=== PATIENT | female | born 1930 ===

== ENCOUNTER 2016-11-21 10:23 | Inpatient (IN) | payer MEDICAID, MEDICARE ==
[2016-11-21 10:24] VITALS: BMI 29.2
[2016-11-21 11:20] LABS: BASO % 0.9 % (0.0-2.0); HEMATOCRIT 36.6 % (34.0-47.0); LYMPH # 1.5 K/uL (1.0-4.3); LYMPH % 40.7 % (20.0-40.0); MEAN PLATELET VOLUME 9.7 fL (7.2-11.7); MONO # 0.4 K/uL (0.0-0.8); MONO % 10.8 % (0.0-10.0); NRBC % 0.2 % (0.0-2.0); RED CELL DISTRIBUTION WIDTH 16.1 % (11.5-14.5); WHITE BLOOD COUNT 3.6 K/uL (4.8-10.8)
[2016-11-21 11:23] LABS: MEAN CELL VOLUME 90.5 fL (81.0-99.0)
--- NOTE | 2016-11-21 11:23 | RAD ---
HISTORY: SOB COMPARISON: None available. TECHNIQUE: Chest, one view. FINDINGS: Examination limited by habitus. External wires and leads obscure evaluation of the underlying parenchyma. LUNGS: Mild central vascular and pulmonary venous congestion. Please note that chest x-ray has limited sensitivity for the detection of pulmonary masses. PLEURA: No significant pleural effusion identified. No definite pneumothorax . CARDIOVASCULAR: Cardiomegaly. Left-sided AICD. OSSEOUS STRUCTURES: Osseous demineralization. Degenerative. VISUALIZED UPPER ABDOMEN: Unremarkable. OTHER FINDINGS: None. IMPRESSION: Overall CHF type pattern. Cardiomegaly. Mild central vascular and pulmonary venous congestion. Correlate clinically.
[2016-11-21 11:40] LABS: ALB/GLOB RATIO 1.1 (1.0-2.1); TOTAL PROTEIN 6.8 g/dL (6.3-8.3)
[2016-11-21 11:41] LABS: CALCIUM 8.7 mg/dl (8.6-10.4)
[2016-11-21 11:48] LABS: RBC URINE 13 /hpf (0-3); URINE BILIRUBIN NEGATIVE (NEGATIVE); URINE BLOOD 2+ (NEGATIVE); URINE COLOR Straw (YELLOW); URINE GLUCOSE (UA) NORMAL (Normal); URINE KETONE NEGATIVE (NEGATIVE); URINE LEUKOCYTE ESTERASE TRACE Leu/uL (Negative); URINE PROTEIN NEGATIVE (NEGATIVE); URINE UROBILINOGEN NORMAL mg/dL (0.2-1.0); WBC URINE 1 /hpf (0-5)
[2016-11-21 11:51] LABS: TROPONIN I 0.016 ng/mL (0.00-0.120)
--- NOTE | 2016-11-21 12:20 | C.PDOC ---
History Of Present Illness A 86 year old female presents to the emergency room with complaints of increasing shortness of breath and an occasional productive cough for the last few days. Patient reports development of chest pressure this morning. Patient denies any nausea, vomiting, fever, headaches, dizziness, or any other complaints. Time Seen by Provider: 11/21/16 10:59 Chief Complaint (Nursing): Shortness Of Breath History Per: Patient History/Exam Limitations: no limitations Onset/Duration Of Symptoms: Days (Few days) Current Symptoms Are (Timing): Still Present Quality: Pressure Associated Symptoms: denies: Fever, Chills, Dizziness Recent travel outside of the [place]: No Past Medical History Reviewed: Historical Data, Nursing Documentation, Vital Signs Vital Signs: Last Vital Signs Temp 98.0 F 11/23/16 08:00 Pulse 72 11/23/16 08:00 Resp 20 11/23/16 08:00 BP 123/73 11/23/16 08:00 Pulse Ox 98 11/23/16 08:00 - Medical History PMH: HTN, Hypercholesterolemia, Pneumonia Surgical History: Cholecystectomy, Pacemaker - [facility] Procedures ESOPHAGOGASTRODUODENOSCOPY [EGD] W/CLOSED BIOPSY (12/20/12) Family History: States: No Known Family Hx - Social History Hx Alcohol Use: No Hx Substance Use: No Review Of Systems Constitutional: Negative for: Fever, Chills Cardiovascular: Positive for: Chest Pain (Chest pressure) Respiratory: Positive for: Cough (Productive cough), Shortness of Breath Gastrointestinal: Negative for: Nausea, Vomiting, Diarrhea Neurological: Negative for: Headache, Dizziness Physical Exam - Physical Exam Appears: Non-toxic, In Acute Distress (Mild respiratory distress) Skin: Warm, Dry, No Rash Head: Atraumatic, Normacephalic Eye(s): bilateral: Normal Inspection Nose: Normal, No Discharge Oral Mucosa: Moist Neck: Normal ROM, Supple Cardiovascular: Rhythm Regular, No Murmur Respiratory: Decreased Breath Sounds, No Rales, No Rhonchi, No Wheezing Gastrointestinal/Abdominal: Soft, No Tenderness, No Guarding, No Rebound Extremity: Normal ROM, No Tenderness, Pedal Edema (trace) Neurological/Psych: Oriented x3, Normal Speech ED Course And Treatment - Laboratory Results Result Diagrams: 11/23/16 08:12 11/23/16 08:12 ECG Rhythm: Sinus Rhythm, L BBB Rate From EC O2 Sat by Pulse Oximetry: 94 Pulse Ox Interpretation: Normal - Radiology CXR: Interpreted by Me, Viewed By Me CXR Interpretation: Yes: Cardiomegaly, Other (Mild vascular congestion) Medical Decision Making Medical Decision Making: Plan: -- EKG -- CXR -- Labs -- Lasix IV Pt feeling less SLOB, Pt with cp ans elevated Pbnp plan observation Discussed with dr Butterfield, and Agudelo agree with plan Disposition - Disposition Disposition: HOSPITALIZED Disposition Time: 13:05 Condition: FAIR - Clinical Impression Clinical Impression: Congestive heart failure, Chest pain - Scribe Statement The provider has reviewed the documentation as recorded by the Scribe Derek Miranda All medical record entries made by the Scribe were at my direction and personally dictated by me. I have reviewed the chart and agree that the record accurately reflects my personal performance of the history, physical exam, medical decision making, and the department course for this patient. I have also personally directed, reviewed, and agree with the discharge instructions and disposition.
--- NOTE | 2016-11-21 16:12 | CP.PCM.CON ---
<Celeste Marroquin - Last Filed: 11/21/16 17:16> History of Present Illness - History of Present Illness History of Present Illness: PGY-[address] 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 At baseline, pt sleeps sitting up straight and use O2 only when needed. Last night, she was dyspneic despite nebulizer treatment and O2. She has increase generalized weakness, cannot finish a full sentence, decided to come to the hospital. She experienced dyspnec chest pain on b/l ribs, no radiation, improved after neb treatment. Denies sudden weight gain, swelling abdomin/legs. She arranges and took all her meds. Eat healthy, no recent can food/high salt food. On ED admission: T 97.6, HR 70, 124/76, RR 20, 94% RA WBC 3.6 BUN 31/Cre 1.1 BNP 9940 Trop 0.016 EKG - NSR 72, LA enlarged, LBBB. QTc 494 CXR - cardiomegaly, vascular congestion ROS - denies F/C, COLLADO, dizziness, N/V/D/C, dysuria PMH Why pacemaker HTN HLD PNA PSH Cholecystecomy FH None SH Live with 2 sisters, ambulate without using any assistive device Home cooking Denies ever smoke/drink/drug All CODEINE Med Amlodipine 5 daily Losartan 100 PO daily Laxis 40 daily, Klor-Con 10 meq daily Lipitor 10 Fluticasone PMD ? Outpt Neurosurgical Nurse Past Patient History - Infectious Disease Hx of Infectious Diseases: None - Past Medical History & Family History Past Medical History?: Yes - Past Social History Smoking Status: Unknown If Ever Smoked - CARDIAC Hx Hypercholesterolemia: Yes Hx Hypertension: Yes Hx Pacemaker: Yes - PULMONARY Hx Pneumonia: Yes - NEUROLOGICAL Hx Neurological Disorder: No - HEENT Hx HEENT Problems: Yes Other/Comment: uses corrective eyeglasses - RENAL Hx Chronic Kidney Disease: No - ENDOCRINE/METABOLIC Hx Endocrine Disorders: Yes Hx Diabetes Mellitus Type 2: Yes - HEMATOLOGICAL/ONCOLOGICAL Hx Blood Disorders: No - INTEGUMENTARY Hx Dermatological Problems: No - MUSCULOSKELETAL/RHEUMATOLOGICAL Hx Musculoskeletal Disorders: No Hx Falls: No - GASTROINTESTINAL Hx Gastrointestinal Disorders: No - GENITOURINARY/GYNECOLOGICAL Hx Genitourinary Disorders: No - PSYCHIATRIC Hx Substance Use: No - SURGICAL HISTORY Hx Cholecystectomy: Yes - ANESTHESIA Hx Anesthesia: Yes Hx Anesthesia Reactions: No Hx Malignant Hyperthermia: No Meds Allergies/Adverse Reactions: Allergies Allergy/AdvReac Type Severity Reaction Status Date / Time codeine Allergy RASH Verified 11/21/16 10:32 - Medications Medications: Current Medications Carvedilol (Coreg) 3.125 mg PO BID [facility] Furosemide (Lasix) 40 mg IVP BID [facility] Heparin Sodium (Porcine) (Heparin) 5,000 units SC Q8 [facility] Losartan Potassium (Cozaar) 100 mg PO DAILY [facility] Pantoprazole Sodium (Protonix Ec Tab) 40 mg PO DAILY [facility] Potassium Chloride (Klor-Con 10) 10 meq PO DAILY [facility] Rosuvastatin Calcium (Crestor) 5 mg PO HS [facility] Physical Exam - Constitutional Appears: No Acute Distress - Head Exam Head Exam: ATRAUMATIC, NORMOCEPHALIC - Eye Exam Eye Exam: EOMI, Normal appearance, PERRL. absent: Scleral icterus Pupil Exam: NORMAL ACCOMODATION - ENT Exam ENT Exam: Mucous Membranes Moist - Neck Exam Additional comments: pounding JVD - Respiratory Exam Respiratory Exam: Rales. absent: Accessory Muscle Use, Rhonchi, Wheezes - Cardiovascular Exam Cardiovascular Exam: REGULAR RHYTHM, +S1, +S2. absent: Systolic Murmur - GI/Abdominal Exam GI & Abdominal Exam: Normal Bowel Sounds, Soft. absent: Distended, Guarding, Rigid, Tenderness - Extremities Exam Extremities exam: Positive for: normal capillary refill, pedal pulses present. Negative for: calf tenderness, pedal edema - Back Exam Back exam: absent: CVA tenderness (L), CVA tenderness (R) - Neurological Exam Neurological exam: Alert, Normal Gait, Oriented x3 - Psychiatric Exam Psychiatric exam: Normal Affect, Normal Mood - Skin Skin Exam: Dry, Warm Results - Vital Signs Recent Vital Signs: Last Vital Signs Temp 97.6 F 11/21/16 10:28 Pulse 72 11/21/16 14:27 Resp 24 11/21/16 14:27 BP 145/83 11/21/16 14:27 Pulse Ox 98 11/21/16 14:27 - Labs Result Diagrams: 11/21/16 11:16 11/21/16 11:16 Assessment & Plan - Assessment and Plan (Free Text) Plan: 86 F with PMHx of CHF on home O2, Cardiomyopathy s/p Pacemaker, admitted for SOB and CHF exacerbation Dypsnea, cardiogenic vs Pulm CHF exacerbation, left-sided, acute on chronic - echocardiogram pending - Lasix 40 IV BID - watch K - daily wt - i/o - O2 as needed - consider ABG Cardiomyopathy s/p Pacemaker - interrogate Thursday Prophylaxis - heparin SC S/R/D/w Dr. Butterfield - Date & Time Date: 11/21/16 Time: 17:13 <Trenton Butterfield - Last Filed: 11/21/16 21:34> Meds - Medications Medications: Current Medications Aspirin (Ecotrin) 81 mg PO DAILY [facility] [place] Last Admin: 11/21/16 19:36 Dose: Not Given Carvedilol (Coreg) 3.125 mg PO BID [facility] Last Admin: 11/21/16 18:18 Dose: 3.125 mg Furosemide (Lasix) 40 mg IVP BID [facility] [place] Last Admin: 11/21/16 18:18 Dose: 40 mg Heparin Sodium (Porcine) (Heparin) 5,000 units SC Q8 [facility] Last Admin: 11/21/16 15:00 Dose: Not Given Insulin Human Regular (Novolin R) 0 unit SC ACHS [facility] PRN Reason: Protocol Losartan Potassium (Cozaar) 100 mg PO DAILY [facility] Pantoprazole Sodium (Protonix Ec Tab) 40 mg PO DAILY [facility] Potassium Chloride (Klor-Con 10) 10 meq PO DAILY [facility] Rosuvastatin Calcium (Crestor) 5 mg PO HS [facility] Results - Vital Signs Recent Vital Signs: Last Vital Signs Temp 97.6 F 11/21/16 16:56 Pulse 70 11/21/16 16:56 Resp 20 11/21/16 16:56 BP 132/80 11/21/16 18:18 Pulse Ox 94 L 11/21/16 17:41 - Labs Result Diagrams: 11/21/16 11:16 11/21/16 11:16 Labs: Laboratory Results - last 24 hr 11/21/16 11/21/16 11/21/16 18:19 18:19 18:53 APTT 26 D-Dimer, Quantitative 665 H Total Creatine Kinase 66 CK-MB (Mass) 0.42 Troponin I, Quant 0.0160 Hepatitis A IgM Ab Negative Hep Bs Antigen Negative Hep B Core IgM Ab Negative Hepatitis C Antibody Negative Assessment & Plan - Assessment and Plan (Free Text) Plan: Patient examined and evaluated with the manager medical writing. Agree with the management plan
--- NOTE | 2016-11-21 17:01 | CP.PCM.HP ---
<Natan Serra - Last Filed: 11/21/16 18:18> History of Present Illness - History of Present Illness History of Present Illness: CC: "Shortness of breath, pain around stomach and back" HPI: Pt is an 86 year old female with a PMHx of HTN, prediabetes, CHF s/p pacemaker placement, and hypercholesterolemia who presents to the ED with complaints of shortness of breath for a duration of 2 days. Pt is accompanied by her 2 sisters at bedside. According to her sesites, the pt has not had much of an appeteite for the past 2 days as well, noting that she onily eats a little bit of soup. Pt also reports that she has midepigastric pain that is circumferential and wraps around to her back. Pt reports that her licensed audiologist is Dr. Butterfield. Pt denies any fever, chills, chest pain, shortness of breath, cough , nasuea, vomiting, diarrhea, constipation, dizziness. PMHx: HTN, prediabetes, CHF s/p pacemaker placement, and hypercholesterolemia Home medications: cozaar, lipitor, lasix, potassium Allergies: Codeine (vomiting) Past Surgical Hx: cholecystectomy, hysterectomy Social Hx: denies hx of tobacco, alcohol, drug use Family Hx: no significant family hx reported Present on Admission - Present on Admission Any Indicators Present on Admission: No Review of Systems - Constitutional Constitutional: absent: Chills, Fever - EENT Eyes: absent: Blurred Vision, Change in Vision Ears: absent: Disequilibrium Nose/Mouth/Throat: absent: Nasal Congestion - Cardiovascular Cardiovascular: Dyspnea. absent: Chest Pain, Leg Edema, Palpitations - Respiratory Respiratory: absent: Cough - Gastrointestinal Gastrointestinal: Abdominal Pain. absent: Constipation, Diarrhea, Nausea, Vomiting - Genitourinary Genitourinary: absent: Dysuria - Musculoskeletal Musculoskeletal: Back Pain. absent: Joint Swelling - Integumentary Integumentary: absent: Bleeding Lesions - Neurological Neurological: absent: Abnormal Hearing, Confusion, Dizziness - Psychiatric Psychiatric: absent: Anxiety - Hematologic/Lymphatic Hematologic: absent: Easy Bleeding, Easy Bruising Past Patient History - Infectious Disease Hx of Infectious Diseases: None - Past Medical History & Family History Past Medical History?: Yes - Past Social History Smoking Status: Unknown If Ever Smoked - CARDIAC Hx Hypercholesterolemia: Yes Hx Hypertension: Yes Hx Pacemaker: Yes - PULMONARY Hx Pneumonia: Yes - NEUROLOGICAL Hx Neurological Disorder: No - HEENT Hx HEENT Problems: Yes Other/Comment: uses corrective eyeglasses - RENAL Hx Chronic Kidney Disease: No - ENDOCRINE/METABOLIC Hx Endocrine Disorders: Yes Hx Diabetes Mellitus Type 2: Yes - HEMATOLOGICAL/ONCOLOGICAL Hx Blood Disorders: No - INTEGUMENTARY Hx Dermatological Problems: No - MUSCULOSKELETAL/RHEUMATOLOGICAL Hx Musculoskeletal Disorders: No Hx Falls: No - GASTROINTESTINAL Hx Gastrointestinal Disorders: No - GENITOURINARY/GYNECOLOGICAL Hx Genitourinary Disorders: No - PSYCHIATRIC Hx Substance Use: No - SURGICAL HISTORY Hx Cholecystectomy: Yes - ANESTHESIA Hx Anesthesia: Yes Hx Anesthesia Reactions: No Hx Malignant Hyperthermia: No Meds Allergies/Adverse Reactions: Allergies Allergy/AdvReac Type Severity Reaction Status Date / Time codeine Allergy RASH Verified 11/21/16 10:32 Physical Exam - Constitutional Appears: No Acute Distress - Head Exam Head Exam: ATRAUMATIC, NORMOCEPHALIC - Eye Exam Eye Exam: EOMI, PERRL - ENT Exam ENT Exam: Mucous Membranes Moist. absent: Mucous Membranes Dry - Respiratory Exam Respiratory Exam: Clear to Auscultation Bilateral. absent: Rales, Rhonchi, Wheezes - Cardiovascular Exam Cardiovascular Exam: +S1, +S2. absent: Gallop, Rubs - GI/Abdominal Exam GI & Abdominal Exam: Normal Bowel Sounds, Soft. absent: Distended, Guarding, Rigid, Tenderness - Extremities Exam Extremities exam: Positive for: full ROM. Negative for: pedal edema - Neurological Exam Neurological exam: Alert, Oriented x3 - Psychiatric Exam Psychiatric exam: Normal Affect, Normal Mood - Skin Skin Exam: Normal Color, Warm Results - Vital Signs Recent Vital Signs: Last Vital Signs Temp 97.6 F 11/21/16 16:56 Pulse 70 11/21/16 16:56 Resp 20 11/21/16 16:56 BP 120/70 11/21/16 16:56 Pulse Ox 100 11/21/16 16:56 - Labs Result Diagrams: 11/21/16 11:16 11/21/16 11:16 Assessment & Plan - Assessment and Plan (Free Text) Assessment: CHF Exacerbation: EKG - Left bundle branch block, old (please see full report) Troponins x 1 - 0.0160 Serial cardiac enzymes pending CXR - cardiomegaly, pulmonary venous congestion (please see full report) Pro-BNP - 9940 Cardiology, Dr Butterfield, consulted. Help appreciated. Coreg 3.125 mg po bid Lasix 40 mg IV bid Cozaar 100 mg po qd Crestor 5 mg po hs Echocardiogram pending D-dimer pending HTN: Coreg 3.125 mg po bid Lasix 40 mg IV bid Cozaar 100 mg po qd Diabetes Mellitus: Accuchecks achs HgbA1c pending Regular insulin sliding scale Hypercholesterolemia: Crestor 5 mg po hs Prophylactic Measures: DVT: Heparin 5000 units sc q8h, SCDs GI: Protonix 40 mg po qd Potassium chloride 10 meq po qd <Agudelo,Peter H - Last Filed: 11/22/16 08:23> Results - Vital Signs Recent Vital Signs: Last Vital Signs Temp 98.1 F 11/22/16 08:04 Pulse 70 11/22/16 08:04 Resp 18 11/22/16 08:04 BP 133/85 11/22/16 08:04 Pulse Ox 99 11/22/16 08:04 - Labs Result Diagrams: 11/22/16 07:10 11/22/16 07:10 Labs: Laboratory Results - last 24 hr 11/21/16 11/21/16 11/21/16 18:19 18:19 18:53 WBC RBC Hgb Hct MCV MCH MCHC RDW Plt Count MPV Neut % (Auto) Lymph % (Auto) [place] % (Auto) Eos % (Auto) Baso % (Auto) Neut # Lymph # [place] # Eos # Baso # APTT 26 D-Dimer, Quantitative 665 H Sodium Potassium Chloride Carbon Dioxide Anion Gap BUN Creatinine Est GFR ( Amer) Est GFR (Non-Af Amer) Random Glucose Calcium Total Creatine Kinase 66 CK-MB (Mass) 0.42 Troponin I, Quant 0.0160 Triglycerides Cholesterol HDL Cholesterol Hepatitis A IgM Ab Negative Hep Bs Antigen Negative Hep B Core IgM Ab Negative Hepatitis C Antibody Negative 11/22/16 11/22/16 11/22/16 01:03 07:10 07:10 WBC 4.2 L RBC 4.15 Hgb 12.3 Hct 37.0 MCV 89.3 MCH 29.6 MCHC 33.2 RDW 16.9 H Plt Count 143 MPV 9.6 Neut % (Auto) 49.6 L Lymph % (Auto) 39.0 [place] % (Auto) 9.4 Eos % (Auto) 1.4 Baso % (Auto) 0.6 Neut # 2.1 Lymph # 1.7 [place] # 0.4 Eos # 0.1 Baso # 0.0 APTT D-Dimer, Quantitative Sodium 140 Potassium 3.3 L Chloride 101 Carbon Dioxide 28 Anion Gap 14 BUN 35 H Creatinine 1.3 H Est GFR ( Amer) 47 Est GFR (Non-Af Amer) 39 Random Glucose 105 Calcium 8.4 L Total Creatine Kinase 66 CK-MB (Mass) 0.45 Troponin I, Quant 0.0230 Triglycerides 74 Cholesterol 124 HDL Cholesterol 45 Hepatitis A IgM Ab Hep Bs Antigen Hep B Core IgM Ab Hepatitis C Antibody Attending/Attestation - Attestation I have personally seen and examined this patient.: Yes I have fully participated in the care of the patient.: Yes I have reviewed all pertinent clinical information: Yes Notes (Text): 11/22/16 08:19 Medical attending: Patient was seen and examined by me, agree with the above note by medical office receptionist. The patient was seen in the emergency room with the medical office receptionist. We reviewed the chest x-ray she has very remarkable cardiomegaly. Also there appears to be at least moderate bilateral congestion in the lung jiang as well. Were to give her some IV Lasix to see how she responds to this. Also I do not see a previous echo done the last time she was formally admitted appears to be in 2014. So at this time an echo is pending We need to follow I's and O's, daily weights. We are continuing most medications An EKG was done in the ER suggested that the patient has a left bundle branch block we were able to pull up old EKG and it showed that she's had this left bundle branch block for several years. She also does have what appears to be ? Either and AICD or pacemaker. The patient's licensed audiologist is aware that she's here and will also be following the case as well Thank you very much, Bo Agudelo
[2016-11-21 18:52] LABS: PARTIAL THROMBOPLASTIN TIME 26 SECONDS (21-34)
[2016-11-21] MEDS: (Novolin R) Insulin Human Regular 100 units/ml vial SC SCH (22:00)
[2016-11-22 07:35] LABS: BASO % 0.6 % (0.0-2.0); EOS # 0.1 K/uL (0.0-0.7); EOS % 1.4 % (0.0-4.0); LYMPH # 1.7 K/uL (1.0-4.3); MEAN CELL VOLUME 89.3 fL (81.0-99.0); MEAN CORPUSCULAR HEMOGLOBIN 29.6 pg (27.0-31.0); MEAN CORPUSCULAR HGB CONC 33.2 g/dL (33.0-37.0); MEAN PLATELET VOLUME 9.6 fL (7.2-11.7); MONO # 0.4 K/uL (0.0-0.8); MONO % 9.4 % (0.0-10.0); NRBC % 0.2 % (0.0-2.0); RED CELL DISTRIBUTION WIDTH 16.9 % (11.5-14.5); WHITE BLOOD COUNT 4.2 K/uL (4.8-10.8)
[2016-11-22 07:46] LABS: POTASSIUM 3.3 mmol/L (3.6-5.2)
[2016-11-22 07:49] LABS: CALCIUM 8.4 mg/dl (8.6-10.4)
[2016-11-22] MEDS: (Novolin R) Insulin Human Regular 100 units/ml vial SC SCH ×3 (07:54→22:00)
[2016-11-22 08:39] LABS: THYROID STIMULATING HORMONE 0.6 mIU/L (0.46-4.68)
[2016-11-22] MEDS ORDERED: FLUTICASONE FUROATE 200 MCG IH SCH (10:00)
[2016-11-22] MEDS: Pantoprazole 40 mg EC Tab PO SCH (10:28)
[2016-11-22] MEDS: Potassium Chloride 10 mEq ER Tab PO SCH (10:28)
--- NOTE | 2016-11-22 10:48 | NM ---
EXAM: NM Lung Perfusion and Ventilation Scan CLINICAL HISTORY: 86 years old, female; Screening exam; Other screening; Additional info: Shortness of breath, R/O pe TECHNIQUE: Nuclear Medicine ventilation and perfusion images of the lungs were obtained in multiple projections following inhalation of 6.8 mCi Xenon-133 gas and injection of 4 mCi Tc99m MAA. EXAM DATE/TIME: 11/22/2016 8:58 AM COMPARISON: CR - CHEST TWO VIEWS (PA/LAT) 05/08/2015 1:54:21 AM FINDINGS: Ventilation: Mild symmetrical delayed washout in both lungs. No ventilation defect. Perfusion: Perfusion defects in apical posterior segment left upper lobe, lingula segments, anterior basal segment right lower lobe. Other findings: Chest x-ray from previous day shows cardiomegaly and pulmonary venous congestion. No consolidation. IMPRESSION: High probability for pulmonary embolism.
[2016-11-22] MEDS ORDERED: Heparin25000 units/250ml 1/2NS 25,000 UNITS/250 ML BAG IV PRN (10:59)
--- NOTE | 2016-11-22 11:48 | CP.PCM.PN ---
Subjective - Date & Time of Evaluation Date of Evaluation: 11/22/16 Time of Evaluation: 11:30 - Subjective Subjective: This morning I was notified that patient V/Q was very concerning for 2 areas that are high probability of PE. Patient was started on heparin bolus 5,000 U and then heparin ggt at 10 units to follow protocol to keep the PTT in the 70s to 90s. Family present and we all discussed. Cardiology notified and pulmonology notified. Plan is to get the renal function better and get a CTA. Holding the Cozzaar and holding the lasix at this time. She was NOT having chest pain and NOT tachycardic on personnel monitor. Patient reported she still felt short of breath. She does report some epigastric pain. The patient is able to ambulate in the room on her own from bed to bathroom without assistance. The BP 130 systolic and HR has been in the 70s. Will need repeat EKGs, (previous ones were LBBB which she has had for sometime) cardiac enzymes ok. Objective - Vital Signs/Intake and Output Vital Signs (last 24 hours): Temp Pulse Resp BP Pulse Ox 98.1 F 70 18 131/82 99 11/22/16 08:04 11/22/16 08:04 11/22/16 08:04 11/22/16 10:29 11/22/16 08:04 Intake and Output: 11/22/16 11/22/16 06:59 18:59 Intake Total 110 Balance 110 - Medications Medications: Current Medications Aspirin (Ecotrin) 81 mg PO DAILY [facility] Last Admin: 11/22/16 10:29 Dose: 81 mg Carvedilol (Coreg) 3.125 mg PO BID [facility] Last Admin: 11/22/16 10:29 Dose: 3.125 mg Furosemide (Lasix) 40 mg IVP BID [facility] Last Admin: 11/22/16 10:29 Dose: 40 mg Heparin Sodium/Sodium Chloride (Heparin 15994 Units/250ml 1/2 Normal Saline) 25 ,000 units in 250 mls @ 6.486 mls/hr IV .Q24H PRN; Protocol; 10 UNITS/KG/HR PRN Reason: PROTOCOL Insulin Human Regular (Novolin R) 0 unit SC ACHS [facility] PRN Reason: Protocol Last Admin: 11/22/16 07:54 Dose: Not Given Losartan Potassium (Cozaar) 100 mg PO DAILY [facility] Last Admin: 11/22/16 10:28 Dose: 100 mg Pantoprazole Sodium (Protonix Ec Tab) 40 mg PO DAILY [facility] Last Admin: 11/22/16 10:28 Dose: 40 mg Potassium Chloride (Klor-Con 10) 10 meq PO DAILY [facility] Last Admin: 11/22/16 10:28 Dose: 10 meq Rosuvastatin Calcium (Crestor) 5 mg PO HS [facility] Last Admin: 11/21/16 22:04 Dose: 5 mg - Labs Labs: 11/22/16 07:10 11/22/16 07:10 APTT 26 SECONDS (21-34) 11/21/16 18:19 - Constitutional Appears: Well, Non-toxic, No Acute Distress - Head Exam Head Exam: NORMAL INSPECTION, NORMOCEPHALIC - Eye Exam Eye Exam: EOMI, Normal appearance - Respiratory Exam Respiratory Exam: Decreased Breath Sounds, Rhonchi - Cardiovascular Exam Cardiovascular Exam: REGULAR RHYTHM - GI/Abdominal Exam GI & Abdominal Exam: Soft, Normal Bowel Sounds - Neurological Exam Neurological Exam: Alert, Awake, Oriented x3 Neuro motor strength exam: Left Upper Extremity: 5, Right Upper Extremity: 5, Left Lower Extremity: 5, Right Lower Extremity: 5 - Psychiatric Exam Psychiatric exam: Normal Affect, Normal Mood - Skin Skin Exam: Normal Color, Warm Assessment and Plan - Assessment and Plan (Free Text) Assessment: Shortness of breath - High probability of PE 11/22: V/Q scan returned suggesting high probability of PE. She does not have C/ P but does report shortness of breath and also epigatric area pain. She is able to walk in her room without assistance on her own. And HR and BP is stable. Pending echo, I started heparin bolus 5,000 x 1 and then heparin ggt. Our goal is a PTT in the 70s to 90s. Her cardiac ezymes are negative. I discussed with her risk and insurance consultant and will get pulmonology evaluation. Her creatine is high so will stop lasix and also stop cozaar, if better tommorow I explained to family will get CTA. Ordered a lower extremity doppler to assess for DVT CHF Exacerbation: 11/22: Patient has a history of AICD/Pacer, pending interrogation of device Cardiac enzymes have been negative. Echo was done, pending read. A BNP is high however this maybe from a PE as mentoned abouve Holding the Lasix and Cozzar at this time EKG - Left bundle branch block, old (please see full report) Coreg 3.125 mg po bid Crestor 5 mg po hs Echocardiogram pending HTN: 11/22 Stable, Systolic in the 130s Coreg 3.125 mg po bid Lasix 40 mg IV bid Cozaar 100 mg po qd Diabetes Mellitus: Accuchecks achs HgbA1c pending Regular insulin sliding scale Hypercholesterolemia: Crestor 5 mg po hs Prophylactic Measures: DVT: Heparin 5000 units sc q8h, SCDs GI: Protonix 40 mg po qd Potassium chloride 10 meq po qd
--- NOTE | 2016-11-22 12:50 | CP.PCM.CON ---
History of Present Illness - History of Present Illness History of Present Illness: Reason for consultation: High probability VQ scan 86 year old female with a PMHx of HTN, CHF s/p pacemaker placement, and hypercholesterolemia who presented to the ED with complaints of shortness of breath for a duration of 2 days. VQ scan done showed high probability for pulmonary embolism. Pt also reports that she has midepigastric pain that is circumferential and wraps around to her back. Pt denies any fever, chills, chest pain, shortness of breath, cough, nasuea, vomiting, diarrhea, constipation , dizziness. PMHx: HTN, prediabetes, CHF s/p pacemaker placement, and hypercholesterolemia Home medications: cozaar, lipitor, lasix, potassium Allergies: Codeine (vomiting) Past Surgical Hx: cholecystectomy, hysterectomy Social Hx: denies hx of tobacco, alcohol, drug use Family Hx: no significant family hx reported Review of Systems - Review of Systems All systems: reviewed and no additional remarkable complaints except (Shortness of breath and abdominal pain) Past Patient History - Infectious Disease Hx of Infectious Diseases: None - Past Medical History & Family History Past Medical History?: Yes - Past Social History Smoking Status: Unknown If Ever Smoked - CARDIAC Hx Hypercholesterolemia: Yes Hx Hypertension: Yes - PULMONARY Hx Pneumonia: Yes - NEUROLOGICAL Hx Neurological Disorder: No - HEENT Hx HEENT Problems: Yes Other/Comment: uses corrective eyeglasses - RENAL Hx Chronic Kidney Disease: No - ENDOCRINE/METABOLIC Hx Diabetes Mellitus Type 2: Yes - HEMATOLOGICAL/ONCOLOGICAL Hx Blood Disorders: No - INTEGUMENTARY Hx Dermatological Problems: No - MUSCULOSKELETAL/RHEUMATOLOGICAL Hx Musculoskeletal Disorders: No Hx Falls: No - GASTROINTESTINAL Hx Gastrointestinal Disorders: No - GENITOURINARY/GYNECOLOGICAL Hx Genitourinary Disorders: No - PSYCHIATRIC Hx Substance Use: No - SURGICAL HISTORY Hx Cholecystectomy: Yes - ANESTHESIA Hx Anesthesia: Yes Hx Anesthesia Reactions: No Hx Malignant Hyperthermia: No Meds Allergies/Adverse Reactions: Allergies Allergy/AdvReac Type Severity Reaction Status Date / Time codeine Allergy RASH Verified 11/21/16 10:32 - Medications Medications: Current Medications Aspirin (Ecotrin) 81 mg PO DAILY [facility] Last Admin: 11/22/16 10:29 Dose: 81 mg Carvedilol (Coreg) 3.125 mg PO BID [facility] Last Admin: 11/22/16 10:29 Dose: 3.125 mg Furosemide (Lasix) 40 mg IVP BID [facility] Last Admin: 11/22/16 10:29 Dose: 40 mg Heparin Sodium/Sodium Chloride (Heparin 53888 Units/250ml 1/2 Normal Saline) 25 ,000 units in 250 mls @ 6.486 mls/hr IV .Q24H PRN; Protocol; 10 UNITS/KG/HR PRN Reason: PROTOCOL Last Admin: 11/22/16 12:13 Dose: 10 units/kg/hr, 6.486 mls/hr Insulin Human Regular (Novolin R) 0 unit SC ACHS [facility] PRN Reason: Protocol Last Admin: 11/22/16 07:54 Dose: Not Given Losartan Potassium (Cozaar) 100 mg PO DAILY [facility] Last Admin: 11/22/16 10:28 Dose: 100 mg Pantoprazole Sodium (Protonix Ec Tab) 40 mg PO DAILY [facility] Last Admin: 11/22/16 10:28 Dose: 40 mg Potassium Chloride (Klor-Con 10) 10 meq PO DAILY [facility] Last Admin: 11/22/16 10:28 Dose: 10 meq Rosuvastatin Calcium (Crestor) 5 mg PO HS [facility] Last Admin: 11/21/16 22:04 Dose: 5 mg Physical Exam - Head Exam Head Exam: ATRAUMATIC, NORMOCEPHALIC - Eye Exam Eye Exam: Normal appearance - ENT Exam ENT Exam: Mucous Membranes Moist - Neck Exam Neck exam: Positive for: Normal Inspection - Respiratory Exam Respiratory Exam: Clear to Auscultation Bilateral - Cardiovascular Exam Cardiovascular Exam: Irregular Rhythm - GI/Abdominal Exam GI & Abdominal Exam: Normal Bowel Sounds, Soft - Extremities Exam Extremities exam: Positive for: normal inspection - Neurological Exam Neurological exam: Alert, Oriented x3 Results - Vital Signs Recent Vital Signs: Last Vital Signs Temp 98.1 F 11/22/16 08:04 Pulse 70 11/22/16 08:04 Resp 18 11/22/16 08:04 BP 131/82 11/22/16 10:29 Pulse Ox 99 11/22/16 08:04 - Labs Result Diagrams: 11/22/16 07:10 11/22/16 07:10 Labs: Laboratory Results - last 24 hr 11/21/16 11/21/16 11/21/16 18:19 18:19 18:53 WBC RBC Hgb Hct MCV MCH MCHC RDW Plt Count MPV Neut % (Auto) Lymph % (Auto) [place] % (Auto) Eos % (Auto) Baso % (Auto) Neut # Lymph # [place] # Eos # Baso # APTT 26 D-Dimer, Quantitative 665 H Sodium Potassium Chloride Carbon Dioxide Anion Gap BUN Creatinine Est GFR ( Amer) Est GFR (Non-Af Amer) Random Glucose Calcium Total Creatine Kinase 66 CK-MB (Mass) 0.42 Troponin I, Quant 0.0160 Triglycerides Cholesterol LDL Cholesterol Direct HDL Cholesterol TSH 3rd Generation Hepatitis A IgM Ab Negative Hep Bs Antigen Negative Hep B Core IgM Ab Negative Hepatitis C Antibody Negative 11/22/16 11/22/16 11/22/16 01:03 07:10 07:10 WBC 4.2 L RBC 4.15 Hgb 12.3 Hct 37.0 MCV 89.3 MCH 29.6 MCHC 33.2 RDW 16.9 H Plt Count 143 MPV 9.6 Neut % (Auto) 49.6 L Lymph % (Auto) 39.0 [place]ois % (Auto) 9.4 Eos % (Auto) 1.4 Baso % (Auto) 0.6 Neut # 2.1 Lymph # 1.7 [place]ois # 0.4 Eos # 0.1 Baso # 0.0 APTT D-Dimer, Quantitative Sodium 140 Potassium 3.3 L Chloride 101 Carbon Dioxide 28 Anion Gap 14 BUN 35 H Creatinine 1.3 H Est GFR ( Amer) 47 Est GFR (Non-Af Amer) 39 Random Glucose 105 Calcium 8.4 L Total Creatine Kinase 66 CK-MB (Mass) 0.45 Troponin I, Quant 0.0230 Triglycerides 74 Cholesterol 124 LDL Cholesterol Direct 56 HDL Cholesterol 45 TSH 3rd Generation 0.60 Hepatitis A IgM Ab Hep Bs Antigen Hep B Core IgM Ab Hepatitis C Antibody Assessment & Plan (1) Congestive heart failure Status: Acute Comment: VQ scan high probability for pulmonary embolism. Unable to do a CT angiogram because of her elevated creatinine level. Started on IV heparin. hold Lasix and Cozaar. Venous Doppler negative for DVT. Echocardiogram noted (2) Pneumonia Status: Acute
[2016-11-22] MEDS: Heparin25000 units/250ml 1/2NS 25,000 UNITS/250 ML BAG IV PRN (22:04)
--- NOTE | 2016-11-22 22:48 | CP.PCM.PN ---
Subjective - Date & Time of Evaluation Date of Evaluation: 11/22/16 Time of Evaluation: 14:30 - Subjective Subjective: Patient seen and evaluated Events noted Physical Exam - Constitutional Appears: No Acute Distress - Head Exam Head Exam: ATRAUMATIC, NORMOCEPHALIC - Eye Exam Eye Exam: EOMI, Normal appearance, PERRL. absent: Scleral icterus Pupil Exam: NORMAL ACCOMODATION - ENT Exam ENT Exam: Mucous Membranes Moist - Neck Exam Additional comments: pounding JVD - Respiratory Exam Respiratory Exam: Rales. absent: Accessory Muscle Use, Rhonchi, Wheezes - Cardiovascular Exam Cardiovascular Exam: REGULAR RHYTHM, +S1, +S2. absent: Systolic Murmur - GI/Abdominal Exam GI & Abdominal Exam: Normal Bowel Sounds, Soft. absent: Distended, Guarding, Rigid, Tenderness - Extremities Exam Extremities exam: Positive for: normal capillary refill, pedal pulses present. Negative for: calf tenderness, pedal edema - Back Exam Back exam: absent: CVA tenderness (L), CVA tenderness (R) - Neurological Exam Neurological exam: Alert, Normal Gait, Oriented x3 - Psychiatric Exam Psychiatric exam: Normal Affect, Normal Mood - Skin Skin Exam: Dry, Warm Objective - Vital Signs/Intake and Output Vital Signs (last 24 hours): Temp Pulse Resp BP Pulse Ox 98.4 F 70 20 109/69 100 11/22/16 15:26 11/22/16 15:26 11/22/16 15:26 11/22/16 15:26 11/22/16 15:26 - Medications Medications: Current Medications Aspirin (Ecotrin) [address] [facility] Last Admin: 11/22/16 10:29 Dose: 81 mg Carvedilol (Coreg) 3.[address] [facility] Last Admin: 11/22/16 21:37 Dose: 3.125 mg Furosemide (Lasix) [address] [facility] Last Admin: 11/22/16 10:29 Dose: 40 mg Heparin Sodium/Sodium Chloride (Heparin 85708 Units/250ml 1/2 Normal Saline) 25 ,000 units in 250 mls @ 4.54 mls/hr IV .Q24H PRN; Protocol; 7 UNITS/KG/HR PRN Reason: PROTOCOL Last Admin: 11/22/16 22:04 Dose: 7 units/kg/hr, 4.54 mls/hr Insulin Human Regular (Novolin R) [address] [facility] PRN Reason: Protocol Last Admin: 11/22/16 17:00 Dose: Not Given Losartan Potassium (Cozaar) [address] [facility] Last Admin: 11/22/16 10:28 Dose: 100 mg Pantoprazole Sodium (Protonix Ec Tab) [address] [facility] Last Admin: 11/22/16 10:28 Dose: 40 mg Potassium Chloride (Klor-Con 10) [address] [facility] Last Admin: 11/22/16 10:28 Dose: 10 meq Rosuvastatin Calcium (Crestor) [address] [facility] Last Admin: 11/22/16 21:36 Dose: 5 mg - Labs Labs: APTT 146 SECONDS (21-34) H* D 11/22/16 20:00 Assessment and Plan - Assessment and Plan (Free Text) Assessment: 86 F with PMHx of CHF on home O2, Cardiomyopathy s/p Pacemaker, admitted for SOB and CHF exacerbation Dypsnea, CHF exacerbation, left-sided, acute on chronic - echocardiogram: Normal EF, Pulmonary HTN - Lasix 40 IV BID on hold - watch K - daily wt - i/o - O2 as needed - consider ABG Cardiomyopathy s/p Pacemaker - interrogate Thursday Pulmonary Embolism - heparin IV
[2016-11-23] MEDS: (Novolin R) Insulin Human Regular 100 units/ml vial SC SCH ×3 (08:16→22:00)
[2016-11-23 08:28] LABS: BASO % 0.5 % (0.0-2.0); EOS # 0.1 K/uL (0.0-0.7); EOS % 1.7 % (0.0-4.0); HEMATOCRIT 40.1 % (34.0-47.0); MEAN CELL VOLUME 89.4 fL (81.0-99.0); MEAN CORPUSCULAR HEMOGLOBIN 28.9 pg (27.0-31.0); MEAN CORPUSCULAR HGB CONC 32.3 g/dL (33.0-37.0); MEAN PLATELET VOLUME 9.8 fL (7.2-11.7); MONO # 0.4 K/uL (0.0-0.8); MONO % 10.6 % (0.0-10.0); NRBC % 0.1 % (0.0-2.0); RED CELL DISTRIBUTION WIDTH 16.4 % (11.5-14.5); WHITE BLOOD COUNT 4.1 K/uL (4.8-10.8)
[2016-11-23 08:49] LABS: POTASSIUM 3.3 mmol/L (3.6-5.2)
[2016-11-23 08:51] LABS: BILIRUBIN,TOTAL 2.5 mg/dL (0.2-1.3); TOTAL PROTEIN 6.9 g/dL (6.3-8.3)
[2016-11-23 08:52] LABS: CALCIUM 8.3 mg/dl (8.6-10.4); PHOSPHOROUS 3.7 mg/dL (2.5-4.5)
--- NOTE | 2016-11-23 09:19 | CP.PCM.PN ---
Subjective - Date & Time of Evaluation Date of Evaluation: 11/23/16 Time of Evaluation: 09:00 - Subjective Subjective: Renal function looks better, will order CTA of chest with PE protocol. I saw her this morning, she looks fine. In my basic [place]ic she was able to explain that she did NOT have chest pain, did NOT have shortness of breath, and did NOT have the epigastric pain like she did yesterday. Also she denied palpitations as well. Telemetry her HR was in 70 range. Currently on IV heparin ggt. As mentioned before she came with CHF and then had a V/Q scan that was positive. We are trying to get a CTA. The lower extremity dopplers were negative. Objective - Vital Signs/Intake and Output Vital Signs (last 24 hours): Temp Pulse Resp BP Pulse Ox 98.1 F 70 20 124/79 100 11/22/16 23:05 11/22/16 23:05 11/22/16 23:05 11/22/16 23:05 11/22/16 23:05 Intake and Output: 11/23/16 11/23/16 06:59 18:59 Intake Total 136 Output Total 400 Balance -264 - Medications Medications: Current Medications Aspirin (Ecotrin) 81 mg PO DAILY [facility] Last Admin: 11/22/16 10:29 Dose: 81 mg Carvedilol (Coreg) 3.125 mg PO BID [facility] Last Admin: 11/22/16 21:37 Dose: 3.125 mg Furosemide (Lasix) 40 mg IVP BID [facility] Last Admin: 11/22/16 10:29 Dose: 40 mg Heparin Sodium/Sodium Chloride (Heparin 26971 Units/250ml 1/2 Normal Saline) 25 ,000 units in 250 mls @ 4.54 mls/hr IV .Q24H PRN; Protocol; 7 UNITS/KG/HR PRN Reason: PROTOCOL Last Admin: 11/22/16 22:04 Dose: 7 units/kg/hr, 4.54 mls/hr Insulin Human Regular (Novolin R) 0 unit SC ACHS [facility] PRN Reason: Protocol Last Admin: 11/23/16 08:16 Dose: Not Given Losartan Potassium (Cozaar) 100 mg PO DAILY [facility] Last Admin: 11/22/16 10:28 Dose: 100 mg Pantoprazole Sodium (Protonix Ec Tab) 40 mg PO DAILY [facility] Last Admin: 11/22/16 10:28 Dose: 40 mg Potassium Chloride (Klor-Con 10) 10 meq PO DAILY [facility] Last Admin: 11/22/16 10:28 Dose: 10 meq Rosuvastatin Calcium (Crestor) 5 mg PO HS [facility] Last Admin: 11/22/16 21:36 Dose: 5 mg - Labs Labs: 11/23/16 08:12 11/23/16 08:12 APTT 61 SECONDS (21-34) H D 11/23/16 04:00 Assessment and Plan - Assessment and Plan (Free Text) Assessment: Shortness of breath - High probability of PE 11/23: Today renal function is better, so will check CTA. She is continue on heparin ggt at this time. She appears to be stable HR and blood pressure. I had a very long extended discussion with family yesterday at bedside. 11/22: V/Q scan returned suggesting high probability of PE. She does not have C/ P but does report shortness of breath and also epigatric area pain. She is able to walk in her room without assistance on her own. And HR and BP is stable. Pending echo, I started heparin bolus 5,000 x 1 and then heparin ggt. Our goal is a PTT in the 70s to 90s. Her cardiac ezymes are negative. 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 Her creatine is high so will stop lasix and also stop cozaar, if better tommorow I explained to family will get CTA. Ordered a lower extremity doppler to assess for DVT CHF Exacerbation: 11/23: Today she was not short of breath. 11/22: Patient has a history of AICD/Pacer, pending interrogation of device Cardiac enzymes have been negative. Echo was done, pending read. A BNP is high however this maybe from a PE as mentoned abouve Holding the Lasix and Cozzar at this time EKG - Left bundle branch block, old (please see full report) Coreg 3.125 mg po bid Crestor 5 mg po hs Echocardiogram pending HTN: 11/23: Continue to monitor 11/22 Stable, Systolic in the 130s Coreg 3.125 mg po bid Lasix 40 mg IV bid Cozaar 100 mg po qd Diabetes Mellitus: Accuchecks achs HgbA1c pending Regular insulin sliding scale Hypercholesterolemia: Crestor 5 mg po hs Prophylactic Measures: DVT: Heparin 5000 units sc q8h, SCDs GI: Protonix 40 mg po qd Potassium chloride 10 meq po qd
[2016-11-23] MEDS: Pantoprazole 40 mg EC Tab PO SCH (09:54)
[2016-11-23] MEDS: Potassium Chloride 10 mEq ER Tab PO SCH (09:54)
[2016-11-23] MEDS ORDERED: Iodixanol 320 MG/ML 100 ML BOTTLE IV ONE (10:21)
--- NOTE | 2016-11-23 13:24 | CT ---
CT chest pulmonary angiogram History: Positive V/Q scan. Shortness of breath. Evaluate for pulmonary embolism. Comparison: V/Q scan dated 11/22/2016 Technique: Multiple contiguous axial images were performed through the chest with the use of intravenous contrast according to a CT chest pulmonary angiogram protocol. Subsequently, sagittal and coronal reformatted images were obtained. This CT exam was performed using one or more of the following dose reduction techniques: Automated exposure control, adjustment of the mA and/or kV according to patient size, and/or use of iterative reconstruction technique. Findings: Right lung: Few scattered ground-glass opacities throughout the right lung which may represent underlying acute infectious or inflammatory changes. Posttreatment followup would be helpful to exclude underlying nodules and or lesions. For example at the right lung apex a 6 millimeter ground-glass opacity on series 4, image 19 is noted. Additional 4 millimeter density is noted within the right middle lobe anteriorly at its superior aspect. Small right pleural effusion. Adjacent right basilar atelectasis. Left lung: Multiple focal nodular areas of ground-glass opacification throughout the left lung some of which have a more consolidative nodular appearance. This may be the sequela of acute infectious and or inflammatory changes however underlying pulmonary nodules and or lesions can't be excluded. Clinical correlation. For example at the left lung apex on series 4, image 16 an 8 millimeter nodular density is noted. Multiple innumerable similar lesions are noted throughout the lung. For example on series 4, image 24 within the left upper lobe anteriorly additional 7 millimeter nodular density is noted. More consolidative opacification measuring up to a centimeters noted within the lingula. Trace left pleural effusion. Prominent focal consolidative changes noted within the posterior aspect of the left lower lobe near the fissure. Additional 2.3 centimeter focal area consolidative changes noted within the posterior superior segment of the left lower lobe. Trachea thru central airways are patent. Moderate pericardial effusion. No significant axillary adenopathy. Heterogeneity of the thyroid. Mild prominence of the visualized aorta with calcification. Few shotty pre-vascular lymph nodes measuring up to 1.3 centimeters. Nodularity of the adrenal glands. Small hiatal hernia. Degenerative changes in the spine. Evaluation for pulmonary embolus is limited given prominent patient motion artifact. No evidence central pulmonary embolism. Question filling defect in a subsegmental branch of the right lower lobe pulmonary artery on series 2, image 112 which may represent a small pulmonary embolism versus artifact. Additional small questionable filling defect seen within a subsegmental branch of the left lower lobe pulmonary artery on series 2, image 11 may also represent small embolism versus artifact. Clinical correlation. Impression: 1. Evaluation for pulmonary embolus is limited given prominent patient motion artifact. No evidence central pulmonary embolism. Question filling defect in a subsegmental branch of the right lower lobe pulmonary artery on series 2, image 112 which may represent a small pulmonary embolism versus artifact. Additional small questionable filling defect seen within a subsegmental branch of the left lower lobe pulmonary artery on series 2, image 11 may also represent small embolism versus artifact. Clinical correlation. Repeat study may be helpful if clinically indicated given prominent patient motion artifact. 2. Right lung: Few scattered ground-glass opacities throughout the right lung which may represent underlying acute infectious or inflammatory changes. Posttreatment followup would be helpful to exclude underlying nodules and or lesions. For example at the right lung apex a 6 millimeter ground-glass opacity on series 4, image 19 is noted. Additional 4 millimeter density is noted within the right middle lobe anteriorly at its superior aspect. Small right pleural effusion. Adjacent right basilar atelectasis. 3. Left lung: Multiple focal nodular areas of ground-glass opacification throughout the left lung some of which have a more consolidative nodular appearance. This may be the sequela of acute infectious and or inflammatory changes however underlying pulmonary nodules and or lesions can't be excluded. Clinical correlation. For example at the left lung apex on series 4, image 16 an 8 millimeter nodular density is noted. Multiple innumerable similar lesions are noted throughout the lung. For example on series 4, image 24 within the left upper lobe anteriorly additional 7 millimeter nodular density is noted. More consolidative opacification measuring up to a centimeters noted within the lingula. Trace left pleural effusion. Prominent focal consolidative changes noted within the posterior aspect of the left lower lobe near the fissure. Additional 2.3 centimeter focal area consolidative changes noted within the posterior superior segment of the left lower lobe. 4. Moderate pericardial effusion. 5. Few shotty pre-vascular lymph nodes measuring up to 1.3 centimeters.
[2016-11-23] MEDS: Heparin25000 units/250ml 1/2NS 25,000 UNITS/250 ML BAG IV PRN (17:01)
--- NOTE | 2016-11-23 17:58 | CARD ---
APPROVED REPORT EXAM: Two-dimensional and M-mode echocardiogram with Doppler and color Doppler. Other Information Quality : GoodRhythm : NSR INDICATION Dyspnea Congestive Heart Failure COPD M-Mode DIMENSIONS RVDd1.64 (2.1-3.2cm)Left Atrium (MM)4.84 (2.5-4.0cm) IVSd0.86 (0.7-1.1cm)Aortic Root2.46 (2.2-3.7cm) LVDd5.58 (4.0-5.6cm)Aortic Cusp Exc.1.60 (1.5-2.0cm) PWd2.07 (0.7-1.1cm)FS (%) 16 % LVDs4.69 (2.0-3.8cm)LVEF (%)33 (>50%) Aortic Valve AoV Peak Uqtaqoqc096.9cm/Leny Peak GR.5mmHgAI P 1/2 [id number] Mitral Valve MV E Rwtwigms457.6cm/sMV A Tvasjoph25.3cm/sE/A ratio2.0 TDI E/Lateral E'0.0E/Medial E'0.0 Tricuspid Valve TR Peak [id number]/sTR Peak Gr.[id number] LEFT VENTRICLE The left ventricle is normal size. There is moderate asymmetric left ventricular hypertrophy. Left ventricle systolic function is severely impaired. The Ejection Fraction is 25-30%. No regional wall motion abnormalities noted. Tissue Doppler imaging reveals abnormal left ventricular diastolic dysfunction. No left ventricle thrombus noted on this study. There is no ventricular septal defect visualized. There is no left ventricular aneurysm. There is no mass noted in the left ventricle. RIGHT VENTRICLE The right ventricle is normal size. There is normal right ventricular wall thickness. The right ventricular systolic function is normal. There is a pacemaker lead in the right ventricle. ATRIA The left atrium is moderately dilated. The right atrium size is normal. The interatrial septum is intact with no evidence for an atrial septal defect. AORTIC VALVE The aortic valve is normal in structure and function. There is moderate aortic regurgitation. There is no aortic valvular stenosis. There is no aortic valvular vegetation. MITRAL VALVE The mitral valve is normal in structure and function. There is no evidence of mitral valve prolapse. There is no mitral valve stenosis. Mitral regurgitation is severe. TRICUSPID VALVE The tricuspid valve is normal in structure and function. There is severe tricuspid regurgitation. Right ventricular systolic pressure is estimated at greater than 60 mmHg. There is severe pulmonary hypertension. There is no tricuspid valve prolapse or vegetation. There is no tricuspid valve stenosis. PULMONIC VALVE The pulmonary valve is normal in structure and function. There is no pulmonic valvular regurgitation. There is no pulmonic valvular stenosis. GREAT VESSELS The aortic root is normal in size. The ascending aorta is normal in size. The pulmonary artery is normal. The IVC is normal in size and collapses >50% with inspiration. PERICARDIAL EFFUSION There is a trace loculated posterior pericardial effusion. There is no pleural effusion. <Conclusion> There is moderate asymmetric left ventricular hypertrophy. Left ventricle systolic function is severely impaired. The Ejection Fraction is 25-30%. Tissue Doppler imaging reveals abnormal left ventricular diastolic dysfunction. There is a pacemaker lead in the right ventricle. The left atrium is moderately dilated. There is moderate aortic regurgitation. Mitral regurgitation is severe. Right ventricular systolic pressure is estimated at greater than 60 mmHg. There is severe pulmonary hypertension. There is a trace loculated posterior pericardial effusion.
--- NOTE | 2016-11-23 23:57 | CP.PCM.PN ---
Subjective - Date & Time of Evaluation Date of Evaluation: 11/23/16 Time of Evaluation: 13:05 - Subjective Subjective: Patient seen and evaluated Feeling better Objective - Vital Signs/Intake and Output Vital Signs (last 24 hours): Temp Pulse Resp BP Pulse Ox 97.9 F 69 20 114/71 98 11/23/16 16:56 11/23/16 16:56 11/23/16 16:56 11/23/16 16:56 11/23/16 16:56 Intake and Output: 11/23/16 11/24/16 18:59 06:59 Intake Total 250 Balance 250 - Medications Medications: Current Medications Aspirin (Ecotrin) 81 mg PO DAILY [facility] Last Admin: 11/23/16 09:53 Dose: 81 mg Carvedilol (Coreg) 3.125 mg PO BID [facility] Last Admin: 11/23/16 22:40 Dose: 3.125 mg Furosemide (Lasix) 40 mg IVP BID [facility] Last Admin: 11/22/16 10:29 Dose: 40 mg Heparin Sodium/Sodium Chloride (Heparin 87415 Units/250ml 1/2 Normal Saline) 25 ,000 units in 250 mls @ 4.54 mls/hr IV .Q24H PRN; Protocol; 7 UNITS/KG/HR PRN Reason: PROTOCOL Last Admin: 11/23/16 17:01 Dose: 7 units/kg/hr, 4.54 mls/hr Insulin Human Regular (Novolin R) 0 unit SC ACHS [facility] PRN Reason: Protocol Last Admin: 11/23/16 17:41 Dose: Not Given Losartan Potassium (Cozaar) 100 mg PO DAILY [facility] Last Admin: 11/22/16 10:28 Dose: 100 mg Pantoprazole Sodium (Protonix Ec Tab) 40 mg PO DAILY [facility] Last Admin: 11/23/16 09:54 Dose: 40 mg Potassium Chloride (Klor-Con 10) 10 meq PO DAILY [facility] Last Admin: 11/23/16 09:54 Dose: 10 meq Rosuvastatin Calcium (Crestor) 5 mg PO HS [facility] Last Admin: 11/23/16 22:42 Dose: 5 mg - Labs Labs: 11/23/16 08:12 11/23/16 08:12 APTT 59 SECONDS (21-34) H 11/23/16 11:23
[2016-11-24] MEDS: (Novolin R) Insulin Human Regular 100 units/ml vial SC SCH ×4 (07:30→22:00)
[2016-11-24 07:36] LABS: BASO % 0.8 % (0.0-2.0); EOS # 0.1 K/uL (0.0-0.7); EOS % 2.7 % (0.0-4.0); HEMATOCRIT 37.4 % (34.0-47.0); LYMPH # 1.8 K/uL (1.0-4.3); LYMPH % 58.2 % (20.0-40.0); MEAN CELL VOLUME 89.3 fL (81.0-99.0); MEAN CORPUSCULAR HEMOGLOBIN 29.5 pg (27.0-31.0); MEAN PLATELET VOLUME 9.2 fL (7.2-11.7); MONO # 0.3 K/uL (0.0-0.8); MONO % 10.6 % (0.0-10.0); NRBC % 0.2 % (0.0-2.0); RED CELL DISTRIBUTION WIDTH 16.3 % (11.5-14.5); WHITE BLOOD COUNT 3.1 K/uL (4.8-10.8)
[2016-11-24 07:38] LABS: CHLORIDE 102 mmol/L (98-107); POTASSIUM 3.4 mmol/L (3.6-5.2); SODIUM 139 mmol/L (132-148)
[2016-11-24 07:40] LABS: AST/SGOT 27 U/L (14-36); BILIRUBIN,TOTAL 1.4 mg/dL (0.2-1.3); CARBON DIOXIDE 29 mmol/L (22-30); GFR AFRICAN-AMERICAN > 60; TOTAL PROTEIN 6.4 g/dL (6.3-8.3)
[2016-11-24 07:41] LABS: ALKALINE PHOSPHATASE 75 U/L (38-126); ALT/SGPT 27 U/L (9-52); BLOOD UREA NITROGEN 28 mg/dL (7-17); CALCIUM 8.3 mg/dl (8.6-10.4); GLUCOSE,RANDOM 108 mg/dL (65-105); MAGNESIUM 2.1 mg/dL (1.6-2.3); PHOSPHOROUS 3.5 mg/dL (2.5-4.5)
[2016-11-24] MEDS ORDERED: Potassium Chloride 20 mEq ER Tab PO ONE ×2 (09:06→10:30)
[2016-11-24] MEDS: Pantoprazole 40 mg EC Tab PO SCH (10:09)
[2016-11-24] MEDS: Potassium Chloride 10 mEq ER Tab PO SCH (10:09)
--- NOTE | 2016-11-24 10:58 | VASCLAB ---
PROCEDURE: Lower Extremity Venous Duplex Exam. HISTORY: +VQ PRIORS: None. TECHNIQUE: Bilateral common femoral, femoral, popliteal and posterior tibial, peroneal and great saphenous veins were evaluated. Flow was assessed with color Doppler, compressibility, assessment of phasic flow and augmentation response. Report prepared by Rocco Meza, JEAN CLAUDE, RVT FINDINGS: RIGHT: 1. Common Femoral Vein: 1.1. Compressibility - Fully compressible: Thrombus - None : Flow - Phasic: Augmentation -Normal: Reflux - None. 2. Femoral Vein: 2.1. Compressibility - Fully compressible: Thrombus - None : Flow - Phasic: Augmentation -Normal: Reflux - None. 3. Popliteal Vein: 3.1. Compressibility - Fully compressible: Thrombus - None : Flow - Phasic: Augmentation -Normal: Reflux - None. 4. Posterior Tibial Vein: 4.1. Compressibility - Fully compressible: Thrombus - None: Flow - Phasic: Augmentation -Normal: Reflux - None. 5. Peroneal Vein: 5.1. Compressibility - Fully compressible: Thrombus - None: Flow - Phasic: Augmentation -Normal: Reflux - None. 6. Great Saphenous Vein: 6.1. Compressibility - Fully compressible: Thrombus - None: Flow - Phasic: Augmentation - Normal: Reflux - None. LEFT: 1. Common Femoral Vein: 1.1. Compressibility - Fully compressible: Thrombus - None: Flow - Phasic: Augmentation -Normal: Reflux - None. 2. Femoral Vein: 2.1. Compressibility - Fully compressible: Thrombus - None: Flow - Phasic: Augmentation -Normal: Reflux - None. 3. Popliteal Vein: 3.1. Compressibility - Fully compressible: Thrombus - None : Flow - Phasic: Augmentation -Normal: Reflux - None. 4. Posterior Tibial Vein: 4.1. Compressibility - Fully compressible: Thrombus - None: Flow - Phasic: Augmentation -Normal: Reflux - None. 5. Peroneal Vein: 5.1. Compressibility - Fully compressible: Thrombus - None: Flow - Phasic: Augmentation -Normal: Reflux - None. 6. Great Saphenous Vein: 6.1. Compressibility - Fully compressible: Thrombus - None: Flow - Phasic: Augmentation - Normal: Reflux - None. OTHER FINDINGS: Right: None significant. Left: None significant. IMPRESSION: Right: No evidence of deep or superficial vein thrombosis of the right lower extremity. Normal valve function noted of the right side. Left: No evidence of deep or superficial vein thrombosis of the left lower extremity. Normal valve function noted of the left side.
--- NOTE | 2016-11-24 11:07 | CARD ---
APPROVED REPORT EKG Measurement Heart [id number] [id number] <Conclusion> Normal sinus rhythm Possible Left atrial enlargement Left axis deviation Left bundle branch block Abnormal ECG
--- NOTE | 2016-11-24 11:10 | CP.PCM.PN ---
<Tremaine Bonilla - Last Filed: 11/24/16 11:10> Subjective - Date & Time of Evaluation Date of Evaluation: 11/24/16 Time of Evaluation: 11:10 - Subjective Subjective: Medicine progress note. Attending: Dr. Agudelo Pt seen and examined at bedside. No acute distress. No events overnight. Plan to start xarelto today. Dr. Butterfield spoke to patient and wants her to follow up after DC to get mitral clip at [facility]. No complaints. Objective - Vital Signs/Intake and Output Vital Signs (last 24 hours): Temp Pulse Resp BP Pulse Ox 98.1 F 83 18 124/73 95 11/24/16 07:20 11/24/16 07:30 11/24/16 07:20 11/24/16 07:20 11/24/16 07:20 Intake and Output: 11/24/16 11/24/16 06:59 18:59 Intake Total 36 Balance 36 - Medications Medications: Current Medications Aspirin (Ecotrin) 81 mg PO DAILY [facility] Last Admin: 11/24/16 10:09 Dose: 81 mg Carvedilol (Coreg) 3.125 mg PO BID [facility] Last Admin: 11/24/16 10:09 Dose: 3.125 mg Furosemide (Lasix) 40 mg IVP BID [facility] Last Admin: 11/22/16 10:29 Dose: 40 mg Heparin Sodium/Sodium Chloride (Heparin 21992 Units/250ml 1/2 Normal Saline) 25 ,000 units in 250 mls @ 4.54 mls/hr IV .Q24H PRN; Protocol; 7 UNITS/KG/HR PRN Reason: PROTOCOL Last Admin: 11/23/16 17:01 Dose: 7 units/kg/hr, 4.54 mls/hr Ceftriaxone Sodium 1 gm/ (Sodium Chloride) 100 mls @ 100 mls/hr IVPB DAILY [facility] Insulin Human Regular (Novolin R) 0 unit SC ACHS [facility] PRN Reason: Protocol Last Admin: 11/24/16 07:30 Dose: Not Given Losartan Potassium (Cozaar) 100 mg PO DAILY [facility] Last Admin: 11/22/16 10:28 Dose: 100 mg Pantoprazole Sodium (Protonix Ec Tab) 40 mg PO DAILY [facility] Last Admin: 11/24/16 10:09 Dose: 40 mg Potassium Chloride (Klor-Con 10) 10 meq PO DAILY [facility] Last Admin: 11/24/16 10:09 Dose: 10 meq Rivaroxaban (Xarelto) 10 mg PO BID [facility] Rosuvastatin Calcium (Crestor) 5 mg PO HS [facility] Last Admin: 11/23/16 22:42 Dose: 5 mg - Labs Labs: 11/24/16 07:22 11/24/16 07:22 APTT 73 SECONDS (21-34) H D 11/24/16 07:22 - Constitutional Appears: Non-toxic, No Acute Distress - Head Exam Head Exam: ATRAUMATIC, NORMAL INSPECTION, NORMOCEPHALIC - Eye Exam Eye Exam: EOMI - ENT Exam ENT Exam: Mucous Membranes Moist - Neck Exam Neck Exam: Full ROM, Normal Inspection - Respiratory Exam Respiratory Exam: NORMAL BREATHING PATTERN. absent: Respiratory Distress - Cardiovascular Exam Cardiovascular Exam: +S1, +S2 - GI/Abdominal Exam GI & Abdominal Exam: Soft, Normal Bowel Sounds. absent: Tenderness - Extremities Exam Extremities Exam: Full ROM, Normal Inspection - Neurological Exam Neurological Exam: Alert, Awake, Oriented x3 - Psychiatric Exam Psychiatric exam: Normal Affect, Normal Mood - Skin Skin Exam: Dry, Intact, Normal Color, Warm Assessment and Plan - Assessment and Plan (Free Text) Assessment: 1. Shortness of breath -echo shows ef of 25-30 percent, diastolic dx, severe MR and severe pulm HTN -continue pt on heparin drip until 4 pm -starting low dose xarelto today -will have to follow up with Dr. Butterfield for mitral clip -V/Q scan high prob PE -CTA suggests infection -IV azithromycin daily, day 1 -IV rocephin daily, day 1 -lower ext dopplers negative 2. CHF -continue asa 81 daily -continue coreg 3.125 bid 3. Hx of HTN -continue losartan 100 daily 4. Hx of DM -continue accuchecks/ISS 5. Hx of HLD -continue crestor 5 HS 6. GI/DVT ppx -continue protonix 40 daily -Klor con [address] Agudelo <Bo Agudelo - Last Filed: 11/24/16 17:09> Objective - Vital Signs/Intake and Output Vital Signs (last 24 hours): Temp Pulse Resp BP Pulse Ox 98.7 F 62 18 121/77 98 11/24/16 15:21 11/24/16 15:30 11/24/16 15:21 11/24/16 15:21 11/24/16 15:21 Intake and Output: 11/24/16 11/24/16 06:59 18:59 Intake Total 36 Balance 36 - Medications Medications: Current Medications Aspirin (Ecotrin) 81 mg PO DAILY [facility] Last Admin: 11/24/16 10:09 Dose: 81 mg Carvedilol (Coreg) 3.125 mg PO BID [facility] Last Admin: 11/24/16 10:09 Dose: 3.125 mg Furosemide (Lasix) 40 mg IVP BID [facility] Last Admin: 11/22/16 10:29 Dose: 40 mg Ceftriaxone Sodium 1 gm/ (Sodium Chloride) 100 mls @ 200 mls/hr IVPB Q24H [facility] Last Admin: 11/24/16 13:18 Dose: 200 mls/hr Azithromycin 500 mg/ Sodium (Chloride) 250 mls @ 166.667 mls/hr IVPB Q24H [facility] Last Admin: 11/24/16 13:14 Dose: 166.667 mls/hr Insulin Human Regular (Novolin R) 0 unit SC ACHS [facility] PRN Reason: Protocol Last Admin: 11/24/16 07:30 Dose: Not Given Losartan Potassium (Cozaar) 100 mg PO DAILY [facility] Last Admin: 11/22/16 10:28 Dose: 100 mg Pantoprazole Sodium (Protonix Ec Tab) 40 mg PO DAILY [facility] Last Admin: 11/24/16 10:09 Dose: 40 mg Potassium Chloride (Klor-Con 10) 10 meq PO DAILY [facility] Last Admin: 11/24/16 10:09 Dose: 10 meq Rivaroxaban (Xarelto) 10 mg PO BID [facility] Rosuvastatin Calcium (Crestor) 5 mg PO HS [facility] Last Admin: 11/23/16 22:42 Dose: 5 mg - Labs Labs: 11/24/16 07:22 11/24/16 07:22 APTT 73 SECONDS (21-34) H D 11/24/16 07:22 Attending/Attestation - Attestation I have personally seen and examined this patient.: Yes I have fully participated in the care of the patient.: Yes I have reviewed all pertinent clinical information, including history, physical exam and plan: Yes Notes (Text): Medical Attending: Patient was seen and examined by me. Agree with the above note by the resident. The CT scan and the echo returned. The CT suggest that besides the potential of peripheral PE that there are also areas of infiltrates. She does not have fever or coughing or a WBC however will still start IV abx for the time being. She is currently on heparin ggt and so will supervisor records change to Xarelto BID. With reguards to the echo, it shows severe pulmonary HTN, an elevated right heart pressure, and also severemitral regurgitation. We mich out a picture to help the patient and family understand what was happening. I explained to the patient's family members at bedside - the son and daughter - that the patient looks very well considering all the findings we have found thus far. The patient is able to ambulate on her own without assistance. She looks stable and I explained this is not usual considering the findings. Later in the day I was informed that the patient was seen by cardiology and it was suggested she be moved to larger hospital - however the family and patient did not want to. thank you Bo Agudelo
--- NOTE | 2016-11-24 11:53 | CP.PCM.PN ---
Subjective - Date & Time of Evaluation Date of Evaluation: 11/24/16 Time of Evaluation: 09:00 - Subjective Subjective: Patient seen and examined. lying comfortably in no acute distress. Denies shortness of breath, denies fever chills, denies chest pain Objective - Vital Signs/Intake and Output Vital Signs (last 24 hours): Temp Pulse Resp BP Pulse Ox 98.1 F 83 18 124/73 95 11/24/16 07:20 11/24/16 07:30 11/24/16 07:20 11/24/16 07:20 11/24/16 07:20 Intake and Output: 11/24/16 11/24/16 06:59 18:59 Intake Total 36 Balance 36 - Medications Medications: Current Medications Aspirin (Ecotrin) 81 mg PO DAILY [facility] Last Admin: 11/24/16 10:09 Dose: 81 mg Carvedilol (Coreg) 3.125 mg PO BID [facility] Last Admin: 11/24/16 10:09 Dose: 3.125 mg Furosemide (Lasix) 40 mg IVP BID [facility] Last Admin: 11/22/16 10:29 Dose: 40 mg Heparin Sodium/Sodium Chloride (Heparin 20820 Units/250ml 1/2 Normal Saline) 25 ,000 units in 250 mls @ 4.54 mls/hr IV .Q24H PRN; Protocol; 7 UNITS/KG/HR PRN Reason: PROTOCOL Last Admin: 11/23/16 17:01 Dose: 7 units/kg/hr, 4.54 mls/hr Ceftriaxone Sodium 1 gm/ (Sodium Chloride) 100 mls @ 200 mls/hr IVPB Q24H [facility] Azithromycin 500 mg/ Sodium (Chloride) 250 mls @ 166.667 mls/hr IVPB Q24H [facility] Insulin Human Regular (Novolin R) 0 unit SC ACHS [facility] PRN Reason: Protocol Last Admin: 11/24/16 07:30 Dose: Not Given Losartan Potassium (Cozaar) 100 mg PO DAILY [facility] Last Admin: 11/22/16 10:28 Dose: 100 mg Pantoprazole Sodium (Protonix Ec Tab) 40 mg PO DAILY [facility] Last Admin: 11/24/16 10:09 Dose: 40 mg Potassium Chloride (Klor-Con 10) 10 meq PO DAILY [facility] Last Admin: 11/24/16 10:09 Dose: 10 meq Rivaroxaban (Xarelto) 10 mg PO BID [facility] Rosuvastatin Calcium (Crestor) 5 mg PO HS [facility] Last Admin: 11/23/16 22:42 Dose: 5 mg - Labs Labs: 11/24/16 07:22 11/24/16 07:22 APTT 73 SECONDS (21-34) H D 11/24/16 07:22 - Head Exam Head Exam: ATRAUMATIC, NORMOCEPHALIC - Eye Exam Eye Exam: Normal appearance - Respiratory Exam Respiratory Exam: Clear to Ausculation Bilateral - Cardiovascular Exam Cardiovascular Exam: REGULAR RHYTHM - Extremities Exam Extremities Exam: Normal Inspection Assessment and Plan (1) Pulmonary embolism Assessment & Plan: patient started on xarelto Continue treatment for congestive heart failure as per cooper apprentice Status: Acute (2) Congestive heart failure Status: Acute (3) Pneumonia Status: Acute
--- NOTE | 2016-11-24 12:39 | CP.PCM.PN ---
<LopezCeleste - Last Filed: 11/24/16 12:37> Subjective - Date & Time of Evaluation Date of Evaluation: 11/24/16 Time of Evaluation: 12:37 - Subjective Subjective: PGY-[address] Butterfield Pt seen and examined. Med student Fernando translated. No acute complained per 10 point review Objective - Vital Signs/Intake and Output Vital Signs (last 24 hours): Temp Pulse Resp BP Pulse Ox 98.1 F 83 18 124/73 95 11/24/16 07:20 11/24/16 07:30 11/24/16 07:20 11/24/16 07:20 11/24/16 07:20 Intake and Output: 11/24/16 11/24/16 06:59 18:59 Intake Total 36 Balance 36 - Medications Medications: Current Medications Aspirin (Ecotrin) 81 mg PO DAILY [facility] Last Admin: 11/24/16 10:09 Dose: 81 mg Carvedilol (Coreg) 3.125 mg PO BID [facility] Last Admin: 11/24/16 10:09 Dose: 3.125 mg Furosemide (Lasix) 40 mg IVP BID [facility] Last Admin: 11/22/16 10:29 Dose: 40 mg Heparin Sodium/Sodium Chloride (Heparin 23205 Units/250ml 1/2 Normal Saline) 25 ,000 units in 250 mls @ 4.54 mls/hr IV .Q24H PRN; Protocol; 7 UNITS/KG/HR PRN Reason: PROTOCOL Last Admin: 11/23/16 17:01 Dose: 7 units/kg/hr, 4.54 mls/hr Ceftriaxone Sodium 1 gm/ (Sodium Chloride) 100 mls @ 200 mls/hr IVPB Q24H [facility] Azithromycin 500 mg/ Sodium (Chloride) 250 mls @ 166.667 mls/hr IVPB Q24H [facility] Insulin Human Regular (Novolin R) 0 unit SC ACHS [facility] PRN Reason: Protocol Last Admin: 11/24/16 07:30 Dose: Not Given Losartan Potassium (Cozaar) 100 mg PO DAILY [facility] Last Admin: 11/22/16 10:28 Dose: 100 mg Pantoprazole Sodium (Protonix Ec Tab) 40 mg PO DAILY [facility] Last Admin: 11/24/16 10:09 Dose: 40 mg Potassium Chloride (Klor-Con 10) 10 meq PO DAILY [facility] Last Admin: 11/24/16 10:09 Dose: 10 meq Rivaroxaban (Xarelto) 10 mg PO BID [facility] Rosuvastatin Calcium (Crestor) 5 mg PO HS [facility] Last Admin: 11/23/16 22:42 Dose: 5 mg - Labs Labs: 11/24/16 07:22 11/24/16 07:22 APTT 73 SECONDS (21-34) H D 11/24/16 07:22 - Constitutional Appears: No Acute Distress - Head Exam Head Exam: ATRAUMATIC, NORMOCEPHALIC - Eye Exam Eye Exam: EOMI, Normal appearance, PERRL Pupil Exam: NORMAL ACCOMODATION - ENT Exam ENT Exam: Mucous Membranes Moist - Neck Exam Additional comments: No JVD - Respiratory Exam Respiratory Exam: Decreased Breath Sounds, Clear to Ausculation Bilateral, NORMAL BREATHING PATTERN. absent: Rales, Rhonchi, Wheezes - Cardiovascular Exam Cardiovascular Exam: REGULAR RHYTHM, +S1, +S2, Murmur (systolic) - GI/Abdominal Exam GI & Abdominal Exam: Soft, Normal Bowel Sounds. absent: Tenderness - Extremities Exam Extremities Exam: Normal Capillary Refill. absent: Calf Tenderness, Pedal Edema - Back Exam Back Exam: absent: CVA tenderness (L), CVA tenderness (R) - Neurological Exam Neurological Exam: Alert, Awake - Psychiatric Exam Psychiatric exam: Normal Affect, Normal Mood - Skin Skin Exam: Dry, Warm Assessment and Plan - Assessment and Plan (Free Text) Plan: 86 F with PMHx of CHF on home O2, Cardiomyopathy s/p Pacemaker, admitted for SOB and CHF exacerbation Pulmonary Embolism - On Xarelto, heparin bridge - Preload: Hold Lasix & Cozaar - On Coreg 3.125 PO BID - LE doppler negative Dypsnea, Severe mitral regurgitation CHF exacerbation, left-sided, acute on chronic - echocardiogram: 20-30 EF, diastolic disfunction. severe MR, severe pulm HTN - Monitor electrolytes - daily wt - i/o - O2 as needed - Follow up outpatient with Dr. Butterfield for mitral clip at [facility] Cardiomyopathy s/p Pacemaker - Interrogation per Dr. Pederson team CV risk reduction - ASA, Crestor 5 CAP - on Azithromycin and ceftriazone - manage per primary team S/R/D/w Dr. Butterfield <Trenton Butterfield - Last Filed: 11/24/16 21:04> Objective - Vital Signs/Intake and Output Vital Signs (last 24 hours): Temp Pulse Resp BP Pulse Ox 98.7 F 62 18 121/77 98 11/24/16 15:21 11/24/16 15:30 11/24/16 15:21 11/24/16 15:21 11/24/16 15:21 - Medications Medications: Current Medications Aspirin (Ecotrin) 81 mg PO DAILY [facility] Last Admin: 11/24/16 10:09 Dose: 81 mg Carvedilol (Coreg) 3.125 mg PO BID [facility] Last Admin: 11/24/16 17:57 Dose: 3.125 mg Furosemide (Lasix) 40 mg IVP BID [facility] Last Admin: 11/22/16 10:29 Dose: 40 mg Ceftriaxone Sodium 1 gm/ (Sodium Chloride) 100 mls @ 200 mls/hr IVPB Q24H [facility] Last Admin: 11/24/16 13:18 Dose: 200 mls/hr Azithromycin 500 mg/ Sodium (Chloride) 250 mls @ 166.667 mls/hr IVPB Q24H [facility] Last Admin: 11/24/16 13:14 Dose: 166.667 mls/hr Insulin Human Regular (Novolin R) 0 unit SC ACHS [facility] PRN Reason: Protocol Last Admin: 11/24/16 07:30 Dose: Not Given Losartan Potassium (Cozaar) 100 mg PO DAILY [facility] Last Admin: 11/22/16 10:28 Dose: 100 mg Pantoprazole Sodium (Protonix Ec Tab) 40 mg PO DAILY [facility] Last Admin: 11/24/16 10:09 Dose: 40 mg Potassium Chloride (Klor-Con 10) 10 meq PO DAILY [facility] Last Admin: 11/24/16 10:09 Dose: 10 meq Rivaroxaban (Xarelto) 10 mg PO BID [facility] Last Admin: 11/24/16 17:57 Dose: 10 mg Rosuvastatin Calcium (Crestor) 5 mg PO HS [facility] Last Admin: 11/23/16 22:42 Dose: 5 mg - Labs Labs: 11/24/16 07:22 11/24/16 07:22 APTT 73 SECONDS (21-34) H D 11/24/16 07:22 Assessment and Plan - Assessment and Plan (Free Text) Assessment: Patient seen and evaluated with the adjunct faculty for medical terminology Agree with the plan of care
[2016-11-24] MEDS: Azithromycin 500 MG in Sodium Chloride 0.9% 250 ML IVPB SCH (13:14)
--- NOTE | 2016-11-24 19:18 | CP.PCM.CON ---
<Cyril Granados - Last Filed: 11/24/16 19:13> History of Present Illness - History of Present Illness History of Present Illness: EP-Cardio Progress Note for Dr. Dacia Granados PGY-1, Internal Medicine Consulted for: ICD interrogation HPI: This is an 86 yo female with PMH of cadiomyopathy, CHF with EF 30 % s/p ICD and on home O2 therapy, HTN, and hyperlipidemia who presented to the hospital with acute shortness of breath and productive cough concerning for acute CHF exacerbation. We were consulted for ICD interrogation. Pt reported to admitting team worsening SOB and productive cough for a few days with orthopnea, requiring several pillows. Pt was treated medically with IV Lasix 40mg with improvement in symptoms. Currently, the patient states she feels fine and denies any complaints or pain. Denies CP, SOB, leg swelling, problem sleeping, palpitations, fever, chills, nausea or vomiting. At baseline, the patient easily becomes dyspnic with exertion to varying degrees, depending on the day and type of activity. Of note, the patient had the ICD placed six years ago for cardiomyopathy with an EF of 30%. Pt's primary channel cementer insole machine is Dr. Butterfield, who has been following the patient regularly. PMD: Dr. Adams PMH: as above PSH: Cholecystectomy, Hysterectomy Allergies: Codeine (emesis) FHx: none Social: Denies tobacco, alcohol, drugs; lives with two sisters; ambulates w/o difficulty Home meds: Amlodipine 5mg daily; Losartan 100 PO daily; Lasix 40 daily; Klor- con 10meq daily; Fluticasone; Lipitor 10mg daily Imaging: CXR - mild central vascular and pulmonary venous congestion; + cardiomegaly, + Left AICD V/Q scan: high probability of PE CTA - PE vs artifact; possible inflammation vs infection (ground class opacities ); nodule Review of Systems - Constitutional Constitutional: absent: Chills, Fever - EENT Eyes: absent: Blurred Vision, Change in Vision, Loss of Vision Ears: absent: Dizziness Nose/Mouth/Throat: absent: Sore Throat, Neck Pain - Cardiovascular Cardiovascular: Dyspnea on Exertion (degree of dyspnea corresponds to degree of exertion). absent: Chest Pain, Dyspnea, Lightheadedness, Palpitations, Syncope - Respiratory Respiratory: Dyspnea on Exertion (degree of dyspnea corresponds to degree of exertion). absent: Dyspnea, Hemoptysis, Pain on Inspiration Additional comments: Orthopnea when laying flat, uses several pillows - Gastrointestinal Gastrointestinal: absent: Abdominal Pain, Constipation, Diarrhea, Nausea, Vomiting - Genitourinary Genitourinary: absent: Difficulty Urinating, Dysuria, Flank Pain, Hematuria - Musculoskeletal Musculoskeletal: absent: Back Pain, Muscle Weakness, Numbness, Radiating Pain into Limb - Integumentary Integumentary: absent: Pruritus, Rash - Neurological Neurological: absent: Focal Weakness, Loss of Vision, Syncope, Vertigo, Weakness - Psychiatric Psychiatric: absent: Anxiety - Endocrine Endocrine: absent: Fatigue, Palpitations Past Patient History - Infectious Disease Hx of Infectious Diseases: None - Past Medical History & Family History Past Medical History?: Yes - Past Social History Smoking Status: Unknown If Ever Smoked - CARDIAC Hx Hypercholesterolemia: Yes Hx Hypertension: Yes Hx Pacemaker: Yes - PULMONARY Hx Pneumonia: Yes - NEUROLOGICAL Hx Neurological Disorder: No - HEENT Hx HEENT Problems: Yes Other/Comment: uses corrective eyeglasses - RENAL Hx Chronic Kidney Disease: No - ENDOCRINE/METABOLIC Hx Diabetes Mellitus Type 2: Yes - HEMATOLOGICAL/ONCOLOGICAL Hx Blood Disorders: No - INTEGUMENTARY Hx Dermatological Problems: No - MUSCULOSKELETAL/RHEUMATOLOGICAL Hx Musculoskeletal Disorders: No Hx Falls: No - GASTROINTESTINAL Hx Gastrointestinal Disorders: No - GENITOURINARY/GYNECOLOGICAL Hx Genitourinary Disorders: No - PSYCHIATRIC Hx Substance Use: No - SURGICAL HISTORY Hx Cholecystectomy: Yes - ANESTHESIA Hx Anesthesia: Yes Hx Anesthesia Reactions: No Hx Malignant Hyperthermia: No Meds Allergies/Adverse Reactions: Allergies Allergy/AdvReac Type Severity Reaction Status Date / Time codeine Allergy RASH Verified 11/21/16 10:32 - Medications Medications: Current Medications Aspirin (Ecotrin) 81 mg PO DAILY [facility] Last Admin: 11/24/16 10:09 Dose: 81 mg Carvedilol (Coreg) 3.125 mg PO BID [facility] Last Admin: 11/24/16 17:57 Dose: 3.125 mg Furosemide (Lasix) 40 mg IVP BID [facility] Last Admin: 11/22/16 10:29 Dose: 40 mg Ceftriaxone Sodium 1 gm/ (Sodium Chloride) 100 mls @ 200 mls/hr IVPB Q24H [facility] Last Admin: 11/24/16 13:18 Dose: 200 mls/hr Azithromycin 500 mg/ Sodium (Chloride) 250 mls @ 166.667 mls/hr IVPB Q24H [facility] Last Admin: 11/24/16 13:14 Dose: 166.667 mls/hr Insulin Human Regular (Novolin R) 0 unit SC ACHS [facility] PRN Reason: Protocol Last Admin: 11/24/16 07:30 Dose: Not Given Losartan Potassium (Cozaar) 100 mg PO DAILY [facility] Last Admin: 11/22/16 10:28 Dose: 100 mg Pantoprazole Sodium (Protonix Ec Tab) 40 mg PO DAILY [facility] Last Admin: 11/24/16 10:09 Dose: 40 mg Potassium Chloride (Klor-Con 10) 10 meq PO DAILY [facility] Last Admin: 11/24/16 10:09 Dose: 10 meq Rivaroxaban (Xarelto) 10 mg PO BID [facility] Last Admin: 11/24/16 17:57 Dose: 10 mg Rosuvastatin Calcium (Crestor) 5 mg PO HS [facility] Last Admin: 11/23/16 22:42 Dose: 5 mg Physical Exam - Additional Findings Additional findings: - Constitutional Appears: No Acute Distress, Non-toxic, Resting comfortably in bed - Head Exam Head Exam: ATRAUMATIC, NORMOCEPHALIC - Eye Exam Eye Exam: EOMI, Normal appearance. Absent: Scleral icterus, conjunctival injection Pupil Exam: Absent: Irregular, Unequal - ENT Exam ENT Exam: Mucous Membranes Moist - Neck Exam Neck Exam: Full ROM. Absent: Tenderness, JVD - Respiratory Exam Respiratory Exam: Decreased Breath Sounds (mildly decreased in all jiang) otherwise Clear to Ausculation Bilaterally, NORMAL BREATHING PATTERN. absent: Rales, Rhonchi, Wheezes, Respiratory distress - Cardiovascular Exam Cardiovascular Exam: REGULAR RHYTHM, +S1, +S2, Faint systolic Murmur. Absent - GI/Abdominal Exam GI & Abdominal Exam: Soft, Normal Bowel Sounds. absent: Tenderness, Rigid, Firm - Extremities Exam Extremities Exam: Normal Exam. absent: Calf Tenderness, Tenderness, Pedal Edema - Neurological Exam Neurological Exam: Alert, Awake, Moving extremities spontaneously - Psychiatric Exam Psychiatric exam: Normal Affect, Normal Mood - Skin Skin Exam: Dry, Warm, Normal Color, Intact Results - Vital Signs Recent Vital Signs: Last Vital Signs Temp 98.7 F 11/24/16 15:21 Pulse 62 11/24/16 15:30 Resp 18 11/24/16 15:21 BP 121/77 11/24/16 15:21 Pulse Ox 98 11/24/16 15:21 - Labs Result Diagrams: 11/24/16 07:22 11/24/16 07:22 Labs: Laboratory Results - last 24 hr 11/22/16 11/22/16 11/23/16 16:53 21:55 06:55 WBC RBC Hgb Hct MCV MCH MCHC RDW Plt Count MPV Neut % (Auto) Lymph % (Auto) Hart % (Auto) Eos % (Auto) Baso % (Auto) Neut # Lymph # Hart # Eos # Baso # APTT Sodium Potassium Chloride Carbon Dioxide Anion Gap BUN Creatinine Est GFR ( Amer) Est GFR (Non-Af Amer) POC Glucose (mg/dL) 93 136 H 101 Random Glucose Calcium Phosphorus Magnesium Total Bilirubin AST ALT Alkaline Phosphatase Total Protein Albumin Globulin Albumin/Globulin Ratio 11/23/16 11/23/16 11/23/16 11:17 17:35 21:20 WBC RBC Hgb Hct MCV MCH MCHC RDW Plt Count MPV Neut % (Auto) Lymph % (Auto) Hart % (Auto) Eos % (Auto) Baso % (Auto) Neut # Lymph # Hart # Eos # Baso # APTT Sodium Potassium Chloride Carbon Dioxide Anion Gap BUN Creatinine Est GFR ( Amer) Est GFR (Non-Af Amer) POC Glucose (mg/dL) 124 H 141 H 142 H Random Glucose Calcium Phosphorus Magnesium Total Bilirubin AST ALT Alkaline Phosphatase Total Protein Albumin Globulin Albumin/Globulin Ratio 11/24/16 11/24/16 11/24/16 06:24 07:22 07:22 WBC 3.1 L RBC 4.18 Hgb 12.3 Hct 37.4 MCV 89.3 MCH 29.5 MCHC 33.0 RDW 16.3 H Plt Count 147 MPV 9.2 Neut % (Auto) 27.7 L Lymph % (Auto) 58.2 H Hart % (Auto) 10.6 H Eos % (Auto) 2.7 Baso % (Auto) 0.8 Neut # 0.9 L Lymph # 1.8 Hart # 0.3 Eos # 0.1 Baso # 0.0 APTT Sodium 139 Potassium 3.4 L Chloride 102 Carbon Dioxide 29 Anion Gap 11 BUN 28 H Creatinine 1.0 Est GFR ( Amer) > 60 Est GFR (Non-Af Amer) 53 POC Glucose (mg/dL) 111 H Random Glucose 108 H Calcium 8.3 L Phosphorus 3.5 Magnesium 2.1 Total Bilirubin 1.4 H AST 27 ALT 27 Alkaline Phosphatase 75 Total Protein 6.4 Albumin 3.2 L Globulin 3.2 Albumin/Globulin Ratio 1.0 11/24/16 11/24/16 11/24/16 07:22 11:33 17:32 WBC RBC Hgb Hct MCV MCH MCHC RDW Plt Count MPV Neut % (Auto) Lymph % (Auto) Hart % (Auto) Eos % (Auto) Baso % (Auto) Neut # Lymph # Hart # Eos # Baso # APTT 73 H D Sodium Potassium Chloride Carbon Dioxide Anion Gap BUN Creatinine Est GFR ( Amer) Est GFR (Non-Af Amer) POC Glucose (mg/dL) 122 H 149 H Random Glucose Calcium Phosphorus Magnesium Total Bilirubin AST ALT Alkaline Phosphatase Total Protein Albumin Globulin Albumin/Globulin Ratio Assessment & Plan (1) Cardiomyopathy Assessment and Plan: Echo 11/21/16: Moderate asymmetric LVH, LV systolic fxn severely impaired with EF 33%, LV diastolic dysfxn, Pacer lead in RV, LA mod dilated, Severe MR, Mod AR , RV systolic pressure > 60mmHg, Severe Pulm HTN, trace loculated posterior pericardial effusion EKG 11/21/16: Normal sinus rhythm at 72, Possible Left atrial enlargement, Left axis deviation, Left bundle branch block, Abnormal ECG -S/p ICD placement -EF 33% on Echo on 11/21/16 -Hemodynamically stable -Pacer to be interrogated -Continue medical management as per Primary Corporate Tax Preparer (Dr. Butterfield) Status: Acute - Assessment and Plan (Free Text) Assessment: Discussed with Dr. Pederson. - Date & Time Date: 11/24/16 Time: 16:40 <Vasile Pederson - Last Filed: 11/27/16 09:12> Results - Vital Signs Recent Vital Signs: Last Vital Signs Temp 98.2 F 11/26/16 16:00 Pulse 72 11/26/16 16:00 Resp 20 11/26/16 16:00 BP 126/77 11/26/16 16:00 Pulse Ox 99 11/26/16 16:00 - Labs Result Diagrams: 11/26/16 07:00 11/26/16 07:00 Labs: Laboratory Results - last 24 hr 11/26/16 11/26/16 11:36 16:36 POC Glucose (mg/dL) 138 H 132 H Attending/Attestation - Attestation I have personally seen and examined this patient.: Yes I have fully participated in the care of the patient.: Yes I have reviewed all pertinent clinical information: Yes Notes (Text): 11/27/16 09:12 ICD will interrogate follow up lab tests
[2016-11-25 02:25] VITALS: RESP 20
[2016-11-25] MEDS: (Novolin R) Insulin Human Regular 100 units/ml vial SC SCH ×6 (07:28→21:56)
[2016-11-25 07:34] LABS: CHLORIDE 104 mmol/L (98-107)
[2016-11-25 07:35] LABS: POTASSIUM 4.1 mmol/L (3.6-5.2); SODIUM 139 mmol/L (132-148)
[2016-11-25 07:37] LABS: BASO % 0.8 % (0.0-2.0); BILIRUBIN,TOTAL 1.2 mg/dL (0.2-1.3); CARBON DIOXIDE 27 mmol/L (22-30); EOS # 0.1 K/uL (0.0-0.7); EOS % 2.4 % (0.0-4.0); GFR AFRICAN-AMERICAN > 60; HEMATOCRIT 37.4 % (34.0-47.0); LYMPH # 2.2 K/uL (1.0-4.3); LYMPH % 59.2 % (20.0-40.0); MEAN CELL VOLUME 89.3 fL (81.0-99.0); MEAN CORPUSCULAR HEMOGLOBIN 29.3 pg (27.0-31.0); MEAN CORPUSCULAR HGB CONC 32.8 g/dL (33.0-37.0); MEAN PLATELET VOLUME 9.4 fL (7.2-11.7); MONO # 0.3 K/uL (0.0-0.8); MONO % 9.5 % (0.0-10.0); NRBC % 0.1 % (0.0-2.0); RED CELL DISTRIBUTION WIDTH 16.3 % (11.5-14.5); WHITE BLOOD COUNT 3.7 K/uL (4.8-10.8)
[2016-11-25 07:38] LABS: ALKALINE PHOSPHATASE 70 U/L (38-126); ALT/SGPT 23 U/L (9-52); AST/SGOT 26 U/L (14-36); BLOOD UREA NITROGEN 29 mg/dL (7-17); CALCIUM 8.4 mg/dl (8.6-10.4); GLUCOSE,RANDOM 106 mg/dL (65-105); MAGNESIUM 2.1 mg/dL (1.6-2.3); PHOSPHOROUS 3.3 mg/dL (2.5-4.5); TOTAL PROTEIN 6.6 g/dL (6.3-8.3)
[2016-11-25] MEDS: Pantoprazole 40 mg EC Tab PO SCH (09:31)
[2016-11-25] MEDS: Potassium Chloride 10 mEq ER Tab PO SCH (09:32)
[2016-11-25] MEDS ORDERED: Potassium Chloride 20 mEq ER Tab PO ONE (10:30)
--- NOTE | 2016-11-25 10:50 | CP.PCM.PN ---
<Pratima Felix - Last Filed: 11/25/16 16:51> Subjective - Date & Time of Evaluation Date of Evaluation: 11/25/16 Time of Evaluation: 09:15 - Subjective Subjective: EP Cardiology Progress Note- Dr. Pederson Patient seen and examined at bedside this AM. She is complaining of some SOB at rest and states she feels "okay." She denies chest pain, palpitations, changes in vision or headaches. She has been ambulating to and from the bathroom and denies dyspnea on ambulation. She reports feeling very tired. All other 12 point ROS negative for acute complaints. Objective - Vital Signs/Intake and Output Vital Signs (last 24 hours): Temp Pulse Resp BP Pulse Ox 97.3 F L 70 20 130/81 97 11/25/16 08:09 11/25/16 08:09 11/25/16 08:09 11/25/16 08:09 11/25/16 08:09 - Medications Medications: Current Medications Aspirin (Ecotrin) 81 mg PO DAILY [facility] Last Admin: 11/25/16 09:32 Dose: 81 mg Carvedilol (Coreg) 3.125 mg PO BID [facility] Last Admin: 11/25/16 09:32 Dose: 3.125 mg Furosemide (Lasix) 40 mg IVP BID [facility] Last Admin: 11/22/16 10:29 Dose: 40 mg Ceftriaxone Sodium 1 gm/ (Sodium Chloride) 100 mls @ 200 mls/hr IVPB Q24H [facility] Last Admin: 11/24/16 13:18 Dose: 200 mls/hr Azithromycin 500 mg/ Sodium (Chloride) 250 mls @ 166.667 mls/hr IVPB Q24H [facility] Last Admin: 11/24/16 13:14 Dose: 166.667 mls/hr Insulin Human Regular (Novolin R) 0 unit SC ACHS [facility] PRN Reason: Protocol Last Admin: 11/25/16 07:28 Dose: Not Given Losartan Potassium (Cozaar) 100 mg PO DAILY [facility] Last Admin: 11/22/16 10:28 Dose: 100 mg Pantoprazole Sodium (Protonix Ec Tab) 40 mg PO DAILY [facility] Last Admin: 11/25/16 09:31 Dose: 40 mg Potassium Chloride (Klor-Con 10) 10 meq PO DAILY [facility] Last Admin: 11/25/16 09:32 Dose: 10 meq Rivaroxaban (Xarelto) 10 mg PO BID [facility] Last Admin: 11/25/16 09:31 Dose: 10 mg Rosuvastatin Calcium (Crestor) 5 mg PO HS [facility] Last Admin: 11/24/16 21:47 Dose: 5 mg - Labs Labs: 11/25/16 07:09 11/25/16 07:09 APTT 73 SECONDS (21-34) H D 11/24/16 07:22 - Constitutional Appears: No Acute Distress - Head Exam Head Exam: NORMAL INSPECTION, NORMOCEPHALIC - Eye Exam Eye Exam: EOMI, Normal appearance - ENT Exam ENT Exam: Mucous Membranes Moist - Neck Exam Neck Exam: Full ROM, Normal Inspection - Respiratory Exam Respiratory Exam: Clear to Ausculation Bilateral, NORMAL BREATHING PATTERN - Cardiovascular Exam Cardiovascular Exam: REGULAR RHYTHM, +S1, +S2 - GI/Abdominal Exam GI & Abdominal Exam: Soft. absent: Distended, Tenderness - Extremities Exam Extremities Exam: Full ROM, Normal Inspection. absent: Pedal Edema, Tenderness - Neurological Exam Neurological Exam: Alert, Awake, Oriented x3 - Psychiatric Exam Psychiatric exam: Normal Affect, Normal Mood - Skin Skin Exam: Dry, Normal Color, Warm Assessment and Plan - Assessment and Plan (Free Text) Assessment: (1) CHF Assessment and Plan: -Patient with cardiomyopathy. S/P ICD placement. -EF 33% on Echo on 11/21/16 -Hemodynamically stable -ICD to be interrogated and found to be functioning well. No arrhythmias: P wave 2.5 R wave 12 A imp 400 Rv imp 400 HVli 42 A threshold 0.75 at 0.5 Rv threshold 0.75 at 0.5 Battery 3.5-4.1 years. -Continue medical management as per Primary Diesel Locomotive Firer (Dr. Butterfield) Echo 11/21/16: Moderate asymmetric LVH, LV systolic function severely impaired with EF 33%, LV diastolic dysfxn, Pacer lead in RV, LA mod dilated, Severe MR, Mod AR, RV systolic pressure > 60mmHg, Severe Pulm HTN, trace loculated posterior pericardial effusion EKG 11/21/16: Normal sinus rhythm at 72, Possible Left atrial enlargement, Left axis deviation, Left bundle branch block, Abnormal ECG Status: Acute Seen and discussed with Dr. Pederson. <Vasile Pederson - Last Filed: 11/27/16 09:42> Objective - Vital Signs/Intake and Output Vital Signs (last 24 hours): Temp Pulse Resp BP Pulse Ox 98.2 F 72 20 126/77 99 11/26/16 16:00 11/26/16 16:00 11/26/16 16:00 11/26/16 16:00 11/26/16 16:00 - Labs Labs: 11/26/16 07:00 11/26/16 07:00 APTT 73 SECONDS (21-34) H D 11/24/16 07:22 Attending/Attestation - Attestation I have personally seen and examined this patient.: Yes I have fully participated in the care of the patient.: Yes I have reviewed all pertinent clinical information, including history, physical exam and plan: Yes Notes (Text): 11/27/16 09:42 Pt feeling better tolerating po ICD interrogated no issues
[2016-11-25] MEDS: Azithromycin 500 MG in Sodium Chloride 0.9% 250 ML IVPB SCH (12:41)
--- NOTE | 2016-11-25 15:57 | CP.PCM.PN ---
<Tremaine Bonilla - Last Filed: 11/25/16 15:58> Subjective - Date & Time of Evaluation Date of Evaluation: 11/25/16 Time of Evaluation: 15:55 - Subjective Subjective: Medicine progress note. Attending: Dr. Dumont. Pt seen and examined at bedside. No acute distress. No events overnight. Pt is constipated. Will give miralax and restart lasix, lisinopril. Objective - Vital Signs/Intake and Output Vital Signs (last 24 hours): Temp Pulse Resp BP Pulse Ox 97.3 F L 70 20 130/81 97 11/25/16 08:09 11/25/16 08:09 11/25/16 08:09 11/25/16 08:09 11/25/16 08:09 - Medications Medications: Current Medications Aspirin (Ecotrin) 81 mg PO DAILY [facility] Last Admin: 11/25/16 09:32 Dose: 81 mg Carvedilol (Coreg) 3.125 mg PO BID [facility] Last Admin: 11/25/16 09:32 Dose: 3.125 mg Furosemide (Lasix) 20 mg PO DAILY [facility] Ceftriaxone Sodium 1 gm/ (Sodium Chloride) 100 mls @ 200 mls/hr IVPB Q24H [facility] Last Admin: 11/25/16 12:41 Dose: 200 mls/hr Azithromycin 500 mg/ Sodium (Chloride) 250 mls @ 166.667 mls/hr IVPB Q24H [facility] Last Admin: 11/25/16 12:41 Dose: 166.667 mls/hr Insulin Human Regular (Novolin R) 0 unit SC ACHS [facility] PRN Reason: Protocol Last Admin: 11/25/16 12:17 Dose: 1 unit Lisinopril (Zestril) 5 mg PO DAILY [facility] Pantoprazole Sodium (Protonix Ec Tab) 40 mg PO DAILY [facility] Last Admin: 11/25/16 09:31 Dose: 40 mg Potassium Chloride (Klor-Con 10) 10 meq PO DAILY [facility] Last Admin: 11/25/16 09:32 Dose: 10 meq Rivaroxaban (Xarelto) 10 mg PO BID [facility] Last Admin: 11/25/16 09:31 Dose: 10 mg Rosuvastatin Calcium (Crestor) 5 mg PO HS [facility] Last Admin: 11/24/16 21:47 Dose: 5 mg - Labs Labs: 11/25/16 07:09 11/25/16 07:09 APTT 73 SECONDS (21-34) H D 11/24/16 07:22 - Constitutional Appears: Non-toxic, No Acute Distress - Head Exam Head Exam: ATRAUMATIC, NORMAL INSPECTION, NORMOCEPHALIC - ENT Exam ENT Exam: Mucous Membranes Moist - Neck Exam Neck Exam: Full ROM, Normal Inspection - Respiratory Exam Respiratory Exam: NORMAL BREATHING PATTERN. absent: Respiratory Distress - Cardiovascular Exam Cardiovascular Exam: +S1, +S2 - GI/Abdominal Exam GI & Abdominal Exam: Soft, Normal Bowel Sounds. absent: Tenderness - Extremities Exam Extremities Exam: Full ROM, Normal Inspection - Neurological Exam Neurological Exam: Alert, Awake, Oriented x3 - Psychiatric Exam Psychiatric exam: Normal Affect, Normal Mood - Skin Skin Exam: Dry, Intact, Normal Color, Warm Assessment and Plan - Assessment and Plan (Free Text) Assessment: 1. Shortness of breath secondary to PE vs. CAP -echo shows ef of 25-30 percent, diastolic dx, severe MR and severe pulm HTN -hep drip discontinued -starting low dose xarelto 10 bid -will have to follow up with Dr. Butterfield for mitral clip -V/Q scan high prob PE -CTA suggests infection -IV azithromycin 500 mg daily, day 2 -IV rocephin 1 g daily, day 2 -lower ext dopplers negative 2. CHF -continue asa 81 daily -continue coreg 3.125 bid -will give lasix 20 po daily 3. Hx of HTN -will start low dose lisinopril 5 daily 4. Hx of DM -continue accuchecks/ISS 5. Hx of HLD -continue crestor 5 HS 6. GI/DVT ppx -continue protonix 40 daily -Klor con 10 daily -miralax [address] Fierro <Eric Fierro - Last Filed: 01/02/17 17:12> Objective - Vital Signs/Intake and Output Vital Signs (last 24 hours): Temp Pulse Resp BP Pulse Ox 98.2 F 72 20 126/77 99 11/26/16 16:00 11/26/16 16:00 11/26/16 16:00 11/26/16 16:00 11/26/16 16:00 - Labs Labs: 11/26/16 07:00 11/26/16 07:00 APTT 73 SECONDS (21-34) H D 11/24/16 07:22 Attending/Attestation - Attestation I have personally seen and examined this patient.: Yes I have fully participated in the care of the patient.: Yes I have reviewed all pertinent clinical information, including history, physical exam and plan: Yes Notes (Text): 1. Shortness of breath secondary to PE vs. CAP -echo shows ef of 25-30 percent, diastolic dx, severe MR and severe pulm HTN -hep drip discontinued -starting low dose xarelto 10 bid -will have to follow up with Dr. Butterfield for mitral clip -V/Q scan high prob PE -CTA suggests infection -IV azithromycin 500 mg daily, day 2 -IV rocephin 1 g daily, day 2 -lower ext dopplers negative 2. CHF acute on chronic systolic -continue asa 81 daily -continue coreg 3.125 bid -will give lasix 20 po daily 3. Hx of HTN -will start low dose lisinopril 5 daily 4. Hx of DM -continue accuchecks/ISS
[2016-11-25] MEDS: POLYETHYLENE GLYCOL 3350 17 GM/Dose PACKET PO SCH (16:43)
--- NOTE | 2016-11-26 01:43 | CP.PCM.PN ---
Subjective - Date & Time of Evaluation Date of Evaluation: 11/25/16 Time of Evaluation: 13:50 - Subjective Subjective: Patient seen and evaluated For Ashley clip as out patient for MR Pete current meds Objective - Vital Signs/Intake and Output Vital Signs (last 24 hours): Temp Pulse Resp BP Pulse Ox 97.8 F 71 20 121/77 96 11/25/16 23:45 11/25/16 23:45 11/25/16 23:45 11/25/16 23:45 11/25/16 23:45 - Medications Medications: Current Medications Aspirin (Ecotrin) 81 mg PO DAILY [facility] Last Admin: 11/25/16 09:32 Dose: 81 mg Carvedilol (Coreg) 3.125 mg PO BID [facility] Last Admin: 11/25/16 17:34 Dose: 3.125 mg Furosemide (Lasix) 20 mg PO DAILY [facility] Last Admin: 11/25/16 16:43 Dose: 20 mg Ceftriaxone Sodium 1 gm/ (Sodium Chloride) 100 mls @ 200 mls/hr IVPB Q24H [facility] Last Admin: 11/25/16 12:41 Dose: 200 mls/hr Azithromycin 500 mg/ Sodium (Chloride) 250 mls @ 166.667 mls/hr IVPB Q24H [facility] Last Admin: 11/25/16 12:41 Dose: 166.667 mls/hr Insulin Human Regular (Novolin R) 0 unit SC ACHS [facility] PRN Reason: Protocol Last Admin: 11/25/16 21:56 Dose: Not Given Lisinopril (Zestril) 5 mg PO DAILY [facility] Last Admin: 11/25/16 16:44 Dose: 5 mg Pantoprazole Sodium (Protonix Ec Tab) 40 mg PO DAILY [facility] Last Admin: 11/25/16 09:31 Dose: 40 mg Polyethylene Glycol (Miralax) 17 gm PO DAILY [facility] Last Admin: 11/25/16 16:43 Dose: 17 gm Potassium Chloride (Klor-Con 10) 10 meq PO DAILY [facility] Last Admin: 11/25/16 09:32 Dose: 10 meq Rivaroxaban (Xarelto) 10 mg PO BID [facility] Last Admin: 11/25/16 17:34 Dose: 10 mg Rosuvastatin Calcium (Crestor) 5 mg PO HS [facility] Last Admin: 11/25/16 21:25 Dose: 5 mg - Labs Labs: 11/25/16 07:09 11/25/16 07:09 APTT 73 SECONDS (21-34) H D 11/24/16 07:22
[2016-11-26] MEDS: (Novolin R) Insulin Human Regular 100 units/ml vial SC SCH ×2 (07:35→12:09)
[2016-11-26 07:38] LABS: BASO % 0.7 % (0.0-2.0); EOS # 0.1 K/uL (0.0-0.7); EOS % 1.6 % (0.0-4.0); HEMATOCRIT 37.4 % (34.0-47.0); LYMPH # 1.7 K/uL (1.0-4.3); LYMPH % 45.9 % (20.0-40.0); MEAN CELL VOLUME 89.3 fL (81.0-99.0); MEAN CORPUSCULAR HEMOGLOBIN 29.2 pg (27.0-31.0); MEAN CORPUSCULAR HGB CONC 32.6 g/dL (33.0-37.0); MEAN PLATELET VOLUME 9.8 fL (7.2-11.7); MONO # 0.3 K/uL (0.0-0.8); MONO % 8.7 % (0.0-10.0); NRBC % 0.1 % (0.0-2.0); RED CELL DISTRIBUTION WIDTH 16.5 % (11.5-14.5); WHITE BLOOD COUNT 3.8 K/uL (4.8-10.8)
[2016-11-26 07:55] LABS: CHLORIDE 103 mmol/L (98-107); POTASSIUM 4.2 mmol/L (3.6-5.2); SODIUM 138 mmol/L (132-148)
[2016-11-26 07:57] LABS: ALB/GLOB RATIO 1.1 (1.0-2.1); AST/SGOT 38 U/L (14-36); BILIRUBIN,TOTAL 1.2 mg/dL (0.2-1.3); CARBON DIOXIDE 23 mmol/L (22-30); GFR AFRICAN-AMERICAN > 60; TOTAL PROTEIN 6.7 g/dL (6.3-8.3)
[2016-11-26 07:58] LABS: ALKALINE PHOSPHATASE 75 U/L (38-126); ALT/SGPT 28 U/L (9-52); BLOOD UREA NITROGEN 30 mg/dL (7-17); CALCIUM 8.5 mg/dl (8.6-10.4); GLUCOSE,RANDOM 125 mg/dL (65-105); PHOSPHOROUS 3.5 mg/dL (2.5-4.5)
[2016-11-26 08:23] VITALS: O2SAT 99
[2016-11-26] MEDS: Pantoprazole 40 mg EC Tab PO SCH (10:09)
[2016-11-26] MEDS: POLYETHYLENE GLYCOL 3350 17 GM/Dose PACKET PO SCH (10:11)
[2016-11-26] MEDS: Potassium Chloride 10 mEq ER Tab PO SCH (10:11)
--- NOTE | 2016-11-26 11:06 | CP.PCM.PN ---
<Tremaine Bonilla - Last Filed: 11/26/16 11:06> Subjective - Date & Time of Evaluation Date of Evaluation: 11/26/16 Time of Evaluation: 11:00 - Subjective Subjective: Medicine progress note. Attending: Dr. Nolan Pt seen and examined at bedside. No acute distress. Complains of right side pain. Pending placement for subacute rehab. No fevers, chills, vomiting, diarrhea. Objective - Vital Signs/Intake and Output Vital Signs (last 24 hours): Temp Pulse Resp BP Pulse Ox 98.1 F 77 20 129/82 99 11/26/16 08:21 11/26/16 08:21 11/26/16 08:21 11/26/16 10:10 11/26/16 08:21 Intake and Output: 11/26/16 11/26/16 06:59 18:59 Intake Total 120 Balance 120 - Medications Medications: Current Medications Aspirin (Ecotrin) 81 mg PO DAILY [facility] Last Admin: 11/26/16 10:11 Dose: 81 mg Carvedilol (Coreg) 3.125 mg PO BID [facility] Last Admin: 11/26/16 10:11 Dose: 3.125 mg Furosemide (Lasix) 20 mg PO DAILY [facility] Last Admin: 11/26/16 10:10 Dose: 20 mg Ceftriaxone Sodium 1 gm/ (Sodium Chloride) 100 mls @ 200 mls/hr IVPB Q24H [facility] Last Admin: 11/25/16 12:41 Dose: 200 mls/hr Azithromycin 500 mg/ Sodium (Chloride) 250 mls @ 166.667 mls/hr IVPB Q24H [facility] Last Admin: 11/25/16 12:41 Dose: 166.667 mls/hr Insulin Human Regular (Novolin R) 0 unit SC ACHS [facility] PRN Reason: Protocol Last Admin: 11/26/16 07:35 Dose: Not Given Lisinopril (Zestril) 5 mg PO DAILY [facility] Last Admin: 11/26/16 10:10 Dose: 5 mg Pantoprazole Sodium (Protonix Ec Tab) 40 mg PO DAILY [facility] Last Admin: 11/26/16 10:09 Dose: 40 mg Polyethylene Glycol (Miralax) 17 gm PO DAILY [facility] Last Admin: 11/26/16 10:11 Dose: 17 gm Potassium Chloride (Klor-Con 10) 10 meq PO DAILY [facility] Last Admin: 11/26/16 10:11 Dose: 10 meq Rivaroxaban (Xarelto) 15 mg PO BID [facility] Rosuvastatin Calcium (Crestor) 5 mg PO HS [facility] Last Admin: 11/25/16 21:25 Dose: 5 mg Saccharomyces Boulardii (Florastor) 250 mg PO BID [facility] - Labs Labs: 11/26/16 07:00 11/26/16 07:00 APTT 73 SECONDS (21-34) H D 11/24/16 07:22 - Constitutional Appears: Non-toxic, No Acute Distress - Head Exam Head Exam: ATRAUMATIC, NORMAL INSPECTION, NORMOCEPHALIC - Eye Exam Eye Exam: EOMI - ENT Exam ENT Exam: Mucous Membranes Moist - Neck Exam Neck Exam: Full ROM, Normal Inspection - Respiratory Exam Respiratory Exam: NORMAL BREATHING PATTERN. absent: Respiratory Distress - Cardiovascular Exam Cardiovascular Exam: +S1, +S2 - GI/Abdominal Exam GI & Abdominal Exam: Soft, Normal Bowel Sounds. absent: Tenderness - Extremities Exam Extremities Exam: Full ROM, Normal Inspection - Neurological Exam Neurological Exam: Alert, Awake, Oriented x3 - Psychiatric Exam Psychiatric exam: Normal Affect, Normal Mood - Skin Skin Exam: Dry, Intact, Normal Color, Warm Assessment and Plan - Assessment and Plan (Free Text) Assessment: 1. PE -echo shows ef of 25-30 percent, diastolic dx, severe MR and severe pulm HTN -hep drip discontinued -starting low dose xarelto 15 bid -will have to follow up with Dr. Butterfield for mitral clip -V/Q scan high prob PE -CTA suggests infection, consolidation -lower ext dopplers negative 2. CAP -IV azithromycin 500 mg daily, day 3 -IV rocephin 1 g daily, day 3 -will add florastor 3. Severe MR -Dr. Butterfield consulted. recs appreciated. -Pt will see Dr. Butterfield outpatient to schedule mitral clip procedure to be done at [facility] 4. CHF -continue asa 81 daily -continue coreg 3.125 bid -will give lasix 20 po daily -continue crestor 5 -pt has combo of systolic and diastolic HF 5. Hx of HTN -will start low dose lisinopril 5 daily 6. Hx of DM -continue accuchecks/ISS 7. Hx of HLD -continue crestor 5 HS 8. GI/DVT ppx -continue protonix 40 daily -Klor con 10 daily -miralax [address] Nolan <OvidioValeria V - Last Filed: 11/27/16 22:44> Objective - Vital Signs/Intake and Output Vital Signs (last 24 hours): Temp Pulse Resp BP Pulse Ox 98.2 F 72 20 126/77 99 11/26/16 16:00 11/26/16 16:00 11/26/16 16:00 11/26/16 16:00 11/26/16 16:00 - Labs Labs: 11/26/16 07:00 11/26/16 07:00 APTT 73 SECONDS (21-34) H D 11/24/16 07:22 Attending/Attestation - Attestation I have personally seen and examined this patient.: Yes I have fully participated in the care of the patient.: Yes I have reviewed all pertinent clinical information, including history, physical exam and plan: Yes Notes (Text): This is late computer entry for 11/26/16. Patient seen, examined and case discussed with day-time resident. Patient seen at bedside in the morning with sister present. Patient reports she is feeling better. Patient has multiple contributing conditions contributing to shortness of breathe complaint including pulmonary embolus, pneumonia, acute on chronic congestive heart failure (mixed diastolic and systolic), and severe mitral regurgitation. Discussed with cardiology, patient is stable for discharge. Patient will follow- up at [facility] regarding mitral clip for severe mitral regurgitation, setup by cardiology. Discussed with pulmonary, patient is stable for discharge. Will need anticoagulation for first time PE and complete 5 day course of antibiotic for pneumonia. Patient is medically stable for discharge. Patient to follow-up with pulmonary, cardiology and primary care doctor. New Prescriptions 1) Xarelto 15mg PO bid to complete 21 day initial dosing for PE 2) Avelox 400mg PO daily for 2 more days to complete 5 day course Patient to resume other home medications upon discharge. Note: patient and patient's sister does not want [facility]. She wants to go home. Assessment/Plan 1. Pulmonary embolus * Pulmonary (Dr Robin) on board help appreciated * Patient is on Xarelto. * Patient to be discharged on Xarelto 15mg PO bid to complete 21 day course and will need to be monitored to switch to Xarelto 20mg PO once day to treatment for pulmonary embolus-->Patient advised to follow-up with pulmonary or with PMD * Patient had elevated d-dimer, V/Q supported high probability for PE, and CT scan noted for ground glass and consolidative changes but no central PE noted. 2. Pneumonia * Patient treated for community acquired pneumonia. * Patient's CT Chest noted for consolidative changes. * Patient discharged on Avelox 400mg PO daily for two more days to complete 5 day course. 3. Severe Mitral Regurgitation * Cardiology (Dr. Butterfield) on board-->help appreciated * Pt will see Dr. Butterfield outpatient to schedule mitral clip procedure to be done at [facility]; setup to [facility] for arrangement * Echocardiogram noted severe mitral regurgitation, moderate asymmetic left ventricular hypertrophy, systolic function is severely impaired. EF: 25-50%, abnormal left ventricular diastolic dysfunction, pacemaker, left atrium is moderate dilated. moderate aortic regurgitation, mitral regurgitation is severe , elevated pulmonary hypertension, trace loculated posterior percardial effusion 4. Acute on Chronic Congestive Heart Failure * Mixed: systolic and diastolic * Echocardiogram noted * Aspirin 81mg PO daily * Coreg 3.125mg PO bid * Lasix 20mg PO daily * Klor con 10mg daily * Crestor 5mg PO qHS * Lisinopril 5mg PO daily * Echocardiogram noted severe mitral regurgitation, moderate asymmetic left ventricular hypertrophy, systolic function is severely impaired. EF: 25-50%, abnormal left ventricular diastolic dysfunction, pacemaker, left atrium is moderate dilated. moderate aortic regurgitation, mitral regurgitation is severe , elevated pulmonary hypertension, trace loculated posterior percardial effusion 5. Hypertension * Lisinopril 5mg PO daily * Coreg 3.125mg PO bid 6. Diabetes type 2 * continue accuchecks/ISS * hgba1c: 6.8 (controlled given age is above 80) 7. Hyperlipidemia * continue crestor 5mg PO qHS-->resume Lipitor upon discharge 8. GI/DVT ppx * continue protonix 40mg daily
[2016-11-26] MEDS: Azithromycin 500 MG in Sodium Chloride 0.9% 250 ML IVPB SCH (11:37)
[2016-11-26] MEDS: Saccharomyces Boulardi 250 mg Cap PO SCH ×2 (11:39→17:34)
--- NOTE | 2016-11-26 11:57 | CP.PCM.PN ---
<Cyril Granados - Last Filed: 11/26/16 11:53> Subjective - Date & Time of Evaluation Date of Evaluation: 11/26/16 Time of Evaluation: 07:20 - Subjective Subjective: EP Cardiology Progress Note Dr. Pederson Patient seen and examined at bedside this AM. No acute events overnight per nursing. Patient reports shortness of breath, but denies chest pain or pain with respiration. Objective - Vital Signs/Intake and Output Vital Signs (last 24 hours): Temp Pulse Resp BP Pulse Ox 98.1 F 77 20 129/82 99 11/26/16 08:21 11/26/16 08:21 11/26/16 08:21 11/26/16 10:10 11/26/16 08:21 Intake and Output: 11/26/16 11/26/16 06:59 18:59 Intake Total 120 Balance 120 - Medications Medications: Current Medications Aspirin (Ecotrin) 81 mg PO DAILY [facility] Last Admin: 11/26/16 10:11 Dose: 81 mg Carvedilol (Coreg) 3.125 mg PO BID [facility] Last Admin: 11/26/16 10:11 Dose: 3.125 mg Furosemide (Lasix) 20 mg PO DAILY [facility] Last Admin: 11/26/16 10:10 Dose: 20 mg Ceftriaxone Sodium 1 gm/ (Sodium Chloride) 100 mls @ 200 mls/hr IVPB Q24H [facility] Last Admin: 11/25/16 12:41 Dose: 200 mls/hr Azithromycin 500 mg/ Sodium (Chloride) 250 mls @ 166.667 mls/hr IVPB Q24H [facility] Last Admin: 11/26/16 11:37 Dose: 166.667 mls/hr Insulin Human Regular (Novolin R) 0 unit SC ACHS [facility] PRN Reason: Protocol Last Admin: 11/26/16 07:35 Dose: Not Given Lisinopril (Zestril) 5 mg PO DAILY [facility] Last Admin: 11/26/16 10:10 Dose: 5 mg Pantoprazole Sodium (Protonix Ec Tab) 40 mg PO DAILY [facility] Last Admin: 11/26/16 10:09 Dose: 40 mg Polyethylene Glycol (Miralax) 17 gm PO DAILY [facility] Last Admin: 11/26/16 10:11 Dose: 17 gm Potassium Chloride (Klor-Con 10) 10 meq PO DAILY [facility] Last Admin: 11/26/16 10:11 Dose: 10 meq Rivaroxaban (Xarelto) 15 mg PO BID [facility] Rosuvastatin Calcium (Crestor) 5 mg PO HS [facility] Last Admin: 11/25/16 21:25 Dose: 5 mg Saccharomyces Boulardii (Florastor) 250 mg PO BID [facility] Last Admin: 11/26/16 11:39 Dose: 250 mg - Labs Labs: 11/26/16 07:00 11/26/16 07:00 APTT 73 SECONDS (21-34) H D 11/24/16 07:22 - Constitutional Appears: Well, Non-toxic, No Acute Distress - Head Exam Head Exam: ATRAUMATIC, NORMAL INSPECTION, NORMOCEPHALIC - Eye Exam Eye Exam: EOMI, Normal appearance. absent: Conjunctival injection, Scleral icterus Pupil Exam: absent: Irregular, Unequal - ENT Exam ENT Exam: Mucous Membranes Moist - Neck Exam Neck Exam: Full ROM - Respiratory Exam Respiratory Exam: Clear to Ausculation Bilateral, NORMAL BREATHING PATTERN. absent: Accessory Muscle Use, Decreased Breath Sounds, Rales, Rhonchi, Wheezes - Cardiovascular Exam Cardiovascular Exam: REGULAR RHYTHM, RRR, +S1, +S2. absent: Bradycardia, Tachycardia, Irregular Rhythm, +S4 - GI/Abdominal Exam GI & Abdominal Exam: Soft. absent: Distended, Tenderness - Extremities Exam Extremities Exam: Normal Inspection. absent: Calf Tenderness, Pedal Edema, Tenderness - Neurological Exam Neurological Exam: Alert, Awake - Psychiatric Exam Psychiatric exam: Normal Affect, Normal Mood - Skin Skin Exam: Dry, Intact, Normal Color, Warm Assessment and Plan (1) Cardiomyopathy Assessment & Plan: Echo 11/21/16: Moderate asymmetric LVH, LV systolic function severely impaired with EF 33%, LV diastolic dysfxn, Pacer lead in RV, LA mod dilated, Severe MR, Mod AR, RV systolic pressure > 60mmHg, Severe Pulm HTN, trace loculated posterior pericardial effusion EKG 11/21/16: Normal sinus rhythm at 72, Possible Left atrial enlargement, Left axis deviation, Left bundle branch block, Abnormal ECG -Patient with cardiomyopathy. S/P ICD placement. -EF 33% on Echo on 11/21/16 -Hemodynamically stable -ICD to be interrogated and found to be functioning well. No arrhythmias. P wave 2.5, R wave 12, A imp 400, Rv imp 400, HVli 42, A threshold 0.75 at 0.5, Rv threshold 0.75 at 0.5, Battery 3.5-4.1 years. -Continue medical management as per Primary Global Engineering Manager (Dr. Butterfield) Status: Acute - Assessment and Plan (Free Text) Assessment: Case discussed with Dr. Pederson. <Vasile Pederson - Last Filed: 11/27/16 09:43> Objective - Vital Signs/Intake and Output Vital Signs (last 24 hours): Temp Pulse Resp BP Pulse Ox 98.2 F 72 20 126/77 99 11/26/16 16:00 11/26/16 16:00 11/26/16 16:00 11/26/16 16:00 11/26/16 16:00 - Labs Labs: 11/26/16 07:00 11/26/16 07:00 APTT 73 SECONDS (21-34) H D 11/24/16 07:22 Attending/Attestation - Attestation I have personally seen and examined this patient.: Yes I have fully participated in the care of the patient.: Yes I have reviewed all pertinent clinical information, including history, physical exam and plan: Yes Notes (Text): 11/27/16 09:43 Pt feeling better follow up ICD check outpt 3 months
--- NOTE | 2016-11-26 12:54 | CP.PCM.PN ---
Subjective - Date & Time of Evaluation Date of Evaluation: 11/26/16 Time of Evaluation: 10:35 - Subjective Subjective: Patient seen and examined. Complaining of shortness of breath Denies chest pain, denies fever or chills Echocardiogram showed ejection fraction of 33% Objective - Vital Signs/Intake and Output Vital Signs (last 24 hours): Temp Pulse Resp BP Pulse Ox 98.1 F 77 20 129/82 99 11/26/16 08:21 11/26/16 08:21 11/26/16 08:21 11/26/16 10:10 11/26/16 08:21 Intake and Output: 11/26/16 11/26/16 06:59 18:59 Intake Total 120 Balance 120 - Medications Medications: Current Medications Aspirin (Ecotrin) 81 mg PO DAILY [facility] Last Admin: 11/26/16 10:11 Dose: 81 mg Carvedilol (Coreg) 3.125 mg PO BID [facility] Last Admin: 11/26/16 10:11 Dose: 3.125 mg Furosemide (Lasix) 20 mg PO DAILY [facility] Last Admin: 11/26/16 10:10 Dose: 20 mg Ceftriaxone Sodium 1 gm/ (Sodium Chloride) 100 mls @ 200 mls/hr IVPB Q24H [facility] Last Admin: 11/25/16 12:41 Dose: 200 mls/hr Azithromycin 500 mg/ Sodium (Chloride) 250 mls @ 166.667 mls/hr IVPB Q24H [facility] Last Admin: 11/26/16 11:37 Dose: 166.667 mls/hr Insulin Human Regular (Novolin R) 0 unit SC ACHS [facility] PRN Reason: Protocol Last Admin: 11/26/16 12:09 Dose: Not Given Lisinopril (Zestril) 5 mg PO DAILY [facility] Last Admin: 11/26/16 10:10 Dose: 5 mg Pantoprazole Sodium (Protonix Ec Tab) 40 mg PO DAILY [facility] Last Admin: 11/26/16 10:09 Dose: 40 mg Polyethylene Glycol (Miralax) 17 gm PO DAILY [facility] Last Admin: 11/26/16 10:11 Dose: 17 gm Potassium Chloride (Klor-Con 10) 10 meq PO DAILY [facility] Last Admin: 11/26/16 10:11 Dose: 10 meq Rivaroxaban (Xarelto) 15 mg PO BID [facility] Rosuvastatin Calcium (Crestor) 5 mg PO [facility] Last Admin: 11/25/16 21:25 Dose: 5 mg Saccharomyces Nui (Florastor) 250 mg PO BID [facility] Last Admin: 11/26/16 11:39 Dose: 250 mg - Labs Labs: 11/26/16 07:00 11/26/16 07:00 APTT 73 SECONDS (21-34) H D 11/24/16 07:22 - Head Exam Head Exam: ATRAUMATIC, NORMOCEPHALIC - Eye Exam Eye Exam: Normal appearance - ENT Exam ENT Exam: Mucous Membranes Moist - Neck Exam Neck Exam: Normal Inspection - Respiratory Exam Respiratory Exam: Clear to Ausculation Bilateral - Cardiovascular Exam Cardiovascular Exam: REGULAR RHYTHM - GI/Abdominal Exam GI & Abdominal Exam: Soft, Normal Bowel Sounds - Extremities Exam Extremities Exam: Normal Inspection - Neurological Exam Neurological Exam: Alert Assessment and Plan (1) Pulmonary embolism Assessment & Plan: CAT scan of the chest consistent with subsegmental small pulmonary embolism on Xarelto Continue diuretics Status: Acute (2) Congestive heart failure Status: Acute (3) Pneumonia Status: Acute
--- NOTE | 2016-11-26 15:58 | CP.PCM.DIS ---
<Tremaine Bonilla - Last Filed: 11/26/16 16:28> Provider - Provider Date of Admission: 11/22/16 15:43 Attending physician: Bo Agudelo DO Consults: Consults. 1. Dr. Robin- pulm 2. Dr. Pederson- EP 3. Dr. Butterfield- cardiology/interventional cardiology Time Spent in preparation of Discharge (in minutes): 45 Hospital Course - Lab Results Lab Results: Most Recent Lab Values WBC 3.8 K/uL (4.8-10.8) L 11/26/16 07:00 RBC 4.19 Mil/uL (3.80-5.20) 11/26/16 07:00 Hgb 12.2 g/dL (11.0-16.0) 11/26/16 07:00 Hct 37.4 % (34.0-47.0) 11/26/16 07:00 MCV 89.3 fL (81.0-99.0) 11/26/16 07:00 MCH 29.2 pg (27.0-31.0) 11/26/16 07:00 MCHC 32.6 g/dL (33.0-37.0) L 11/26/16 07:00 RDW 16.5 % (11.5-14.5) H 11/26/16 07:00 Plt Count 146 K/uL (130-400) 11/26/16 07:00 MPV 9.8 fL (7.2-11.7) 11/26/16 07:00 Neut % (Auto) 43.1 % (50.0-75.0) L 11/26/16 07:00 Lymph % (Auto) 45.9 % (20.0-40.0) H 11/26/16 07:00 [place] % (Auto) 8.7 % (0.0-10.0) 11/26/16 07:00 Eos % (Auto) 1.6 % (0.0-4.0) 11/26/16 07:00 Baso % (Auto) 0.7 % (0.0-2.0) 11/26/16 07:00 Neut # 1.6 K/uL (1.8-7.0) L 11/26/16 07:00 Lymph # 1.7 K/uL (1.0-4.3) 11/26/16 07:00 [place] # 0.3 K/uL (0.0-0.8) 11/26/16 07:00 Eos # 0.1 K/uL (0.0-0.7) 11/26/16 07:00 Baso # 0.0 K/uL (0.0-0.2) 11/26/16 07:00 APTT 73 SECONDS (21-34) H D 11/24/16 07:22 D-Dimer, Quantitative 665 ng/mlDDU (0-243) H 11/21/16 18:19 Sodium 138 mmol/L (132-148) 11/26/16 07:00 Potassium 4.2 mmol/L (3.6-5.2) 11/26/16 07:00 Chloride 103 mmol/L (98-107) 11/26/16 07:00 Carbon Dioxide 23 mmol/L (22-30) 11/26/16 07:00 Anion Gap 16 (10-20) 11/26/16 07:00 BUN 30 mg/dL (7-17) H 11/26/16 07:00 Creatinine 1.0 MG/DL (0.7-1.2) 11/26/16 07:00 Est GFR ( Amer) > 60 11/26/16 07:00 Est GFR (Non-Af Amer) 53 11/26/16 07:00 POC Glucose (mg/dL) 138 mg/dL (65-110) H 11/26/16 11:36 Random Glucose 125 mg/dL (65-105) H 11/26/16 07:00 Hemoglobin A1c 6.8 % (4.2-6.5) H 11/22/16 07:10 Calcium 8.5 mg/dl (8.6-10.4) L 11/26/16 07:00 Phosphorus 3.5 mg/dL (2.5-4.5) 11/26/16 07:00 Magnesium 2.0 mg/dL (1.6-2.3) 11/26/16 07:00 Total Bilirubin 1.2 mg/dL (0.2-1.3) 11/26/16 07:00 AST 38 U/L (14-36) H D 11/26/16 07:00 ALT 28 U/L (9-52) 11/26/16 07:00 Alkaline Phosphatase 75 U/L (38-126) 11/26/16 07:00 Total Creatine Kinase 66 U/L (30-135) 11/22/16 01:03 CK-MB (Mass) 0.45 ng/mL (0.0-3.38) 11/22/16 01:03 Troponin I 0.0160 ng/mL (0.00-0.120) 11/21/16 11:16 Troponin I, Quant 0.0230 ng/mL (0.00-0.120) 11/22/16 01:03 NT-Pro-B Natriuret Pep 9940 pg/mL (0-900) H 11/21/16 11:16 Total Protein 6.7 g/dL (6.3-8.3) 11/26/16 07:00 Albumin 3.4 g/dL (3.5-5.0) L 11/26/16 07:00 Globulin 3.2 gm/dL (2.2-3.9) 11/26/16 07:00 Albumin/Globulin Ratio 1.1 (1.0-2.1) 11/26/16 07:00 Triglycerides 74 mg/dL (0-149) 11/22/16 07:10 Cholesterol 124 mg/dL (0-199) 11/22/16 07:10 LDL Cholesterol Direct 56 mg/dL (0-129) 11/22/16 07:10 HDL Cholesterol 45 mg/dL (30-70) 11/22/16 07:10 TSH 3rd Generation 0.60 mIU/L (0.46-4.68) 11/22/16 07:10 Urine Color Straw (YELLOW) 11/21/16 11:33 Urine Clarity Clear (Clear) 11/21/16 11:33 Urine pH 7.0 (5.0-8.0) 11/21/16 11:33 Ur Specific [place] 1.006 (1.003-1.030) 11/21/16 11:33 Urine Protein Negative mg/dL (NEGATIVE) 11/21/16 11:33 Urine Glucose (UA) Normal mg/dL (Normal) 11/21/16 11:33 Urine Ketones Negative mg/dL (NEGATIVE) 11/21/16 11:33 Urine Blood 2+ (NEGATIVE) H 11/21/16 11:33 Urine Nitrate Negative (NEGATIVE) 11/21/16 11:33 Urine Bilirubin Negative (NEGATIVE) 11/21/16 11:33 Urine Urobilinogen Normal mg/dL (0.2-1.0) 11/21/16 11:33 Ur Leukocyte Esterase Trace Debby/uL (Negative) 11/21/16 11:33 Urine WBC (Auto) 1 /hpf (0-5) 11/21/16 11:33 Urine RBC (Auto) 13 /hpf (0-3) H 11/21/16 11:33 Ur Squamous Epith Cells < 1 /hpf (0-5) 11/21/16 11:33 Hepatitis A IgM Ab Negative (NEGATIVE) 11/21/16 18:19 Hep Bs Antigen Negative (NEGATIVE) 11/21/16 18:19 Hep B Core IgM Ab Negative (NEGATIVE) 11/21/16 18:19 Hepatitis C Antibody Negative (NEGATIVE) 11/21/16 18:19 - Hospital Course Hospital Course: Admit date- 11/21 DC date- 11/26/16 Attending: Dr. Fierro/ Dr. Nolan. Consults. 1. Dr. Robin- pulm 2. Dr. Pederson- cardio EP 3. Dr. Butterfield- cardiology/interventional Stable upon discharge>> discharge to home HPI: see H/P Labs: see lab data Hospital course 1. PE -echo shows ef of 25-30 percent, diastolic dx, severe MR and severe pulm HTN -hep drip initially started>>> discontinued -started low dose xarelto 15 mg PO bid -will have to follow up with Dr. Butterfield for mitral clip -V/Q scan high prob PE -CTA suggests infection, consolidation, ground glass -lower ext dopplers negative 2. CAP -IV azithromycin 500 mg daily, day 3 >>> will dc on PO -IV rocephin 1 g daily, day 3>>> will DC on PO -will add florastor>>> pt should take abx with yogurt upon dc 3. Severe MR -Dr. Butterfield consulted. recs appreciated. -Pt will see Dr. Butterfield outpatient to schedule mitral clip procedure to be done at [place] 4. CHF -continue asa 81 daily -continue coreg 3.125 bid -will give lasix 20 po mg daily -continue crestor 5 mg PO HS -pt has combo of systolic and diastolic HF -Dr. Pederson was consulted for interrogation of pacer and it was functioning properly 5. Hx of HTN -started low dose lisinopril 5 daily -pt initially came in on losartan 100 and was held due to high dose 6. Hx of DM -accuchecks/ISS 7. Hx of HLD -crestor 5 HS 8. GI/DVT ppx -protonix 40 daily -Klor con 10 daily -miralax 17 daily -xarelto BID, first 10 mg PO>> changed on 11/26 to 15 mg PO BID Discharge meds 1. asa 81 mg po daily 2. lipitor 10 mg po hs 3. coreg 3.125 mg po bid 4. lasix 20 mg po daily 5. lisinopril 5 mg po daily 6. avelox 400 mg po daily for 2 addn days 7. klorcon 10 mg po daily 8. xarelto 15 mg po daily DC instructions Pt is medically stable for dc. Please return if condition worsens. Pt to f/u with Dr. Butterfield. Pt to follow up with primary doc. Pt needs to f/u with primary doctor Dr. Allyssa Evans in [place]. Pt will ultimately need mitral clip procedure for severe MR. - Date & Time of H&P Date of H&P: 11/21/16 Time of H&P: 17:01 Discharge Exam - Head Exam Head Exam: ATRAUMATIC, NORMOCEPHALIC - Eye Exam Eye Exam: EOMI - ENT Exam ENT Exam: Mucous Membranes Moist - Neck Exam Neck exam: Full Rom, Normal Inspection - Respiratory Exam Respiratory Exam: Decreased Breath Sounds, UNREMARKABLE - Cardiovascular Exam Cardiovascular Exam: +S1, +S2 - GI/Abdominal Exam GI & Abdominal Exam: Normal Bowel Sounds - Extremities Exam Extremities exam: full ROM, normal inspection - Back Exam Back exam: NORMAL INSPECTION - Neurological Exam Neurological exam: Alert, Oriented x3 - Psychiatric Exam Psychiatric exam: Normal Affect, Normal Mood - Skin Skin Exam: Dry, Intact, Normal Color, Warm Discharge Plan - Discharge Medications Prescriptions: Aspirin [Ecotrin] 81 mg PO DAILY #30 Carvedilol [Coreg] 3.125 mg PO BID #60 tab Furosemide [Lasix] 20 mg PO DAILY #30 tab Lisinopril [Zestril] 5 mg PO DAILY #30 tab Moxifloxacin [Avelox] 400 mg PO DAILY #2 tab Potassium Chloride [Klor-Con 10] 10 meq PO DAILY #30 ter Rivaroxaban [Xarelto] 15 mg PO BID #42 tab - Follow Up Plan Condition: STABLE Disposition: HOME/ ROUTINE Instructions: Lisinopril (By mouth), Furosemide (By mouth), Potassium Chloride (By mouth), Aspirin (By mouth), Carvedilol (By mouth), Moxifloxacin (By mouth), Rivaroxaban (By mouth), Heart Failure (DC), Heart Healthy Diet (DC) Additional Instructions: discharge. Pt was cleared by Dr. Pederson (EP), Dr. Butterfield (Interventional Cardiology), and Dr. Robin (Pulm). Pt will need follow up with her primary care doc Dr. Allyssa Evans in [place], [place]. Please return if condition worsens. Take avelox with yogurt for 2 addn days. 1. ASA 81 mg po daily 2. coreg 3.125 mg po bid 3. lasix 20 mg po daily 4. lisinopril 5 mg po daily 5. klor con 10 meq daily 6. xarelto 15 mg po bid for 21 days>> will then need to transition to xarelto 20 mg po 1x daily 7. avelox 400 mg po daily for 2 addn days Referrals: Allyssa Evans MD [Non-Staff] - <Valeria Nolan V - Last Filed: 11/27/16 22:46> Provider - Provider Date of Admission: 11/22/16 15:43 Attending physician: Bo Agudelo DO Hospital Course - Lab Results Lab Results: Most Recent Lab Values WBC 3.8 K/uL (4.8-10.8) L 11/26/16 07:00 RBC 4.19 Mil/uL (3.80-5.20) 11/26/16 07:00 Hgb 12.2 g/dL (11.0-16.0) 11/26/16 07:00 Hct 37.4 % (34.0-47.0) 11/26/16 07:00 MCV 89.3 fL (81.0-99.0) 11/26/16 07:00 MCH 29.2 pg (27.0-31.0) 11/26/16 07:00 MCHC 32.6 g/dL (33.0-37.0) L 11/26/16 07:00 RDW 16.5 % (11.5-14.5) H 11/26/16 07:00 Plt Count 146 K/uL (130-400) 11/26/16 07:00 MPV 9.8 fL (7.2-11.7) 11/26/16 07:00 Neut % (Auto) 43.1 % (50.0-75.0) L 11/26/16 07:00 Lymph % (Auto) 45.9 % (20.0-40.0) H 11/26/16 07:00 [place] % (Auto) 8.7 % (0.0-10.0) 11/26/16 07:00 Eos % (Auto) 1.6 % (0.0-4.0) 11/26/16 07:00 Baso % (Auto) 0.7 % (0.0-2.0) 11/26/16 07:00 Neut # 1.6 K/uL (1.8-7.0) L 11/26/16 07:00 Lymph # 1.7 K/uL (1.0-4.3) 11/26/16 07:00 [place] # 0.3 K/uL (0.0-0.8) 11/26/16 07:00 Eos # 0.1 K/uL (0.0-0.7) 11/26/16 07:00 Baso # 0.0 K/uL (0.0-0.2) 11/26/16 07:00 APTT 73 SECONDS (21-34) H D 11/24/16 07:22 D-Dimer, Quantitative 665 ng/mlDDU (0-243) H 11/21/16 18:19 Sodium 138 mmol/L (132-148) 11/26/16 07:00 Potassium 4.2 mmol/L (3.6-5.2) 11/26/16 07:00 Chloride 103 mmol/L (98-107) 11/26/16 07:00 Carbon Dioxide 23 mmol/L (22-30) 11/26/16 07:00 Anion Gap 16 (10-20) 11/26/16 07:00 BUN 30 mg/dL (7-17) H 11/26/16 07:00 Creatinine 1.0 MG/DL (0.7-1.2) 11/26/16 07:00 Est GFR ( Amer) > 60 11/26/16 07:00 Est GFR (Non-Af Amer) 53 11/26/16 07:00 POC Glucose (mg/dL) 132 mg/dL (65-110) H 11/26/16 16:36 Random Glucose 125 mg/dL (65-105) H 11/26/16 07:00 Hemoglobin A1c 6.8 % (4.2-6.5) H 11/22/16 07:10 Calcium 8.5 mg/dl (8.6-10.4) L 11/26/16 07:00 Phosphorus 3.5 mg/dL (2.5-4.5) 11/26/16 07:00 Magnesium 2.0 mg/dL (1.6-2.3) 11/26/16 07:00 Total Bilirubin 1.2 mg/dL (0.2-1.3) 11/26/16 07:00 AST 38 U/L (14-36) H D 11/26/16 07:00 ALT 28 U/L (9-52) 11/26/16 07:00 Alkaline Phosphatase 75 U/L (38-126) 11/26/16 07:00 Total Creatine Kinase 66 U/L (30-135) 11/22/16 01:03 CK-MB (Mass) 0.45 ng/mL (0.0-3.38) 11/22/16 01:03 Troponin I 0.0160 ng/mL (0.00-0.120) 11/21/16 11:16 Troponin I, Quant 0.0230 ng/mL (0.00-0.120) 11/22/16 01:03 NT-Pro-B Natriuret Pep 9940 pg/mL (0-900) H 11/21/16 11:16 Total Protein 6.7 g/dL (6.3-8.3) 11/26/16 07:00 Albumin 3.4 g/dL (3.5-5.0) L 11/26/16 07:00 Globulin 3.2 gm/dL (2.2-3.9) 11/26/16 07:00 Albumin/Globulin Ratio 1.1 (1.0-2.1) 11/26/16 07:00 Triglycerides 74 mg/dL (0-149) 11/22/16 07:10 Cholesterol 124 mg/dL (0-199) 11/22/16 07:10 LDL Cholesterol Direct 56 mg/dL (0-129) 11/22/16 07:10 HDL Cholesterol 45 mg/dL (30-70) 11/22/16 07:10 TSH 3rd Generation 0.60 mIU/L (0.46-4.68) 11/22/16 07:10 Urine Color Straw (YELLOW) 11/21/16 11:33 Urine Clarity Clear (Clear) 11/21/16 11:33 Urine pH 7.0 (5.0-8.0) 11/21/16 11:33 Ur Specific [place] 1.006 (1.003-1.030) 11/21/16 11:33 Urine Protein Negative mg/dL (NEGATIVE) 11/21/16 11:33 Urine Glucose (UA) Normal mg/dL (Normal) 11/21/16 11:33 Urine Ketones Negative mg/dL (NEGATIVE) 11/21/16 11:33 Urine Blood 2+ (NEGATIVE) H 11/21/16 11:33 Urine Nitrate Negative (NEGATIVE) 11/21/16 11:33 Urine Bilirubin Negative (NEGATIVE) 11/21/16 11:33 Urine Urobilinogen Normal mg/dL (0.2-1.0) 11/21/16 11:33 Ur Leukocyte Esterase Trace [place]/uL (Negative) 11/21/16 11:33 Urine WBC (Auto) 1 /hpf (0-5) 11/21/16 11:33 Urine RBC (Auto) 13 /hpf (0-3) H 11/21/16 11:33 Ur Squamous Epith Cells < 1 /hpf (0-5) 11/21/16 11:33 Hepatitis A IgM Ab Negative (NEGATIVE) 11/21/16 18:19 Hep Bs Antigen Negative (NEGATIVE) 11/21/16 18:19 Hep B Core IgM Ab Negative (NEGATIVE) 11/21/16 18:19 Hepatitis C Antibody Negative (NEGATIVE) 11/21/16 18:19 Attending/Attestation - Attestation I have personally seen and examined this patient.: Yes I have fully participated in the care of the patient.: Yes I have reviewed all pertinent clinical information, including history, physical exam and plan: Yes Notes (Text): This is late computer entry for 11/26/16. Patient seen, examined and case discussed with day-time resident. Patient seen at bedside in the morning with sister present. Patient reports she is feeling better. Patient has multiple contributing conditions contributing to shortness of breathe complaint including pulmonary embolus, pneumonia, acute on chronic congestive heart failure (mixed diastolic and systolic), and severe mitral regurgitation. Discussed with cardiology, patient is stable for discharge. Patient will follow- up at [facility] regarding mitral clip for severe mitral regurgitation, setup by cardiology. Discussed with pulmonary, patient is stable for discharge. Will need anticoagulation for first time PE and complete 5 day course of antibiotic for pneumonia. Patient is medically stable for discharge. Patient to follow-up with pulmonary, cardiology and primary care doctor. New Prescriptions 1) Xarelto 15mg PO bid to complete 21 day initial dosing for PE 2) Avelox 400mg PO daily for 2 more days to complete 5 day course Patient to resume other home medications upon discharge. Note: patient and patient's sister does not want [facility]. She wants to go home. Assessment/Plan 1. Pulmonary embolus * Pulmonary (Dr Robin) on board help appreciated * Patient is on Xarelto. * Patient to be discharged on Xarelto 15mg PO bid to complete 21 day course and will need to be monitored to switch to Xarelto 20mg PO once day to treatment for pulmonary embolus-->Patient advised to follow-up with pulmonary or with PMD * Patient had elevated d-dimer, V/Q supported high probability for PE, and CT scan noted for ground glass and consolidative changes but no central PE noted. 2. Pneumonia * Patient treated for community acquired pneumonia. * Patient's CT Chest noted for consolidative changes. * Patient discharged on Avelox 400mg PO daily for two more days to complete 5 day course. 3. Severe Mitral Regurgitation * Cardiology (Dr. Butterfield) on board-->help appreciated * Pt will see Dr. Butterfield outpatient to schedule mitral clip procedure to be done at [place]; setup to [facility] for arrangement * Echocardiogram noted severe mitral regurgitation, moderate asymmetic left ventricular hypertrophy, systolic function is severely impaired. EF: 25-50%, abnormal left ventricular diastolic dysfunction, pacemaker, left atrium is moderate dilated. moderate aortic regurgitation, mitral regurgitation is severe , elevated pulmonary hypertension, trace loculated posterior percardial effusion 4. Acute on Chronic Congestive Heart Failure * Mixed: systolic and diastolic * Echocardiogram noted * Aspirin 81mg PO daily * Coreg 3.125mg PO bid * Lasix 20mg PO daily * Klor con 10mg daily * Crestor 5mg PO qHS * Lisinopril 5mg PO daily * Echocardiogram noted severe mitral regurgitation, moderate asymmetic left ventricular hypertrophy, systolic function is severely impaired. EF: 25-50%, abnormal left ventricular diastolic dysfunction, pacemaker, left atrium is moderate dilated. moderate aortic regurgitation, mitral regurgitation is severe , elevated pulmonary hypertension, trace loculated posterior percardial effusion * Patient's pacemaker functioning. 5. Hypertension * Lisinopril 5mg PO daily * Coreg 3.125mg PO bid 6. Diabetes type 2 * continue accuchecks/ISS * hgba1c: 6.8 (controlled given age is above 80) 7. Hyperlipidemia * continue crestor 5mg PO qHS-->resume Lipitor upon discharge 8. GI/DVT ppx * continue protonix 40mg daily
[2016-11-26 16:08] VITALS: BP 126/77; PULSE 72; TEMP 98.2
--- NOTE | 2016-11-28 22:57 | PCM.HF ---
Heart Failure Core Measure - Heart Failure Ejection Fraction: Less Than 40 % JACQUES Inhibitor Prescribed: Yes Beta-Yvette Prescribed: Carvedilol Angiotensin II Receptor Yvette Prescribed: No Contraindication/Reason for not providing: Pt given jacques AnticoagulationTherapy for Atrial Fibrillation/Atrialflutter: No Contraindication/Reason for not providing: Pt was not in afib/a flutter Aldosterone Antagonist Prescribed: No Contraindication/Reason for not providing: pt given jacques Hydralazine Nitrate Prescribed: No Contraindication/Reason for not providing: not indicated Implantable Cardioverter Defibrillator Therapy: Yes Cardiac Resynchronization Therapy Prescribed: No Contraindication/Reason for not providing: deferred to cardiology - Follow up Will be discharged to: Home Follow Up Date (must be within 7 days from discharge): 12/02/16 Follow Up Time: 09:00
== END 2016-11-26 19:00 | disposition home or self-care (01) | DRG 544 ==
LOC: C.ER 10:23 → C.9E 13:13 → C.6T 14:14 → OBSVTOIN 11-22 15:43
PROVIDERS: ADMIT Hospitalist; ATTEND Hospitalist
PROC: 4B02XTZ Measurement of Cardiac Defibrillator, External Approach (ICD-10-PCS; principal; 2016-11-25)
DX: I11.0 Hypertensive heart disease with heart failure (principal); I26.99 Other pulmonary embolism without acute cor pulmonale; J18.9 Pneumonia, unspecified organism; I42.9 Cardiomyopathy, unspecified; I50.43 Acute on chronic combined systolic (congestive) and diastolic (congestive) heart failure; I08.0 Rheumatic disorders of both mitral and aortic valves; I27.2 Other secondary pulmonary hypertension; Z99.81 Dependence on supplemental oxygen; I44.7 Left bundle-branch block, unspecified; E11.9 Type 2 diabetes mellitus without complications; E78.5 Hyperlipidemia, unspecified; R06.02 Shortness of breath; Z90.710 Acquired absence of both cervix and uterus; Z90.49 Acquired absence of other specified parts of digestive tract; Z95.810 Presence of automatic (implantable) cardiac defibrillator

== ENCOUNTER 2016-12-16 20:02 | Inpatient (IN) | payer MEDICARE, MEDICAID ==
[2016-12-16 20:02] VITALS: BMI 29.2
[2016-12-16 21:31] LABS: EOS % 0.9 % (0.0-4.0); HEMATOCRIT 30.1 % (34.0-47.0); LYMPH # 1.2 K/uL (1.0-4.3); MEAN CORPUSCULAR HEMOGLOBIN 28.7 pg (27.0-31.0); MEAN CORPUSCULAR HGB CONC 32.6 g/dL (33.0-37.0); MEAN PLATELET VOLUME 9.5 fL (7.2-11.7); MONO # 0.4 K/uL (0.0-0.8); MONO % 8.3 % (0.0-10.0); RED CELL DISTRIBUTION WIDTH 15.9 % (11.5-14.5); WHITE BLOOD COUNT 4.5 K/uL (4.8-10.8)
[2016-12-16 21:46] LABS: INR 2.9
[2016-12-16 22:05] LABS: CHLORIDE 102 mmol/L (98-107)
[2016-12-16 22:06] LABS: POTASSIUM 4.1 mmol/L (3.6-5.2); SODIUM 135 mmol/L (132-148)
[2016-12-16 22:08] LABS: ALB/GLOB RATIO 0.9 (1.0-2.1); ALKALINE PHOSPHATASE 68 U/L (38-126); AST/SGOT 34 U/L (14-36); BILIRUBIN,TOTAL 1.9 mg/dL (0.2-1.3); BLOOD UREA NITROGEN 25 mg/dL (7-17); CARBON DIOXIDE 21 mmol/L (22-30); GFR AFRICAN-AMERICAN > 60; GLUCOSE,RANDOM 126 mg/dL (65-105)
[2016-12-16 22:09] LABS: ALT/SGPT 24 U/L (9-52); CALCIUM 8.2 mg/dl (8.6-10.4)
--- NOTE | 2016-12-16 22:52 | C.PDOC ---
History Of Present Illness pt presents with productive cough worsening over the last week, Speaking in 3-4 word sentences. No f/c. Yellow, greening sputum. No cp or palpitations Time Seen by Provider: 12/16/16 22:51 Chief Complaint (Nursing): Shortness Of Breath History Per: Patient History/Exam Limitations: no limitations Onset/Duration Of Symptoms: Days (8) Current Symptoms Are (Timing): Still Present Initiating Event: Upper Respiratory Illness Quality: Dull Exacerbating Factor(s): Exertion, Coughing Current Respiratory Medications: See Home Med List Severity: Moderate Pain Scale Rating Of: 4 Associated Symptoms: Productive Cough. denies: Fever, Chest Pain Reports Recently: Treated By A Physician Recent travel outside of the [place]: No Additional History Per: Family Past Medical History Reviewed: Historical Data, Nursing Documentation, Vital Signs Vital Signs: Last Vital Signs Temp 99.8 F H 12/16/16 20:11 Pulse 84 12/16/16 20:11 Resp 32 H 12/16/16 21:34 BP 136/76 12/16/16 20:11 Pulse Ox 93 L 12/16/16 23:58 - Medical History PMH: HTN, Hypercholesterolemia, Pneumonia Denies: Chronic Kidney Disease Surgical History: Cholecystectomy, Pacemaker - [facility] Procedures ESOPHAGOGASTRODUODENOSCOPY [EGD] W/CLOSED BIOPSY (12/20/12) MEASUREMENT OF CARDIAC DEFIBRILLATOR, EXTERNAL APPROACH (11/22/16) Family History: States: No Known Family Hx - Social History Hx Alcohol Use: No Hx Substance Use: No - Immunization History Hx Tetanus Toxoid Vaccination: No Hx Influenza Vaccination: No Hx Pneumococcal Vaccination: No Review Of Systems Constitutional: Negative for: Fever, Chills Eyes: Negative for: Vision Change ENT: Negative for: Throat Pain Cardiovascular: Negative for: Chest Pain, Palpitations Respiratory: Positive for: Cough, Shortness of Breath, Wheezing Gastrointestinal: Negative for: Nausea, Vomiting, Abdominal Pain Genitourinary: Negative for: Dysuria Musculoskeletal: Negative for: Back Pain Skin: Negative for: Rash, Lesions, Jaundice Neurological: Negative for: Weakness Psych: Negative for: Anxiety Physical Exam - Physical Exam Appears: Non-toxic Skin: Warm, Dry Head: Normacephalic Oral Mucosa: Moist Throat: No Erythema Neck: Trachea Midline, Supple Chest: Symmetrical, Other (pacer on left) Cardiovascular: Rhythm Regular Respiratory: Decreased Breath Sounds, Rales (bases), Rhonchi (right>left), Wheezing (few) Gastrointestinal/Abdominal: Soft, No Tenderness, No Distention Back: No CVA Tenderness Extremity: No Tenderness Extremity: Bilateral: Atraumatic, Normal Color And Temperature Neurological/Psych: Oriented x3, Normal Speech, Normal Cognition Gait: Steady ED Course And Treatment - Laboratory Results Result Diagrams: 12/16/16 21:27 12/16/16 21:27 ECG: Interpreted By Me, Viewed By Me ECG Rhythm: Sinus Rhythm (70), 1st Degree HB, L BBB O2 Sat by Pulse Oximetry: 93 Pulse Ox Interpretation: Abnormal (placed on 2l nc) - Radiology CXR: Interpreted by Me, Viewed By Me CXR Interpretation: Yes: Cardiomegaly, Other (pacer on left, chf, poss lll infiltrate). No: COPD Disposition Discussed With Dr.: Dalton Diaz Comment: accepted the pt on his service and took over the care at 12AM Doctor Will See Patient In The: Hospital Counseled Patient/Family Regarding: Studies Performed, Diagnosis - Disposition Disposition: HOSPITALIZED Disposition Time: 22:51 Condition: FAIR - POA Present On Arrival: Poor Glycemic Control - Clinical Impression Clinical Impression: Dyspnea, Respiratory distress, Pacemaker, CHF (congestive heart failure) Decision To Admit - Pt Status Changed To: Hospital Disposition Of: Inpatient - Admit Certification Admit to Inpatient:: After my assessment, the patient will require hospitalization for at least two midnights. This is because of the severity of symptoms shown, intensity of services needed, and/or the medical risk in this patient being treated as an outpatient. - InPatient: Physician Admission Certification: I certify that this patient requires 2 or more midnights of care for the following reason:: After my assessment, the patient will require hospitalization for at least two midnights. This is because of the severity of symptoms shown, intensity of services needed, and/or the medical risk in this patient being treated as an outpatient. - . Bed Request Type: Telemetry Admitting Physician: Dalton Diaz Patient Diagnosis: Dyspnea, Respiratory distress, Pacemaker, CHF (congestive heart failure)
[2016-12-16] MEDS ORDERED: Albuterol-Ipratrop 3 mg / 0.5 (3 ml) UD IH SCH (23:00)
[2016-12-16 23:31] LABS: ABG ALLEN TEST POS; DRAW SITE RR
[2016-12-16 23:50] LABS: TROPONIN I 0.013 ng/mL (0.00-0.120)
[2016-12-17] MEDS ORDERED: Albuterol-Ipratrop 3 mg / 0.5 (3 ml) UD INH PRN (01:41)
--- NOTE | 2016-12-17 09:23 | RAD ---
PROCEDURE: CHEST RADIOGRAPH, 1 VIEW HISTORY: Shortness of breath COMPARISON: 11/21/2016 FINDINGS: LUNGS: There is worsening pulmonary venous congestion and interval development of ill-defined airspace disease in the right upper lobe. PLEURA: No pneumothorax or pleural fluid seen. CARDIOVASCULAR: There is persistent mild cardiomegaly. There is stable position of left-sided dual lead transvenous permanent pacing device. OSSEOUS STRUCTURES: No significant abnormalities. VISUALIZED UPPER ABDOMEN: Normal. OTHER FINDINGS: None. IMPRESSION: 1. Worsening pulmonary venous congestion. 2. New airspace disease in the right upper lobe could represent superimposed pneumonia or alveolar edema. Follow-up is advised.
[2016-12-17] MEDS ORDERED: Potassium Chloride 10 mEq ER Tab PO SCH (10:00)
[2016-12-17] MEDS: Pantoprazole 40 mg EC Tab PO SCH (10:42)
--- NOTE | 2016-12-17 11:47 | CP.PCM.HP ---
Past Patient History - Infectious Disease Hx of Infectious Diseases: None - Past Medical History & Family History Past Medical History?: Yes - Past Social History Smoking Status: Never Smoked - CARDIAC Hx Cardiac Disorders: Yes Hx Hypercholesterolemia: Yes Hx Hypertension: Yes Hx Pacemaker: Yes - PULMONARY Hx Respiratory Disorders: Yes Hx Pneumonia: Yes - NEUROLOGICAL Hx Neurological Disorder: No - HEENT Hx HEENT Problems: Yes Other/Comment: uses corrective eyeglasses - RENAL Hx Chronic Kidney Disease: No - ENDOCRINE/METABOLIC Hx Endocrine Disorders: Yes Hx Diabetes Mellitus Type 2: Yes - HEMATOLOGICAL/ONCOLOGICAL Hx Blood Disorders: No - INTEGUMENTARY Hx Dermatological Problems: No - MUSCULOSKELETAL/RHEUMATOLOGICAL Hx Musculoskeletal Disorders: No Hx Falls: No - GASTROINTESTINAL Hx Gastrointestinal Disorders: No - GENITOURINARY/GYNECOLOGICAL Hx Genitourinary Disorders: No - PSYCHIATRIC Hx Psychophysiologic Disorder: No Hx Substance Use: No - SURGICAL HISTORY Hx Surgeries: Yes Hx Cholecystectomy: Yes - ANESTHESIA Hx Anesthesia: Yes Hx Anesthesia Reactions: No Hx Malignant Hyperthermia: No Meds Allergies/Adverse Reactions: Allergies Allergy/AdvReac Type Severity Reaction Status Date / Time codeine Allergy RASH Verified 11/21/16 10:32 Physical Exam - Constitutional Appears: Well - Head Exam Head Exam: ATRAUMATIC, NORMAL INSPECTION, NORMOCEPHALIC - Eye Exam Eye Exam: EOMI, Normal appearance, PERRL Pupil Exam: NORMAL ACCOMODATION, PERRL - ENT Exam ENT Exam: Mucous Membranes Moist, Normal Exam - Neck Exam Neck exam: Positive for: Normal Inspection - Respiratory Exam Respiratory Exam: Decreased Breath Sounds - Cardiovascular Exam Cardiovascular Exam: REGULAR RHYTHM, +S1, +S2 - GI/Abdominal Exam GI & Abdominal Exam: Diminished Bowel Sounds, Soft - Rectal Exam Rectal Exam: Deferred Results - Vital Signs Recent Vital Signs: Last Vital Signs Temp 97.3 F L 12/17/16 07:30 Pulse 66 12/17/16 07:30 Resp 18 12/17/16 07:30 BP 115/62 12/17/16 07:30 Pulse Ox 95 12/17/16 07:30 - Labs Result Diagrams: 12/16/16 21:27 12/16/16 21:27 Labs: Laboratory Results - last 24 hr 12/17/16 07:06 Total Creatine Kinase 53 CK-MB (Mass) 0.28 Troponin I, Quant 0.0210
--- NOTE | 2016-12-17 12:45 | CP.PCM.CON ---
History of Present Illness - History of Present Illness History of Present Illness: Cardiology consult for Dr. Pederson. Reason for consult: CHF 86 y/o female with PMH of cardiomyopathy, CHF with EF 33% s/p ICD on home O2 therapy, HTN, hypercholesterolemia presents c/o SOB for one day and productive cough of white sputum for 3 days. We were consulted for suspected exacerbation of pt's CHF. Pt tried albuterol at home with no relief. Currently, pt feels improved with less SOB but still on O2 nasal canula. Pt Pt denies chest pain, palpitations, pleurisy, fever, chills, [place], dizziness, leg pain, leg swelling, nausea, and vomiting. Pt had an ICD placed six years ago for cardiomyopathy for low EF. ICD was interogated during last admission in November 2016. Pt's primary lens polisher is Dr. Butterfield who has been following the patient regularly. PMD: Dr. Adams PMH: as above PSH: cholecystectomy, hysterectomy Allergies: codieine (emesis, tremor) FH: none Social: denies tobacco, alcohol, drugs; lives with two sisters, ambulates w/o difficulty but limited by dyspanea Home meds: Lisinopril 5mg PO dialy; Lasix 40 daily; Klor-con 10meq daily; Fluticasone; Lipitor 10mg daily; ASA 81mg daily; Carvedilol 3.125 mg PO BID; Rivaroxaban 15mg PO daily Review of Systems - EENT Eyes: absent: Blurred Vision, Change in Vision - Cardiovascular Cardiovascular: absent: Chest Pain, Irregular Heart Rhythm - Respiratory Respiratory: Cough, Dyspnea - Gastrointestinal Gastrointestinal: absent: Abdominal Pain, Vomiting - Genitourinary Genitourinary: absent: Dysuria, Hematuria - Musculoskeletal Musculoskeletal: Arthralgias. absent: Back Pain - Neurological Neurological: absent: Numbness, Syncope, Tingling Past Patient History - Infectious Disease Hx of Infectious Diseases: None - Past Medical History & Family History Past Medical History?: Yes - Past Social History Smoking Status: Never Smoked - CARDIAC Hx Cardiac Disorders: Yes Hx Hypercholesterolemia: Yes Hx Hypertension: Yes Hx Pacemaker: Yes - PULMONARY Hx Respiratory Disorders: Yes Hx Pneumonia: Yes - NEUROLOGICAL Hx Neurological Disorder: No - HEENT Hx HEENT Problems: Yes Other/Comment: uses corrective eyeglasses - RENAL Hx Chronic Kidney Disease: No - ENDOCRINE/METABOLIC Hx Endocrine Disorders: Yes Hx Diabetes Mellitus Type 2: Yes - HEMATOLOGICAL/ONCOLOGICAL Hx Blood Disorders: No - INTEGUMENTARY Hx Dermatological Problems: No - MUSCULOSKELETAL/RHEUMATOLOGICAL Hx Musculoskeletal Disorders: No Hx Falls: No - GASTROINTESTINAL Hx Gastrointestinal Disorders: No - GENITOURINARY/GYNECOLOGICAL Hx Genitourinary Disorders: No - PSYCHIATRIC Hx Psychophysiologic Disorder: No Hx Substance Use: No - SURGICAL HISTORY Hx Surgeries: Yes Hx Cholecystectomy: Yes - ANESTHESIA Hx Anesthesia: Yes Hx Anesthesia Reactions: No Hx Malignant Hyperthermia: No Meds Allergies/Adverse Reactions: Allergies Allergy/AdvReac Type Severity Reaction Status Date / Time codeine Allergy RASH Verified 11/21/16 10:32 - Medications Medications: Current Medications Albuterol/Ipratropium (Duoneb 3 Mg/0.5 Mg (3 Ml) Ud) 3 ml INH RQ6 PRN PRN Reason: Shortness of Breath Aspirin (Ecotrin) 81 mg PO DAILY [facility] Last Admin: 12/17/16 10:42 Dose: 81 mg Carvedilol (Coreg) 3.125 mg PO BID [facility] Last Admin: 12/17/16 10:42 Dose: 3.125 mg Furosemide (Lasix) 40 mg PO BID [facility] Lisinopril (Zestril) 5 mg PO DAILY [facility] Last Admin: 12/17/16 10:42 Dose: 5 mg Pantoprazole Sodium (Protonix Ec Tab) 40 mg PO DAILY [facility] Last Admin: 12/17/16 10:42 Dose: 40 mg Potassium Chloride (Klor-Con 10) 10 meq PO DAILY [facility] Last Admin: 12/17/16 10:41 Dose: 10 meq Rivaroxaban (Xarelto) 15 mg PO BID [facility] Last Admin: 12/17/16 10:42 Dose: 15 mg Rosuvastatin Calcium (Crestor) 5 mg PO [facility] Physical Exam - Constitutional Appears: Well, No Acute Distress - Head Exam Head Exam: ATRAUMATIC, NORMAL INSPECTION, NORMOCEPHALIC - ENT Exam ENT Exam: Mucous Membranes Moist - Respiratory Exam Respiratory Exam: Clear to Auscultation Bilateral, NORMAL BREATHING PATTERN. absent: Rales - Cardiovascular Exam Cardiovascular Exam: RRR, +S1, +S2 - GI/Abdominal Exam GI & Abdominal Exam: Normal Bowel Sounds, Soft. absent: Tenderness - Extremities Exam Extremities exam: Positive for: pedal edema. Negative for: calf tenderness - Neurological Exam Neurological exam: Alert, Oriented x3 - Skin Skin Exam: Intact, Normal Color, Warm Results - Vital Signs Recent Vital Signs: Last Vital Signs Temp 97.3 F L 12/17/16 07:30 Pulse 66 12/17/16 07:30 Resp 18 12/17/16 07:30 BP 115/62 12/17/16 07:30 Pulse Ox 95 12/17/16 07:30 - Labs Result Diagrams: 12/16/16 21:27 12/16/16 21:27 Labs: Laboratory Results - last 24 hr 12/17/16 07:06 Total Creatine Kinase 53 CK-MB (Mass) 0.28 Troponin I, Quant 0.0210 Assessment & Plan (1) CHF (congestive heart failure) Assessment and Plan: Lasix changed to 40 BID PO Continue current medical regiment Will monitor for worsening of cardiac function Status: Acute
[2016-12-18 07:48] LABS: BASO % 0.7 % (0.0-2.0); EOS # 0.1 K/uL (0.0-0.7); EOS % 1.9 % (0.0-4.0); HEMATOCRIT 32.4 % (34.0-47.0); LYMPH # 1.6 K/uL (1.0-4.3); LYMPH % 37.4 % (20.0-40.0); MEAN CELL VOLUME 87.5 fL (81.0-99.0); MEAN CORPUSCULAR HGB CONC 33.1 g/dL (33.0-37.0); MEAN PLATELET VOLUME 9.5 fL (7.2-11.7); MONO # 0.4 K/uL (0.0-0.8); MONO % 9.3 % (0.0-10.0); RED CELL DISTRIBUTION WIDTH 16.2 % (11.5-14.5); WHITE BLOOD COUNT 4.3 K/uL (4.8-10.8)
[2016-12-18 08:19] LABS: CHLORIDE 93 mmol/L (98-107); SODIUM 137 mmol/L (132-148)
[2016-12-18 08:21] LABS: ALB/GLOB RATIO 0.8 (1.0-2.1); ALKALINE PHOSPHATASE 77 U/L (38-126); AST/SGOT 23 U/L (14-36); BILIRUBIN,TOTAL 2.2 mg/dL (0.2-1.3); CARBON DIOXIDE 32 mmol/L (22-30); GFR AFRICAN-AMERICAN > 60; TOTAL PROTEIN 6.9 g/dL (6.3-8.3)
[2016-12-18 08:22] LABS: ALT/SGPT 22 U/L (9-52); BLOOD UREA NITROGEN 21 mg/dL (7-17); CALCIUM 8.1 mg/dl (8.6-10.4); GLUCOSE,RANDOM 103 mg/dL (65-105)
[2016-12-18 08:23] LABS: POTASSIUM 2.8 mmol/L (3.6-5.2)
[2016-12-18] MEDS ORDERED: Potassium Chloride 20 mEq ER Tab PO STA (09:08)
[2016-12-18] MEDS: Pantoprazole 40 mg EC Tab PO SCH (09:13)
--- NOTE | 2016-12-18 09:16 | CP.PCM.PN ---
Subjective - Date & Time of Evaluation Date of Evaluation: 12/18/16 Time of Evaluation: 09:13 - Subjective Subjective: Cardiology Progress Note for Dr. Pederson Pt seen and examined at bedside this morning. Pt doing well overnight, although this morning she states she doesn't feel too well. She believes it may be due to the fact that she just woke up. No specific complaints at this time. Denies CP, SOB, N/V/D. Objective - Vital Signs/Intake and Output Vital Signs (last 24 hours): Temp Pulse Resp BP Pulse Ox 98.1 F 70 20 115/71 96 12/18/16 09:00 12/18/16 09:00 12/18/16 09:00 12/18/16 09:00 12/18/16 09:00 - Medications Medications: Current Medications Albuterol/Ipratropium (Duoneb 3 Mg/0.5 Mg (3 Ml) Ud) 3 ml INH RQ6 PRN PRN Reason: Shortness of Breath Aspirin (Ecotrin) 81 mg PO DAILY [facility] Last Admin: 12/17/16 10:42 Dose: 81 mg Carvedilol (Coreg) 3.125 mg PO BID [facility] Last Admin: 12/17/16 17:53 Dose: 3.125 mg Furosemide (Lasix) 40 mg PO BID [facility] Last Admin: 12/17/16 17:52 Dose: 40 mg Potassium Chloride (Potassium Chloride 10 Meq/100 Ml) 10 meq in 100 mls @ 100 mls/hr IVPB Q1H FILIPE Stop: 12/18/16 10:59 Potassium Chloride (Potassium Chloride 10 Meq/100 Ml) 10 meq in 100 mls @ 100 mls/hr IVPB ONCE ONE Stop: 12/18/16 09:59 Lisinopril (Zestril) 5 mg PO DAILY [facility] Last Admin: 12/17/16 10:42 Dose: 5 mg Pantoprazole Sodium (Protonix Ec Tab) 40 mg PO DAILY [facility] Last Admin: 12/17/16 10:42 Dose: 40 mg Potassium Chloride (K-Dur 20 Meq Er Tab) 20 meq PO DAILY [facility] Rivaroxaban (Xarelto) 15 mg PO BID [facility] Last Admin: 12/17/16 17:52 Dose: 15 mg Rosuvastatin Calcium (Crestor) 5 mg PO HS [facility] Last Admin: 12/17/16 22:04 Dose: 5 mg - Labs Labs: 12/18/16 07:37 12/18/16 07:37 PT 33.3 SECONDS (9.7-12.2) H* 12/16/16 21:27 INR 2.9 12/16/16 21:27 APTT 36 SECONDS (21-34) H 12/16/16 21:27 - Constitutional Appears: Well, No Acute Distress - Head Exam Head Exam: ATRAUMATIC, NORMAL INSPECTION, NORMOCEPHALIC - ENT Exam ENT Exam: Mucous Membranes Moist - Respiratory Exam Respiratory Exam: Clear to Ausculation Bilateral, NORMAL BREATHING PATTERN - Cardiovascular Exam Cardiovascular Exam: RRR, +S1, +S2 - GI/Abdominal Exam GI & Abdominal Exam: Soft, Normal Bowel Sounds. absent: Tenderness - Extremities Exam Extremities Exam: Pedal Edema (Trace b/l) - Neurological Exam Neurological Exam: Alert, Awake - Skin Skin Exam: Intact, Normal Color, Warm Assessment and Plan (1) CHF (congestive heart failure) Assessment & Plan: Continue current medical management CHF exacerbation resolving Status: Acute
[2016-12-18] MEDS ORDERED: Potassium Chloride 20 mEq ER Tab PO SCH (10:00)
[2016-12-18 14:11] LABS: CHLORIDE 98 mmol/L (98-107); SODIUM 137 mmol/L (132-148)
[2016-12-18 14:12] LABS: POTASSIUM 3.6 mmol/L (3.6-5.2)
[2016-12-18 14:14] LABS: ALB/GLOB RATIO 0.9 (1.0-2.1); ALKALINE PHOSPHATASE 78 U/L (38-126); AST/SGOT 21 U/L (14-36); BILIRUBIN,TOTAL 2.4 mg/dL (0.2-1.3); BLOOD UREA NITROGEN 23 mg/dL (7-17); CALCIUM 8.5 mg/dl (8.6-10.4); CARBON DIOXIDE 30 mmol/L (22-30); GFR AFRICAN-AMERICAN > 60; GLUCOSE,RANDOM 167 mg/dL (65-105); TOTAL PROTEIN 6.9 g/dL (6.3-8.3)
[2016-12-18 14:15] LABS: ALT/SGPT 16 U/L (9-52)
--- NOTE | 2016-12-18 17:18 | CP.PCM.PN ---
Subjective - Date & Time of Evaluation Date of Evaluation: 12/18/16 Time of Evaluation: 11:20 - Subjective Subjective: clinically same Objective - Vital Signs/Intake and Output Vital Signs (last 24 hours): Temp Pulse Resp BP Pulse Ox 97.5 F L 70 20 115/72 100 12/18/16 15:25 12/18/16 16:00 12/18/16 15:25 12/18/16 15:25 12/18/16 15:25 - Medications Medications: Current Medications Albuterol/Ipratropium (Duoneb 3 Mg/0.5 Mg (3 Ml) Ud) 3 ml INH RQ6 PRN PRN Reason: Shortness of Breath Aspirin (Ecotrin) 81 mg PO DAILY [facility] Last Admin: 12/18/16 09:13 Dose: 81 mg Carvedilol (Coreg) 3.125 mg PO BID [facility] Last Admin: 12/18/16 09:13 Dose: 3.125 mg Furosemide (Lasix) 40 mg PO BID [facility] Last Admin: 12/18/16 09:15 Dose: 40 mg Lisinopril (Zestril) 5 mg PO DAILY [facility] Last Admin: 12/18/16 09:13 Dose: 5 mg Pantoprazole Sodium (Protonix Ec Tab) 40 mg PO DAILY [facility] Last Admin: 12/18/16 09:13 Dose: 40 mg Potassium Chloride (K-Dur 20 Meq Er Tab) 20 meq PO DAILY [facility] Rivaroxaban (Xarelto) 15 mg PO BID [facility] Last Admin: 12/18/16 09:13 Dose: 15 mg Rosuvastatin Calcium (Crestor) 5 mg PO HS [facility] Last Admin: 12/17/16 22:04 Dose: 5 mg - Labs Labs: 12/18/16 07:37 12/18/16 13:52 PT 33.3 SECONDS (9.7-12.2) H* 12/16/16 21:27 INR 2.9 12/16/16 21:27 APTT 36 SECONDS (21-34) H 12/16/16 21:27 - Constitutional Appears: Well - Head Exam Head Exam: ATRAUMATIC, NORMAL INSPECTION, NORMOCEPHALIC - Eye Exam Eye Exam: EOMI, Normal appearance, PERRL Pupil Exam: NORMAL ACCOMODATION, PERRL - ENT Exam ENT Exam: Mucous Membranes Moist, Normal Exam - Neck Exam Neck Exam: Full ROM, Normal Inspection. absent: Lymphadenopathy - Respiratory Exam Respiratory Exam: Decreased Breath Sounds - Cardiovascular Exam Cardiovascular Exam: REGULAR RHYTHM, +S1, +S2 - GI/Abdominal Exam GI & Abdominal Exam: Soft, Diminished Bowel Sounds - Rectal Exam Rectal Exam: Deferred
[2016-12-19 03:39] VITALS: PULSE 70
[2016-12-19 08:14] LABS: BASO % 0.5 % (0.0-2.0); EOS # 0.1 K/uL (0.0-0.7); EOS % 2.9 % (0.0-4.0); HEMATOCRIT 36.2 % (34.0-47.0); LYMPH # 1.8 K/uL (1.0-4.3); MEAN CELL VOLUME 87.5 fL (81.0-99.0); MEAN CORPUSCULAR HEMOGLOBIN 28.8 pg (27.0-31.0); MEAN CORPUSCULAR HGB CONC 32.9 g/dL (33.0-37.0); MEAN PLATELET VOLUME 9.4 fL (7.2-11.7); MONO # 0.4 K/uL (0.0-0.8); MONO % 9.2 % (0.0-10.0); NRBC % 0.1 % (0.0-2.0); RED CELL DISTRIBUTION WIDTH 15.7 % (11.5-14.5); WHITE BLOOD COUNT 4.3 K/uL (4.8-10.8)
[2016-12-19 08:33] VITALS: RESP 18; TEMP 97.5; O2SAT 99
[2016-12-19 09:58] LABS: CHLORIDE 98 mmol/L (98-107); POTASSIUM 3.5 mmol/L (3.6-5.2); SODIUM 142 mmol/L (132-148)
[2016-12-19 10:00] LABS: AST/SGOT 27 U/L (14-36); BILIRUBIN,TOTAL 2.1 mg/dL (0.2-1.3); CARBON DIOXIDE 31 mmol/L (22-30); GFR AFRICAN-AMERICAN > 60
[2016-12-19] MEDS ORDERED: Potassium Chloride 20 mEq ER Tab PO SCH (10:00)
[2016-12-19 10:01] LABS: ALB/GLOB RATIO 0.9 (1.0-2.1); ALKALINE PHOSPHATASE 80 U/L (38-126); ALT/SGPT 14 U/L (9-52); BLOOD UREA NITROGEN 25 mg/dL (7-17); CALCIUM 8.9 mg/dl (8.6-10.4); GLUCOSE,RANDOM 121 mg/dL (65-105); TOTAL PROTEIN 7.4 g/dL (6.3-8.3)
[2016-12-19] MEDS: Pantoprazole 40 mg EC Tab PO SCH (10:34)
[2016-12-19 10:38] VITALS: BP 118/70
--- NOTE | 2016-12-19 12:30 | CP.PCM.PN ---
Subjective - Date & Time of Evaluation Date of Evaluation: 12/19/16 Time of Evaluation: 10:40 - Subjective Subjective: clinically same Objective - Vital Signs/Intake and Output Vital Signs (last 24 hours): Temp Pulse Resp BP Pulse Ox 97.5 F L 70 18 118/70 99 12/19/16 07:25 12/19/16 07:25 12/19/16 07:25 12/19/16 10:36 12/19/16 07:25 - Medications Medications: Current Medications Albuterol/Ipratropium (Duoneb 3 Mg/0.5 Mg (3 Ml) Ud) 3 ml INH RQ6 PRN PRN Reason: Shortness of Breath Aspirin (Ecotrin) 81 mg PO DAILY [facility] Last Admin: 12/19/16 10:34 Dose: 81 mg Carvedilol (Coreg) 3.125 mg PO BID [facility] Last Admin: 12/19/16 10:34 Dose: 3.125 mg Furosemide (Lasix) 40 mg PO BID [facility] Last Admin: 12/19/16 10:36 Dose: 40 mg Lisinopril (Zestril) 5 mg PO DAILY [facility] Last Admin: 12/19/16 10:34 Dose: 5 mg Pantoprazole Sodium (Protonix Ec Tab) 40 mg PO DAILY [facility] Last Admin: 12/19/16 10:34 Dose: 40 mg Potassium Chloride (K-Dur 20 Meq Er Tab) 20 meq PO DAILY [facility] Last Admin: 12/19/16 10:34 Dose: 20 meq Rivaroxaban (Xarelto) 15 mg PO BID [facility] Last Admin: 12/19/16 10:35 Dose: 15 mg Rosuvastatin Calcium (Crestor) 5 mg PO HS [facility] Last Admin: 12/18/16 22:14 Dose: 5 mg - Labs Labs: 12/19/16 07:56 12/19/16 07:56 PT 33.3 SECONDS (9.7-12.2) H* 12/16/16 21:27 INR 2.9 12/16/16 21:27 APTT 36 SECONDS (21-34) H 12/16/16 21:27 - Constitutional Appears: Well - Head Exam Head Exam: ATRAUMATIC, NORMAL INSPECTION, NORMOCEPHALIC - Eye Exam Eye Exam: EOMI, Normal appearance, PERRL Pupil Exam: NORMAL ACCOMODATION, PERRL - ENT Exam ENT Exam: Mucous Membranes Moist, Normal Exam - Neck Exam Neck Exam: Full ROM, Normal Inspection. absent: Lymphadenopathy - Respiratory Exam Respiratory Exam: Decreased Breath Sounds - Cardiovascular Exam Cardiovascular Exam: REGULAR RHYTHM, +S1, +S2 - GI/Abdominal Exam GI & Abdominal Exam: Soft, Diminished Bowel Sounds - Rectal Exam Rectal Exam: Deferred
--- NOTE | 2016-12-19 14:18 | PCM.HF ---
Heart Failure Core Measure - Heart Failure Ejection Fraction: Less Than 40 % JACQUES Inhibitor Prescribed: Yes Beta-Yvette Prescribed: Carvedilol Angiotensin II Receptor Yvette Prescribed: No Contraindication/Reason for not providing: on jacques AnticoagulationTherapy for Atrial Fibrillation/Atrialflutter: Yes Aldosterone Antagonist Prescribed: No Contraindication/Reason for not providing: on lasix / bp running low Hydralazine Nitrate Prescribed: No Contraindication/Reason for not providing: bp running low Implantable Cardioverter Defibrillator Therapy: Yes Cardiac Resynchronization Therapy Prescribed: No Contraindication/Reason for not providing: pt has ICD - Follow up Will be discharged to: Home Follow Up Date (must be within 7 days from discharge): 12/23/16 Follow Up Time: 09:00
--- NOTE | 2016-12-19 14:18 | CP.PCM.PN ---
Subjective - Date & Time of Evaluation Date of Evaluation: 12/19/16 Time of Evaluation: 10:00 - Subjective Subjective: Pt seen today, denies any chest pain, sob, dizziness, palpitations, N/V/D no overnight events recorded on monitor Objective - Vital Signs/Intake and Output Vital Signs (last 24 hours): Temp Pulse Resp BP Pulse Ox 97.5 F L 70 18 118/70 99 12/19/16 07:25 12/19/16 07:25 12/19/16 07:25 12/19/16 10:36 12/19/16 07:25 - Medications Medications: Current Medications Albuterol/Ipratropium (Duoneb 3 Mg/0.5 Mg (3 Ml) Ud) 3 ml INH RQ6 PRN PRN Reason: Shortness of Breath Aspirin (Ecotrin) 81 mg PO DAILY [facility] Last Admin: 12/19/16 10:34 Dose: 81 mg Carvedilol (Coreg) 3.125 mg PO BID [facility] Last Admin: 12/19/16 10:34 Dose: 3.125 mg Furosemide (Lasix) 40 mg PO BID [facility] Last Admin: 12/19/16 10:36 Dose: 40 mg Lisinopril (Zestril) 5 mg PO DAILY [facility] Last Admin: 12/19/16 10:34 Dose: 5 mg Pantoprazole Sodium (Protonix Ec Tab) 40 mg PO DAILY [facility] Last Admin: 12/19/16 10:34 Dose: 40 mg Potassium Chloride (K-Dur 20 Meq Er Tab) 20 meq PO DAILY [facility] Last Admin: 12/19/16 10:34 Dose: 20 meq Rivaroxaban (Xarelto) 15 mg PO BID [facility] Last Admin: 12/19/16 10:35 Dose: 15 mg Rosuvastatin Calcium (Crestor) 5 mg PO HS [facility] Last Admin: 12/18/16 22:14 Dose: 5 mg - Labs Labs: 12/19/16 07:56 12/19/16 07:56 PT 33.3 SECONDS (9.7-12.2) H* 12/16/16 21:27 INR 2.9 12/16/16 21:27 APTT 36 SECONDS (21-34) H 12/16/16 21:27 Assessment and Plan - Assessment and Plan (Free Text) Assessment: A/P 86 YR old female admitted for exc. CHF / sob vss- stable seen by Cardiology today , D/W Dr. Pederson cleared for discharge home today and f/u with PMD and Dr. Butterfield in 1 week discharge plan discussed with patient , via dye mixer who understands and agrees with plan all RX given to the patient
--- NOTE | 2016-12-19 17:55 | CP.PCM.PN ---
Subjective - Date & Time of Evaluation Date of Evaluation: 12/19/16 Time of Evaluation: 08:10 Objective - Vital Signs/Intake and Output Vital Signs (last 24 hours): Temp Pulse Resp BP Pulse Ox 97.5 F L 70 18 118/70 99 12/19/16 07:25 12/19/16 07:25 12/19/16 07:25 12/19/16 10:36 12/19/16 07:25 - Labs Labs: 12/19/16 07:56 12/19/16 07:56 PT 33.3 SECONDS (9.7-12.2) H* 12/16/16 21:27 INR 2.9 12/16/16 21:27 APTT 36 SECONDS (21-34) H 12/16/16 21:27
== END 2016-12-19 16:30 | disposition home or self-care (01) | DRG 293 ==
LOC: C.ER 20:02 → C.9E 12-17 → C.6T 12-17 00:47
PROVIDERS: ADMIT Internal Medicine Nephrology; ATTEND Internal Medicine Nephrology
DX: I11.0 Hypertensive heart disease with heart failure (principal); I42.9 Cardiomyopathy, unspecified; E11.9 Type 2 diabetes mellitus without complications; I50.9 Heart failure, unspecified; E78.00 Pure hypercholesterolemia, unspecified; Z90.49 Acquired absence of other specified parts of digestive tract; Z95.0 Presence of cardiac pacemaker

== ENCOUNTER 2017-12-01 20:44 | Inpatient (IN) | payer MEDICARE, MEDICAID ==
[2017-12-01 20:44] VITALS: BMI 29.2
--- NOTE | 2017-12-01 21:23 | C.PDOC ---
History Of Present Illness pt presents over the lst few months , especially over the last 2-3 days. with worsening sob, No cp or palpitation. speaking in complete sentences. Pt is on home oxygen Time Seen by Provider: 12/01/17 21:23 Chief Complaint (Nursing): Shortness Of Breath History Per: Patient History/Exam Limitations: no limitations Onset/Duration Of Symptoms: Days Current Symptoms Are (Timing): Still Present Initiating Event: Upper Respiratory Illness Quality: Dull Exacerbating Factor(s): Exertion, Laying Flat, Coughing Current Respiratory Medications: See Home Med List Severity: Severe Pain Scale Rating Of: 6 Associated Symptoms: Productive Cough. denies: Fever, Chills, Chest Pain Reports Recently: Seen In ED, Treated By A Physician, Hospitalized Recent travel outside of the [place]: No Additional History Per: Family Past Medical History Reviewed: Historical Data, Nursing Documentation, Vital Signs Vital Signs: Last Vital Signs Temp 99.3 F 12/01/17 20:49 Pulse 82 12/01/17 22:33 Resp 18 12/01/17 22:33 BP 120/73 12/01/17 20:49 Pulse Ox 100 12/01/17 22:33 - Medical History PMH: HTN, Hypercholesterolemia, Pneumonia Denies: Chronic Kidney Disease Surgical History: Cholecystectomy, Pacemaker - [facility] Procedures ESOPHAGOGASTRODUODENOSCOPY [EGD] W/CLOSED BIOPSY (12/20/12) MEASUREMENT OF CARDIAC DEFIBRILLATOR, EXTERNAL APPROACH (11/22/16) Family History: States: No Known Family Hx - Social History Hx Alcohol Use: No Hx Substance Use: No - Immunization History Hx Tetanus Toxoid Vaccination: No Hx Influenza Vaccination: Yes Hx Pneumococcal Vaccination: No Review Of Systems Constitutional: Negative for: Fever, Chills Eyes: Negative for: Redness ENT: Negative for: Nose Discharge Cardiovascular: Negative for: Chest Pain Respiratory: Positive for: Cough, Shortness of Breath, SOB with Excertion Gastrointestinal: Negative for: Nausea, Vomiting, Abdominal Pain Genitourinary: Negative for: Dysuria Musculoskeletal: Negative for: Back Pain Skin: Negative for: Rash Neurological: Negative for: Weakness Psych: Negative for: Anxiety Physical Exam - Physical Exam Skin: Warm, Dry Head: Normacephalic Oral Mucosa: Moist Neck: Supple Chest: Symmetrical Cardiovascular: Rhythm Regular Respiratory: Decreased Breath Sounds, Rales, Rhonchi, Wheezing (few) Gastrointestinal/Abdominal: Soft, No Tenderness, No Distention Back: No CVA Tenderness Extremity: Normal ROM, Pedal Edema (trace) Extremity: Bilateral: Atraumatic Pulses: Left Dorsalis Pedis: Normal, Right Dorsalis Pedis: Normal Neurological/Psych: Oriented x3 Gait: Steady ED Course And Treatment - Laboratory Results Result Diagrams: 12/01/17 21:30 12/01/17 21:30 ECG: Interpreted By Me, Viewed By Me ECG Rhythm: Sinus Rhythm (77), Nonspecific Changes O2 Sat by Pulse Oximetry: 99 Pulse Ox Interpretation: Normal - Radiology CXR: Interpreted by Me, Viewed By Me CXR Interpretation: Yes: Cardiomegaly, Other (pacer on left). No: Infiltrates, Fracture Disposition Discussed With Dr.: Dalton Diaz Comment: accepted the pt on his service and took over the care at 10:53 PM Doctor Will See Patient In The: Hospital Counseled Patient/Family Regarding: Studies Performed, Diagnosis - Disposition Disposition: HOSPITALIZED Disposition Time: 21:23 Condition: FAIR Forms: [employer] (Vietnamese) - POA Present On Arrival: Poor Glycemic Control - Clinical Impression Clinical Impression: Dyspnea, CHF (congestive heart failure), Renal insufficiency Decision To Admit - Pt Status Changed To: Hospital Disposition Of: Inpatient - Admit Certification Admit to Inpatient:: After my assessment, the patient will require hospitalization for at least two midnights. This is because of the severity of symptoms shown, intensity of services needed, and/or the medical risk in this patient being treated as an outpatient. - InPatient: Physician Admission Certification: I certify that this patient requires 2 or more midnights of care for the following reason:: After my assessment, the patient will require hospitalization for at least two midnights. This is because of the severity of symptoms shown, intensity of services needed, and/or the medical risk in this patient being treated as an outpatient. - . Bed Request Type: Telemetry Admitting Physician: Dalton Diaz Patient Diagnosis: Dyspnea, CHF (congestive heart failure), Renal insufficiency
[2017-12-01 21:36] LABS: ABG ALLEN TEST POS; ARTERIAL BLOOD GAS HCO3 25.7 mmol/L (21-28); ARTERIAL BLOOD GAS O2 SAT 99.5 % (95-98); ARTERIAL BLOOD GAS PCO2 33 mm/Hg (35-45); ARTERIAL BLOOD GAS PH 7.47 (7.35-7.45); ARTERIAL BLOOD GAS PO2 155 mm/Hg (80-100)
[2017-12-01 21:38] LABS: BASO % 0.7 % (0.0-2.0); EOS % 1.1 % (0.0-4.0); LYMPH # 1.1 K/uL (1.0-4.3); MEAN CELL VOLUME 84.2 fL (81.0-99.0); MEAN CORPUSCULAR HEMOGLOBIN 27.3 pg (27.0-31.0); MEAN CORPUSCULAR HGB CONC 32.4 g/dL (33.0-37.0); MEAN PLATELET VOLUME 10.4 fL (7.2-11.7); MONO # 0.4 K/uL (0.0-0.8); MONO % 11.6 % (0.0-10.0); NEUT # 1.9 K/uL (1.8-7.0); NEUT % 54.6 % (50.0-75.0); NRBC % 0.4 % (0.0-2.0); RBC 3.67 Mil/uL (3.80-5.20); RED CELL DISTRIBUTION WIDTH 20.1 % (11.5-14.5); WHITE BLOOD COUNT 3.4 K/uL (4.8-10.8)
[2017-12-01 21:46] LABS: INR 3.4
[2017-12-01 21:54] LABS: PROTHROMBIN TIME 37.5 SECONDS (9.7-12.2)
[2017-12-01] MEDS ORDERED: Albuterol-Ipratrop 3 mg / 0.5 (3 ml) UD ONE ×3 (21:54→22:19)
[2017-12-01 21:56] LABS: ALB/GLOB RATIO 0.9 (1.0-2.1); ALBUMIN 3.6 g/dL (3.5-5.0); CALCIUM 8.9 mg/dl (8.6-10.4)
[2017-12-01] MEDS: Albuterol-Ipratrop 3 mg / 0.5 (3 ml) UD IH SCH ×3 (21:56→22:19)
[2017-12-01 22:08] LABS: TROPONIN I 0.019 ng/mL (0.00-0.120)
[2017-12-01] MEDS ORDERED: Iodixanol 320 mg/ml 150 ml Bottle IV ONE (23:18)
[2017-12-01 23:40] LABS: SQUAMOUS EPITHIAL 1 /hpf (0-5); URINE BILIRUBIN NEGATIVE (NEGATIVE); URINE BLOOD 2+ (NEGATIVE); URINE CALCIUM OXALATE CRYSTALS OCC /hpf (<OCC); URINE CLARITY Clear (Clear); URINE COLOR Yellow (YELLOW); URINE GLUCOSE (UA) NORMAL (Normal); URINE LEUKOCYTE ESTERASE NEG Leu/uL (Negative); URINE PROTEIN NEGATIVE (NEGATIVE); URINE UROBILINOGEN NORMAL mg/dL (0.2-1.0)
--- NOTE | 2017-12-02 00:42 | CT ---
EXAM: CT Angiography Chest With Intravenous Contrast EXAM DATE/TIME: 12/01/2017 10:58 PM CLINICAL HISTORY: 87 years old, female; Signs and symptoms; Dyspnea and shortness of breath; Additional info: SOB TECHNIQUE: Axial computed tomographic angiography images of the chest with intravenous contrast using pulmonary embolism protocol. All CT scans at this facility use one or more dose reduction techniques, viz.: automated exposure control; ma/kV adjustment per patient size (including targeted exams where dose is matched to indication; i.e. head); or iterative reconstruction technique. MIP reconstructed images were created and reviewed. Coronal and sagittal reformatted images were created and reviewed. CONTRAST: 100 mL of visipaque 320 administered intravenously. COMPARISON: Prior CT chest of 2016-11-23 FINDINGS: PULMONARY ARTERIES: Contrast opacification of the pulmonary arteries is adequate, and there are no filling defects seen to suggest pulmonary embolism. AORTA: Exam is nondiagnostic for the detection of aortic dissection because of suboptimal enhancement of the aorta. LUNGS: Findings suspicious for pulmonary vascular congestion. There are multifocal areas of groundglass consolidation in the lungs diffusely, involving all 5 lobes, and there is bilateral smooth peripheral interlobular septal thickening thickening. Multiple, bilateral small, ill-defined nodular densities are also seen in the lungs diffusely, most likely representing multinodular type airspace disease. PLEURAL SPACE: Small bilateral pleural effusions, larger on the right. No pneumothorax is seen. HEART: Heart again appears markedly enlarged. Stable appearance of a very small pericardial effusion. BONES/JOINTS: No acute bony abnormality identified. SOFT TISSUES: No acute abnormality of the visualized soft tissues seen. LYMPH NODES: Stable appearance of multiple small mediastinal lymph nodes. No evidence of diffuse pathologic lymphadenopathy. TUBES, LINES AND DEVICES: Cardiac pacing device is in place. IMPRESSION: - Findings suspicious for pulmonary vascular congestion. There are also multiple ill-defined nodular densities in the lungs bilaterally, which could be due to alveolar pulmonary edema versus a superimposed nodular type pneumonia. - Small bilateral pleural effusions. - Otherwise, no evidence of significant acute process. No evidence of pulmonary embolism. - Marked cardiomegaly, also seen on a prior exam. - See above for remaining findings.
[2017-12-02] MEDS ORDERED: Albuterol-Ipratrop 3 mg / 0.5 (3 ml) UD ONE (03:07)
[2017-12-02] MEDS: Albuterol-Ipratrop 3 mg / 0.5 (3 ml) UD INH SCH ×3 (07:30→20:01)
--- NOTE | 2017-12-02 09:54 | RAD ---
PROCEDURE: CHEST RADIOGRAPH, 1 VIEW HISTORY: Shortness of breath COMPARISON: 12/16/2016. FINDINGS: LUNGS: The lungs are well inflated. There is mild pulmonary venous congestion. PLEURA: No pneumothorax or pleural fluid seen. CARDIOVASCULAR: There is persistent moderate cardiomegaly. There is stable position of left-sided pacemaker OSSEOUS STRUCTURES: Within normal limits for the patient's age. VISUALIZED UPPER ABDOMEN: Normal. OTHER FINDINGS: None. IMPRESSION: Persistent moderate cardiomegaly. Mild pulmonary venous congestion. No active pulmonary disease.
[2017-12-02] MEDS: Azithromycin 500 MG in Sodium Chloride 0.9% 250 ML IVPB SCH (10:38)
[2017-12-02] MEDS: Pantoprazole 40 mg EC Tab PO SCH (10:39)
[2017-12-02] MEDS: Potassium Chloride 10 mEq ER Tab PO SCH (10:39)
[2017-12-02] MEDS: (Novolin R) Insulin Human Regular 100 units/ml vial SC SCH ×2 (12:12→17:20)
--- NOTE | 2017-12-02 19:16 | CP.PCM.HP ---
Past Patient History - Infectious Disease Hx of Infectious Diseases: None - Past Medical History & Family History Past Medical History?: Yes - Past Social History Smoking Status: Never Smoked - CARDIAC Hx Cardiac Disorders: Yes Hx Hypercholesterolemia: Yes Hx Hypertension: Yes - PULMONARY Hx Respiratory Disorders: Yes Hx Pneumonia: Yes - NEUROLOGICAL Hx Neurological Disorder: No - HEENT Hx HEENT Problems: Yes Other/Comment: uses corrective eyeglasses - RENAL Hx Chronic Kidney Disease: No - ENDOCRINE/METABOLIC Hx Diabetes Mellitus Type 2: Yes - HEMATOLOGICAL/ONCOLOGICAL Hx Blood Disorders: No - INTEGUMENTARY Hx Dermatological Problems: No - MUSCULOSKELETAL/RHEUMATOLOGICAL Hx Falls: No - GASTROINTESTINAL Hx Gastrointestinal Disorders: No - GENITOURINARY/GYNECOLOGICAL Hx Genitourinary Disorders: No - PSYCHIATRIC Hx Substance Use: No - SURGICAL HISTORY Hx Surgeries: Yes Hx Cholecystectomy: Yes Other/Comment: permanent pacemaker implant - ANESTHESIA Hx Anesthesia: Yes Hx Anesthesia Reactions: No Hx Malignant Hyperthermia: No Meds Allergies/Adverse Reactions: Allergies Allergy/AdvReac Type Severity Reaction Status Date / Time codeine Allergy RASH Verified 12/01/17 20:53 Physical Exam - Constitutional Appears: Well - Head Exam Head Exam: ATRAUMATIC, NORMAL INSPECTION, NORMOCEPHALIC - Eye Exam Eye Exam: EOMI, Normal appearance, PERRL Pupil Exam: NORMAL ACCOMODATION, PERRL - ENT Exam ENT Exam: Mucous Membranes Moist, Normal Exam - Neck Exam Neck exam: Positive for: Normal Inspection - Respiratory Exam Respiratory Exam: Decreased Breath Sounds - Cardiovascular Exam Cardiovascular Exam: REGULAR RHYTHM, +S1, +S2 - GI/Abdominal Exam GI & Abdominal Exam: Diminished Bowel Sounds, Soft - Rectal Exam Rectal Exam: Deferred Results - Vital Signs Recent Vital Signs: Last Vital Signs Temp 97.5 F L 12/02/17 16:00 Pulse 72 12/02/17 18:00 Resp 18 12/02/17 16:00 BP 100/51 L 12/02/17 16:00 Pulse Ox 100 12/02/17 16:00 - Labs Result Diagrams: 12/01/17 21:30 12/01/17 21:30 Labs: Laboratory Results - last 24 hr 12/01/17 12/01/17 12/01/17 21:30 21:30 21:30 WBC 3.4 L RBC 3.67 L Hgb 10.0 L Hct 30.9 L MCV 84.2 MCH 27.3 MCHC 32.4 L RDW 20.1 H Plt Count 152 MPV 10.4 Neut % (Auto) 54.6 Lymph % (Auto) 32.0 Woodruff % (Auto) 11.6 H Eos % (Auto) 1.1 Baso % (Auto) 0.7 Neut # (Auto) 1.9 Lymph # (Auto) 1.1 Woodruff # (Auto) 0.4 Eos # (Auto) 0.0 Baso # (Auto) 0.0 PT 37.5 H* INR 3.4 APTT 38 H Puncture Site pCO2 pO2 HCO3 ABG pH ABG Total CO2 ABG O2 Saturation ABG Base Excess Hector Test ABG Potassium A-a O2 Difference Respiratory Index Sodium 138 Chloride 103 Glucose Lactate Liter Flow FiO2 Potassium 4.4 Carbon Dioxide 24 Anion Gap 16 BUN 41 H Creatinine 1.3 H Est GFR ( Amer) 47 Est GFR (Non-Af Amer) 39 POC Glucose (mg/dL) Random Glucose 164 H Calcium 8.9 Magnesium 2.0 Total Bilirubin 2.1 H AST 35 ALT 35 Alkaline Phosphatase 104 Troponin I 0.0190 NT-Pro-B Natriuret Pep 51318 H Total Protein 7.4 Albumin 3.6 Globulin 3.9 Albumin/Globulin Ratio 0.9 L Arterial Blood Potassium Urine Color Urine Clarity Urine pH Ur Specific Vina Urine Protein Urine Glucose (UA) Urine Ketones Urine Blood Urine Nitrate Urine Bilirubin Urine Urobilinogen Ur Leukocyte Esterase Urine WBC (Auto) Urine RBC (Auto) Ur Squamous Epith Cells Calcium Oxalate Crystal Hyaline Casts 12/01/17 12/01/17 12/02/17 21:30 23:30 11:35 WBC RBC Hgb Hct MCV MCH MCHC RDW Plt Count MPV Neut % (Auto) Lymph % (Auto) Woodruff % (Auto) Eos % (Auto) Baso % (Auto) Neut # (Auto) Lymph # (Auto) Woodruff # (Auto) Eos # (Auto) Baso # (Auto) PT INR APTT Puncture Site Rradial pCO2 33 L pO2 155 H HCO3 25.7 ABG pH 7.47 H ABG Total CO2 25.0 ABG O2 Saturation 99.5 H ABG Base Excess 0.9 Hector Test Pos ABG Potassium 3.8 A-a O2 Difference 32.0 Respiratory Index 0.2 Sodium 139.0 Chloride 109.0 H Glucose 144 H Lactate 1.0 Liter Flow 3.0 FiO2 32.0 Potassium Carbon Dioxide Anion Gap BUN Creatinine Est GFR ( Amer) Est GFR (Non-Af Amer) POC Glucose (mg/dL) 161 H Random Glucose Calcium Magnesium Total Bilirubin AST ALT Alkaline Phosphatase Troponin I NT-Pro-B Natriuret Pep Total Protein Albumin Globulin Albumin/Globulin Ratio Arterial Blood Potassium 3.8 Urine Color Yellow Urine Clarity Clear Urine pH 6.0 Ur Specific Vina 1.010 Urine Protein Negative Urine Glucose (UA) Normal Urine Ketones Negative Urine Blood 2+ H Urine Nitrate Negative Urine Bilirubin Negative Urine Urobilinogen Normal Ur Leukocyte Esterase Neg Urine WBC (Auto) 1 Urine RBC (Auto) 20 H Ur Squamous Epith Cells 1 Calcium Oxalate Crystal Occ H Hyaline Casts 3-5 H 12/02/17 16:17 WBC RBC Hgb Hct MCV MCH MCHC RDW Plt Count MPV Neut % (Auto) Lymph % (Auto) Woodruff % (Auto) Eos % (Auto) Baso % (Auto) Neut # (Auto) Lymph # (Auto) Woodruff # (Auto) Eos # (Auto) Baso # (Auto) PT INR APTT Puncture Site pCO2 pO2 HCO3 ABG pH ABG Total CO2 ABG O2 Saturation ABG Base Excess Hector Test ABG Potassium A-a O2 Difference Respiratory Index Sodium Chloride Glucose Lactate Liter Flow FiO2 Potassium Carbon Dioxide Anion Gap BUN Creatinine Est GFR ( Amer) Est GFR (Non-Af Amer) POC Glucose (mg/dL) 122 H Random Glucose Calcium Magnesium Total Bilirubin AST ALT Alkaline Phosphatase Troponin I NT-Pro-B Natriuret Pep Total Protein Albumin Globulin Albumin/Globulin Ratio Arterial Blood Potassium Urine Color Urine Clarity Urine pH Ur Specific Vina Urine Protein Urine Glucose (UA) Urine Ketones Urine Blood Urine Nitrate Urine Bilirubin Urine Urobilinogen Ur Leukocyte Esterase Urine WBC (Auto) Urine RBC (Auto) Ur Squamous Epith Cells Calcium Oxalate Crystal Hyaline Casts
[2017-12-03] MEDS: (Novolin R) Insulin Human Regular 100 units/ml vial SC SCH ×5 (00:16→21:47)
[2017-12-03] MEDS: Albuterol-Ipratrop 3 mg / 0.5 (3 ml) UD INH SCH ×4 (01:15→19:45)
--- NOTE | 2017-12-03 05:17 | CP.PCM.CON ---
History of Present Illness - History of Present Illness History of Present Illness: CC: Dyspnea pt presents over the lst few months , especially over the last 2-3 days. with worsening sob, No cp or palpitation. speaking in complete sentences. Pt is on home oxygen Chief Complaint (Nursing): Shortness Of Breath History Per: Patient History/Exam Limitations: no limitations Onset/Duration Of Symptoms: Days Current Symptoms Are (Timing): Still Present Initiating Event: Upper Respiratory Illness Quality: Dull Exacerbating Factor(s): Exertion, Laying Flat, Coughing Current Respiratory Medications: See Home Med List Severity: Severe Pain Scale Rating Of: 6 Associated Symptoms: Productive Cough. denies: Fever, Chills, Chest Pain Recent travel outside of the [place]: No Additional History Per: Family Past Medical History - Medical History PMH: HTN, Hypercholesterolemia, Pneumonia Denies: Chronic Kidney Disease Surgical History: Cholecystectomy, Pacemaker - [facility] Procedures ESOPHAGOGASTRODUODENOSCOPY [EGD] W/CLOSED BIOPSY (12/20/12) MEASUREMENT OF CARDIAC DEFIBRILLATOR, EXTERNAL APPROACH (11/22/16) Family History: States: No Known Family Hx - Social History Hx Alcohol Use: No Hx Substance Use: No - Immunization History Hx Tetanus Toxoid Vaccination: No Hx Influenza Vaccination: Yes Hx Pneumococcal Vaccination: No Review Of Systems Constitutional: Negative for: Fever, Chills Eyes: Negative for: Redness ENT: Negative for: Nose Discharge Cardiovascular: Negative for: Chest Pain Respiratory: Positive for: Cough, Shortness of Breath, SOB with Excertion Gastrointestinal: Negative for: Nausea, Vomiting, Abdominal Pain Genitourinary: Negative for: Dysuria Musculoskeletal: Negative for: Back Pain Skin: Negative for: Rash Neurological: Negative for: Weakness Psych: Negative for: Anxiety Physical Exam - Physical Exam Skin: Warm, Dry Head: Normacephalic Oral Mucosa: Moist Neck: Supple Chest: Symmetrical Cardiovascular: Rhythm Regular Respiratory: Decreased Breath Sounds, Rales, Rhonchi, Wheezing (few) Gastrointestinal/Abdominal: Soft, No Tenderness, No Distention Back: No CVA Tenderness Extremity: Normal ROM, Pedal Edema (trace) Extremity: Bilateral: Atraumatic Pulses: Left Dorsalis Pedis: Normal, Right Dorsalis Pedis: Normal Neurological/Psych: Oriented x3 Gait: Steady Past Patient History - Infectious Disease Hx of Infectious Diseases: None - Past Medical History & Family History Past Medical History?: Yes - Past Social History Smoking Status: Never Smoked - CARDIAC Hx Cardiac Disorders: Yes Hx Hypercholesterolemia: Yes Hx Hypertension: Yes - PULMONARY Hx Respiratory Disorders: Yes Hx Pneumonia: Yes - NEUROLOGICAL Hx Neurological Disorder: No - HEENT Hx HEENT Problems: Yes Other/Comment: uses corrective eyeglasses - RENAL Hx Chronic Kidney Disease: No - ENDOCRINE/METABOLIC Hx Diabetes Mellitus Type 2: Yes - HEMATOLOGICAL/ONCOLOGICAL Hx Blood Disorders: No - INTEGUMENTARY Hx Dermatological Problems: No - MUSCULOSKELETAL/RHEUMATOLOGICAL Hx Falls: No - GASTROINTESTINAL Hx Gastrointestinal Disorders: No - GENITOURINARY/GYNECOLOGICAL Hx Genitourinary Disorders: No - PSYCHIATRIC Hx Substance Use: No - SURGICAL HISTORY Hx Surgeries: Yes Hx Cholecystectomy: Yes Other/Comment: permanent pacemaker implant - ANESTHESIA Hx Anesthesia: Yes Hx Anesthesia Reactions: No Hx Malignant Hyperthermia: No Meds Allergies/Adverse Reactions: Allergies Allergy/AdvReac Type Severity Reaction Status Date / Time codeine Allergy RASH Verified 12/01/17 20:53 - Medications Medications: Current Medications Albuterol/Ipratropium (Duoneb 3 Mg/0.5 Mg (3 Ml) Ud) 3 ml INH RQ6 [facility] Last Admin: 12/03/17 01:15 Dose: 3 ml Aspirin (Ecotrin) 81 mg PO DAILY [facility] Carvedilol (Coreg) 3.125 mg PO BID [facility] Last Admin: 12/02/17 17:05 Dose: Not Given Furosemide (Lasix) 40 mg IVP DAILY [facility] Last Admin: 12/02/17 10:39 Dose: 40 mg Azithromycin 500 mg/ Sodium (Chloride) 250 mls @ 250 mls/hr IVPB DAILY [facility] PRN Reason: Protocol Last Admin: 12/02/17 10:38 Dose: 250 mls/hr Ceftriaxone Sodium 1 gm/ (Sodium Chloride) 100 mls @ 100 mls/hr IVPB DAILY [facility] PRN Reason: Protocol Last Admin: 12/02/17 10:37 Dose: 100 mls/hr Insulin Human Regular (Novolin R) 0 unit SC [facility] PRN Reason: Protocol Last Admin: 12/03/17 00:16 Dose: Not Given Lisinopril (Zestril) 5 mg PO DAILY [facility] Last Admin: 12/02/17 10:40 Dose: 5 mg Pantoprazole Sodium (Protonix Ec Tab) 40 mg PO DAILY [facility] Last Admin: 12/02/17 10:39 Dose: 40 mg Potassium Chloride (Klor-Con 10) 10 meq PO DAILY [facility] Last Admin: 12/02/17 10:39 Dose: 10 meq Rivaroxaban (Xarelto) 15 mg PO BID [facility] Rosuvastatin Calcium (Crestor) 5 mg PO HS [facility] Last Admin: 12/02/17 21:01 Dose: 5 mg Results - Vital Signs Recent Vital Signs: Last Vital Signs Temp 98.5 F 12/03/17 04:00 Pulse 70 12/03/17 04:00 Resp 13 12/03/17 04:00 BP 92/38 L 12/03/17 03:53 Pulse Ox 92 L 12/03/17 04:00 - Labs Result Diagrams: 12/01/17 21:30 12/01/17 21:30 Labs: Laboratory Results - last 24 hr 12/02/17 12/02/17 12/02/17 11:35 16:17 21:11 POC Glucose (mg/dL) 161 H 122 H 204 H Assessment & Plan - Assessment and Plan (Free Text) Assessment: 86 F with PMHx of CHF on home O2, Cardiomyopathy s/p AICD, admitted for SOB and CHF exacerbation Dypsnea, Severe mitral regurgitation CHF exacerbation, left-sided, acute on chronic - echocardiogram: 20-30 EF, diastolic disfunction. severe MR, severe pulm HTN - Monitor electrolytes - daily wt - i/o - O2 as needed - Not a candidate for Mitral repair Cardiomyopathy s/p AICD CV risk reduction - ASA, Crestor 5
[2017-12-03] MEDS: Azithromycin 500 MG in Sodium Chloride 0.9% 250 ML IVPB SCH (09:14)
[2017-12-03] MEDS: Potassium Chloride 10 mEq ER Tab PO SCH (09:14)
[2017-12-03] MEDS: Pantoprazole 40 mg EC Tab PO SCH (09:15)
--- NOTE | 2017-12-03 18:36 | CP.PCM.PN ---
Subjective - Date & Time of Evaluation Date of Evaluation: 12/03/17 Time of Evaluation: 13:20 - Subjective Subjective: clinically same Objective - Vital Signs/Intake and Output Vital Signs (last 24 hours): Temp Pulse Resp BP Pulse Ox 98.4 F 71 19 115/59 L 97 12/03/17 16:00 12/03/17 18:00 12/03/17 18:00 12/03/17 17:57 12/03/17 18:00 Intake and Output: 12/03/17 12/03/17 06:59 18:59 Intake Total 240 950 Output Total 600 750 Balance -360 200 - Medications Medications: Current Medications Albuterol/Ipratropium (Duoneb 3 Mg/0.5 Mg (3 Ml) Ud) 3 ml INH RQ6 [facility] Last Admin: 12/03/17 13:25 Dose: 3 ml Aspirin (Ecotrin) 81 mg PO DAILY [facility] Carvedilol (Coreg) 3.125 mg PO BID [facility] Last Admin: 12/03/17 17:57 Dose: 3.125 mg Furosemide (Lasix) 40 mg IVP DAILY [facility] Last Admin: 12/03/17 09:14 Dose: 40 mg Azithromycin 500 mg/ Sodium (Chloride) 250 mls @ 250 mls/hr IVPB DAILY [facility] PRN Reason: Protocol Last Admin: 12/03/17 09:14 Dose: 250 mls/hr Ceftriaxone Sodium 1 gm/ (Sodium Chloride) 100 mls @ 100 mls/hr IVPB DAILY [facility] PRN Reason: Protocol Last Admin: 12/03/17 09:13 Dose: 100 mls/hr Insulin Human Regular (Novolin R) 0 unit SC [facility] PRN Reason: Protocol Last Admin: 12/03/17 16:35 Dose: Not Given Lisinopril (Zestril) 5 mg PO DAILY [facility] Last Admin: 12/03/17 09:15 Dose: 5 mg Pantoprazole Sodium (Protonix Ec Tab) 40 mg PO DAILY [facility] Last Admin: 12/03/17 09:15 Dose: 40 mg Potassium Chloride (Klor-Con 10) 10 meq PO DAILY [facility] Last Admin: 12/03/17 09:14 Dose: 10 meq Rivaroxaban (Xarelto) 15 mg PO BID [facility] Rosuvastatin Calcium (Crestor) 5 mg PO [facility] Last Admin: 12/02/17 21:01 Dose: 5 mg - Labs Labs: 12/01/17 21:30 12/01/17 21:30 PT 37.5 SECONDS (9.7-12.2) H* 12/01/17 21:30 INR 3.4 12/01/17 21:30 APTT 38 SECONDS (21-34) H 12/01/17 21:30 - Constitutional Appears: Well - Head Exam Head Exam: ATRAUMATIC, NORMAL INSPECTION, NORMOCEPHALIC - Eye Exam Eye Exam: EOMI, Normal appearance, PERRL Pupil Exam: NORMAL ACCOMODATION, PERRL - ENT Exam ENT Exam: Mucous Membranes Moist, Normal Exam - Neck Exam Neck Exam: Full ROM, Normal Inspection. absent: Lymphadenopathy - Respiratory Exam Respiratory Exam: Decreased Breath Sounds - Cardiovascular Exam Cardiovascular Exam: REGULAR RHYTHM, +S1, +S2 - GI/Abdominal Exam GI & Abdominal Exam: Soft, Diminished Bowel Sounds - Rectal Exam Rectal Exam: Deferred
--- NOTE | 2017-12-03 20:36 | CP.PCM.PN ---
Subjective - Date & Time of Evaluation Date of Evaluation: 12/03/17 Time of Evaluation: 07:20 - Subjective Subjective: Patient seen and evaluated Feels better Review Of Systems Constitutional: Negative for: Fever, Chills Eyes: Negative for: Redness ENT: Negative for: Nose Discharge Cardiovascular: Negative for: Chest Pain Respiratory: Positive for: Cough, Shortness of Breath, SOB with Excertion Gastrointestinal: Negative for: Nausea, Vomiting, Abdominal Pain Genitourinary: Negative for: Dysuria Musculoskeletal: Negative for: Back Pain Skin: Negative for: Rash Neurological: Negative for: Weakness Psych: Negative for: Anxiety Physical Exam - Physical Exam Skin: Warm, Dry Head: Normacephalic Oral Mucosa: Moist Neck: Supple Chest: Symmetrical Cardiovascular: Rhythm Regular Respiratory: Decreased Breath Sounds, Rales, Rhonchi, Wheezing (few) Gastrointestinal/Abdominal: Soft, No Tenderness, No Distention Back: No CVA Tenderness Extremity: Normal ROM, Pedal Edema (trace) Extremity: Bilateral: Atraumatic Pulses: Left Dorsalis Pedis: Normal, Right Dorsalis Pedis: Normal Neurological/Psych: Oriented x3 Gait: Steady Objective - Vital Signs/Intake and Output Vital Signs (last 24 hours): Temp Pulse Resp BP Pulse Ox 98.0 F 84 20 123/74 98 12/03/17 19:12 12/03/17 19:12 12/03/17 19:12 12/03/17 19:12 12/03/17 19:12 Intake and Output: 12/03/17 12/04/17 18:59 06:59 Intake Total 950 Output Total 750 Balance 200 - Medications Medications: Current Medications Albuterol/Ipratropium (Duoneb 3 Mg/0.5 Mg (3 Ml) Ud) 3 ml INH RQ6 [facility] Last Admin: 12/03/17 13:25 Dose: 3 ml Aspirin (Ecotrin) 81 mg PO DAILY [facility] Carvedilol (Coreg) 3.125 mg PO BID [facility] Last Admin: 12/03/17 17:57 Dose: 3.125 mg Furosemide (Lasix) 40 mg IVP DAILY [facility] Last Admin: 12/03/17 09:14 Dose: 40 mg Azithromycin 500 mg/ Sodium (Chloride) 250 mls @ 250 mls/hr IVPB DAILY [facility] PRN Reason: Protocol Last Admin: 12/03/17 09:14 Dose: 250 mls/hr Ceftriaxone Sodium 1 gm/ (Sodium Chloride) 100 mls @ 100 mls/hr IVPB DAILY [facility] PRN Reason: Protocol Last Admin: 12/03/17 09:13 Dose: 100 mls/hr Insulin Human Regular (Novolin R) 0 unit SC [facility] PRN Reason: Protocol Last Admin: 12/03/17 16:35 Dose: Not Given Lisinopril (Zestril) 5 mg PO DAILY [facility] Last Admin: 12/03/17 09:15 Dose: 5 mg Pantoprazole Sodium (Protonix Ec Tab) 40 mg PO DAILY [facility] Last Admin: 12/03/17 09:15 Dose: 40 mg Potassium Chloride (Klor-Con 10) 10 meq PO DAILY [facility] Last Admin: 12/03/17 09:14 Dose: 10 meq Rivaroxaban (Xarelto) 15 mg PO BID [facility] Rosuvastatin Calcium (Crestor) 5 mg PO HS [facility] Last Admin: 12/02/17 21:01 Dose: 5 mg - Labs Labs: 12/01/17 21:30 12/01/17 21:30 PT 37.5 SECONDS (9.7-12.2) H* 12/01/17 21:30 INR 3.4 12/01/17 21:30 APTT 38 SECONDS (21-34) H 12/01/17 21:30 Assessment and Plan - Assessment and Plan (Free Text) Assessment: 86 F with PMHx of CHF on home O2, Cardiomyopathy s/p AICD, admitted for SOB and CHF exacerbation Dypsnea, Severe mitral regurgitation CHF exacerbation, left-sided, acute on chronic - echocardiogram: 20-30 EF, diastolic disfunction. severe MR, severe pulm HTN - Monitor electrolytes - daily wt - i/o - O2 as needed - Not a candidate for Mitral repair Cardiomyopathy s/p AICD CV risk reduction - ASA, Crestor 5
[2017-12-04] MEDS: Albuterol-Ipratrop 3 mg / 0.5 (3 ml) UD INH SCH ×4 (02:03→19:35)
--- NOTE | 2017-12-04 05:39 | CARD ---
APPROVED REPORT EKG Measurement Heart [id number] <Conclusion> Sinus rhythm with premature atrial complexes with aberrant conduction Right superior axis deviation Nonspecific intraventricular conduction delay Junctional ST depression, probably normal Abnormal ECG
[2017-12-04] MEDS: (Novolin R) Insulin Human Regular 100 units/ml vial SC SCH ×4 (07:51→21:52)
[2017-12-04] MEDS: Pantoprazole 40 mg EC Tab PO SCH (09:43)
[2017-12-04] MEDS: Potassium Chloride 10 mEq ER Tab PO SCH (09:43)
[2017-12-04] MEDS: Azithromycin 500 MG in Sodium Chloride 0.9% 250 ML IVPB SCH (11:24)
--- NOTE | 2017-12-04 19:23 | CP.PCM.PN ---
Subjective - Date & Time of Evaluation Date of Evaluation: 12/04/17 Time of Evaluation: 10:40 - Subjective Subjective: clinically same Objective - Vital Signs/Intake and Output Vital Signs (last 24 hours): Temp Pulse Resp BP Pulse Ox 97.2 F L 70 20 122/69 96 12/04/17 15:00 12/04/17 15:10 12/04/17 15:00 12/04/17 15:00 12/04/17 15:00 Intake and Output: 12/04/17 12/05/17 18:59 06:59 Intake Total 700 Balance 700 - Medications Medications: Current Medications Albuterol/Ipratropium (Duoneb 3 Mg/0.5 Mg (3 Ml) Ud) 3 ml INH RQ6 [facility] Last Admin: 12/04/17 13:29 Dose: 3 ml Aspirin (Ecotrin) 81 mg PO DAILY [facility] Carvedilol (Coreg) 3.125 mg PO BID [facility] Last Admin: 12/04/17 17:36 Dose: 3.125 mg Furosemide (Lasix) 40 mg IVP DAILY [facility] Last Admin: 12/04/17 09:43 Dose: 40 mg Azithromycin 500 mg/ Sodium (Chloride) 250 mls @ 250 mls/hr IVPB DAILY [facility] PRN Reason: Protocol Last Admin: 12/04/17 11:24 Dose: 250 mls/hr Ceftriaxone Sodium 1 gm/ (Sodium Chloride) 100 mls @ 100 mls/hr IVPB DAILY [facility] PRN Reason: Protocol Last Admin: 12/04/17 09:54 Dose: 100 mls/hr Insulin Human Regular (Novolin R) 0 unit SC [facility] PRN Reason: Protocol Last Admin: 12/04/17 17:00 Dose: 1 unit Lisinopril (Zestril) 5 mg PO DAILY [facility] Last Admin: 12/04/17 09:43 Dose: 5 mg Pantoprazole Sodium (Protonix Ec Tab) 40 mg PO DAILY [facility] Last Admin: 12/04/17 09:43 Dose: 40 mg Potassium Chloride (Klor-Con 10) 10 meq PO DAILY [facility] Last Admin: 12/04/17 09:43 Dose: 10 meq Rivaroxaban (Xarelto) 15 mg PO BID [facility] Rosuvastatin Calcium (Crestor) 5 mg PO [facility] Last Admin: 12/03/17 21:46 Dose: 5 mg - Labs Labs: 12/01/17 21:30 12/01/17 21:30 PT 37.5 SECONDS (9.7-12.2) H* 12/01/17 21:30 INR 3.4 12/01/17 21:30 APTT 38 SECONDS (21-34) H 12/01/17 21:30 - Constitutional Appears: Well - Head Exam Head Exam: ATRAUMATIC, NORMAL INSPECTION, NORMOCEPHALIC - Eye Exam Eye Exam: EOMI, Normal appearance, PERRL Pupil Exam: NORMAL ACCOMODATION, PERRL - ENT Exam ENT Exam: Mucous Membranes Moist, Normal Exam - Neck Exam Neck Exam: Full ROM, Normal Inspection. absent: Lymphadenopathy - Respiratory Exam Respiratory Exam: Decreased Breath Sounds - Cardiovascular Exam Cardiovascular Exam: REGULAR RHYTHM, +S1, +S2 - GI/Abdominal Exam GI & Abdominal Exam: Soft, Diminished Bowel Sounds - Rectal Exam Rectal Exam: Deferred
--- NOTE | 2017-12-05 01:50 | CP.PCM.PN ---
Subjective - Date & Time of Evaluation Date of Evaluation: 12/04/17 Time of Evaluation: 18:25 - Subjective Subjective: Patient seen and evaluated Feels better Denies chest pain and dyspnea Review Of Systems Constitutional: Negative for: Fever, Chills Eyes: Negative for: Redness ENT: Negative for: Nose Discharge Cardiovascular: Negative for: Chest Pain Respiratory: Positive for: Cough, Shortness of Breath, SOB with Excertion Gastrointestinal: Negative for: Nausea, Vomiting, Abdominal Pain Genitourinary: Negative for: Dysuria Musculoskeletal: Negative for: Back Pain Skin: Negative for: Rash Neurological: Negative for: Weakness Psych: Negative for: Anxiety Physical Exam - Physical Exam Skin: Warm, Dry Head: Normacephalic Oral Mucosa: Moist Neck: Supple Chest: Symmetrical Cardiovascular: Rhythm Regular Respiratory: Decreased Breath Sounds, Rales, Rhonchi, Wheezing (few) Gastrointestinal/Abdominal: Soft, No Tenderness, No Distention Back: No CVA Tenderness Extremity: Normal ROM, Pedal Edema (trace) Extremity: Bilateral: Atraumatic Pulses: Left Dorsalis Pedis: Normal, Right Dorsalis Pedis: Normal Neurological/Psych: Oriented x3 Gait: Steady Objective - Vital Signs/Intake and Output Vital Signs (last 24 hours): Temp Pulse Resp BP Pulse Ox 98.4 F 69 20 105/62 95 12/04/17 23:10 12/04/17 23:10 12/04/17 23:10 12/04/17 23:10 12/04/17 23:10 Intake and Output: 12/04/17 12/05/17 18:59 06:59 Intake Total 700 Balance 700 - Medications Medications: Current Medications Albuterol/Ipratropium (Duoneb 3 Mg/0.5 Mg (3 Ml) Ud) 3 ml INH RQ6 [facility] Last Admin: 12/04/17 19:35 Dose: 3 ml Aspirin (Ecotrin) 81 mg PO DAILY [facility] Carvedilol (Coreg) 3.125 mg PO BID [facility] Last Admin: 12/04/17 17:36 Dose: 3.125 mg Furosemide (Lasix) 40 mg IVP DAILY [facility] Last Admin: 12/04/17 09:43 Dose: 40 mg Azithromycin 500 mg/ Sodium (Chloride) 250 mls @ 250 mls/hr IVPB DAILY [facility] PRN Reason: Protocol Last Admin: 12/04/17 11:24 Dose: 250 mls/hr Ceftriaxone Sodium 1 gm/ (Sodium Chloride) 100 mls @ 100 mls/hr IVPB DAILY [facility] PRN Reason: Protocol Last Admin: 12/04/17 09:54 Dose: 100 mls/hr Insulin Human Regular (Novolin R) 0 unit SC [facility] PRN Reason: Protocol Last Admin: 12/04/17 21:52 Dose: Not Given Lisinopril (Zestril) 5 mg PO DAILY [facility] Last Admin: 12/04/17 09:43 Dose: 5 mg Pantoprazole Sodium (Protonix Ec Tab) 40 mg PO DAILY [facility] Last Admin: 12/04/17 09:43 Dose: 40 mg Potassium Chloride (Klor-Con 10) 10 meq PO DAILY [facility] Last Admin: 12/04/17 09:43 Dose: 10 meq Rivaroxaban (Xarelto) 15 mg PO BID [facility] Rosuvastatin Calcium (Crestor) 5 mg PO HS [facility] Last Admin: 12/03/17 21:46 Dose: 5 mg - Labs Labs: 12/01/17 21:30 12/01/17 21:30 PT 37.5 SECONDS (9.7-12.2) H* 12/01/17 21:30 INR 3.4 12/01/17 21:30 APTT 38 SECONDS (21-34) H 12/01/17 21:30 Assessment and Plan - Assessment and Plan (Free Text) Assessment: 86 F with PMHx of CHF on home O2, Cardiomyopathy s/p AICD, admitted for SOB and CHF exacerbation Dypsnea, Severe mitral regurgitation CHF exacerbation, left-sided, acute on chronic - echocardiogram: 20-30 EF, diastolic disfunction. severe MR, severe pulm HTN - Monitor electrolytes - daily wt - i/o - O2 as needed - Not a candidate for Mitral repair Cardiomyopathy s/p AICD CV risk reduction - ASA, Crestor 5
[2017-12-05] MEDS: Albuterol-Ipratrop 3 mg / 0.5 (3 ml) UD INH SCH ×4 (01:57→19:48)
[2017-12-05] MEDS: (Novolin R) Insulin Human Regular 100 units/ml vial SC SCH ×4 (07:30→21:40)
[2017-12-05] MEDS: Pantoprazole 40 mg EC Tab PO SCH (09:13)
[2017-12-05] MEDS: Potassium Chloride 10 mEq ER Tab PO SCH (09:14)
[2017-12-05] MEDS: Azithromycin 500 MG in Sodium Chloride 0.9% 250 ML IVPB SCH (11:04)
--- NOTE | 2017-12-05 15:11 | CP.PCM.PN ---
Subjective - Date & Time of Evaluation Date of Evaluation: 12/05/17 Time of Evaluation: 10:00 - Subjective Subjective: clinically same Objective - Vital Signs/Intake and Output Vital Signs (last 24 hours): Temp Pulse Resp BP Pulse Ox 97 F L 63 20 129/90 100 12/05/17 07:00 12/05/17 07:00 12/05/17 07:00 12/05/17 09:12 12/05/17 07:00 Intake and Output: 12/05/17 12/05/17 06:59 18:59 Intake Total 120 Balance 120 - Medications Medications: Current Medications Albuterol/Ipratropium (Duoneb 3 Mg/0.5 Mg (3 Ml) Ud) 3 ml INH RQ6 [facility] Last Admin: 12/05/17 13:33 Dose: 3 ml Aspirin (Ecotrin) 81 mg PO DAILY [facility] Carvedilol (Coreg) 3.125 mg PO BID [facility] Last Admin: 12/05/17 09:13 Dose: 3.125 mg Furosemide (Lasix) 40 mg IVP DAILY [facility] Last Admin: 12/05/17 09:12 Dose: 40 mg Azithromycin 500 mg/ Sodium (Chloride) 250 mls @ 250 mls/hr IVPB DAILY [facility] PRN Reason: Protocol Last Admin: 12/05/17 11:04 Dose: 250 mls/hr Ceftriaxone Sodium 1 gm/ (Sodium Chloride) 100 mls @ 100 mls/hr IVPB DAILY [facility] PRN Reason: Protocol Last Admin: 12/05/17 09:15 Dose: 100 mls/hr Insulin Human Regular (Novolin R) 0 unit SC ACHS [facility] PRN Reason: Protocol Last Admin: 12/05/17 12:04 Dose: 1 unit Lisinopril (Zestril) 5 mg PO DAILY [facility] Last Admin: 12/05/17 09:13 Dose: 5 mg Pantoprazole Sodium (Protonix Ec Tab) 40 mg PO DAILY [facility] Last Admin: 12/05/17 09:13 Dose: 40 mg Potassium Chloride (Klor-Con 10) 10 meq PO DAILY [facility] Last Admin: 12/05/17 09:14 Dose: 10 meq Rivaroxaban (Xarelto) 15 mg PO BID [facility] Rosuvastatin Calcium (Crestor) 5 mg PO HS [facility] Last Admin: 12/03/17 21:46 Dose: 5 mg - Labs Labs: 12/01/17 21:30 12/01/17 21:30 PT 37.5 SECONDS (9.7-12.2) H* 12/01/17 21:30 INR 3.4 12/01/17 21:30 APTT 38 SECONDS (21-34) H 12/01/17 21:30 - Constitutional Appears: Well - Head Exam Head Exam: ATRAUMATIC, NORMAL INSPECTION, NORMOCEPHALIC - Eye Exam Eye Exam: EOMI, Normal appearance, PERRL Pupil Exam: NORMAL ACCOMODATION, PERRL - ENT Exam ENT Exam: Mucous Membranes Moist, Normal Exam - Neck Exam Neck Exam: Full ROM, Normal Inspection. absent: Lymphadenopathy - Respiratory Exam Respiratory Exam: Decreased Breath Sounds - Cardiovascular Exam Cardiovascular Exam: REGULAR RHYTHM, +S1, +S2 - GI/Abdominal Exam GI & Abdominal Exam: Soft, Diminished Bowel Sounds - Rectal Exam Rectal Exam: Deferred
[2017-12-06] MEDS: Albuterol-Ipratrop 3 mg / 0.5 (3 ml) UD INH SCH ×4 (01:25→19:27)
[2017-12-06] MEDS: (Novolin R) Insulin Human Regular 100 units/ml vial SC SCH ×4 (07:58→21:54)
--- NOTE | 2017-12-06 08:36 | CP.PCM.PN ---
Subjective - Date & Time of Evaluation Date of Evaluation: 12/05/17 Time of Evaluation: 16:20 - Subjective Subjective: Patient seen and evaluated Feels better Denies chest pain and dyspnea Review Of Systems Constitutional: Negative for: Fever, Chills Eyes: Negative for: Redness ENT: Negative for: Nose Discharge Cardiovascular: Negative for: Chest Pain Respiratory: Positive for: Cough, Shortness of Breath, SOB with Excertion Gastrointestinal: Negative for: Nausea, Vomiting, Abdominal Pain Genitourinary: Negative for: Dysuria Musculoskeletal: Negative for: Back Pain Skin: Negative for: Rash Neurological: Negative for: Weakness Psych: Negative for: Anxiety Physical Exam - Physical Exam Skin: Warm, Dry Head: Normacephalic Oral Mucosa: Moist Neck: Supple Chest: Symmetrical Cardiovascular: Rhythm Regular Respiratory: Decreased Breath Sounds, Rales, Rhonchi, Wheezing (few) Gastrointestinal/Abdominal: Soft, No Tenderness, No Distention Back: No CVA Tenderness Extremity: Normal ROM, Pedal Edema (trace) Extremity: Bilateral: Atraumatic Pulses: Left Dorsalis Pedis: Normal, Right Dorsalis Pedis: Normal Neurological/Psych: Oriented x3 Gait: Steady Objective - Vital Signs/Intake and Output Vital Signs (last 24 hours): Temp Pulse Resp BP Pulse Ox 97.9 F 77 20 121/77 100 12/06/17 04:00 12/06/17 04:37 12/06/17 04:00 12/06/17 04:00 12/06/17 04:00 Intake and Output: 12/06/17 12/06/17 06:59 18:59 Intake Total 120 Balance 120 - Medications Medications: Current Medications Albuterol/Ipratropium (Duoneb 3 Mg/0.5 Mg (3 Ml) Ud) 3 ml INH RQ6 [facility] Last Admin: 12/06/17 07:39 Dose: 3 ml Aspirin (Ecotrin) 81 mg PO DAILY [facility] Carvedilol (Coreg) 3.125 mg PO BID [facility] Last Admin: 12/05/17 17:11 Dose: 3.125 mg Enoxaparin Sodium (Lovenox) 60 mg SC Q12 [facility] Furosemide (Lasix) 40 mg IVP DAILY [facility] Last Admin: 12/05/17 09:12 Dose: 40 mg Azithromycin 500 mg/ Sodium (Chloride) 250 mls @ 250 mls/hr IVPB DAILY [facility] PRN Reason: Protocol Last Admin: 12/05/17 11:04 Dose: 250 mls/hr Ceftriaxone Sodium 1 gm/ (Sodium Chloride) 100 mls @ 100 mls/hr IVPB DAILY [facility] PRN Reason: Protocol Last Admin: 12/05/17 09:15 Dose: 100 mls/hr Insulin Human Regular (Novolin R) 0 unit SC ACHS [facility] PRN Reason: Protocol Last Admin: 12/06/17 07:58 Dose: Not Given Lisinopril (Zestril) 5 mg PO DAILY [facility] Last Admin: 12/05/17 09:13 Dose: 5 mg Pantoprazole Sodium (Protonix Ec Tab) 40 mg PO DAILY [facility] Last Admin: 12/05/17 09:13 Dose: 40 mg Potassium Chloride (Klor-Con 10) 10 meq PO DAILY [facility] Last Admin: 12/05/17 09:14 Dose: 10 meq Rosuvastatin Calcium (Crestor) 5 mg PO HS [facility] Last Admin: 12/05/17 21:20 Dose: 5 mg - Labs Labs: 12/01/17 21:30 12/01/17 21:30 PT 37.5 SECONDS (9.7-12.2) H* 12/01/17 21:30 INR 3.4 12/01/17 21:30 APTT 38 SECONDS (21-34) H 12/01/17 21:30 Assessment and Plan - Assessment and Plan (Free Text) Assessment: 86 F with PMHx of CHF on home O2, Cardiomyopathy s/p AICD, admitted for SOB and CHF exacerbation Dypsnea, Severe mitral regurgitation CHF exacerbation, left-sided, acute on chronic - echocardiogram: 20-30 EF, diastolic disfunction. severe MR, severe pulm HTN - Monitor electrolytes - daily wt - i/o - O2 as needed - Not a candidate for Mitral repair Cardiomyopathy s/p AICD CV risk reduction - ASA, Crestor 5 Hx of PE Started on Lovenox 60sc bid Pulmonary consult with Dr. Robin
[2017-12-06] MEDS: Pantoprazole 40 mg EC Tab PO SCH (09:23)
[2017-12-06] MEDS: Potassium Chloride 10 mEq ER Tab PO SCH (09:24)
[2017-12-06] MEDS: Enoxaparin 60 mg Syringe SC SCH ×2 (09:27→21:53)
[2017-12-06] MEDS: Azithromycin 500 MG in Sodium Chloride 0.9% 250 ML IVPB SCH (09:39)
--- NOTE | 2017-12-06 12:18 | CP.PCM.CON ---
History of Present Illness - History of Present Illness History of Present Illness: Pulmonary Evalution, Covering Dr. Robin The patient was Seen and examined by me at the bedside, Events reviewed 87 year old Female with PMHx of HTN, Hypercholesterolemia and Pneumonia Who presented to the Emergency department with Shortness of Breath and Productive Cough with yellowish sputum. Denies: Fever, Chills, Chest Pain Chest X-Ray showed Cardiomegally and questionable CHF and consolidation in lower lobe. Pulmonary consulted for dyspnea, possible pneumonia and pleural effusion He was started on IV Lasix, Ceftriaxone and Albuterol/Ipratropium (Duoneb) INH RQ6 Patient lying in bed comfortably, he is feeling better today and no apparent distress. Patient afebrile, saturating well at 96-100% on 2L NC Patient less shortness of breath at rest but dyspnic with minimal exersion Pt still coughing that productive with yellowish sputum. No Fever/chills/night sweats, chest pain, hempotysis, or Palpitations This morning labs revealed No Leucocytosis, Stable renal function Surgical History: Cholecystectomy, Pacemaker SocialHx: No tobacco useot ETOH . Review of Systems - Constitutional Constitutional: absent: Anorexia, Chills, Daytime Sleepiness, Excessive Sweating , Fatigue, Fever, Frequent Falls - Cardiovascular Cardiovascular: absent: Acrocyanosis, Chest Pain, Chest Pain at Rest, Chest Pain with Activity, Claudication, Diaphoresis - Respiratory Respiratory: Cough, Dyspnea on Exertion, Chest Congestion, Excessive Mucous Production, Change in Mucous Color, Pain with Coughing. absent: Dyspnea, Hemoptysis, Wheezing, Snoring, Stridor - Gastrointestinal Gastrointestinal: As Per HPI Past Patient History - Infectious Disease Hx of Infectious Diseases: None - Past Medical History & Family History Past Medical History?: Yes - Past Social History Smoking Status: Never Smoked - CARDIAC Hx Cardiac Disorders: Yes Hx Hypercholesterolemia: Yes Hx Hypertension: Yes - PULMONARY Hx Respiratory Disorders: Yes Hx Pneumonia: Yes - NEUROLOGICAL Hx Neurological Disorder: No - HEENT Hx HEENT Problems: Yes Other/Comment: uses corrective eyeglasses - RENAL Hx Chronic Kidney Disease: No - ENDOCRINE/METABOLIC Hx Diabetes Mellitus Type 2: Yes - HEMATOLOGICAL/ONCOLOGICAL Hx Blood Disorders: No - INTEGUMENTARY Hx Dermatological Problems: No - MUSCULOSKELETAL/RHEUMATOLOGICAL Hx Falls: No - GASTROINTESTINAL Hx Gastrointestinal Disorders: No - GENITOURINARY/GYNECOLOGICAL Hx Genitourinary Disorders: No - PSYCHIATRIC Hx Substance Use: No - SURGICAL HISTORY Hx Surgeries: Yes Hx Cholecystectomy: Yes Other/Comment: permanent pacemaker implant - ANESTHESIA Hx Anesthesia: Yes Hx Anesthesia Reactions: No Hx Malignant Hyperthermia: No Meds Allergies/Adverse Reactions: Allergies Allergy/AdvReac Type Severity Reaction Status Date / Time codeine Allergy RASH Verified 12/01/17 20:53 - Medications Medications: Current Medications Albuterol/Ipratropium (Duoneb 3 Mg/0.5 Mg (3 Ml) Ud) 3 ml INH RQ6 [facility] Last Admin: 12/06/17 07:39 Dose: 3 ml Aspirin (Ecotrin) 81 mg PO DAILY [facility] Carvedilol (Coreg) 3.125 mg PO BID [facility] Last Admin: 12/06/17 09:23 Dose: 3.125 mg Enoxaparin Sodium (Lovenox) 60 mg SC Q12 [facility] Last Admin: 12/06/17 09:27 Dose: 60 mg Furosemide (Lasix) 40 mg IVP DAILY [facility] Last Admin: 12/06/17 09:24 Dose: 40 mg Azithromycin 500 mg/ Sodium (Chloride) 250 mls @ 250 mls/hr IVPB DAILY [facility] PRN Reason: Protocol Last Admin: 12/06/17 09:39 Dose: 250 mls/hr Ceftriaxone Sodium 1 gm/ (Sodium Chloride) 100 mls @ 100 mls/hr IVPB DAILY [facility] PRN Reason: Protocol Last Admin: 12/06/17 09:00 Dose: 100 mls/hr Insulin Human Regular (Novolin R) 0 unit SC ACHS [facility] PRN Reason: Protocol Last Admin: 12/06/17 07:58 Dose: Not Given Lisinopril (Zestril) 5 mg PO DAILY [facility] Last Admin: 12/06/17 09:24 Dose: 5 mg Pantoprazole Sodium (Protonix Ec Tab) 40 mg PO DAILY [facility] Last Admin: 12/06/17 09:23 Dose: 40 mg Potassium Chloride (Klor-Con 10) 10 meq PO DAILY [facility] Last Admin: 12/06/17 09:24 Dose: 10 meq Rosuvastatin Calcium (Crestor) 5 mg PO HS [facility] Last Admin: 12/05/17 21:20 Dose: 5 mg Physical Exam - Constitutional Appears: Well, Non-toxic, No Acute Distress - Head Exam Head Exam: ATRAUMATIC, NORMAL INSPECTION - Eye Exam Eye Exam: absent: Conjunctival injection Pupil Exam: NORMAL ACCOMODATION, PERRL - ENT Exam ENT Exam: Mucous Membranes Moist - Neck Exam Neck exam: Positive for: Full Rom, Normal Inspection. Negative for: Lymphadenopathy, Meningismus, Tenderness, Thyromegaly - Respiratory Exam Respiratory Exam: Decreased Breath Sounds, Rhonchi. absent: Accessory Muscle Use, Chest Wall Tenderness, Clear to Auscultation Bilateral, Prolonged Expiratory Phase, Rales, Wheezes, Respiratory Distress - Cardiovascular Exam Cardiovascular Exam: REGULAR RHYTHM, RRR, +S1, +S2. absent: Bradycardia, Tachycardia, Clicks, Diastolic murmur, JVD - GI/Abdominal Exam GI & Abdominal Exam: Normal Bowel Sounds - Extremities Exam Extremities exam: Positive for: full ROM, normal capillary refill, normal inspection, pedal pulses present. Negative for: calf tenderness, joint swelling , pedal edema - Back Exam Back exam: absent: CVA tenderness (L), CVA tenderness (R) - Neurological Exam Neurological exam: Alert, CN II-XII Intact, Motor Sensory Deficit, Oriented x3 Results - Vital Signs Recent Vital Signs: Last Vital Signs Temp 98.1 F 12/06/17 07:40 Pulse 76 12/06/17 07:40 Resp 18 12/06/17 07:40 BP 120/70 12/06/17 09:24 Pulse Ox 96 12/06/17 07:40 - Labs Result Diagrams: 12/07/17 06:48 12/07/17 06:48 Labs: Laboratory Results - last 24 hr 12/05/17 12/05/17 12/06/17 16:17 21:27 06:37 POC Glucose (mg/dL) 184 H 165 H 93 12/06/17 11:23 POC Glucose (mg/dL) 266 H Assessment & Plan (1) CHF (congestive heart failure) Status: Acute (2) Dyspnea Status: Acute (3) Renal insufficiency Status: Acute (4) Cardiomyopathy Status: Acute (5) Community acquired pneumonia Status: Acute (6) Congestive heart failure Status: Acute (7) Decreased cardiac ejection fraction Status: Acute (8) Pneumonia Status: Acute (9) Prophylactic measure Status: Acute (10) Pulmonary embolism Status: Acute (11) Respiratory distress Status: Acute - Assessment and Plan (Free Text) Assessment: Respiratory insuffectioncy from possible CAP and CHF Improved Respiratory status Continue Albuterol/Ipratropium (Duoneb) INH RQ6 [facility] Continue Lasix 40 mg PO DAILY [facility] I&O ECHO Ceftriaxone 1 gm IVPB DAILY and Azithromycin 500 mg IVPB DAILY Follow up cultures Check urine legionella and pneumococcus/strep antigen Check Procalcitonin level
--- NOTE | 2017-12-06 16:05 | CP.PCM.PN ---
Subjective - Date & Time of Evaluation Date of Evaluation: 12/06/17 Time of Evaluation: 10:00 - Subjective Subjective: clinically same Objective - Vital Signs/Intake and Output Vital Signs (last 24 hours): Temp Pulse Resp BP Pulse Ox 98.1 F 76 18 120/70 96 12/06/17 07:40 12/06/17 07:40 12/06/17 07:40 12/06/17 09:24 12/06/17 07:40 Intake and Output: 12/06/17 12/06/17 06:59 18:59 Intake Total 120 400 Balance 120 400 - Medications Medications: Current Medications Albuterol/Ipratropium (Duoneb 3 Mg/0.5 Mg (3 Ml) Ud) 3 ml INH RQ6 [facility] Last Admin: 12/06/17 13:40 Dose: 3 ml Aspirin (Ecotrin) 81 mg PO DAILY [facility] Carvedilol (Coreg) 3.125 mg PO BID [facility] Last Admin: 12/06/17 09:23 Dose: 3.125 mg Enoxaparin Sodium (Lovenox) 60 mg SC Q12 [facility] Last Admin: 12/06/17 09:27 Dose: 60 mg Furosemide (Lasix) 40 mg IVP DAILY [facility] Last Admin: 12/06/17 09:24 Dose: 40 mg Azithromycin 500 mg/ Sodium (Chloride) 250 mls @ 250 mls/hr IVPB DAILY [facility] PRN Reason: Protocol Last Admin: 12/06/17 09:39 Dose: 250 mls/hr Ceftriaxone Sodium 1 gm/ (Sodium Chloride) 100 mls @ 100 mls/hr IVPB DAILY [facility] PRN Reason: Protocol Last Admin: 12/06/17 09:00 Dose: 100 mls/hr Insulin Human Regular (Novolin R) 0 unit SC ACHS [facility] PRN Reason: Protocol Last Admin: 12/06/17 12:18 Dose: 3 unit Lisinopril (Zestril) 5 mg PO DAILY [facility] Last Admin: 12/06/17 09:24 Dose: 5 mg Pantoprazole Sodium (Protonix Ec Tab) 40 mg PO DAILY [facility] Last Admin: 12/06/17 09:23 Dose: 40 mg Potassium Chloride (Klor-Con 10) 10 meq PO DAILY [facility] Last Admin: 12/06/17 09:24 Dose: 10 meq Rosuvastatin Calcium (Crestor) 5 mg PO HS [facility] Last Admin: 12/05/17 21:20 Dose: 5 mg - Labs Labs: 12/01/17 21:30 12/01/17 21:30 PT 37.5 SECONDS (9.7-12.2) H* 12/01/17 21:30 INR 3.4 12/01/17 21:30 APTT 38 SECONDS (21-34) H 12/01/17 21:30 - Constitutional Appears: Well - Head Exam Head Exam: ATRAUMATIC, NORMAL INSPECTION, NORMOCEPHALIC - Eye Exam Eye Exam: EOMI, Normal appearance, PERRL Pupil Exam: NORMAL ACCOMODATION, PERRL - ENT Exam ENT Exam: Mucous Membranes Moist, Normal Exam - Neck Exam Neck Exam: Full ROM, Normal Inspection. absent: Lymphadenopathy - Respiratory Exam Respiratory Exam: Decreased Breath Sounds - Cardiovascular Exam Cardiovascular Exam: REGULAR RHYTHM, +S1, +S2 - GI/Abdominal Exam GI & Abdominal Exam: Soft, Diminished Bowel Sounds - Rectal Exam Rectal Exam: Deferred
--- NOTE | 2017-12-06 22:23 | CP.PCM.PN ---
Subjective - Date & Time of Evaluation Date of Evaluation: 12/06/17 Time of Evaluation: 08:45 - Subjective Subjective: Patient seen and evaluated Denies chest pain and dyspnea Review Of Systems Constitutional: Negative for: Fever, Chills Eyes: Negative for: Redness ENT: Negative for: Nose Discharge Cardiovascular: Negative for: Chest Pain Respiratory: Positive for: Cough, Shortness of Breath, SOB with Excertion Gastrointestinal: Negative for: Nausea, Vomiting, Abdominal Pain Genitourinary: Negative for: Dysuria Musculoskeletal: Negative for: Back Pain Skin: Negative for: Rash Neurological: Negative for: Weakness Psych: Negative for: Anxiety Physical Exam - Physical Exam Skin: Warm, Dry Head: Normacephalic Oral Mucosa: Moist Neck: Supple Chest: Symmetrical Cardiovascular: Rhythm Regular Respiratory: Decreased Breath Sounds, Rales, Rhonchi, Wheezing (few) Gastrointestinal/Abdominal: Soft, No Tenderness, No Distention Back: No CVA Tenderness Extremity: Normal ROM, Pedal Edema (trace) Extremity: Bilateral: Atraumatic Pulses: Left Dorsalis Pedis: Normal, Right Dorsalis Pedis: Normal Neurological/Psych: Oriented x3 Gait: Steady Objective - Vital Signs/Intake and Output Vital Signs (last 24 hours): Temp Pulse Resp BP Pulse Ox 98.2 F 70 20 103/68 98 12/06/17 16:00 12/06/17 16:00 12/06/17 16:00 12/06/17 16:00 12/06/17 16:00 Intake and Output: 12/06/17 12/07/17 18:59 06:59 Intake Total 400 Balance 400 - Medications Medications: Current Medications Albuterol/Ipratropium (Duoneb 3 Mg/0.5 Mg (3 Ml) Ud) 3 ml INH RQ6 [facility] Last Admin: 12/06/17 19:27 Dose: 3 ml Aspirin (Ecotrin) 81 mg PO DAILY [facility] Carvedilol (Coreg) 3.125 mg PO BID [facility] Last Admin: 12/06/17 17:17 Dose: 3.125 mg Enoxaparin Sodium (Lovenox) 60 mg SC Q12 [facility] Last Admin: 12/06/17 21:53 Dose: 60 mg Furosemide (Lasix) 40 mg IVP DAILY [facility] Last Admin: 12/06/17 09:24 Dose: 40 mg Azithromycin 500 mg/ Sodium (Chloride) 250 mls @ 250 mls/hr IVPB DAILY [facility] PRN Reason: Protocol Last Admin: 12/06/17 09:39 Dose: 250 mls/hr Ceftriaxone Sodium 1 gm/ (Sodium Chloride) 100 mls @ 100 mls/hr IVPB DAILY [facility] PRN Reason: Protocol Last Admin: 12/06/17 09:00 Dose: 100 mls/hr Insulin Human Regular (Novolin R) 0 unit SC ACHS [facility] PRN Reason: Protocol Last Admin: 12/06/17 21:54 Dose: Not Given Lisinopril (Zestril) 5 mg PO DAILY [facility] Last Admin: 12/06/17 09:24 Dose: 5 mg Pantoprazole Sodium (Protonix Ec Tab) 40 mg PO DAILY [facility] Last Admin: 12/06/17 09:23 Dose: 40 mg Potassium Chloride (Klor-Con 10) 10 meq PO DAILY [facility] Last Admin: 12/06/17 09:24 Dose: 10 meq Rosuvastatin Calcium (Crestor) 5 mg PO HS [facility] Last Admin: 12/06/17 21:53 Dose: 5 mg - Labs Labs: 12/01/17 21:30 12/01/17 21:30 PT 37.5 SECONDS (9.7-12.2) H* 12/01/17 21:30 INR 3.4 12/01/17 21:30 APTT 38 SECONDS (21-34) H 12/01/17 21:30 Assessment and Plan - Assessment and Plan (Free Text) Assessment: 86 F with PMHx of CHF on home O2, Cardiomyopathy s/p AICD, admitted for SOB and CHF exacerbation Dypsnea, Severe mitral regurgitation CHF exacerbation, left-sided, acute on chronic - echocardiogram: 20-30 EF, diastolic disfunction. severe MR, severe pulm HTN - Monitor electrolytes - daily wt - i/o - O2 as needed - Not a candidate for Mitral repair Cardiomyopathy s/p AICD CV risk reduction - ASA, Crestor 5 Hx of PE Started on Lovenox 60sc bid Pulmonary consult with Dr. Robin
[2017-12-07] MEDS: Albuterol-Ipratrop 3 mg / 0.5 (3 ml) UD INH SCH ×2 (01:54→07:33)
[2017-12-07 06:57] LABS: HEMOGLOBIN 10.4 g/dL (11.0-16.0); MEAN CELL VOLUME 83.5 fL (81.0-99.0); MEAN CORPUSCULAR HEMOGLOBIN 27.7 pg (27.0-31.0); MEAN CORPUSCULAR HGB CONC 33.1 g/dL (33.0-37.0); MEAN PLATELET VOLUME 9.4 fL (7.2-11.7); RBC 3.76 Mil/uL (3.80-5.20); RED CELL DISTRIBUTION WIDTH 19.7 % (11.5-14.5); WHITE BLOOD COUNT 3.3 K/uL (4.8-10.8)
[2017-12-07 07:26] LABS: CALCIUM 8.5 mg/dl (8.6-10.4)
[2017-12-07] MEDS: (Novolin R) Insulin Human Regular 100 units/ml vial SC SCH ×4 (08:12→21:59)
[2017-12-07] MEDS ORDERED: Potassium Chloride 20 mEq ER Tab PO STA ×2 (08:28→21:28)
[2017-12-07] MEDS: Potassium Chloride 10 mEq ER Tab PO SCH (10:26)
[2017-12-07] MEDS: Pantoprazole 40 mg EC Tab PO SCH (10:26)
[2017-12-07] MEDS: Azithromycin 500 MG in Sodium Chloride 0.9% 250 ML IVPB SCH (10:26)
[2017-12-07] MEDS: Enoxaparin 60 mg Syringe SC SCH ×2 (10:27→21:57)
--- NOTE | 2017-12-07 10:40 | CP.PCM.PN ---
<Yolande Toro - Last Filed: 12/07/17 13:23> Subjective - Date & Time of Evaluation Date of Evaluation: 12/07/17 Time of Evaluation: 10:33 - Subjective Subjective: PGY2 progress note for Dr. Diaz Pt seen and examined at bedside. No acute events overnight. Pt continues to c/ o coughing that productive with yellowish sputum. Patient denies having any F/C , SOB, CP, abd pain, N/v/D/C. 12 point ROS negative except for the above mentioned. Objective - Vital Signs/Intake and Output Vital Signs (last 24 hours): Temp Pulse Resp BP Pulse Ox 98.0 F 80 20 131/83 96 12/07/17 07:00 12/07/17 10:24 12/07/17 07:00 12/07/17 10:24 12/07/17 07:00 Intake and Output: 12/07/17 12/07/17 06:59 18:59 Intake Total 125 Balance 125 - Medications Medications: Current Medications Aspirin (Ecotrin) 81 mg PO DAILY [facility] Carvedilol (Coreg) 3.125 mg PO BID [facility] Last Admin: 12/06/17 17:17 Dose: 3.125 mg Enoxaparin Sodium (Lovenox) 60 mg SC Q12 [facility] Last Admin: 12/06/17 21:53 Dose: 60 mg Furosemide (Lasix) 40 mg IVP DAILY [facility] Last Admin: 12/06/17 09:24 Dose: 40 mg Insulin Human Regular (Novolin R) 0 unit SC ACHS [facility] PRN Reason: Protocol Last Admin: 12/07/17 08:12 Dose: Not Given Lisinopril (Zestril) 5 mg PO DAILY [facility] Last Admin: 12/06/17 09:24 Dose: 5 mg Pantoprazole Sodium (Protonix Ec Tab) 40 mg PO DAILY [facility] Last Admin: 12/06/17 09:23 Dose: 40 mg Potassium Chloride (Klor-Con 10) 10 meq PO DAILY [facility] Last Admin: 12/06/17 09:24 Dose: 10 meq Rosuvastatin Calcium (Crestor) 5 mg PO HS [facility] Last Admin: 12/06/17 21:53 Dose: 5 mg - Labs Labs: 12/07/17 06:48 12/07/17 06:48 PT 37.5 SECONDS (9.7-12.2) H* 12/01/17 21:30 INR 3.4 12/01/17 21:30 APTT 38 SECONDS (21-34) H 12/01/17 21:30 - Constitutional Appears: Non-toxic, No Acute Distress - Head Exam Head Exam: ATRAUMATIC, NORMOCEPHALIC - ENT Exam ENT Exam: Mucous Membranes Moist - Respiratory Exam Respiratory Exam: Accessory Muscle Use, Rhonchi, Wheezes (diffuse, expiratory ) . absent: Respiratory Distress - Cardiovascular Exam Cardiovascular Exam: REGULAR RHYTHM, +S1, +S2, Murmur (systolic 3/5) - GI/Abdominal Exam GI & Abdominal Exam: Soft, Normal Bowel Sounds. absent: Distended, Firm, Guarding, Rigid, Tenderness, Organomegaly - Neurological Exam Neurological Exam: Alert, Awake, Oriented x3 - Psychiatric Exam Psychiatric exam: Normal Affect, Normal Mood - Skin Skin Exam: Dry, Intact, Normal Color, Warm Assessment and Plan - Assessment and Plan (Free Text) Assessment: 87 year old female with past medical history of severe mitral regurg, hx of PE, cardiomyopathy with AICD, CHF is admitted for worsening SOB and chest palpitations SOB - SOB 2/2 PNA vs. CHf exacerbation - CXR on admission showed no acitve pulmonary disease, presistent cardiomegaly with mild pulm venous congestion - CT of chest PE protocol showed pulmonary vascular congestion; ill-defined densities in lungs bilaterally which could be due to alveolar pulmonary edema vs. superimposed nodular type PNA. - Pt received 5 days of rocephin and zithromax. Will consider continuing abx as pt is still having productive cough with wheezing - Start robitussin prn - Will check sputum culture, mycoplasma pna culture, legionella urine antigen and mycobacterium - Will check procal - Pulm, Dr. Robin is consulted - ID, Dr. Herrera is consulted - Last echo from 11/2016 showed EF of 33% with severe pulm HTN, mod AR, severe MR , increased RV systolic pressure, trace posterior pericardial effusion - Cardio, Dr. Butterfield is consulted. Per cardio, pt not a candidate for mitral valve repair - Continue lasixs 40 mg IVP Hx of PE - Pulm, Dr. Robin is consulted - Pt started on lovenox 60 mg sc BID - CT of chest showed no evidence of PE Cardiomyopathy with AICD placement - Continue Aspirin qd, coreg 3.125 mg po bid, zestril 5 mg po qd, Crestor 5 mg po hs CHF - [place] [address]28 - Continue lasixs DM - HgbA1c from 08/2017 was 6.8 - ISS - Accuchecs [facility] - hypoglycemia protocol Prophylaxis - Lovenox sc - Protonix prn - PT/OT All orders and management per Dr. Diaz <Dalton Diaz S - Last Filed: 12/07/17 23:50> Objective - Vital Signs/Intake and Output Vital Signs (last 24 hours): Temp Pulse Resp BP Pulse Ox 97.7 F 78 20 118/73 98 12/07/17 15:00 12/07/17 16:00 12/07/17 15:00 12/07/17 15:00 12/07/17 15:00 Intake and Output: 12/07/17 12/08/17 18:59 06:59 Intake Total 480 Balance 480 - Medications Medications: Current Medications Aspirin (Ecotrin) 81 mg PO DAILY [facility] Carvedilol (Coreg) 3.125 mg PO BID [facility] Last Admin: 12/07/17 18:03 Dose: 3.125 mg Enoxaparin Sodium (Lovenox) 60 mg SC Q12 [facility] Last Admin: 12/07/17 21:57 Dose: 60 mg Furosemide (Lasix) 40 mg IVP DAILY [facility] Last Admin: 12/07/17 10:25 Dose: 40 mg Guaifenesin (Robitussin) 200 mg PO Q4H PRN PRN Reason: Cough and congestion Ceftriaxone Sodium 1 gm/ (Sodium Chloride) 100 mls @ 200 mls/hr IVPB DAILY [facility] PRN Reason: Protocol Insulin Human Regular (Novolin R) 0 unit [facility] PRN Reason: Protocol Last Admin: 12/07/17 21:59 Dose: Not Given Lisinopril (Zestril) 5 mg PO DAILY [facility] Last Admin: 12/07/17 10:26 Dose: 5 mg Pantoprazole Sodium (Protonix Ec Tab) 40 mg PO DAILY [facility] Last Admin: 12/07/17 10:26 Dose: 40 mg Potassium Chloride (Klor-Con 10) 10 meq PO DAILY [facility] Last Admin: 12/07/17 10:26 Dose: 10 meq Rosuvastatin Calcium (Crestor) 5 mg PO HS [facility] Last Admin: 12/07/17 21:57 Dose: 5 mg - Labs Labs: 12/07/17 06:48 12/07/17 06:48 PT 37.5 SECONDS (9.7-12.2) H* 12/01/17 21:30 INR 3.4 12/01/17 21:30 APTT 38 SECONDS (21-34) H 12/01/17 21:30 Attending/Attestation - Attestation I have personally seen and examined this patient.: Yes I have fully participated in the care of the patient.: Yes I have reviewed all pertinent clinical information, including history, physical exam and plan: Yes Notes (Text): 12/07/17 23:50 case seen and d.w staff and resident, concurred with finding and management..
[2017-12-07] MEDS ORDERED: guaiFENesin 200 mg/10 ml Syrup UD PO PRN (10:46)
[2017-12-07 12:15] LABS: LEGIONELLA AG URINE NEGATIVE (NEGATIVE)
--- NOTE | 2017-12-07 16:27 | CP.PCM.PN ---
Subjective - Date & Time of Evaluation Date of Evaluation: 12/07/17 Time of Evaluation: 09:00 - Subjective Subjective: Reason for Consult - SOB with history of PE History obtained using "In-Demand" Translation Service; Mat Man ID = [id number]. Patient is an 87 year old female with a past medical history of CHF (with home oxygen), PE and renal insufficiency. CXR ordered in the ED showed cardiomegaly and pulmonary venous congestion. CT scan showed bilateral pleural effusions, but no evidence of PE. Per Dr. Butterfield, most recent echocardiogram shows an ejection fraction of 20-30% with severe mitral regurgitation, but patient is not a candidate for valve repair. Patient is currently afebrile and saturating 96% on room air. Patient complains of chronic cough, but denies chest pain, fevers and chills. Assessment/Plan history of pulmonary embolism CT angiogram done in the emergency room showed no evidence of pulmonary embolism , consider to discontinue Lovenox CHF Continue per Cardiology recommendations Anemia H&H currently 10.4 and 31.4; Patient denies history of anemia. Patient denies cold intolerance and fatigue; continue to monitor CBC. Leukopenia This is patient's first hospitalization, so unsure what baseline is. Continue to monitor CBC. Objective - Vital Signs/Intake and Output Vital Signs (last 24 hours): Temp Pulse Resp BP Pulse Ox 97.7 F 76 20 118/73 98 12/07/17 15:00 12/07/17 15:00 12/07/17 15:00 12/07/17 15:00 12/07/17 15:00 Intake and Output: 12/07/17 12/07/17 06:59 18:59 Intake Total 125 Balance 125 - Medications Medications: Current Medications Aspirin (Ecotrin) 81 mg PO DAILY [facility] Carvedilol (Coreg) 3.125 mg PO BID [facility] Last Admin: 12/07/17 10:26 Dose: 3.125 mg Enoxaparin Sodium (Lovenox) 60 mg SC Q12 [facility] Last Admin: 12/07/17 10:27 Dose: 60 mg Furosemide (Lasix) 40 mg IVP DAILY [facility] Last Admin: 12/07/17 10:25 Dose: 40 mg Guaifenesin (Robitussin) 200 mg PO Q4H PRN PRN Reason: Cough and congestion Ceftriaxone Sodium 1 gm/ (Sodium Chloride) 100 mls @ 200 mls/hr IVPB DAILY [facility] PRN Reason: Protocol Insulin Human Regular (Novolin R) 0 unit SC ACHS [facility] PRN Reason: Protocol Last Admin: 12/07/17 12:16 Dose: Not Given Lisinopril (Zestril) 5 mg PO DAILY [facility] Last Admin: 12/07/17 10:26 Dose: 5 mg Pantoprazole Sodium (Protonix Ec Tab) 40 mg PO DAILY [facility] Last Admin: 12/07/17 10:26 Dose: 40 mg Potassium Chloride (Klor-Con 10) 10 meq PO DAILY [facility] Last Admin: 12/07/17 10:26 Dose: 10 meq Rosuvastatin Calcium (Crestor) 5 mg PO HS [facility] Last Admin: 12/06/17 21:53 Dose: 5 mg - Labs Labs: 12/07/17 06:48 12/07/17 06:48 PT 37.5 SECONDS (9.7-12.2) H* 12/01/17 21:30 INR 3.4 12/01/17 21:30 APTT 38 SECONDS (21-34) H 12/01/17 21:30
--- NOTE | 2017-12-07 19:26 | CP.PCM.PN ---
Subjective - Date & Time of Evaluation Date of Evaluation: 12/07/17 Time of Evaluation: 10:40 - Subjective Subjective: Pt seen and examined at bedside. No acute events overnight. Pt continues to c/ o coughing that productive with yellowish sputum. Patient denies having any F/C , SOB, CP, abd pain, N/v/D/C. 12 point ROS negative except for the above mentioned. Objective - Vital Signs/Intake and Output Vital Signs (last 24 hours): Temp Pulse Resp BP Pulse Ox 97.7 F 78 20 118/73 98 12/07/17 15:00 12/07/17 16:00 12/07/17 15:00 12/07/17 15:00 12/07/17 15:00 - Medications Medications: Current Medications Aspirin (Ecotrin) 81 mg PO DAILY [facility] Carvedilol (Coreg) 3.125 mg PO BID [facility] Last Admin: 12/07/17 18:03 Dose: 3.125 mg Enoxaparin Sodium (Lovenox) 60 mg SC Q12 [facility] Last Admin: 12/07/17 10:27 Dose: 60 mg Furosemide (Lasix) 40 mg IVP DAILY [facility] Last Admin: 12/07/17 10:25 Dose: 40 mg Guaifenesin (Robitussin) 200 mg PO Q4H PRN PRN Reason: Cough and congestion Ceftriaxone Sodium 1 gm/ (Sodium Chloride) 100 mls @ 200 mls/hr IVPB DAILY [facility] PRN Reason: Protocol Insulin Human Regular (Novolin R) 0 unit SC ACHS [facility] PRN Reason: Protocol Last Admin: 12/07/17 16:42 Dose: Not Given Lisinopril (Zestril) 5 mg PO DAILY [facility] Last Admin: 12/07/17 10:26 Dose: 5 mg Pantoprazole Sodium (Protonix Ec Tab) 40 mg PO DAILY [facility] Last Admin: 12/07/17 10:26 Dose: 40 mg Potassium Chloride (Klor-Con 10) 10 meq PO DAILY [facility] Last Admin: 12/07/17 10:26 Dose: 10 meq Rosuvastatin Calcium (Crestor) 5 mg PO HS [facility] Last Admin: 12/06/17 21:53 Dose: 5 mg - Labs Labs: 12/07/17 06:48 12/07/17 06:48 PT 37.5 SECONDS (9.7-12.2) H* 12/01/17 21:30 INR 3.4 12/01/17 21:30 APTT 38 SECONDS (21-34) H 12/01/17 21:30 - Constitutional Appears: Well - Head Exam Head Exam: ATRAUMATIC, NORMAL INSPECTION, NORMOCEPHALIC - Eye Exam Eye Exam: EOMI, Normal appearance, PERRL Pupil Exam: NORMAL ACCOMODATION, PERRL - ENT Exam ENT Exam: Mucous Membranes Moist, Normal Exam - Neck Exam Neck Exam: Full ROM, Normal Inspection. absent: Lymphadenopathy - Respiratory Exam Respiratory Exam: Decreased Breath Sounds - Cardiovascular Exam Cardiovascular Exam: REGULAR RHYTHM, +S1, +S2 - GI/Abdominal Exam GI & Abdominal Exam: Soft, Diminished Bowel Sounds - Rectal Exam Rectal Exam: Deferred Assessment and Plan - Assessment and Plan (Free Text) Plan: 87 year old female with past medical history of severe mitral regurg, hx of PE, cardiomyopathy with AICD, CHF is admitted for worsening SOB and chest palpitations SOB - SOB 2/2 PNA vs. CHf exacerbation - CXR on admission showed no acitve pulmonary disease, presistent cardiomegaly with mild pulm venous congestion - CT of chest PE protocol showed pulmonary vascular congestion; ill-defined densities in lungs bilaterally which could be due to alveolar pulmonary edema vs. superimposed nodular type PNA. - Pt received 5 days of rocephin and zithromax. Will consider continuing abx as pt is still having productive cough with wheezing - Start robitussin prn - Will check sputum culture, mycoplasma pna culture, legionella urine antigen and mycobacterium - Will check procal - Pulm, Dr. Robin is consulted - ID, Dr. Herrera is consulted - Last echo from 11/2016 showed EF of 33% with severe pulm HTN, mod AR, severe MR , increased RV systolic pressure, trace posterior pericardial effusion - Cardio, Dr. Butterfield is consulted. Per cardio, pt not a candidate for mitral valve repair - Continue lasixs 40 mg IVP Hx of PE - Pulm, Dr. Robin is consulted - Pt started on lovenox 60 mg sc BID - CT of chest showed no evidence of PE Cardiomyopathy with AICD placement - Continue Aspirin qd, coreg 3.125 mg po bid, zestril 5 mg po qd, Crestor 5 mg po hs CHF - [place] admission [place] [id number] - Continue lasixs DM - HgbA1c from 08/2017 was 6.8 - ISS - Accuchecs [facility] - hypoglycemia protocol Prophylaxis - Lovenox sc - Protonix prn - PT/OT
--- NOTE | 2017-12-07 23:48 | CP.PCM.PN ---
Subjective - Date & Time of Evaluation Date of Evaluation: 12/07/17 Time of Evaluation: 07:30 - Subjective Subjective: Patient seen and evaluated Denies chest pain and dyspnea Objective - Vital Signs/Intake and Output Vital Signs (last 24 hours): Temp Pulse Resp BP Pulse Ox 97.7 F 78 20 118/73 98 12/07/17 15:00 12/07/17 16:00 12/07/17 15:00 12/07/17 15:00 12/07/17 15:00 Intake and Output: 12/07/17 12/08/17 18:59 06:59 Intake Total 480 Balance 480 - Medications Medications: Current Medications Aspirin (Ecotrin) 81 mg PO DAILY [facility] Carvedilol (Coreg) 3.125 mg PO BID [facility] Last Admin: 12/07/17 18:03 Dose: 3.125 mg Enoxaparin Sodium (Lovenox) 60 mg SC Q12 [facility] Last Admin: 12/07/17 21:57 Dose: 60 mg Furosemide (Lasix) 40 mg IVP DAILY [facility] Last Admin: 12/07/17 10:25 Dose: 40 mg Guaifenesin (Robitussin) 200 mg PO Q4H PRN PRN Reason: Cough and congestion Ceftriaxone Sodium 1 gm/ (Sodium Chloride) 100 mls @ 200 mls/hr IVPB DAILY [facility] PRN Reason: Protocol Insulin Human Regular (Novolin R) 0 unit SC ACHS [facility] PRN Reason: Protocol Last Admin: 12/07/17 21:59 Dose: Not Given Lisinopril (Zestril) 5 mg PO DAILY [facility] Last Admin: 12/07/17 10:26 Dose: 5 mg Pantoprazole Sodium (Protonix Ec Tab) 40 mg PO DAILY [facility] Last Admin: 12/07/17 10:26 Dose: 40 mg Potassium Chloride (Klor-Con 10) 10 meq PO DAILY [facility] Last Admin: 12/07/17 10:26 Dose: 10 meq Rosuvastatin Calcium (Crestor) 5 mg PO HS [facility] Last Admin: 12/07/17 21:57 Dose: 5 mg - Labs Labs: 12/07/17 06:48 12/07/17 06:48 PT 37.5 SECONDS (9.7-12.2) H* 12/01/17 21:30 INR 3.4 12/01/17 21:30 APTT 38 SECONDS (21-34) H 12/01/17 21:30
[2017-12-08] MEDS: (Novolin R) Insulin Human Regular 100 units/ml vial SC SCH ×3 (08:03→16:42)
[2017-12-08 08:07] LABS: BASO % 1.6 % (0.0-2.0); EOS # 0.1 K/uL (0.0-0.7); EOS % 2.9 % (0.0-4.0); HEMOGLOBIN 10.6 g/dL (11.0-16.0); LYMPH # 1.4 K/uL (1.0-4.3); LYMPH % 44.4 % (20.0-40.0); MEAN CELL VOLUME 83.8 fL (81.0-99.0); MEAN CORPUSCULAR HEMOGLOBIN 27.6 pg (27.0-31.0); MEAN PLATELET VOLUME 9.6 fL (7.2-11.7); MONO # 0.4 K/uL (0.0-0.8); MONO % 13.1 % (0.0-10.0); NEUT # 1.2 K/uL (1.8-7.0); NRBC % 0.1 % (0.0-2.0); RBC 3.83 Mil/uL (3.80-5.20); RED CELL DISTRIBUTION WIDTH 19.8 % (11.5-14.5); WHITE BLOOD COUNT 3.1 K/uL (4.8-10.8)
[2017-12-08 08:10] LABS: INR 1.1; PROTHROMBIN TIME 11.9 SECONDS (9.7-12.2)
[2017-12-08 08:22] VITALS: RESP 20; TEMP 98.1; O2SAT 96
[2017-12-08 08:22] LABS: ALB/GLOB RATIO 0.9 (1.0-2.1); ALBUMIN 3.4 g/dL (3.5-5.0); ALT/SGPT 29 U/L (9-52); AST/SGOT 37 U/L (14-36); BLOOD UREA NITROGEN 30 mg/dL (7-17); CALCIUM 8.9 mg/dl (8.6-10.4); GFR AFRICAN-AMERICAN > 60; GFR NON-AFRICAN AMERICAN > 60
--- NOTE | 2017-12-08 10:25 | CP.PCM.PN ---
Subjective - Date & Time of Evaluation Date of Evaluation: 12/08/17 Time of Evaluation: 11:00 - Subjective Subjective: PGY2 Note for Dr. Eboni Diaz; all management as per Dr. Eboni Diaz The patient was seen and examined at bedside this AM; she has no acute complaints or overnight events; she denies fevers/chills, [place], CP, SOB, abdominal pain, N/V/D, dysuria/freq/urg or lower extremity pain/swelling. Objective - Vital Signs/Intake and Output Vital Signs (last 24 hours): Temp Pulse Resp BP Pulse Ox 98.1 F 70 20 122/83 96 12/08/17 08:20 12/08/17 08:20 12/08/17 08:20 12/08/17 08:20 12/08/17 08:20 Intake and Output: 12/08/17 12/08/17 06:59 18:59 Intake Total 630 Balance 630 - Medications Medications: Current Medications Aspirin (Ecotrin) 81 mg PO DAILY [facility] Carvedilol (Coreg) 3.125 mg PO BID [facility] Last Admin: 12/07/17 18:03 Dose: 3.125 mg Enoxaparin Sodium (Lovenox) 60 mg SC Q12 [facility] Last Admin: 12/07/17 21:57 Dose: 60 mg Furosemide (Lasix) 20 mg IVP DAILY [facility] Guaifenesin (Robitussin) 200 mg PO Q4H PRN PRN Reason: Cough and congestion Ceftriaxone Sodium 1 gm/ (Sodium Chloride) 100 mls @ 200 mls/hr IVPB DAILY [facility] PRN Reason: Protocol Insulin Human Regular (Novolin R) 0 unit SC ACHS [facility] PRN Reason: Protocol Last Admin: 12/08/17 08:03 Dose: Not Given Pantoprazole Sodium (Protonix Ec Tab) 40 mg PO DAILY [facility] Last Admin: 12/07/17 10:26 Dose: 40 mg Potassium Chloride (Klor-Con 10) 10 meq PO DAILY [facility] Last Admin: 12/07/17 10:26 Dose: 10 meq Rosuvastatin Calcium (Crestor) 5 mg PO HS [facility] Last Admin: 12/07/17 21:57 Dose: 5 mg Sacubitril/Valsartan (Entresto 24 Mg-26 Mg) 1 tab PO BID [facility] - Labs Labs: 12/08/17 07:54 12/08/17 07:54 PT 11.9 SECONDS (9.7-12.2) 12/08/17 07:54 INR 1.1 12/08/17 07:54 APTT 39 SECONDS (21-34) H 12/08/17 07:54 Assessment and Plan - Assessment and Plan (Free Text) Assessment: Appears: Non-toxic, No Acute Distress - Head Exam Head Exam: ATRAUMATIC, NORMOCEPHALIC - ENT Exam ENT Exam: Mucous Membranes Moist - Respiratory Exam Respiratory Exam: Accessory Muscle Use, Rhonchi, Wheezes (diffuse, expiratory ) . absent: Respiratory Distress - Cardiovascular Exam Cardiovascular Exam: REGULAR RHYTHM, +S1, +S2, Murmur (systolic 3/5) - GI/Abdominal Exam GI & Abdominal Exam: Soft, Normal Bowel Sounds. absent: Distended, Firm, Guarding, Rigid, Tenderness, Organomegaly - Neurological Exam Neurological Exam: Alert, Awake, Oriented x3 - Psychiatric Exam Psychiatric exam: Normal Affect, Normal Mood - Skin Skin Exam: Dry, Intact, Normal Color, Warm Assessment and Plan - Assessment and Plan (Free Text) Assessment: 87 year old female with past medical history of severe mitral regurg, hx of PE, cardiomyopathy with AICD, CHF is admitted for worsening SOB and chest palpitations SOB - SOB 2/2 PNA vs. CHf exacerbation - CXR on admission showed no acitve pulmonary disease, presistent cardiomegaly with mild pulm venous congestion - CT of chest PE protocol showed pulmonary vascular congestion; ill-defined densities in lungs bilaterally which could be due to alveolar pulmonary edema vs. superimposed nodular type PNA. - Pt received 5 days of rocephin and zithromax. Will consider continuing abx as pt is still having productive cough with wheezing - Start robitussin prn - Will check sputum culture, mycoplasma pna culture, legionella urine antigen and mycobacterium - Will check procal - Pulm, Dr. Robin is consulted - ID, Dr. Herrera is consulted - Last echo from 11/2016 showed EF of 33% with severe pulm HTN, mod AR, severe MR , increased RV systolic pressure, trace posterior pericardial effusion - Cardio, Dr. Butterfield is consulted. Per cardio, pt not a candidate for mitral valve repair - Continue lasixs 40 mg IVP Hx of PE - Pulm, Dr. Robin is consulted - Pt started on lovenox 60 mg sc BID - CT of chest showed no evidence of PE Cardiomyopathy with AICD placement - Continue Aspirin qd, coreg 3.125 mg po bid, zestril 5 mg po qd, Crestor 5 mg po hs CHF - [place] 65067 - Continue lasixs DM - HgbA1c from 08/2017 was 6.8 - ISS - Accuchecs [facility] - hypoglycemia protocol Prophylaxis - Lovenox sc - Protonix prn - PT/OT the patient is stable for d/c The patient should D/c her lisinopril and start entresto 6/6 BID; patient was alerted the patient should take azithromycin daily for 5 more days starting tomorrow the patient should continue her other medications as prescribed she should follow up with Dr. Butterfield in a week as well as her PCP as well as her EP Bariatric Nurse All orders and management per Dr. Diaz
--- NOTE | 2017-12-08 10:25 | CP.PCM.CON ---
History of Present Illness - History of Present Illness History of Present Illness: 87 year old Female with PMHx of HTN, Hypercholesterolemia and Pneumonia Who presented to the Emergency department with Shortness of Breath and Productive Cough with yellowish sputum. Denies: Fever, Chills, Chest Pain Chest X-Ray showed Cardiomegally and questionable CHF and consolidation in lower lobe. Review of Systems - Review of Systems All systems: reviewed and no additional remarkable complaints except - Constitutional Constitutional: As Per HPI - EENT Eyes: absent: As Per HPI, Blind Spots, Blurred Vision, Change in Vision, Decreased Night Vision, Diplopia, Discharge, Dry Eye, Exophthalmos, Floaters, Irritation, Itchy Eyes, Loss of Peripheral Vision, Pain, Photophobia, Requires Corrective Lenses, Sees Flashes, Spots in Vision, Tunnel Vision, Other Visual Disturbances, Loss of Vision, Other Ears: absent: As Per HPI, Decreased Hearing, Ear Discharge, Ear Pain, Tinnitus, Abnormal Hearing, Disequilibrium, Dizziness, Other Nose/Mouth/Throat: absent: As Per HPI, Epistaxis, Nasal Congestion, Nasal Discharge, Nasal Obstruction, Nasal Trauma, Nose Pain, Post Nasal Drip, Sinus Pain, Sinus Pressure, Bleeding Gums, Change in Voice, Dental Pain, Dry Mouth, Dysphagia, Halitosis, Hoarsness, Lip Swelling, Mouth Lesions, Mouth Pain, Odynophagia, Sore Throat, Throat Swelling, Tongue Swelling, Facial Pain, Neck Pain, Neck Mass, Other - Breasts Breasts: absent: As Per HPI, Change in Shape, Mass, Pain, Nipple Discharge, Nipple Inversion, Skin Changes, Swelling, Other - Cardiovascular Cardiovascular: As Per HPI - Respiratory Respiratory: As Per HPI - Gastrointestinal Gastrointestinal: absent: As Per HPI, Abdominal Pain, Belching, Bloating, Change in Bowel Habits, Change in Stool Character, Coffee Ground Emesis, Constipation, Cramping, Diarrhea, Dyspepsia, Dysphagia, Early Satiety, Excessive Flatus, Fecal Incontinence, Heartburn, Hematemesis, Hematochezia, Loose Stools, Melena, Nausea, Odynophagia, Temesmus, Vomiting, Other - Genitourinary Genitourinary: absent: As Per HPI, Change in Urinary Stream, Difficulty Urinating, Dysuria, Flank Pain, Hematuria, Pyuria, Nocturia, Urinary Incontinence, Urinary Frequency, Urinary Hesitance, Urinary Urgency, Voiding Freq/Small Amts, Freq UTI, Hx Renal/Bladder Calculi, Hx /Renal Surgery, Bladder Distension, Other - Reproductive: Female Reproductive:Female: absent: As Per HPI, Amenorrhea, Amenorrhea/ Control, Currently Menstual, Cycle <21 Days, Cycle >35 Days, Cycle Variable, Menses 1-7 Days, Menses >/= 8 Days, Menses Variable, Cycle > 4 Weeks Between, No Menses for 6 Months, Heavy Menses, Light Menses, Normal Menses, Spotting Between Cycles , S/P Hysterectomy, Menopausal, Post Menopausal, Premenarche, Abnormal Vaginal Bleeding, Dysmenorrhea, Dyspareunia, Genital Lesions, Genital Pruritis, Pelvic Pain, Prolapse Symptoms, Sexual Dysfunction, Vaginal Discharge, Vaginal Dryness , Vaginal Odor, Vaginal Pruritis, Other - Menstruation Menstruation: absent: As Per HPI, Amenorrhea, Amenorrhea/ Control, Currently Menstual, Cycle <21 Days, Cycle >35 Days, Cycle Variable, Menses 1-7 Days, Menses >/= 8 Days, Menses Variable, Cycle > 4 Weeks Between, No Menses for 6 Months, Heavy Menses, Light Menses, Normal Menses, Spotting Between Cycles , S/P Hysterectomy, Menopausal, Post Menopausal, Premenarche, Abnormal Vaginal Bleeding, Dysmenorrhea, Other - Musculoskeletal Musculoskeletal: absent: As Per HPI, Abnormal Gait, Arthralgias, Atrophy, Back Pain, Deformity, Joint Swelling, Limited Range of Motion, Loss of Height, Muscle Cramps, Muscle Weakness, Myalgias, Neck Pain, Numbness, Radiating Pain into Limb, Stiffness, Tingling, Other - Integumentary Integumentary: absent: As Per HPI, Acne, Alopecia, Bleeding Lesions, Change in Hair, Change in Nails, Change in Pigmentation, Changing Lesions, Dry Skin, Erythema, Furuncle, Hirsutism, Lesions, New Lesions, Non-Healing Lesions, Photosensitivity, Pruritus, Rash, Skin Pain, Skin Ulcer, Sores, Striae, Swelling , Unusual Bruising, Wounds, Jaundice, Other - Neurological Neurological: absent: As Per HPI, Abnormal Gait, Abnormal Hearing, Abnormal Movements, Abnormal Speech, Behavioral Changes, Burning Sensations, Confusion, Convulsions, Disequilibrium, Dizziness, Numbness, Focal Weakness, Frequent Falls , Headaches, Lack of Coordination, Loss of Vision, Memory Loss, Paresthesias, Radicular Pain, Restless Legs, Sensory Deficit, Syncope, Tingling, Tremor, Vertigo, Weakness, Other Visual Disturbances, Other - Psychiatric Psychiatric: absent: As Per HPI, Abnormal Sleep Pattern, Anhedonia, Anxiety, Auditory Hallucinations, Behavioral Changes, Change in Appetite, Change in Libido, Confusion, Depression, Difficulty Concentrating, Hallucinations, Homicidal Ideation, Hopelessness, Irritability, Memory Loss, Mood Swings, Panic Attacks, Paranoia, Suicidal Ideation, Visual Hallucinations, Tactile Hallucinations, Other - Endocrine Endocrine: absent: As Per HPI, Change in Body Appearance, Change in Libido, Cold Intolorance, Deepening of Voice, Excessive Sweating, Fatigue, Flushing, Heat Intolorance, Increase in Ring/Shoe/Hat Size, Palpitations, Polydipsia, Polyphagia, Polyuria, Other - Hematologic/Lymphatic Hematologic: absent: As Per HPI, Easy Bleeding, Easy Bruising, Lymphadenopathy, Other Past Patient History - Infectious Disease Hx of Infectious Diseases: None - Past Medical History & Family History Past Medical History?: Yes - Past Social History Smoking Status: Never Smoked - CARDIAC Hx Cardiac Disorders: Yes Hx Hypercholesterolemia: Yes Hx Hypertension: Yes - PULMONARY Hx Respiratory Disorders: Yes Hx Pneumonia: Yes - NEUROLOGICAL Hx Neurological Disorder: No - HEENT Hx HEENT Problems: Yes Other/Comment: uses corrective eyeglasses - RENAL Hx Chronic Kidney Disease: No - ENDOCRINE/METABOLIC Hx Diabetes Mellitus Type 2: Yes - HEMATOLOGICAL/ONCOLOGICAL Hx Blood Disorders: No - INTEGUMENTARY Hx Dermatological Problems: No - MUSCULOSKELETAL/RHEUMATOLOGICAL Hx Falls: No - GASTROINTESTINAL Hx Gastrointestinal Disorders: No - GENITOURINARY/GYNECOLOGICAL Hx Genitourinary Disorders: No - PSYCHIATRIC Hx Substance Use: No - SURGICAL HISTORY Hx Surgeries: Yes Hx Cholecystectomy: Yes Other/Comment: permanent pacemaker implant - ANESTHESIA Hx Anesthesia: Yes Hx Anesthesia Reactions: No Hx Malignant Hyperthermia: No Meds Home Medications: Home Medication List Medication Instructions Recorded Confirmed Type Azithromycin 250 mg PO DAILY #5 tablet 12/08/17 Rx Rivaroxaban [Xarelto] 20 mg PO DAILY #30 tab 12/08/17 Rx Allergies/Adverse Reactions: Allergies Allergy/AdvReac Type Severity Reaction Status Date / Time codeine Allergy RASH Verified 12/01/17 20:53 - Medications Medications: Current Medications Aspirin (Ecotrin) 81 mg PO DAILY [facility] Carvedilol (Coreg) 3.125 mg PO BID [facility] Last Admin: 12/07/17 18:03 Dose: 3.125 mg Enoxaparin Sodium (Lovenox) 60 mg SC Q12 [facility] Last Admin: 12/07/17 21:57 Dose: 60 mg Furosemide (Lasix) 20 mg IVP DAILY [facility] Guaifenesin (Robitussin) 200 mg PO Q4H PRN PRN Reason: Cough and congestion Ceftriaxone Sodium 1 gm/ (Sodium Chloride) 100 mls @ 200 mls/hr IVPB DAILY [facility] PRN Reason: Protocol Insulin Human Regular (Novolin R) 0 unit SC ACHS [facility] PRN Reason: Protocol Last Admin: 12/08/17 08:03 Dose: Not Given Pantoprazole Sodium (Protonix Ec Tab) 40 mg PO DAILY [facility] Last Admin: 12/07/17 10:26 Dose: 40 mg Potassium Chloride (Klor-Con 10) 10 meq PO DAILY [facility] Last Admin: 12/07/17 10:26 Dose: 10 meq Rosuvastatin Calcium (Crestor) 5 mg PO HS [facility] Last Admin: 12/07/17 21:57 Dose: 5 mg Sacubitril/Valsartan (Entresto 24 Mg-26 Mg) 1 tab PO BID [facility] Physical Exam - Constitutional Appears: Non-toxic, Chronically Ill - Head Exam Head Exam: NORMOCEPHALIC - Eye Exam Eye Exam: PERRL - ENT Exam ENT Exam: Mucous Membranes Dry, Normal External Ear Exam - Neck Exam Neck exam: Negative for: Lymphadenopathy - Respiratory Exam Respiratory Exam: Decreased Breath Sounds - Cardiovascular Exam Cardiovascular Exam: REGULAR RHYTHM - GI/Abdominal Exam GI & Abdominal Exam: Diminished Bowel Sounds, Soft - Rectal Exam Rectal Exam: Deferred - Exam Exam: NORMAL INSPECTION - Extremities Exam Extremities exam: Negative for: pedal edema - Back Exam Back exam: absent: CVA tenderness (L), CVA tenderness (R) - Neurological Exam Neurological exam: Alert, CN II-XII Intact, Oriented x3, Reflexes Normal - Psychiatric Exam Psychiatric exam: Normal Mood - Skin Skin Exam: Dry Results - Vital Signs Recent Vital Signs: Last Vital Signs Temp 98.1 F 12/08/17 08:20 Pulse 70 12/08/17 08:20 Resp 20 12/08/17 08:20 BP 122/83 12/08/17 08:20 Pulse Ox 96 12/08/17 08:20 - Labs Result Diagrams: 12/08/17 07:54 12/08/17 07:54 Labs: Laboratory Results - last 24 hr 12/07/17 12/07/17 12/07/17 11:32 11:32 11:42 WBC RBC Hgb Hct MCV MCH MCHC RDW Plt Count MPV Neut % (Auto) Lymph % (Auto) [place] % (Auto) Eos % (Auto) Baso % (Auto) Neut # (Auto) Lymph # (Auto) [place] # (Auto) Eos # (Auto) Baso # (Auto) PT INR APTT Sodium Potassium Chloride Carbon Dioxide Anion Gap BUN Creatinine Est GFR ( Amer) Est GFR (Non-Af Amer) POC Glucose (mg/dL) 118 H Random Glucose Calcium Total Bilirubin AST ALT Alkaline Phosphatase Total Protein Albumin Globulin Albumin/Globulin Ratio Procalcitonin 0.05 L Ur L.pneumophila Ag Negative 12/07/17 12/07/17 12/08/17 16:59 21:11 06:04 WBC RBC Hgb Hct MCV MCH MCHC RDW Plt Count MPV Neut % (Auto) Lymph % (Auto) [place] % (Auto) Eos % (Auto) Baso % (Auto) Neut # (Auto) Lymph # (Auto) [place] # (Auto) Eos # (Auto) Baso # (Auto) PT INR APTT Sodium Potassium Chloride Carbon Dioxide Anion Gap BUN Creatinine Est GFR ( Amer) Est GFR (Non-Af Amer) POC Glucose (mg/dL) 139 H 179 H 109 Random Glucose Calcium Total Bilirubin AST ALT Alkaline Phosphatase Total Protein Albumin Globulin Albumin/Globulin Ratio Procalcitonin Ur L.pneumophila Ag 12/08/17 12/08/17 12/08/17 07:54 07:54 07:54 WBC 3.1 L RBC 3.83 Hgb 10.6 L Hct 32.1 L MCV 83.8 MCH 27.6 MCHC 33.0 RDW 19.8 H Plt Count 190 MPV 9.6 Neut % (Auto) 38.0 L Lymph % (Auto) 44.4 H [place] % (Auto) 13.1 H Eos % (Auto) 2.9 Baso % (Auto) 1.6 Neut # (Auto) 1.2 L Lymph # (Auto) 1.4 [place] # (Auto) 0.4 Eos # (Auto) 0.1 Baso # (Auto) 0.0 PT 11.9 INR 1.1 APTT 39 H Sodium 141 Potassium 4.1 Chloride 102 Carbon Dioxide 30 Anion Gap 13 BUN 30 H Creatinine 0.8 Est GFR ( Amer) > 60 Est GFR (Non-Af Amer) > 60 POC Glucose (mg/dL) Random Glucose 126 H Calcium 8.9 Total Bilirubin 0.9 AST 37 H ALT 29 Alkaline Phosphatase 94 Total Protein 7.0 Albumin 3.4 L Globulin 3.6 Albumin/Globulin Ratio 0.9 L Procalcitonin Ur L.pneumophila Ag Assessment & Plan (1) CHF (congestive heart failure) Status: Acute (2) Cardiomyopathy Status: Acute (3) Community acquired pneumonia Status: Acute - Assessment and Plan (Free Text) Assessment: cont current rx await cultures follow up CXR
[2017-12-08] MEDS: Enoxaparin 60 mg Syringe SC SCH (11:14)
[2017-12-08] MEDS: Potassium Chloride 10 mEq ER Tab PO SCH (11:24)
[2017-12-08] MEDS: Pantoprazole 40 mg EC Tab PO SCH (11:24)
--- NOTE | 2017-12-08 13:53 | PCM.HF ---
Heart Failure Core Measure - Heart Failure Ejection Fraction: Less Than 40 % Left Ventricular Function to be assessed after discharge: Yes JACQUES Inhibitor Prescribed: Yes Beta-Yvette Prescribed: Metoprolol Succinate Angiotensin II Receptor Yvette Prescribed: No Contraindication/Reason for not providing: not indicated AnticoagulationTherapy for Atrial Fibrillation/Atrialflutter: Yes Aldosterone Antagonist Prescribed: No Contraindication/Reason for not providing: not indicated Hydralazine Nitrate Prescribed: No Contraindication/Reason for not providing: not indicated Implantable Cardioverter Defibrillator Therapy: Yes Cardiac Resynchronization Therapy Prescribed: No Contraindication/Reason for not providing: not indicated - Follow up Will be discharged to: Home Follow Up Date (must be within 7 days from discharge): 12/15/17 (dr kahn) Follow Up Time: 09:00
--- NOTE | 2017-12-08 16:36 | CP.PCM.PN ---
Subjective - Date & Time of Evaluation Date of Evaluation: 12/08/17 Time of Evaluation: 11:40 - Subjective Subjective: clinically same Objective - Vital Signs/Intake and Output Vital Signs (last 24 hours): Temp Pulse Resp BP Pulse Ox 98.1 F 86 20 120/77 96 12/08/17 08:20 12/08/17 11:25 12/08/17 08:20 12/08/17 11:25 12/08/17 08:20 Intake and Output: 12/08/17 12/08/17 06:59 18:59 Intake Total 630 450 Balance 630 450 - Medications Medications: Current Medications Aspirin (Ecotrin) 81 mg PO DAILY [facility] Carvedilol (Coreg) 3.125 mg PO BID [facility] Last Admin: 12/08/17 11:22 Dose: 3.125 mg Furosemide (Lasix) 20 mg IVP DAILY [facility] Last Admin: 12/08/17 11:22 Dose: 20 mg Guaifenesin (Robitussin) 200 mg PO Q4H PRN PRN Reason: Cough and congestion Last Admin: 12/08/17 12:51 Dose: 200 mg Ceftriaxone Sodium 1 gm/ (Sodium Chloride) 100 mls @ 200 mls/hr IVPB DAILY [facility] PRN Reason: Protocol Last Admin: 12/08/17 11:22 Dose: 200 mls/hr Insulin Human Regular (Novolin R) 0 unit SC ACHS [facility] PRN Reason: Protocol Last Admin: 12/08/17 12:51 Dose: 3 unit Pantoprazole Sodium (Protonix Ec Tab) 40 mg PO DAILY [facility] Last Admin: 12/08/17 11:24 Dose: 40 mg Potassium Chloride (Klor-Con 10) 10 meq PO DAILY [facility] Last Admin: 12/08/17 11:24 Dose: 10 meq Rosuvastatin Calcium (Crestor) 5 mg PO HS [facility] Last Admin: 12/07/17 21:57 Dose: 5 mg Sacubitril/Valsartan (Entresto 24 Mg-26 Mg) 1 tab PO BID [facility] - Labs Labs: 12/08/17 07:54 12/08/17 07:54 PT 11.9 SECONDS (9.7-12.2) 12/08/17 07:54 INR 1.1 12/08/17 07:54 APTT 39 SECONDS (21-34) H 12/08/17 07:54 - Constitutional Appears: Well - Head Exam Head Exam: ATRAUMATIC, NORMAL INSPECTION, NORMOCEPHALIC - Eye Exam Eye Exam: EOMI, Normal appearance, PERRL Pupil Exam: NORMAL ACCOMODATION, PERRL - ENT Exam ENT Exam: Mucous Membranes Moist, Normal Exam - Neck Exam Neck Exam: Full ROM, Normal Inspection. absent: Lymphadenopathy - Respiratory Exam Respiratory Exam: Decreased Breath Sounds - Cardiovascular Exam Cardiovascular Exam: REGULAR RHYTHM, +S1, +S2 - GI/Abdominal Exam GI & Abdominal Exam: Soft, Diminished Bowel Sounds - Rectal Exam Rectal Exam: Deferred
--- NOTE | 2017-12-08 16:36 | CP.PCM.PN ---
Subjective - Date & Time of Evaluation Date of Evaluation: 12/08/17 Time of Evaluation: 10:00 - Subjective Subjective: Reason for Consult - SOB with Hx of PE History obtained using "[employer]" Translation [employer]; Chief Wharfinger: Yani Ramirez , ID: [id number]. Patient seen and examined seated upright in chair. Patient states she feels better compared to yesterday and that cough is improved on Robitussin. When asked to provide more information, regarding her history of pulmonary embolism, she states it occured about 1 year ago around the time of her pacemaker placement. Patient was treated with Xaralto and states she was still taking Xaralto prior to coming to the hospital. Patient states this was her first and only pulmonary embolism. Patient states her cough is significantly lessened, but still productive of white sputum. Patient denies fevers, chills, chest pain, palpitations and shortness of breath. 1. History of Pulmonary Embolism Patient has one-time history of what seems to be post-operative provoked PE. CT scan with PE protocol shows no evidence of PE at this time. Per Medicine team, patient to re-start Xaralto 20 mg PO QD and follow-up with her primary care doctor regarding need for further anticoagulation. 2. CHF Patient has CHF with most recent EF documented as 20-35%. Continue per cardio recommendations. 3. Dyspnea Dyspnea most likely cardiac in origin due to elevated BNP on admission/low ejection fraction. Patient advised that she will likely have baseline SOB and to follow-up with a director of curriculum and instruction outpatient. Patient to continue home oxygen therapy for CHF. 4. Cough Patient can continue Robitussin 200 mg PO Q4H PRN as an outpatient. Importance of regular primary care and Prevnar vaccination series heavily stressed to patient. Objective - Vital Signs/Intake and Output Vital Signs (last 24 hours): Temp Pulse Resp BP Pulse Ox 98.1 F 86 20 120/77 96 12/08/17 08:20 12/08/17 11:25 12/08/17 08:20 12/08/17 11:25 12/08/17 08:20 Intake and Output: 12/08/17 12/08/17 06:59 18:59 Intake Total 630 450 Balance 630 450 - Medications Medications: Current Medications Aspirin (Ecotrin) 81 mg PO DAILY [facility] Carvedilol (Coreg) 3.125 mg PO BID [facility] Last Admin: 12/08/17 11:22 Dose: 3.125 mg Furosemide (Lasix) 20 mg IVP DAILY [facility] Last Admin: 12/08/17 11:22 Dose: 20 mg Guaifenesin (Robitussin) 200 mg PO Q4H PRN PRN Reason: Cough and congestion Last Admin: 12/08/17 12:51 Dose: 200 mg Ceftriaxone Sodium 1 gm/ (Sodium Chloride) 100 mls @ 200 mls/hr IVPB DAILY [facility] PRN Reason: Protocol Last Admin: 12/08/17 11:22 Dose: 200 mls/hr Insulin Human Regular (Novolin R) 0 unit SC ACHS [facility] PRN Reason: Protocol Last Admin: 12/08/17 12:51 Dose: 3 unit Pantoprazole Sodium (Protonix Ec Tab) 40 mg PO DAILY [facility] Last Admin: 12/08/17 11:24 Dose: 40 mg Potassium Chloride (Klor-Con 10) 10 meq PO DAILY [facility] Last Admin: 12/08/17 11:24 Dose: 10 meq Rosuvastatin Calcium (Crestor) 5 mg PO HS [facility] Last Admin: 12/07/17 21:57 Dose: 5 mg Sacubitril/Valsartan (Entresto 24 Mg-26 Mg) 1 tab PO BID [facility] - Labs Labs: 12/08/17 07:54 12/08/17 07:54 PT 11.9 SECONDS (9.7-12.2) 12/08/17 07:54 INR 1.1 12/08/17 07:54 APTT 39 SECONDS (21-34) H 12/08/17 07:54
[2017-12-08 17:58] VITALS: BP 116/71; PULSE 73
[2017-12-09] MEDS ORDERED: Sacubitril/Valsartan 24-26mg Tab PO SCH (10:00)
[2017-12-11 13:44] LABS: MYCOPLASMA PNEUMONIAE IGM NEGATIVE (NEGATIVE)
== END 2017-12-08 17:40 | disposition home or self-care (01) | DRG 193 ==
LOC: C.ER 20:44 → C.9E 22:51 → C.9I 12-02 04:07 → C.6T 12-03 18:49
PROVIDERS: ADMIT Internal Medicine Nephrology; ATTEND Internal Medicine Nephrology
DX: J18.9 Pneumonia, unspecified organism (principal); I50.33 Acute on chronic diastolic (congestive) heart failure; I42.9 Cardiomyopathy, unspecified; I11.0 Hypertensive heart disease with heart failure; E11.9 Type 2 diabetes mellitus without complications; I27.20 Pulmonary hypertension, unspecified; I08.0 Rheumatic disorders of both mitral and aortic valves; D72.819 Decreased white blood cell count, unspecified; D64.9 Anemia, unspecified; E78.00 Pure hypercholesterolemia, unspecified; Z86.711 Personal history of pulmonary embolism; Z79.01 Long term (current) use of anticoagulants; Z79.899 Other long term (current) drug therapy; Z87.01 Personal history of pneumonia (recurrent); Z95.810 Presence of automatic (implantable) cardiac defibrillator; Z90.49 Acquired absence of other specified parts of digestive tract; Z99.81 Dependence on supplemental oxygen

== ENCOUNTER 2018-10-13 19:15 | Inpatient (IN) | payer MEDICARE, MEDICAID ==
[2018-10-13 19:16] VITALS: BMI 29.2
--- NOTE | 2018-10-13 19:53 | C.PDOC ---
History Of Present Illness 87 year old female with PMhx of CHF presents to the ED c/o SOB for the past 3 days. Patient reports symptoms worsened tonight. Patient denies fever, chills, headache, CP, palpitations, rash, weakness, numbness. Chief Complaint (Nursing): Respiratory Distress History Per: Patient History/Exam Limitations: no limitations Onset/Duration Of Symptoms: Days Current Symptoms Are (Timing): Worse Initiating Event: Upper Respiratory Illness Quality: Tightness Current Respiratory Medications: See Home Med List Recent travel outside of the [place]: No Additional History Per: Patient Past Medical History Reviewed: Historical Data, Nursing Documentation, Vital Signs Vital Signs: Last Vital Signs Temp 97.9 F 10/13/18 19:24 Pulse 109 H 10/13/18 19:24 Resp 28 H 10/13/18 19:24 BP 244/147 H 10/13/18 19:24 Pulse Ox 95 10/13/18 19:24 - Medical History PMH: CHF, HTN, Hypercholesterolemia, Pneumonia Denies: Chronic Kidney Disease Surgical History: Cholecystectomy, Pacemaker - [facility] Procedures ESOPHAGOGASTRODUODENOSCOPY [EGD] W/CLOSED BIOPSY (12/20/12) MEASUREMENT OF CARDIAC DEFIBRILLATOR, EXTERNAL APPROACH (11/22/16) Family History: States: Unknown Family Hx - Social History Hx Alcohol Use: No Hx Substance Use: No - Immunization History Hx Tetanus Toxoid Vaccination: No Hx Influenza Vaccination: Yes Hx Pneumococcal Vaccination: No Review Of Systems Constitutional: Negative for: Fever, Chills Eyes: Negative for: Vision Change Cardiovascular: Negative for: Chest Pain Respiratory: Positive for: Shortness of Breath. Negative for: Cough Gastrointestinal: Negative for: Nausea, Vomiting, Abdominal Pain Skin: Negative for: Rash Neurological: Negative for: Weakness, Numbness, Headache, Dizziness Physical Exam - Physical Exam Appears: Non-toxic, In Acute Distress Skin: Normal Color, Warm, Dry Head: Atraumatic, Normacephalic Eye(s): bilateral: Normal Inspection Oral Mucosa: Moist Neck: Normal ROM, Supple, Other (engrossment of neck veins) Chest: Symmetrical Cardiovascular: Rhythm Regular, No Murmur Respiratory: Rales (bilateral lower lung), No Rhonchi, No Wheezing Gastrointestinal/Abdominal: Soft, No Tenderness, No Guarding, No Rebound Extremity: Normal ROM, No Tenderness, Pedal Edema (bilateral 1+), Capillary Refill (<2 seconds) Pulses: Left Dorsalis Pedis: Normal, Right Dorsalis Pedis: Normal Neurological/Psych: Oriented x3, Normal Speech, Normal Cognition Gait: Steady ED Course And Treatment - Laboratory Results Result Diagrams: 10/13/18 20:01 10/13/18 20:01 ECG: Interpreted By Me, Viewed By Me ECG Rhythm: Sinus Rhythm, L BBB, PVC ECG Interpretation: No Acute Changes, Abnormal Interpretation Of ECG: Sinus rhythm , LAD, CLBBB, No acute changes, abnormal tracinhs. Rate From EC O2 Sat by Pulse Oximetry: 95 (On RA) Pulse Ox Interpretation: Normal - Radiology CXR: Interpreted by Me CXR Interpretation: Yes: Cardiomegaly, Other (CHF) Medical Decision Making Medical Decision Making: Plan: * EKG * Labs * CXR * Lasix 40 mg IVP * BIPAP Disposition Discussed With : Dalton Diaz Doctor Will See Patient In The: Hospital Counseled Patient/Family Regarding: Diagnosis - Disposition Disposition: HOSPITALIZED Disposition Time: 20:45 Condition: STABLE Forms: [facility] (Sami) - POA Present On Arrival: None - Clinical Impression Clinical Impression: Respiratory distress, CHF (congestive heart failure), Dyspnea, Renal insufficiency - Scribe Statement The provider has reviewed the documentation as recorded by the Scribe Juan Guevara All medical record entries made by the Scribe were at my direction and personally dictated by me. I have reviewed the chart and agree that the record accurately reflects my personal performance of the history, physical exam, medical decision making, and the department course for this patient. I have also personally directed, reviewed, and agree with the discharge instructions and disposition.
[2018-10-13 20:09] LABS: BASO # 0.1 K/uL (0.0-0.2); EOS # 0.1 K/uL (0.0-0.7); EOS % 2.5 % (0.0-4.0); LYMPH # 1.1 K/uL (1.0-4.3); LYMPH % 36.2 % (20.0-40.0); MEAN CELL VOLUME 92.7 fL (81.0-99.0); MEAN CORPUSCULAR HGB CONC 32.3 g/dL (33.0-37.0); MONO # 0.4 K/uL (0.0-0.8); MONO % 13.1 % (0.0-10.0); NEUT # 1.4 K/uL (1.8-7.0); NEUT % 46.2 % (50.0-75.0); NRBC % 0.4 % (0.0-2.0); RED CELL DISTRIBUTION WIDTH 18.3 % (11.5-14.5); WHITE BLOOD COUNT 3.1 K/uL (4.8-10.8)
[2018-10-13 20:20] LABS: ALB/GLOB RATIO 1.2 (1.0-2.1); ALBUMIN 3.7 g/dL (3.5-5.0)
[2018-10-13 20:29] LABS: INR 1.3; PROTHROMBIN TIME 14.2 SECONDS (9.7-12.2)
[2018-10-13 20:32] LABS: TROPONIN I 0.028 ng/mL (0.00-0.120)
[2018-10-14] MEDS: Albuterol-Ipratrop 3 mg / 0.5 (3 ml) UD INH SCH ×6 (00:43→19:37)
[2018-10-14] MEDS: MethylPREDNISolone 40 mg Vial IVP SCH ×2 (05:31→13:20)
[2018-10-14 06:25] LABS: CK-MB 0.96 ng/mL (0.0-3.38); TROPONIN I 0.027 ng/mL (0.00-0.120)
[2018-10-14 08:51] LABS: ALB/GLOB RATIO 1.1 (1.0-2.1); ALBUMIN 3.3 g/dL (3.5-5.0); CALCIUM 8.9 mg/dl (8.6-10.4)
--- NOTE | 2018-10-14 09:39 | RAD ---
Date of service: 10/13/2018 PROCEDURE: CHEST RADIOGRAPH, 1 VIEW HISTORY: SOB COMPARISON: 12/01/2017. FINDINGS: LUNGS: There are low lung volumes. There is moderate cardiomegaly. PLEURA: No pneumothorax or pleural effusion. CARDIOVASCULAR: There is moderate cardiomegaly. There is stable position of left-sided permanent pacing device. No aortic atherosclerotic calcifications present. OSSEOUS STRUCTURES: Within normal limits for the patient's age. VISUALIZED UPPER ABDOMEN: Normal. OTHER FINDINGS: None. IMPRESSION: No active pulmonary disease.
[2018-10-14] MEDS ORDERED: Enoxaparin 40 mg Syringe SC SCH ×2 (10:00)
[2018-10-14] MEDS ORDERED: Home Med 1 UNIT (Linagliptin [Tradjenta] 5 MG) PO SCH (10:00)
[2018-10-14] MEDS ORDERED: Azithromycin 500 MG in Sodium Chloride 0.9% 250 ML IVPB SCH (10:00)
[2018-10-14] MEDS ORDERED: Sacubitril/Valsartan 24-26mg Tab PO SCH (10:00)
[2018-10-14] MEDS ORDERED: DEXLANSOPRAZOLE 30 MG PO SCH (10:00)
--- NOTE | 2018-10-14 10:03 | CP.PCM.PN ---
Subjective - Date & Time of Evaluation Date of Evaluation: 10/14/18 Time of Evaluation: 10:00 - Subjective Subjective: PGY [address] Eboni Diaz 87 year old female with past medical history of HTN, CHF s/p AICD, HLD, PE (post-op) in 2017, DM is admitted for respiratory distress and CHF exacerbation. Patient states that she ran out of home O2 3 days ago and that is why she developed SOB. Patient also complaining of productive coughing with whitish sputum. Patient denies having any CP, F/C, abd pain, N/V. PShx: cholecystectomy, hysterectomy, AICD placement Allergies: codeine Objective - Vital Signs/Intake and Output Vital Signs (last 24 hours): Temp Pulse Resp BP Pulse Ox 98.2 F 72 20 131/83 100 10/14/18 07:00 10/14/18 07:00 10/14/18 07:00 10/14/18 07:00 10/14/18 07:00 - Medications Medications: Current Medications Albuterol/Ipratropium (Duoneb 3 Mg/0.5 Mg (3 Ml) Ud) 3 ml INH RQ4 [facility] Last Admin: 10/14/18 04:50 Dose: 3 ml Allopurinol (Zyloprim) 100 mg PO DAILY [facility] Aspirin (Ecotrin) 81 mg PO DAILY [facility] Carvedilol (Coreg) 3.125 mg PO BID [facility] Furosemide (Lasix) 40 mg IVP DAILY [facility] Heparin Sodium (Porcine) (Heparin) 5,000 units SC Q12 [facility] Home Med (Atorvastatin Calcium [Lipitor]) 10 mg PO HS [facility] Home Med (Dexlansoprazole [Dexilant]) 30 mg PO DAILY [facility] Home Med (Linagliptin [Tradjenta]) 5 mg PO DAILY [facility] Azithromycin 500 mg/ Sodium (Chloride) 250 mls @ 250 mls/hr IVPB DAILY [facility]; Protocol Ceftriaxone Sodium 1 gm/ (Sodium Chloride) 100 mls @ 100 mls/hr IVPB DAILY [facility]; Protocol Methylprednisolone (Solu-Medrol) 40 mg IVP Q8 [facility] Last Admin: 10/14/18 05:31 Dose: 40 mg Pantoprazole Sodium (Protonix Ec Tab) 40 mg PO DAILY [facility] Potassium Chloride (Klor-Con 10) 10 meq PO DAILY [facility] Sacubitril/Valsartan (Entresto 24 Mg-26 Mg) 1 tab PO DAILY [facility] - Labs Labs: 10/13/18 20:01 10/14/18 05:58 PT 14.2 SECONDS (9.7-12.2) H 10/13/18 20:01 INR 1.3 10/13/18 20:01 APTT 29 SECONDS (21-34) 10/13/18 20:01 - Constitutional Appears: Non-toxic, No Acute Distress - Head Exam Head Exam: ATRAUMATIC, NORMOCEPHALIC - ENT Exam ENT Exam: Mucous Membranes Moist - Respiratory Exam Respiratory Exam: Rales, Wheezes. absent: Accessory Muscle Use, Respiratory Distress - Cardiovascular Exam Cardiovascular Exam: REGULAR RHYTHM, +S1, +S2 - GI/Abdominal Exam GI & Abdominal Exam: Soft, Normal Bowel Sounds. absent: Distended, Firm, Guarding, Rigid, Tenderness - Extremities Exam Extremities Exam: absent: Pedal Edema, Tenderness - Neurological Exam Neurological Exam: Alert, Awake, Oriented x3 - Psychiatric Exam Psychiatric exam: Normal Affect, Normal Mood - Skin Skin Exam: Dry, Intact, Normal Color, Warm Assessment and Plan - Assessment and Plan (Free Text) Assessment: 87 year old female with past medical history of HTN, DM, CHF s/p pacemaker, HLD, hx of PE (post op) is admitted for respiratory distress, CHF exacerbation Respiratory distress - On admission, CXr showed no active pulm disease - Patient noted to have low WBC count of 3.1 [place] [address] - D Dimer elevated at 1005. VQ scan done showed low probability of PE - Patient started on Rocephin and zithromax and Solumedrol 40 IVP q8 - BiPAP prn - Pulm, Dr. Robin consulted CHF exacerbation - Pacemaker in place - Pt started on lasixs 40 ivp qd - Continue home med Entresto 1 tab po qd, Aspirin 81 mg po qd, - Will consult cardio, Dr. Butterfield - Will check echo HTN - Continue home med Entresto - Currently on lasixs DM - Pt restarted on home med Linagliptin - Will check Hgb A 1c and lipid panel - Due to being on high dose steroid, blood sugar elevated. - Accuchecks - hypoglycemic protocol - ISS HLD - Continue home statin dose BILL - Cr on admission 1.6 - Avoid nephrotoxic med Prophylaxis - Protonix - heparin Case discussed with attending , Dr. Diaz
[2018-10-14] MEDS: Pantoprazole 40 mg EC Tab PO SCH (10:54)
[2018-10-14] MEDS: Potassium Chloride 10 mEq ER Tab PO SCH (10:54)
--- NOTE | 2018-10-14 10:55 | NM ---
Date of service: 10/14/2018 COMPARISON: 11/22/2016. Ventilation perfusion scan. 12/01/2017. CT pulmonary angiogram. 10/13/2018. Single-view chest TECHNIQUE: 9.3 mCi technetium 99-m Xe-133 Gas. 3.6 mCI technetium 99-m MAA administered intravenously. FINDINGS: VENTILATION COMPONENT: Normal. PERFUSION COMPONENT: Heterogeneous distribution of radionuclide. No geographic, segmental, lobar abnormalities apparent on the present examination.Incidental finding(s): Photon deficient area overlying the left lung corresponds to pacemaker battery pack. IMPRESSION: Low probability ventilation perfusion scan for pulmonary embolism.
--- NOTE | 2018-10-14 12:44 | CARD ---
APPROVED REPORT Date of service: 10/13/2018 EKG Measurement Heart [id number] ID [id number] <Conclusion> Sinus rhythm with occasional premature ventricular complexes Left axis deviation Left bundle branch block Abnormal ECG
--- NOTE | 2018-10-14 12:46 | CP.PCM.CON ---
<Margarita Flores - Last Filed: 10/14/18 14:25> History of Present Illness - History of Present Illness History of Present Illness: Pulm consult note for Dr. Robin 87 year old female with past medical history of advanced CHF with AICD, HTN, HLD, and DM presents to the hospital with 3 days of shortness of breath. Patient states her home oxygen ran out three days ago and this is why her shortness of breath worsened. She developed a productive cough with yellow and clear sputum. Patient states she is able to walk without assistance but does get exertional shortness of breath after a flight of stairs. She sleeps with 4 pillows each night and her shortness of breath is worsened by laying flat. She lives with her 4 siblings who help her around the house. She is able to take her own medicines. Patient denies any history of PE, DVT, cancer, recent immobilization or surgery, current hemoptysis, or calf pain As per prior echo report patient has severe pulmonary hypertension and an EF of 25% PMHx: CHF, HTN, HLD, DM, pulmonary hypertension PSHx: cholecystectomy, pacemaker placement, hysterectomy Allergies: codeine Family history: DM, HTN Social: denies smoking, drinking, recreational drug use. ROS: Postives: SOB, Cough productive yellow sputum. denies hemoptysis fever, chills, headache, chest pain, N/V/D, palpitations Review of Systems - Constitutional Constitutional: As Per HPI - EENT Nose/Mouth/Throat: absent: Nasal Congestion, Nasal Discharge, Dysphagia - Cardiovascular Cardiovascular: Dyspnea, Dyspnea on Exertion. absent: Chest Pain, Edema, Leg Edema, Palpitations - Respiratory Respiratory: Cough, Dyspnea, Dyspnea on Exertion - Gastrointestinal Gastrointestinal: absent: Abdominal Pain, Diarrhea, Nausea, Vomiting - Genitourinary Genitourinary: absent: Change in Urinary Stream - Musculoskeletal Musculoskeletal: absent: Numbness, Tingling Past Patient History - Infectious Disease Hx of Infectious Diseases: None - Past Medical History & Family History Past Medical History?: Yes - Past Social History Smoking Status: Never Smoked - CARDIAC Hx Congestive Heart Failure: Yes Hx Hypercholesterolemia: Yes Hx Hypertension: Yes Hx Pacemaker: Yes - PULMONARY Hx Pneumonia: Yes - NEUROLOGICAL Hx Neurological Disorder: No - HEENT Hx HEENT Problems: Yes Other/Comment: uses corrective eyeglasses - RENAL Hx Chronic Kidney Disease: No - ENDOCRINE/METABOLIC Hx Diabetes Mellitus Type 2: Yes - HEMATOLOGICAL/ONCOLOGICAL Hx Blood Disorders: No - INTEGUMENTARY Hx Dermatological Problems: No - MUSCULOSKELETAL/RHEUMATOLOGICAL Hx Falls: No - GASTROINTESTINAL Hx Gastrointestinal Disorders: No - GENITOURINARY/GYNECOLOGICAL Hx Genitourinary Disorders: No - PSYCHIATRIC Hx Substance Use: No - SURGICAL HISTORY Hx Cholecystectomy: Yes - ANESTHESIA Hx Anesthesia: Yes Hx Anesthesia Reactions: No Hx Malignant Hyperthermia: No Meds Allergies/Adverse Reactions: Allergies Allergy/AdvReac Type Severity Reaction Status Date / Time codeine Allergy RASH Verified 12/01/17 20:53 - Medications Medications: Current Medications Albuterol/Ipratropium (Duoneb 3 Mg/0.5 Mg (3 Ml) Ud) 3 ml INH RQ4 [facility] Last Admin: 10/14/18 11:15 Dose: 3 ml Allopurinol (Zyloprim) 100 mg PO DAILY [facility] Last Admin: 10/14/18 10:54 Dose: 100 mg Aspirin (Ecotrin) 81 mg PO DAILY [facility] Last Admin: 10/14/18 10:54 Dose: 81 mg Carvedilol (Coreg) 3.125 mg PO BID [facility] Last Admin: 10/14/18 10:54 Dose: 3.125 mg Furosemide (Lasix) 40 mg IVP DAILY [facility] Last Admin: 10/14/18 11:00 Dose: 40 mg Heparin Sodium (Porcine) (Heparin) 5,000 units SC Q12 [facility] Last Admin: 10/14/18 10:55 Dose: 5,000 units Home Med (Dexlansoprazole [Dexilant]) 30 mg PO DAILY [facility] Home Med (Linagliptin [Tradjenta]) 5 mg PO DAILY [facility] Azithromycin 500 mg/ Sodium (Chloride) 250 mls @ 250 mls/hr IVPB DAILY [facility]; Protocol Last Admin: 10/14/18 11:45 Dose: 250 mls/hr Ceftriaxone Sodium 1 gm/ (Sodium Chloride) 100 mls @ 100 mls/hr IVPB DAILY [facility]; Protocol Last Admin: 10/14/18 10:00 Dose: 100 mls/hr Methylprednisolone (Solu-Medrol) 40 mg IVP Q8 [facility] Last Admin: 10/14/18 05:31 Dose: 40 mg Pantoprazole Sodium (Protonix Ec Tab) 40 mg PO DAILY [facility] Last Admin: 10/14/18 10:54 Dose: 40 mg Pneumococcal Polyvalent Vaccine (Pneumovax 23 Vaccine) 0.5 ml IM .ONCE ONE Stop: 10/15/18 10:01 Potassium Chloride (Klor-Con 10) 10 meq PO DAILY [facility] Last Admin: 10/14/18 10:54 Dose: 10 meq Rosuvastatin Calcium (Crestor) 5 mg PO HS [facility] Sacubitril/Valsartan (Entresto 24 Mg-26 Mg) 1 tab PO DAILY [facility] Last Admin: 10/14/18 10:59 Dose: 1 tab Physical Exam - Constitutional Appears: Non-toxic - Head Exam Head Exam: ATRAUMATIC, NORMOCEPHALIC - Eye Exam Eye Exam: EOMI, Normal appearance - ENT Exam ENT Exam: Mucous Membranes Moist - Neck Exam Neck exam: Positive for: Normal Inspection. Negative for: Lymphadenopathy - Respiratory Exam Respiratory Exam: Decreased Breath Sounds, Rales. absent: Rhonchi, Wheezes - Cardiovascular Exam Cardiovascular Exam: REGULAR RHYTHM, JVD, +S1, +S2 - GI/Abdominal Exam GI & Abdominal Exam: Distended, Normal Bowel Sounds, Soft - Extremities Exam Extremities exam: Negative for: pedal edema Results - Vital Signs Recent Vital Signs: Last Vital Signs Temp 98.2 F 10/14/18 07:00 Pulse 72 10/14/18 07:00 Resp 20 10/14/18 07:00 BP 130/75 10/14/18 11:00 Pulse Ox 100 10/14/18 07:00 - Labs Result Diagrams: 10/14/18 13:35 10/14/18 05:58 Labs: Laboratory Results - last 24 hr 10/13/18 10/13/18 10/13/18 20:01 20:01 20:01 WBC 3.1 L RBC 4.00 Hgb 12.0 Hct 37.0 MCV 92.7 D MCH 30.0 MCHC 32.3 L RDW 18.3 H Plt Count 128 L MPV 10.0 Neut % (Auto) 46.2 L Lymph % (Auto) 36.2 Dubois % (Auto) 13.1 H Eos % (Auto) 2.5 Baso % (Auto) 2.0 Neut # (Auto) 1.4 L Lymph # (Auto) 1.1 Dubois # (Auto) 0.4 Eos # (Auto) 0.1 Baso # (Auto) 0.1 PT 14.2 H INR 1.3 APTT 29 D-Dimer, Quantitative 1005 H Sodium 138 Potassium 4.3 Chloride 100 Carbon Dioxide 28 Anion Gap 14 BUN 34 H Creatinine 1.6 H Est GFR ( Amer) 37 Est GFR (Non-Af Amer) 31 POC Glucose (mg/dL) Random Glucose 155 H D Calcium 9.0 Total Bilirubin 1.2 AST 52 H D ALT 31 Alkaline Phosphatase 92 Total Creatine Kinase CK-MB (Mass) Troponin I 0.0280 NT-Pro-B Natriuret Pep 38721 H Total Protein 6.7 Albumin 3.7 Globulin 3.0 Albumin/Globulin Ratio 1.2 10/14/18 10/14/18 05:58 12:07 WBC RBC Hgb Hct MCV MCH MCHC RDW Plt Count MPV Neut % (Auto) Lymph % (Auto) Dubois % (Auto) Eos % (Auto) Baso % (Auto) Neut # (Auto) Lymph # (Auto) [place]ois # (Auto) Eos # (Auto) Baso # (Auto) PT INR APTT D-Dimer, Quantitative Sodium 139 Potassium 3.4 L Chloride 102 Carbon Dioxide 29 Anion Gap 11 BUN 34 H Creatinine 1.5 H Est GFR ( Amer) 40 Est GFR (Non-Af Amer) 33 POC Glucose (mg/dL) 282 H Random Glucose 104 D Calcium 8.9 Total Bilirubin 1.4 H AST 48 H ALT 40 Alkaline Phosphatase 92 Total Creatine Kinase 98 CK-MB (Mass) 0.96 Troponin I 0.0270 NT-Pro-B Natriuret Pep Total Protein 6.2 L Albumin 3.3 L Globulin 2.9 Albumin/Globulin Ratio 1.1 Assessment & Plan - Assessment and Plan (Free Text) Assessment: 87 year old female with past medical history of advanced CHF, HTN, Pulmonary HTN with 3 days of shortness of breath, productive cough, elevated D-Dimer, and BILL. Plan: 1. CHF exacerbation continue lasix continue home meds daily CMP, BNP (trend, currently [id number]) daily weights monitor ins and outs with fluid restrictions f/u CXR 2. Pulmonary hypertension continue oxygen for saturation 92% with BiPAP as needed 3. Elevated D-Dimer patient is not a candidate for CT with contrast due to increased Cr V/Q scan resulted showing low probability of pulmonary embolism Patient's Well's score is low at 1.5 with tachycardia on presentation, clinical suspicion unlikely 4. Acute Kidney Injury continue lasix and fluid restriction monitor Cr daily <Usman Robin S - Last Filed: 10/14/18 17:48> Meds - Medications Medications: Current Medications Albuterol/Ipratropium (Duoneb 3 Mg/0.5 Mg (3 Ml) Ud) 3 ml INH RQ4 [facility] Last Admin: 10/14/18 15:48 Dose: 3 ml Allopurinol (Zyloprim) 100 mg PO DAILY [facility] Last Admin: 10/14/18 10:54 Dose: 100 mg Aspirin (Ecotrin) 81 mg PO DAILY [facility] Last Admin: 10/14/18 10:54 Dose: 81 mg Carvedilol (Coreg) 3.125 mg PO BID [facility] Last Admin: 10/14/18 17:23 Dose: 3.125 mg Furosemide (Lasix) 40 mg IVP DAILY [facility] Last Admin: 10/14/18 11:00 Dose: 40 mg Heparin Sodium (Porcine) (Heparin) 5,000 units SC Q12 [facility] Last Admin: 10/14/18 10:55 Dose: 5,000 units Home Med (Dexlansoprazole [Dexilant]) 30 mg PO DAILY [facility] Last Admin: 10/14/18 12:50 Dose: Not Given Home Med (Linagliptin [Tradjenta]) 5 mg PO DAILY [facility] Last Admin: 10/14/18 12:51 Dose: Not Given Insulin Human Regular (Novolin R) 0 unit SC [facility]; Protocol Last Admin: 10/14/18 17:22 Dose: 4 units Pantoprazole Sodium (Protonix Ec Tab) 40 mg PO DAILY [facility] Last Admin: 10/14/18 10:54 Dose: 40 mg Pneumococcal Polyvalent Vaccine (Pneumovax 23 Vaccine) 0.5 ml IM .ONCE ONE Stop: 10/15/18 10:01 Potassium Chloride (Klor-Con 10) 10 meq PO DAILY [facility] Last Admin: 10/14/18 10:54 Dose: 10 meq Rosuvastatin Calcium (Crestor) 5 mg PO HS [facility] Sacubitril/Valsartan (Entresto 24 Mg-26 Mg) 1 tab PO DAILY [facility] Last Admin: 10/14/18 10:59 Dose: 1 tab Results - Vital Signs Recent Vital Signs: Last Vital Signs Temp 97.2 F L 10/14/18 15:28 Pulse 71 10/14/18 15:28 Resp 18 10/14/18 15:28 BP 115/70 10/14/18 15:28 Pulse Ox 100 10/14/18 15:28 - Labs Result Diagrams: 10/14/18 13:35 10/14/18 05:58 Labs: Laboratory Results - last 24 hr 10/13/18 10/13/18 10/13/18 20:01 20:01 20:01 WBC 3.1 L RBC 4.00 Hgb 12.0 Hct 37.0 MCV 92.7 D MCH 30.0 MCHC 32.3 L RDW 18.3 H Plt Count 128 L MPV 10.0 Neut % (Auto) 46.2 L Lymph % (Auto) 36.2 Dubois % (Auto) 13.1 H Eos % (Auto) 2.5 Baso % (Auto) 2.0 Neut # (Auto) 1.4 L Lymph # (Auto) 1.1 Dubois # (Auto) 0.4 Eos # (Auto) 0.1 Baso # (Auto) 0.1 Neutrophils % (Manual) Band Neutrophils % Lymphocytes % (Manual) Monocytes % (Manual) Platelet Estimate Hypochromasia (manual) Anisocytosis (manual) PT 14.2 H INR 1.3 APTT 29 D-Dimer, Quantitative 1005 H Sodium 138 Potassium 4.3 Chloride 100 Carbon Dioxide 28 Anion Gap 14 BUN 34 H Creatinine 1.6 H Est GFR ( Amer) 37 Est GFR (Non-Af Amer) 31 POC Glucose (mg/dL) Random Glucose 155 H D Calcium 9.0 Total Bilirubin 1.2 AST 52 H D ALT 31 Alkaline Phosphatase 92 Total Creatine Kinase CK-MB (Mass) Troponin I 0.0280 NT-Pro-B Natriuret Pep 44751 H Total Protein 6.7 Albumin 3.7 Globulin 3.0 Albumin/Globulin Ratio 1.2 10/14/18 10/14/18 10/14/18 05:58 12:07 13:35 WBC RBC Hgb Hct MCV MCH MCHC RDW Plt Count MPV Neut % (Auto) Lymph % (Auto) Dubois % (Auto) Eos % (Auto) Baso % (Auto) Neut # (Auto) Lymph # (Auto) [place]ois # (Auto) Eos # (Auto) Baso # (Auto) Neutrophils % (Manual) Band Neutrophils % Lymphocytes % (Manual) Monocytes % (Manual) Platelet Estimate Hypochromasia (manual) Anisocytosis (manual) PT INR APTT D-Dimer, Quantitative Sodium 139 Potassium 3.4 L Chloride 102 Carbon Dioxide 29 Anion Gap 11 BUN 34 H Creatinine 1.5 H Est GFR ( Amer) 40 Est GFR (Non-Af Amer) 33 POC Glucose (mg/dL) 282 H Random Glucose 104 D Calcium 8.9 Total Bilirubin 1.4 H AST 48 H ALT 40 Alkaline Phosphatase 92 Total Creatine Kinase 98 94 CK-MB (Mass) 0.96 1.33 Troponin I 0.0270 0.0190 NT-Pro-B Natriuret Pep Total Protein 6.2 L Albumin 3.3 L Globulin 2.9 Albumin/Globulin Ratio 1.1 10/14/18 10/14/18 13:35 16:09 WBC 3.7 L RBC 3.59 L Hgb 11.0 Hct 33.4 L MCV 93.1 MCH 30.5 MCHC 32.8 L RDW 17.5 H Plt Count 116 L MPV 10.7 Neut % (Auto) 89.8 H Lymph % (Auto) 8.2 L Dubois % (Auto) 1.7 Eos % (Auto) 0.0 Baso % (Auto) 0.3 Neut # (Auto) 3.3 Lymph # (Auto) 0.3 L [place] # (Auto) 0.1 Eos # (Auto) 0.0 Baso # (Auto) 0.0 Neutrophils % (Manual) 87 H Band Neutrophils % 1 Lymphocytes % (Manual) 8 L Monocytes % (Manual) 4 Platelet Estimate Slightly decreased L Hypochromasia (manual) Slight Anisocytosis (manual) Slight PT INR APTT D-Dimer, Quantitative Sodium Potassium Chloride Carbon Dioxide Anion Gap BUN Creatinine Est GFR ( Amer) Est GFR (Non-Af Amer) POC Glucose (mg/dL) 290 H Random Glucose Calcium Total Bilirubin AST ALT Alkaline Phosphatase Total Creatine Kinase CK-MB (Mass) Troponin I NT-Pro-B Natriuret Pep Total Protein Albumin Globulin Albumin/Globulin Ratio Attending/Attestation - Attestation I have personally seen and examined this patient.: Yes I have fully participated in the care of the patient.: Yes I have reviewed all pertinent clinical information: Yes
[2018-10-14 13:57] LABS: BASO % 0.3 % (0.0-2.0); LYMPH # 0.3 K/uL (1.0-4.3); LYMPH % 8.2 % (20.0-40.0); MEAN CELL VOLUME 93.1 fL (81.0-99.0); MEAN CORPUSCULAR HEMOGLOBIN 30.5 pg (27.0-31.0); MEAN CORPUSCULAR HGB CONC 32.8 g/dL (33.0-37.0); MEAN PLATELET VOLUME 10.7 fL (7.2-11.7); MONO # 0.1 K/uL (0.0-0.8); MONO % 1.7 % (0.0-10.0); NEUT # 3.3 K/uL (1.8-7.0); NEUT % 89.8 % (50.0-75.0); NRBC % 0.1 % (0.0-2.0); PLATELET COUNT 116 K/uL (130-400); RBC 3.59 Mil/uL (3.80-5.20); RED CELL DISTRIBUTION WIDTH 17.5 % (11.5-14.5); WHITE BLOOD COUNT 3.7 K/uL (4.8-10.8)
[2018-10-14 14:25] LABS: CK-MB 1.33 ng/mL (0.0-3.38); TROPONIN I 0.019 ng/mL (0.00-0.120)
--- NOTE | 2018-10-14 14:28 | CP.PCM.CON ---
Past Patient History - Infectious Disease Hx of Infectious Diseases: None - Past Medical History & Family History Past Medical History?: Yes - Past Social History Smoking Status: Never Smoked - CARDIAC Hx Congestive Heart Failure: Yes Hx Hypercholesterolemia: Yes Hx Hypertension: Yes Hx Pacemaker: Yes - PULMONARY Hx Pneumonia: Yes - NEUROLOGICAL Hx Neurological Disorder: No - HEENT Hx HEENT Problems: Yes Other/Comment: uses corrective eyeglasses - RENAL Hx Chronic Kidney Disease: No - ENDOCRINE/METABOLIC Hx Diabetes Mellitus Type 2: Yes - HEMATOLOGICAL/ONCOLOGICAL Hx Blood Disorders: No - INTEGUMENTARY Hx Dermatological Problems: No - MUSCULOSKELETAL/RHEUMATOLOGICAL Hx Falls: No - GASTROINTESTINAL Hx Gastrointestinal Disorders: No - GENITOURINARY/GYNECOLOGICAL Hx Genitourinary Disorders: No - PSYCHIATRIC Hx Substance Use: No - SURGICAL HISTORY Hx Cholecystectomy: Yes - ANESTHESIA Hx Anesthesia: Yes Hx Anesthesia Reactions: No Hx Malignant Hyperthermia: No Meds Allergies/Adverse Reactions: Allergies Allergy/AdvReac Type Severity Reaction Status Date / Time codeine Allergy RASH Verified 12/01/17 20:53 - Medications Medications: Current Medications Albuterol/Ipratropium (Duoneb 3 Mg/0.5 Mg (3 Ml) Ud) 3 ml INH RQ4 [facility] Last Admin: 10/14/18 11:15 Dose: 3 ml Allopurinol (Zyloprim) 100 mg PO DAILY [facility] Last Admin: 10/14/18 10:54 Dose: 100 mg Aspirin (Ecotrin) 81 mg PO DAILY [facility] Last Admin: 10/14/18 10:54 Dose: 81 mg Carvedilol (Coreg) 3.125 mg PO BID [facility] Last Admin: 10/14/18 10:54 Dose: 3.125 mg Furosemide (Lasix) 40 mg IVP DAILY [facility] Last Admin: 10/14/18 11:00 Dose: 40 mg Heparin Sodium (Porcine) (Heparin) 5,000 units SC Q12 [facility] Last Admin: 10/14/18 10:55 Dose: 5,000 units Home Med (Dexlansoprazole [Dexilant]) 30 mg PO DAILY [facility] Last Admin: 10/14/18 12:50 Dose: Not Given Home Med (Linagliptin [Tradjenta]) 5 mg PO DAILY [facility] Last Admin: 10/14/18 12:51 Dose: Not Given Insulin Human Regular (Novolin R) 0 unit SC [facility]; Protocol Pantoprazole Sodium (Protonix Ec Tab) 40 mg PO DAILY [facility] Last Admin: 10/14/18 10:54 Dose: 40 mg Pneumococcal Polyvalent Vaccine (Pneumovax 23 Vaccine) 0.5 ml IM .ONCE ONE Stop: 10/15/18 10:01 Potassium Chloride (Klor-Con 10) 10 meq PO DAILY [facility] Last Admin: 10/14/18 10:54 Dose: 10 meq Rosuvastatin Calcium (Crestor) [address] [facility] Sacubitril/Valsartan (Entresto 24 Mg-26 Mg) 1 tab PO DAILY [facility] Last Admin: 10/14/18 10:59 Dose: 1 tab Results - Vital Signs Recent Vital Signs: Last Vital Signs Temp 98.2 F 10/14/18 07:00 Pulse 72 10/14/18 07:00 Resp 20 10/14/18 07:00 BP 130/75 10/14/18 11:00 Pulse Ox 100 10/14/18 07:00 - Labs Result Diagrams: 10/14/18 13:35 10/14/18 05:58 Labs: Laboratory Results - last 24 hr 10/13/18 10/13/18 10/13/18 20:01 20:01 20:01 WBC 3.1 L RBC 4.00 Hgb 12.0 Hct 37.0 MCV 92.7 D MCH 30.0 MCHC 32.3 L RDW 18.3 H Plt Count 128 L MPV 10.0 Neut % (Auto) 46.2 L Lymph % (Auto) 36.2 [place] % (Auto) 13.1 H Eos % (Auto) 2.5 Baso % (Auto) 2.0 Neut # (Auto) 1.4 L Lymph # (Auto) 1.1 [place] # (Auto) 0.4 Eos # (Auto) 0.1 Baso # (Auto) 0.1 PT 14.2 H INR 1.3 APTT 29 D-Dimer, Quantitative 1005 H Sodium 138 Potassium 4.3 Chloride 100 Carbon Dioxide 28 Anion Gap 14 BUN 34 H Creatinine 1.6 H Est GFR ( Amer) 37 Est GFR (Non-Af Amer) 31 POC Glucose (mg/dL) Random Glucose 155 H D Calcium 9.0 Total Bilirubin 1.2 AST 52 H D ALT 31 Alkaline Phosphatase 92 Total Creatine Kinase CK-MB (Mass) Troponin I 0.0280 NT-Pro-B Natriuret Pep 09757 H Total Protein 6.7 Albumin 3.7 Globulin 3.0 Albumin/Globulin Ratio 1.2 10/14/18 10/14/18 10/14/18 05:58 12:07 13:35 WBC RBC Hgb Hct MCV MCH MCHC RDW Plt Count MPV Neut % (Auto) Lymph % (Auto) [place] % (Auto) Eos % (Auto) Baso % (Auto) Neut # (Auto) Lymph # (Auto) [place] # (Auto) Eos # (Auto) Baso # (Auto) PT INR APTT D-Dimer, Quantitative Sodium 139 Potassium 3.4 L Chloride 102 Carbon Dioxide 29 Anion Gap 11 BUN 34 H Creatinine 1.5 H Est GFR ( Amer) 40 Est GFR (Non-Af Amer) 33 POC Glucose (mg/dL) 282 H Random Glucose 104 D Calcium 8.9 Total Bilirubin 1.4 H AST 48 H ALT 40 Alkaline Phosphatase 92 Total Creatine Kinase 98 94 CK-MB (Mass) 0.96 1.33 Troponin I 0.0270 0.0190 NT-Pro-B Natriuret Pep Total Protein 6.2 L Albumin 3.3 L Globulin 2.9 Albumin/Globulin Ratio 1.1 10/14/18 13:35 WBC 3.7 L RBC 3.59 L Hgb 11.0 Hct 33.4 L MCV 93.1 MCH 30.5 MCHC 32.8 L RDW 17.5 H Plt Count 116 L MPV 10.7 Neut % (Auto) 89.8 H Lymph % (Auto) 8.2 L Thayer % (Auto) 1.7 Eos % (Auto) 0.0 Baso % (Auto) 0.3 Neut # (Auto) 3.3 Lymph # (Auto) 0.3 L Thayer # (Auto) 0.1 Eos # (Auto) 0.0 Baso # (Auto) 0.0 PT INR APTT D-Dimer, Quantitative Sodium Potassium Chloride Carbon Dioxide Anion Gap BUN Creatinine Est GFR ( Amer) Est GFR (Non-Af Amer) POC Glucose (mg/dL) Random Glucose Calcium Total Bilirubin AST ALT Alkaline Phosphatase Total Creatine Kinase CK-MB (Mass) Troponin I NT-Pro-B Natriuret Pep Total Protein Albumin Globulin Albumin/Globulin Ratio
--- NOTE | 2018-10-14 14:37 | CP.PCM.CON ---
<Kraig Nieveslindsey - Last Filed: 10/14/18 16:32> History of Present Illness - History of Present Illness History of Present Illness: Cardiology Consult Note for Dr. Butterfield This patient is a an 87 year old female with a PMhx of CHF with AICD, HTN, and DM who presents due to SOB x 3 days. Patient is normally on 2L of 02 at home for Pulmonary HTN. At this time, her SOB as improved. During exam she was resting comfortable with no oxygen. She gets her pacemaker evaluated ever 4 months. She hears a beep and gets a call at home when there is an issue with the pacemaker. She did not hear a beep nor get a call. She denies any palpitations. Cardiology consulted on this patient for evaluation and treatment of acute on chronic CHF and for possible pacemaker interrogation. ROS: POSITIVES: SOB (Improved), Productive Cough w/ Yellow sputum, 4 Pillow Orthopnea, Dyspnea on exertion NEGATIVES: Fever, Chills, headache, chest pain, palpitations, abdominal pain. n/v, changes in bowel habits, and urinary symptoms PMHx: CHF, HTN, HLD, DM, pulmonary hypertension. Denies Hx of COPD or Asthma. PSHx: cholecystectomy, pacemaker placement, hysterectomy Allergies: codeine (Syncope). Family history: DM, HTN Social: denies smoking/2nd hand smoking, drinking, recreational drug use. Exposed to a lot of smoke [place]. Past Patient History - Infectious Disease Hx of Infectious Diseases: None - Past Medical History & Family History Past Medical History?: Yes - Past Social History Smoking Status: Never Smoked - CARDIAC Hx Congestive Heart Failure: Yes Hx Hypercholesterolemia: Yes Hx Hypertension: Yes Hx Pacemaker: Yes - PULMONARY Hx Pneumonia: Yes - NEUROLOGICAL Hx Neurological Disorder: No - HEENT Hx HEENT Problems: Yes Other/Comment: uses corrective eyeglasses - RENAL Hx Chronic Kidney Disease: No - ENDOCRINE/METABOLIC Hx Diabetes Mellitus Type 2: Yes - HEMATOLOGICAL/ONCOLOGICAL Hx Blood Disorders: No - INTEGUMENTARY Hx Dermatological Problems: No - MUSCULOSKELETAL/RHEUMATOLOGICAL Hx Falls: No - GASTROINTESTINAL Hx Gastrointestinal Disorders: No - GENITOURINARY/GYNECOLOGICAL Hx Genitourinary Disorders: No - PSYCHIATRIC Hx Substance Use: No - SURGICAL HISTORY Hx Cholecystectomy: Yes - ANESTHESIA Hx Anesthesia: Yes Hx Anesthesia Reactions: No Hx Malignant Hyperthermia: No Meds Allergies/Adverse Reactions: Allergies Allergy/AdvReac Type Severity Reaction Status Date / Time codeine Allergy RASH Verified 12/01/17 20:53 - Medications Medications: Current Medications Albuterol/Ipratropium (Duoneb 3 Mg/0.5 Mg (3 Ml) Ud) 3 ml INH RQ4 ON [facility] OF [facility] Last Admin: 10/14/18 11:15 Dose: 3 ml Allopurinol (Zyloprim) 100 mg PO DAILY ON [facility] OF [facility] Last Admin: 10/14/18 10:54 Dose: 100 mg Aspirin (Ecotrin) 81 mg PO DAILY ON [facility] Last Admin: 10/14/18 10:54 Dose: 81 mg Carvedilol (Coreg) 3.125 mg PO BID ON [facility] OF [facility] Last Admin: 10/14/18 10:54 Dose: 3.125 mg Furosemide (Lasix) 40 mg IVP DAILY ON [facility] Last Admin: 10/14/18 11:00 Dose: 40 mg Heparin Sodium (Porcine) (Heparin) 5,000 units SC Q12 ON [facility] OF [facility] Last Admin: 10/14/18 10:55 Dose: 5,000 units Home Med (Dexlansoprazole [Dexilant]) 30 mg PO DAILY ON [facility] Last Admin: 10/14/18 12:50 Dose: Not Given Home Med (Linagliptin [Tradjenta]) 5 mg PO DAILY ON [facility] OF [facility] Last Admin: 10/14/18 12:51 Dose: Not Given Insulin Human Regular (Novolin R) 0 unit SC [facility] ON LICENSE OF [facility]; Protocol Pantoprazole Sodium (Protonix Ec Tab) 40 mg PO DAILY ON [facility] OF [facility] Last Admin: 10/14/18 10:54 Dose: 40 mg Pneumococcal Polyvalent Vaccine (Pneumovax 23 Vaccine) 0.5 ml IM .ONCE ONE Stop: 10/15/18 10:01 Potassium Chloride (Klor-Con 10) 10 meq PO DAILY ON [facility] OF [facility] Last Admin: 10/14/18 10:54 Dose: 10 meq Rosuvastatin Calcium (Crestor) 5 mg PO HS ON LICENSE OF [facility] Sacubitril/Valsartan (Entresto 24 Mg-26 Mg) 1 tab PO DAILY ON [facility] OF [facility] Last Admin: 10/14/18 10:59 Dose: 1 tab Physical Exam - Constitutional Appears: Well, Non-toxic, No Acute Distress - Head Exam Head Exam: ATRAUMATIC, NORMAL INSPECTION, NORMOCEPHALIC - Eye Exam Eye Exam: EOMI, Normal appearance. absent: Scleral icterus - ENT Exam ENT Exam: Mucous Membranes Moist - Neck Exam Neck exam: Positive for: Normal Inspection - Respiratory Exam Respiratory Exam: Wheezes (Mild, Upper Lung B/L. ), NORMAL BREATHING PATTERN. absent: Accessory Muscle Use, Clear to Auscultation Bilateral - Cardiovascular Exam Cardiovascular Exam: RRR, +S1, +S2 Additional comments: +Murmur - GI/Abdominal Exam GI & Abdominal Exam: Normal Bowel Sounds, Soft. absent: Tenderness - Extremities Exam Extremities exam: Positive for: normal capillary refill, normal inspection, pedal pulses present. Negative for: pedal edema - Neurological Exam Neurological exam: Alert, Oriented x3 - Psychiatric Exam Psychiatric exam: Normal Affect, Normal Mood - Skin Skin Exam: Dry, Intact, Normal Color, Warm Results - Vital Signs Recent Vital Signs: Last Vital Signs Temp 98.2 F 10/14/18 07:00 Pulse 72 10/14/18 07:00 Resp 20 10/14/18 07:00 BP 130/75 10/14/18 11:00 Pulse Ox 100 10/14/18 07:00 - Labs Result Diagrams: 10/14/18 13:35 10/14/18 05:58 Labs: Laboratory Results - last 24 hr 10/13/18 10/13/18 10/13/18 20:01 20:01 20:01 WBC 3.1 L RBC 4.00 Hgb 12.0 Hct 37.0 MCV 92.7 D MCH 30.0 MCHC 32.3 L RDW 18.3 H Plt Count 128 L MPV 10.0 Neut % (Auto) 46.2 L Lymph % (Auto) 36.2 [place] % (Auto) 13.1 H Eos % (Auto) 2.5 Baso % (Auto) 2.0 Neut # (Auto) 1.4 L Lymph # (Auto) 1.1 [place] # (Auto) 0.4 Eos # (Auto) 0.1 Baso # (Auto) 0.1 PT 14.2 H INR 1.3 APTT 29 D-Dimer, Quantitative 1005 H Sodium 138 Potassium 4.3 Chloride 100 Carbon Dioxide 28 Anion Gap 14 BUN 34 H Creatinine 1.6 H Est GFR ( Amer) 37 Est GFR (Non-Af Amer) 31 POC Glucose (mg/dL) Random Glucose 155 H D Calcium 9.0 Total Bilirubin 1.2 AST 52 H D ALT 31 Alkaline Phosphatase 92 Total Creatine Kinase CK-MB (Mass) Troponin I 0.0280 NT-Pro-B Natriuret Pep 26756 H Total Protein 6.7 Albumin 3.7 Globulin 3.0 Albumin/Globulin Ratio 1.2 10/14/18 10/14/18 10/14/18 05:58 12:07 13:35 WBC RBC Hgb Hct MCV MCH MCHC RDW Plt Count MPV Neut % (Auto) Lymph % (Auto) [place] % (Auto) Eos % (Auto) Baso % (Auto) Neut # (Auto) Lymph # (Auto) [place] # (Auto) Eos # (Auto) Baso # (Auto) PT INR APTT D-Dimer, Quantitative Sodium 139 Potassium 3.4 L Chloride 102 Carbon Dioxide 29 Anion Gap 11 BUN 34 H Creatinine 1.5 H Est GFR ( Amer) 40 Est GFR (Non-Af Amer) 33 POC Glucose (mg/dL) 282 H Random Glucose 104 D Calcium 8.9 Total Bilirubin 1.4 H AST 48 H ALT 40 Alkaline Phosphatase 92 Total Creatine Kinase 98 94 CK-MB (Mass) 0.96 1.33 Troponin I 0.0270 0.0190 NT-Pro-B Natriuret Pep Total Protein 6.2 L Albumin 3.3 L Globulin 2.9 Albumin/Globulin Ratio 1.1 10/14/18 13:35 WBC 3.7 L RBC 3.59 L Hgb 11.0 Hct 33.4 L MCV 93.1 MCH 30.5 MCHC 32.8 L RDW 17.5 H Plt Count 116 L MPV 10.7 Neut % (Auto) 89.8 H Lymph % (Auto) 8.2 L [place] % (Auto) 1.7 Eos % (Auto) 0.0 Baso % (Auto) 0.3 Neut # (Auto) 3.3 Lymph # (Auto) 0.3 L [place] # (Auto) 0.1 Eos # (Auto) 0.0 Baso # (Auto) 0.0 PT INR APTT D-Dimer, Quantitative Sodium Potassium Chloride Carbon Dioxide Anion Gap BUN Creatinine Est GFR ( Amer) Est GFR (Non-Af Amer) POC Glucose (mg/dL) Random Glucose Calcium Total Bilirubin AST ALT Alkaline Phosphatase Total Creatine Kinase CK-MB (Mass) Troponin I NT-Pro-B Natriuret Pep Total Protein Albumin Globulin Albumin/Globulin Ratio Assessment & Plan - Assessment and Plan (Free Text) Assessment: This patient is a an 87 year old female with a PMhx of CHF with AICD, HTN, and DM who presents due to SOB x 3 days. Cardiology consulted on this patient for evaluation and treatment of acute on chronic CHF and for possible pacemaker interrogation. Plan: Acute on Chronic CHF Exacerbation/HFrEF' ECHO (11/2016): EF 25%, diastolic fysfunction, pacemaker lead in right ventricle, moderate AR, Severe MR, Severe Pulm HTN, trace post. pericardial effusion. Labs: BNP - 44738 ( Always elevated but this is the highest). Patient is on Entresto, so BNP may be unreliable. Troponins: NEGATIVE x 3. D-Dimer 1005 CXR (Admission): No Active Pulmonary Disease. V/Q Scan (10/14/18): Low probability for PE Mgmt: ECHO Coreg 3.125 BID Lasix 40 IVP Daily Entresto 24-26 1tab PO Daily Dispo: Low suspicion that SOB is from CHF. Elevated BNP is from Entresto. No Lower Ext. Edema, No Rales on Exam, No Pulm Congestion on CXR. Will follow up ECHO. Discussed with Dr. Butterfield. Janice Nieves, PGY-2 <Trenton Butterfield - Last Filed: 10/16/18 22:41> Meds - Medications Medications: Current Medications Albuterol/Ipratropium (Duoneb 3 Mg/0.5 Mg (3 Ml) Ud) 3 ml INH RQ6 ON [facility] Last Admin: 10/16/18 19:33 Dose: 3 ml Allopurinol (Zyloprim) 100 mg PO DAILY ON [facility] Last Admin: 10/16/18 09:20 Dose: 100 mg Aspirin (Ecotrin) 81 mg PO DAILY [facility] Last Admin: 10/16/18 09:20 Dose: 81 mg Carvedilol (Coreg) 3.125 mg PO BID ON [facility] Last Admin: 10/16/18 17:59 Dose: 3.125 mg Furosemide (Lasix) 40 mg PO DAILY ON [facility] Last Admin: 10/16/18 10:26 Dose: Not Given Guaifenesin/Dextromethorphan (Robitussin Dm) 10 ml PO Q6H ON [facility] Last Admin: 10/16/18 17:59 Dose: 10 ml Heparin Sodium (Porcine) (Heparin) 5,000 units SC Q12 ON [facility] Last Admin: 10/16/18 21:19 Dose: 5,000 units Azithromycin 500 mg/ Sodium (Chloride) 250 mls @ 250 mls/hr IVPB Q24H ON [facility] OF [facility]; Protocol Last Admin: 10/16/18 15:36 Dose: 250 mls/hr Insulin Human Regular (Novolin R) 0 unit SC [facility]; Protocol Last Admin: 10/16/18 21:16 Dose: Not Given Methylprednisolone (Solu-Medrol) 40 mg IV Q12 [facility] Last Admin: 10/16/18 21:18 Dose: 40 mg Pantoprazole Sodium (Protonix Ec Tab) 40 mg PO DAILY [facility] Last Admin: 10/16/18 09:19 Dose: 40 mg Potassium Chloride (Klor-Con 10) 10 meq PO DAILY ON [facility] Last Admin: 10/16/18 09:20 Dose: 10 meq Rosuvastatin Calcium (Crestor) 5 mg PO HS ON [facility] Last Admin: 10/16/18 21:18 Dose: 5 mg Sacubitril/Valsartan (Entresto 24 Mg-26 Mg) 1 tab PO BID ON [facility] Last Admin: 10/16/18 17:59 Dose: 1 tab Sitagliptin Phosphate (Januvia) 25 mg PO DAILY ON [facility] Last Admin: 10/16/18 09:22 Dose: 25 mg Results - Vital Signs Recent Vital Signs: Last Vital Signs Temp 97.6 F 10/16/18 16:00 Pulse 83 10/16/18 16:00 Resp 20 10/16/18 16:00 BP 122/79 10/16/18 16:00 Pulse Ox 97 10/16/18 16:00 - Labs Result Diagrams: 10/16/18 06:49 10/16/18 06:42 Labs: Laboratory Results - last 24 hr 10/16/18 10/16/18 10/16/18 06:42 06:49 11:23 WBC 6.2 RBC 3.30 L Hgb 10.2 L Hct 30.9 L MCV 93.5 MCH 30.9 MCHC 33.1 RDW 17.8 H Plt Count 107 L MPV 10.9 Neut % (Auto) 80.7 H Lymph % (Auto) 10.4 L [place] % (Auto) 8.6 Eos % (Auto) 0.2 Baso % (Auto) 0.1 Neut # (Auto) 5.0 Lymph # (Auto) 0.6 L [place] # (Auto) 0.5 Eos # (Auto) 0.0 Baso # (Auto) 0.0 Sodium 139 Potassium 3.9 Chloride 103 Carbon Dioxide 31 H Anion Gap 10 BUN 37 H Creatinine 1.3 H Est GFR ( Amer) 47 Est GFR (Non-Af Amer) 39 POC Glucose (mg/dL) 135 H Random Glucose 123 H D Calcium 9.2 Phosphorus 3.4 Magnesium 1.9 Total Bilirubin 0.7 AST 42 H ALT 32 Alkaline Phosphatase 79 Total Protein 5.8 L Albumin 3.2 L Globulin 2.6 Albumin/Globulin Ratio 1.2 10/16/18 10/16/18 17:34 21:14 WBC RBC Hgb Hct MCV MCH MCHC RDW Plt Count MPV Neut % (Auto) Lymph % (Auto) [place] % (Auto) Eos % (Auto) Baso % (Auto) Neut # (Auto) Lymph # (Auto) [place] # (Auto) Eos # (Auto) Baso # (Auto) Sodium Potassium Chloride Carbon Dioxide Anion Gap BUN Creatinine Est GFR ( Amer) Est GFR (Non-Af Amer) POC Glucose (mg/dL) 188 H 184 H Random Glucose Calcium Phosphorus Magnesium Total Bilirubin AST ALT Alkaline Phosphatase Total Protein Albumin Globulin Albumin/Globulin Ratio Assessment & Plan - Assessment and Plan (Free Text) Plan: Patient seen and evaluated personally by me. Plan of care d/w the medical bill processor and as documented
[2018-10-14 14:58] LABS: ANISOCYTOSIS SLIGHT; BANDS 1 % (0-2); HYPOCHROMIC SLIGHT; LYMPHOCYTE 8 % (20-40); MONOCYTE 4 % (0-10); NEUTROPHIL 87 % (50-75); PLATELET ESTIMATE SLIGHTLY DECREASED (NORMAL); TOTAL CELLS COUNTED 100
--- NOTE | 2018-10-14 15:04 | CP.PCM.HP ---
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 patient claims she also ran out the oxygen Patient denies fever at home but claims that patient has some unquantified fever Now patient uses 2-3 pillows at home Patient is short of breath even on a routine activities Family is at bedside Patient denies chest pain right now Patient has a poor ejection fraction Patient is not compliant with the follow-up Patient's I started on IV Rocephin and IV Zithromax as besides the DuoNeb Present on Admission - Present on Admission Any Indicators Present on Admission: No Past Patient History - Infectious Disease Hx of Infectious Diseases: None - Past Medical History & Family History Past Medical History?: Yes - Past Social History Smoking Status: Never Smoked - CARDIAC Hx Congestive Heart Failure: Yes Hx Hypercholesterolemia: Yes Hx Hypertension: Yes Hx Pacemaker: Yes - PULMONARY Hx Pneumonia: Yes - NEUROLOGICAL Hx Neurological Disorder: No - HEENT Hx HEENT Problems: Yes Other/Comment: uses corrective eyeglasses - RENAL Hx Chronic Kidney Disease: No - ENDOCRINE/METABOLIC Hx Diabetes Mellitus Type 2: Yes - HEMATOLOGICAL/ONCOLOGICAL Hx Blood Disorders: No - INTEGUMENTARY Hx Dermatological Problems: No - MUSCULOSKELETAL/RHEUMATOLOGICAL Hx Falls: No - GASTROINTESTINAL Hx Gastrointestinal Disorders: No - GENITOURINARY/GYNECOLOGICAL Hx Genitourinary Disorders: No - PSYCHIATRIC Hx Substance Use: No - SURGICAL HISTORY Hx Cholecystectomy: Yes - ANESTHESIA Hx Anesthesia: Yes Hx Anesthesia Reactions: No Hx Malignant Hyperthermia: No Meds Home Medications: Home Medication List Medication Instructions Recorded Confirmed Type Benzonatate [Tessalon Perles] 100 mg PO TID #30 sgl 10/22/18 Rx Spironolactone [Aldactone] 12.5 mg PO DAILY 30 Days #30 tablet 10/22/18 Rx Allergies/Adverse Reactions: Allergies Allergy/AdvReac Type Severity Reaction Status Date / Time codeine Allergy RASH Verified 12/01/17 20:53 Physical Exam - Constitutional Appears: Well - Head Exam Head Exam: ATRAUMATIC, NORMAL INSPECTION, NORMOCEPHALIC - Eye Exam Eye Exam: EOMI, Normal appearance, PERRL Pupil Exam: NORMAL ACCOMODATION, PERRL - ENT Exam ENT Exam: Mucous Membranes Moist, Normal Exam - Neck Exam Neck exam: Positive for: Normal Inspection - Respiratory Exam Respiratory Exam: Decreased Breath Sounds - Cardiovascular Exam Cardiovascular Exam: REGULAR RHYTHM, +S1, +S2 - GI/Abdominal Exam GI & Abdominal Exam: Diminished Bowel Sounds, Soft - Rectal Exam Rectal Exam: Deferred - Neurological Exam Neurological exam: Oriented x3 Results - Vital Signs Recent Vital Signs: Last Vital Signs Temp 98.2 F 10/14/18 07:00 Pulse 81 10/14/18 13:00 Resp 20 10/14/18 07:00 BP 130/75 10/14/18 11:00 Pulse Ox 100 10/14/18 07:00 - Labs Result Diagrams: 10/22/18 06:36 10/22/18 06:36 Labs: Laboratory Results - last 24 hr 10/13/18 10/13/18 10/13/18 20:01 20:01 20:01 WBC 3.1 L RBC 4.00 Hgb 12.0 Hct 37.0 MCV 92.7 D MCH 30.0 MCHC 32.3 L RDW 18.3 H Plt Count 128 L MPV 10.0 Neut % (Auto) 46.2 L Lymph % (Auto) 36.2 [place] % (Auto) 13.1 H Eos % (Auto) 2.5 Baso % (Auto) 2.0 Neut # (Auto) 1.4 L Lymph # (Auto) 1.1 [place] # (Auto) 0.4 Eos # (Auto) 0.1 Baso # (Auto) 0.1 Neutrophils % (Manual) Band Neutrophils % Lymphocytes % (Manual) Monocytes % (Manual) Platelet Estimate Hypochromasia (manual) Anisocytosis (manual) PT 14.2 H INR 1.3 APTT 29 D-Dimer, Quantitative 1005 H Sodium 138 Potassium 4.3 Chloride 100 Carbon Dioxide 28 Anion Gap 14 BUN 34 H Creatinine 1.6 H Est GFR ( Amer) 37 Est GFR (Non-Af Amer) 31 POC Glucose (mg/dL) Random Glucose 155 H D Calcium 9.0 Total Bilirubin 1.2 AST 52 H D ALT 31 Alkaline Phosphatase 92 Total Creatine Kinase CK-MB (Mass) Troponin I 0.0280 NT-Pro-B Natriuret Pep 46879 H Total Protein 6.7 Albumin 3.7 Globulin 3.0 Albumin/Globulin Ratio 1.2 10/14/18 10/14/18 10/14/18 05:58 12:07 13:35 WBC RBC Hgb Hct MCV MCH MCHC RDW Plt Count MPV Neut % (Auto) Lymph % (Auto) [place] % (Auto) Eos % (Auto) Baso % (Auto) Neut # (Auto) Lymph # (Auto) [place] # (Auto) Eos # (Auto) Baso # (Auto) Neutrophils % (Manual) Band Neutrophils % Lymphocytes % (Manual) Monocytes % (Manual) Platelet Estimate Hypochromasia (manual) Anisocytosis (manual) PT INR APTT D-Dimer, Quantitative Sodium 139 Potassium 3.4 L Chloride 102 Carbon Dioxide 29 Anion Gap 11 BUN 34 H Creatinine 1.5 H Est GFR ( Amer) 40 Est GFR (Non-Af Amer) 33 POC Glucose (mg/dL) 282 H Random Glucose 104 D Calcium 8.9 Total Bilirubin 1.4 H AST 48 H ALT 40 Alkaline Phosphatase 92 Total Creatine Kinase 98 94 CK-MB (Mass) 0.96 1.33 Troponin I 0.0270 0.0190 NT-Pro-B Natriuret Pep Total Protein 6.2 L Albumin 3.3 L Globulin 2.9 Albumin/Globulin Ratio 1.1 10/14/18 13:35 WBC 3.7 L RBC 3.59 L Hgb 11.0 Hct 33.4 L MCV 93.1 MCH 30.5 MCHC 32.8 L RDW 17.5 H Plt Count 116 L MPV 10.7 Neut % (Auto) 89.8 H Lymph % (Auto) 8.2 L [place] % (Auto) 1.7 Eos % (Auto) 0.0 Baso % (Auto) 0.3 Neut # (Auto) 3.3 Lymph # (Auto) 0.3 L [place] # (Auto) 0.1 Eos # (Auto) 0.0 Baso # (Auto) 0.0 Neutrophils % (Manual) 87 H Band Neutrophils % 1 Lymphocytes % (Manual) 8 L Monocytes % (Manual) 4 Platelet Estimate Slightly decreased L Hypochromasia (manual) Slight Anisocytosis (manual) Slight PT INR APTT D-Dimer, Quantitative Sodium Potassium Chloride Carbon Dioxide Anion Gap BUN Creatinine Est GFR ( Amer) Est GFR (Non-Af Amer) POC Glucose (mg/dL) Random Glucose Calcium Total Bilirubin AST ALT Alkaline Phosphatase Total Creatine Kinase CK-MB (Mass) Troponin I NT-Pro-B Natriuret Pep Total Protein Albumin Globulin Albumin/Globulin Ratio Assessment & Plan (1) BILL (acute kidney injury) Status: Acute (2) Acute bronchitis Status: Acute (3) Acute exacerbation of CHF (congestive heart failure) Status: Acute (4) CHF (congestive heart failure) Status: Acute (5) Cardiomyopathy Status: Acute (6) Chest pain Status: Acute (7) Community acquired pneumonia Status: Acute (8) Congestive heart failure Status: Acute (9) Decreased cardiac ejection fraction Status: Acute (10) Diabetes mellitus Status: Acute (11) Dyspnea Status: Acute (12) Electrolyte disturbance Status: Acute (13) History of hyperlipidemia Status: Acute (14) Hypokalemia Status: Acute (15) Pneumonia Status: Acute (16) Renal insufficiency Status: Acute (17) Respiratory distress Status: Acute (18) Shortness of breath Status: Acute (19) Pacemaker Status: Chronic - Assessment and Plan (Free Text) Plan: Plan potassium is 3.4 supplemented BUN/creatinine 34 and 1.5 WBC 3.7 Neck creatinine is 1.6 proBNP is 14,000 Plan continue Rocephin Continue IV azithromycin Dexilant Not Tradjenta Fingerstick AC at bedtime low-dose NovoLog Potassium supplementation Entresto for CHF DuoNeb Lasix 40 mg IV push daily Aspirin All other medication as ordered We will hold the CAT scan because of elevated creatinine VQ scan shows low probability Follow-up with the cardiology Follow-up with the pulmonary
[2018-10-14] MEDS ORDERED: Potassium Chloride 20 mEq ER Tab PO STA (16:37)
[2018-10-14] MEDS: (Novolin R) Insulin Human Regular 100 units/ml vial SC SCH ×2 (17:22→21:35)
[2018-10-15] MEDS: Albuterol-Ipratrop 3 mg / 0.5 (3 ml) UD INH SCH ×5 (00:18→19:25)
[2018-10-15] MEDS ORDERED: MethylPREDNISolone 40 mg Vial IVP SCH (06:00)
[2018-10-15 07:43] LABS: BASO % 0.1 % (0.0-2.0); HEMOGLOBIN 10.3 g/dL (11.0-16.0); LYMPH # 0.4 K/uL (1.0-4.3); LYMPH % 7.5 % (20.0-40.0); MEAN CELL VOLUME 92.2 fL (81.0-99.0); MEAN CORPUSCULAR HGB CONC 33.6 g/dL (33.0-37.0); MEAN PLATELET VOLUME 10.6 fL (7.2-11.7); MONO # 0.2 K/uL (0.0-0.8); MONO % 4.2 % (0.0-10.0); NEUT # 4.4 K/uL (1.8-7.0); NEUT % 88.2 % (50.0-75.0); NRBC % 0.1 % (0.0-2.0); PLATELET COUNT 101 K/uL (130-400); RBC 3.31 Mil/uL (3.80-5.20); RED CELL DISTRIBUTION WIDTH 17.8 % (11.5-14.5)
[2018-10-15 08:01] LABS: ALB/GLOB RATIO 1.2 (1.0-2.1); ALBUMIN 3.2 g/dL (3.5-5.0); CALCIUM 8.6 mg/dl (8.6-10.4)
[2018-10-15] MEDS: (Novolin R) Insulin Human Regular 100 units/ml vial SC SCH ×4 (08:33→23:30)
[2018-10-15 09:08] LABS: LYMPHOCYTE 8 % (20-40); MONOCYTE 3 % (0-10); NEUTROPHIL 89 % (50-75); TOTAL CELLS COUNTED 100
[2018-10-15 09:09] LABS: ANISOCYTOSIS SLIGHT; HYPOCHROMIC SLIGHT; PLATELET ESTIMATE SLIGHTLY DECREASED (NORMAL); POIKILOCYTOSIS SLIGHT
[2018-10-15] MEDS ORDERED: Pantoprazole 40 mg EC Tab PO SCH (10:00)
[2018-10-15] MEDS ORDERED: Pneumococcal 23-Valent Vaccine IM ONE (10:00)
[2018-10-15] MEDS: Potassium Chloride 10 mEq ER Tab PO SCH (11:11)
[2018-10-15] MEDS: Pantoprazole 40 mg EC Tab PO SCH (11:11)
[2018-10-15] MEDS: Sacubitril/Valsartan 24-26mg Tab PO SCH ×2 (11:16→18:45)
--- NOTE | 2018-10-15 11:27 | CP.PCM.PN ---
Subjective - Date & Time of Evaluation Date of Evaluation: 10/15/18 Time of Evaluation: 11:26 - Subjective Subjective: PGY3 progress note for Dr. Diaz Pt seen and examined at bedside. No acute events overnight. Pt is resting comfortably. does not complain of shortness of breath today even on room air. Patient denies having any Cp, abd pain, N/V/C/D, F/C. Objective - Vital Signs/Intake and Output Vital Signs (last 24 hours): Temp Pulse Resp BP Pulse Ox 97.8 F 70 18 121/72 100 10/15/18 07:00 10/15/18 07:00 10/15/18 07:00 10/15/18 07:00 10/15/18 07:00 - Medications Medications: Current Medications Albuterol/Ipratropium (Duoneb 3 Mg/0.5 Mg (3 Ml) Ud) 3 ml INH RQ4 [facility] Last Admin: 10/15/18 11:23 Dose: 3 ml Allopurinol (Zyloprim) 100 mg PO DAILY [facility] Last Admin: 10/15/18 11:11 Dose: 100 mg Aspirin (Ecotrin) 81 mg PO DAILY [facility] Last Admin: 10/15/18 11:11 Dose: 81 mg Carvedilol (Coreg) 3.125 mg PO BID [facility] Last Admin: 10/15/18 11:19 Dose: Not Given Furosemide (Lasix) 40 mg IVP DAILY [facility] Last Admin: 10/15/18 11:19 Dose: Not Given Heparin Sodium (Porcine) (Heparin) 5,000 units SC Q12 [facility] Last Admin: 10/15/18 11:11 Dose: 5,000 units Insulin Human Regular (Novolin R) 0 unit SC ACHS [facility]; Protocol Last Admin: 10/15/18 08:33 Dose: 3 units Pantoprazole Sodium (Protonix Ec Tab) 40 mg PO DAILY [facility] Last Admin: 10/15/18 11:11 Dose: 40 mg Potassium Chloride (Klor-Con 10) 10 meq PO DAILY [facility] Last Admin: 10/15/18 11:11 Dose: 10 meq Rosuvastatin Calcium (Crestor) 5 mg PO HS [facility] Last Admin: 10/14/18 22:35 Dose: 5 mg Sacubitril/Valsartan (Entresto 24 Mg-26 Mg) 1 tab PO BID [facility] Last Admin: 10/15/18 11:16 Dose: 1 tab Sitagliptin Phosphate (Januvia) 25 mg PO DAILY [facility] Last Admin: 10/15/18 11:12 Dose: 25 mg - Labs Labs: 10/15/18 07:31 10/15/18 07:31 PT 14.2 SECONDS (9.7-12.2) H 10/13/18 20:01 INR 1.3 10/13/18 20:01 APTT 29 SECONDS (21-34) 10/13/18 20:01 - Constitutional Appears: Non-toxic, No Acute Distress - Head Exam Head Exam: ATRAUMATIC, NORMOCEPHALIC - ENT Exam ENT Exam: Mucous Membranes Moist - Respiratory Exam Respiratory Exam: NORMAL BREATHING PATTERN. absent: Accessory Muscle Use, Rales, Rhonchi, Wheezes, Respiratory Distress - Cardiovascular Exam Cardiovascular Exam: REGULAR RHYTHM, +S1, +S2 - GI/Abdominal Exam GI & Abdominal Exam: Soft, Normal Bowel Sounds. absent: Distended, Firm, Guarding, Rigid, Tenderness - Extremities Exam Extremities Exam: absent: Pedal Edema, Tenderness - Neurological Exam Neurological Exam: Alert, Awake, Oriented x3 - Psychiatric Exam Psychiatric exam: Normal Affect, Normal Mood - Skin Skin Exam: Dry, Intact, Normal Color, Warm Assessment and Plan - Assessment and Plan (Free Text) Assessment: 87 year old female with past medical history of HTN, DM, CHF s/p pacemaker, HLD, hx of PE (post op) is admitted for respiratory distress, CHF exacerbation Respiratory distress - Resolved - On admission, CXr showed no active pulm disease [place] [address] - D Dimer elevated at 1005. VQ scan done showed low probability of PE - Pulm, Dr. Robin consulted CHF exacerbation - Pacemaker in place - Lasixs 40 mg po qd - Continue home med Entresto 1 tab po bid, Aspirin 81 mg po qd, - Will consult cardio, Dr. Butterfield - Will check echo and LE duplex HTN - Continue home med Entresto DM - Pt restarted on home med Linagliptin - HgbA1c is 6.6 - lipid panel normal - Accuchecks - hypoglycemic protocol - ISS HLD - Continue home statin dose BILL - Improving - Avoid nephrotoxic med Prophylaxis - Protonix - heparin Case discussed with attending , Dr. Diaz
--- NOTE | 2018-10-15 13:06 | CP.PCM.PN ---
<MarkFredygifty - Last Filed: 10/15/18 13:09> Subjective - Date & Time of Evaluation Date of Evaluation: 10/15/18 Time of Evaluation: 12:55 - Subjective Subjective: Pulmonary Progress note for Dr. Robin's service Patient was seen and examined at armchair. Patient was having lunch. She complains of SOB and cough. She says cough is productive with clear or white sputum. She was not on nasal cannula. Patient denies chest pain, nausea, vomiting, diarrhea, or constipation. Objective - Vital Signs/Intake and Output Vital Signs (last 24 hours): Temp Pulse Resp BP Pulse Ox 97.8 F 70 18 121/72 100 10/15/18 07:00 10/15/18 07:00 10/15/18 07:00 10/15/18 07:00 10/15/18 07:00 - Medications Medications: Current Medications Albuterol/Ipratropium (Duoneb 3 Mg/0.5 Mg (3 Ml) Ud) 3 ml INH RQ4 [facility] Last Admin: 10/15/18 11:23 Dose: 3 ml Allopurinol (Zyloprim) 100 mg PO DAILY [facility] Last Admin: 10/15/18 11:11 Dose: 100 mg Aspirin (Ecotrin) 81 mg PO DAILY [facility] Last Admin: 10/15/18 11:11 Dose: 81 mg Carvedilol (Coreg) 3.125 mg PO BID [facility] Last Admin: 10/15/18 11:19 Dose: Not Given Furosemide (Lasix) 40 mg IVP DAILY [facility] Last Admin: 10/15/18 11:19 Dose: Not Given Heparin Sodium (Porcine) (Heparin) 5,000 units SC Q12 [facility] Last Admin: 10/15/18 11:11 Dose: 5,000 units Insulin Human Regular (Novolin R) 0 unit SC ACHS [facility]; Protocol Last Admin: 10/15/18 12:30 Dose: 2 units Pantoprazole Sodium (Protonix Ec Tab) 40 mg PO DAILY [facility] Last Admin: 10/15/18 11:11 Dose: 40 mg Potassium Chloride (Klor-Con 10) 10 meq PO DAILY [facility] Last Admin: 10/15/18 11:11 Dose: 10 meq Rosuvastatin Calcium (Crestor) 5 mg PO HS [facility] Last Admin: 10/14/18 22:35 Dose: 5 mg Sacubitril/Valsartan (Entresto 24 Mg-26 Mg) 1 tab PO BID [facility] Last Admin: 10/15/18 11:16 Dose: 1 tab Sitagliptin Phosphate (Januvia) 25 mg PO DAILY [facility] Last Admin: 10/15/18 11:12 Dose: 25 mg - Labs Labs: 10/15/18 07:31 10/15/18 07:31 PT 14.2 SECONDS (9.7-12.2) H 10/13/18 20:01 INR 1.3 10/13/18 20:01 APTT 29 SECONDS (21-34) 10/13/18 20:01 - Constitutional Appears: Well, Non-toxic, No Acute Distress - Head Exam Head Exam: NORMAL INSPECTION - Eye Exam Eye Exam: EOMI, Normal appearance - ENT Exam ENT Exam: Mucous Membranes Moist - Neck Exam Neck Exam: Normal Inspection - Respiratory Exam Respiratory Exam: Decreased Breath Sounds, NORMAL BREATHING PATTERN - Cardiovascular Exam Cardiovascular Exam: REGULAR RHYTHM - GI/Abdominal Exam GI & Abdominal Exam: Soft, Normal Bowel Sounds - Extremities Exam Extremities Exam: absent: Calf Tenderness, Pedal Edema - Neurological Exam Neurological Exam: Oriented x3 - Psychiatric Exam Psychiatric exam: Normal Mood - Skin Skin Exam: Dry, Intact Assessment and Plan - Assessment and Plan (Free Text) Assessment: 87 year old female with past medical history of advanced CHF, HTN, Pulmonary HTN. Pulmonary was consulted for SOB. Plan: 1. CHF exacerbation continue lasix Continue Entresto Continue carvedilol daily CMP daily weights monitor ins and outs with fluid restrictions No pulmonary congestion on CXR 2. Pulmonary hypertension continue oxygen for saturation 92% with BiPAP as needed continue Duoneb 3. Acute Kidney Injury continue lasix and fluid restriction monitor Cr daily Continue management per primary team PGY-1 Margarita Javier d/w Dr. Robin <Usman Robin - Last Filed: 10/15/18 15:56> Objective - Vital Signs/Intake and Output Vital Signs (last 24 hours): Temp Pulse Resp BP Pulse Ox 97.8 F 70 18 121/72 100 10/15/18 07:00 10/15/18 07:00 10/15/18 07:00 10/15/18 07:00 10/15/18 07:00 - Medications Medications: Current Medications Albuterol/Ipratropium (Duoneb 3 Mg/0.5 Mg (3 Ml) Ud) 3 ml INH RQ4 [facility] Last Admin: 10/15/18 15:02 Dose: 3 ml Allopurinol (Zyloprim) 100 mg PO DAILY [facility] Last Admin: 10/15/18 11:11 Dose: 100 mg Aspirin (Ecotrin) 81 mg PO DAILY [facility] Last Admin: 10/15/18 11:11 Dose: 81 mg Carvedilol (Coreg) 3.125 mg PO BID [facility] Last Admin: 10/15/18 11:19 Dose: Not Given Furosemide (Lasix) 40 mg PO DAILY [facility] Heparin Sodium (Porcine) (Heparin) 5,000 units SC Q12 [facility] Last Admin: 10/15/18 11:11 Dose: 5,000 units Insulin Human Regular (Novolin R) 0 unit SC ACHS [facility]; Protocol Last Admin: 10/15/18 12:30 Dose: 2 units Pantoprazole Sodium (Protonix Ec Tab) 40 mg PO DAILY [facility] Last Admin: 10/15/18 11:11 Dose: 40 mg Potassium Chloride (Klor-Con 10) 10 meq PO DAILY [facility] Last Admin: 10/15/18 11:11 Dose: 10 meq Rosuvastatin Calcium (Crestor) 5 mg PO HS [facility] Last Admin: 10/14/18 22:35 Dose: 5 mg Sacubitril/Valsartan (Entresto 24 Mg-26 Mg) 1 tab PO BID [facility] Last Admin: 10/15/18 11:16 Dose: 1 tab Sitagliptin Phosphate (Januvia) 25 mg PO DAILY [facility] Last Admin: 10/15/18 11:12 Dose: 25 mg - Labs Labs: 10/15/18 07:31 10/15/18 07:31 PT 14.2 SECONDS (9.7-12.2) H 10/13/18 20:01 INR 1.3 10/13/18 20:01 APTT 29 SECONDS (21-34) 10/13/18 20:01 Attending/Attestation - Attestation I have personally seen and examined this patient.: Yes I have fully participated in the care of the patient.: Yes I have reviewed all pertinent clinical information, including history, physical exam and plan: Yes
--- NOTE | 2018-10-15 13:34 | CP.PCM.PN ---
<Janice Nieves - Last Filed: 10/15/18 17:23> Subjective - Date & Time of Evaluation Date of Evaluation: 10/15/18 Time of Evaluation: 13:31 - Subjective Subjective: Patient seen and examined at bedside. No overnight events reports. Denies any chest pain or palpitations. SOB has improved. Objective - Vital Signs/Intake and Output Vital Signs (last 24 hours): Temp Pulse Resp BP Pulse Ox 97.8 F 70 18 121/72 100 10/15/18 07:00 10/15/18 07:00 10/15/18 07:00 10/15/18 07:00 10/15/18 07:00 - Medications Medications: Current Medications Albuterol/Ipratropium (Duoneb 3 Mg/0.5 Mg (3 Ml) Ud) 3 ml INH RQ4 [facility] Last Admin: 10/15/18 11:23 Dose: 3 ml Allopurinol (Zyloprim) 100 mg PO DAILY [facility] Last Admin: 10/15/18 11:11 Dose: 100 mg Aspirin (Ecotrin) 81 mg PO DAILY [facility] Last Admin: 10/15/18 11:11 Dose: 81 mg Carvedilol (Coreg) 3.125 mg PO BID [facility] Last Admin: 10/15/18 11:19 Dose: Not Given Furosemide (Lasix) 40 mg IVP DAILY [facility] Last Admin: 10/15/18 11:19 Dose: Not Given Heparin Sodium (Porcine) (Heparin) 5,000 units SC Q12 [facility] Last Admin: 10/15/18 11:11 Dose: 5,000 units Insulin Human Regular (Novolin R) 0 unit SC ACHS [facility]; Protocol Last Admin: 10/15/18 12:30 Dose: 2 units Pantoprazole Sodium (Protonix Ec Tab) 40 mg PO DAILY [facility] Last Admin: 10/15/18 11:11 Dose: 40 mg Potassium Chloride (Klor-Con 10) 10 meq PO DAILY [facility] Last Admin: 10/15/18 11:11 Dose: 10 meq Rosuvastatin Calcium (Crestor) 5 mg PO HS [facility] Last Admin: 10/14/18 22:35 Dose: 5 mg Sacubitril/Valsartan (Entresto 24 Mg-26 Mg) 1 tab PO BID [facility] Last Admin: 10/15/18 11:16 Dose: 1 tab Sitagliptin Phosphate (Januvia) 25 mg PO DAILY [facility] Last Admin: 10/15/18 11:12 Dose: 25 mg - Labs Labs: 10/15/18 07:31 10/15/18 07:31 PT 14.2 SECONDS (9.7-12.2) H 10/13/18 20:01 INR 1.3 10/13/18 20:01 APTT 29 SECONDS (21-34) 10/13/18 20:01 Assessment and Plan - Assessment and Plan (Free Text) Assessment: This patient is a an 87 year old female with a PMhx of CHF with AICD, HTN, and DM who presents due to SOB x 3 days. Cardiology consulted on this patient for evaluation and treatment of acute on chronic CHF and for possible pacemaker interrogation. Plan: Acute on Chronic CHF Exacerbation/HFrEF' ECHO (11/2016): EF 25%, diastolic dysfunction, pacemaker lead in right ventricle, moderate AR, Severe MR, Severe Pulm HTN, trace post. pericardial effusion. Labs: BNP - 48279 ( Always elevated but this is the highest). Patient is on Entresto, so BNP may be unreliable. Troponins: NEGATIVE x 3. D-Dimer 1005 CXR (Admission): No Active Pulmonary Disease. V/Q Scan (10/14/18): Low probability for PE Mgmt: ECHO: Will review. Coreg 3.125 BID Lasix 40 IVP Daily Entresto 24-26 1tab PO Daily Dispo: Low suspicion that SOB is from CHF. Elevated BNP is from Entresto. No Lower Ext. Edema, No Rales on Exam, No Pulm Congestion on CXR. Will follow up ECHO. Janice Nieves, PGY-[address] Butterfield <Trenton Butterfield - Last Filed: 10/16/18 22:43> Objective - Vital Signs/Intake and Output Vital Signs (last 24 hours): Temp Pulse Resp BP Pulse Ox 97.6 F 83 20 122/79 97 10/16/18 16:00 10/16/18 16:00 10/16/18 16:00 10/16/18 16:00 10/16/18 16:00 - Medications Medications: Current Medications Albuterol/Ipratropium (Duoneb 3 Mg/0.5 Mg (3 Ml) Ud) 3 ml INH RQ6 [facility] Last Admin: 10/16/18 19:33 Dose: 3 ml Allopurinol (Zyloprim) 100 mg PO DAILY [facility] Last Admin: 10/16/18 09:20 Dose: 100 mg Aspirin (Ecotrin) 81 mg PO DAILY [facility] Last Admin: 10/16/18 09:20 Dose: 81 mg Carvedilol (Coreg) 3.125 mg PO BID [facility] Last Admin: 10/16/18 17:59 Dose: 3.125 mg Furosemide (Lasix) 40 mg PO DAILY [facility] Last Admin: 10/16/18 10:26 Dose: Not Given Guaifenesin/Dextromethorphan (Robitussin Dm) 10 ml PO Q6H [facility] Last Admin: 10/16/18 17:59 Dose: 10 ml Heparin Sodium (Porcine) (Heparin) 5,000 units SC Q12 [facility] Last Admin: 10/16/18 21:19 Dose: 5,000 units Azithromycin 500 mg/ Sodium (Chloride) 250 mls @ 250 mls/hr IVPB Q24H [facility]; Protocol Last Admin: 10/16/18 15:36 Dose: 250 mls/hr Insulin Human Regular (Novolin R) 0 unit SC ACHS [facility]; Protocol Last Admin: 10/16/18 21:16 Dose: Not Given Methylprednisolone (Solu-Medrol) 40 mg IV Q12 [facility] Last Admin: 10/16/18 21:18 Dose: 40 mg Pantoprazole Sodium (Protonix Ec Tab) 40 mg PO DAILY [facility] Last Admin: 10/16/18 09:19 Dose: 40 mg Potassium Chloride (Klor-Con 10) 10 meq PO DAILY [facility] Last Admin: 10/16/18 09:20 Dose: 10 meq Rosuvastatin Calcium (Crestor) 5 mg PO HS [facility] Last Admin: 10/16/18 21:18 Dose: 5 mg Sacubitril/Valsartan (Entresto 24 Mg-26 Mg) 1 tab PO BID [facility] Last Admin: 10/16/18 17:59 Dose: 1 tab Sitagliptin Phosphate (Januvia) 25 mg PO DAILY [facility] Last Admin: 10/16/18 09:22 Dose: 25 mg - Labs Labs: 10/16/18 06:49 10/16/18 06:42 PT 14.2 SECONDS (9.7-12.2) H 10/13/18 20:01 INR 1.3 10/13/18 20:01 APTT 29 SECONDS (21-34) 10/13/18 20:01 Assessment and Plan - Assessment and Plan (Free Text) Plan: Patient seen and evaluated personally by me. Plan of care d/w the ophthalmic medical assistant and as documented
--- NOTE | 2018-10-15 14:48 | CARD ---
APPROVED REPORT Date of service: 10/15/2018 EXAM: Two-dimensional and M-mode echocardiogram with Doppler and color Doppler. Other Information Quality : GoodRhythm : NSR INDICATION Pulmonary Hypertention Mitral Valve Disease Congestive Heart Failure Surgery/Intervention Pacemaker: RISK FACTORS Hypertension Hyperlipidemia Diabetes 2D DIMENSIONS IVSd1.1 (0.7-1.1cm)Aortic Root (2D)2.2 (2.0-3.7cm) LVDd5.6 (3.9-5.9cm)PWd1.1 (0.7-1.1cm) LA Cxqbws12 (18-58mL)LVDs4.6 (2.5-4.0cm) FS (%) 17.3 %LVEF (%)35.6 (>50%) M-Mode DIMENSIONS RVDd2.58 (2.1-3.2cm)Left Atrium (MM)4.98 (2.5-4.0cm) IVSd1.22 (0.7-1.1cm)Aortic Root2.99 (2.2-3.7cm) LVDd6.42 (4.0-5.6cm)Aortic Cusp Exc.1.59 (1.5-2.0cm) PWd1.14 (0.7-1.1cm)FS (%) 21 % LVDs5.05 (2.0-3.8cm)TAPSE16.59 cm LVEF (%)42 (>50%) Aortic Valve AoV Peak Wsayosgt885.9cm/Leny Peak GR.6mmHgLVOT Peak Ccyaanbx606.7cm/s LVOT VTI20.75cmAI P 1/2 Bshj474cs Mitral Valve MV E Hkjnwuei804.7cm/sMV A Fuovveht59.9cm/sMV GCW88ez E/A ratio1.1MVA (PHT)2.25cm2 TDI Lateral E' Peak V7.00cm/sMedial E' Peak V3.06cm/sE/Lateral E'14.7 E/Medial E'33.6 Tricuspid Valve TR Peak Iczshlow169lj/sTR Peak Gr.60zrRdKYND23hbLt LEFT VENTRICLE The Left Ventricle is moderately dilated. There is normal left ventricular wall thickness. Left ventricle systolic function is severely impaired. The Ejection Fraction is <20%. There is global hypokinesis of the left ventricle.Septum is akinetic Transmitral Doppler flow pattern is Grade II-pseudonormal filling dynamics. LV filling pressures are increased No left ventricle thrombus noted on this study. There is no ventricular septal defect visualized. There is no left ventricular aneurysm. There is no mass noted in the left ventricle. RIGHT VENTRICLE The right ventricle is mildly to moderately dilated. There is normal right ventricular wall thickness. The right ventricular systolic function is normal. There is a pacemaker lead in the right ventricle. ATRIA The left atrium is moderately dilated. The right atrium size is normal. The interatrial septum is intact with no evidence for an atrial septal defect. AORTIC VALVE The aortic valve is normal in structure and function. There is moderate aortic regurgitation. There is no aortic valvular stenosis. There is no aortic valvular vegetation. MITRAL VALVE The mitral valve is normal in structure and function. There is no evidence of mitral valve prolapse. There is no mitral valve stenosis. Mitral regurgitation is moderate to severe. TRICUSPID VALVE The tricuspid valve is normal in structure and function. There is no tricuspid valve regurgitation noted. There is no tricuspid valve prolapse or vegetation. There is no tricuspid valve stenosis. PULMONIC VALVE The pulmonary valve is normal in structure and function. There is no pulmonic valvular regurgitation. There is no pulmonic valvular stenosis. GREAT VESSELS The aortic root is normal in size. The ascending aorta is normal in size. The pulmonary artery is normal. The IVC is dilated. PERICARDIAL EFFUSION There is a small pericardial effusion. There is no pleural effusion. <Conclusion> The Left Ventricle is moderately dilated. Left ventricle systolic function is severely impaired. The Ejection Fraction is <20%. There is global hypokinesis of the left ventricle.Septum is akinetic Transmitral Doppler flow pattern is Grade II-pseudonormal filling dynamics. LV filling pressures are increased The left atrium is moderately dilated. There is no aortic valvular stenosis. There is moderate aortic regurgitation. Mitral regurgitation is moderate to severe. There is a small pericardial effusion.
--- NOTE | 2018-10-15 19:59 | CP.PCM.PN ---
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 of care no nausea, no vomiting, no dizziness, no fever, no diarrhea Objective - Vital Signs/Intake and Output Vital Signs (last 24 hours): Temp Pulse Resp BP Pulse Ox 98.1 F 70 20 112/61 100 10/15/18 15:00 10/15/18 15:23 10/15/18 15:00 10/15/18 15:00 10/15/18 15:00 - Medications Medications: Current Medications Albuterol/Ipratropium (Duoneb 3 Mg/0.5 Mg (3 Ml) Ud) 3 ml INH RQ4 [facility] Last Admin: 10/15/18 19:25 Dose: 3 ml Allopurinol (Zyloprim) 100 mg PO DAILY [facility] Last Admin: 10/15/18 11:11 Dose: 100 mg Aspirin (Ecotrin) 81 mg PO DAILY [facility] Last Admin: 10/15/18 11:11 Dose: 81 mg Carvedilol (Coreg) 3.125 mg PO BID [facility] Last Admin: 10/15/18 11:19 Dose: Not Given Furosemide (Lasix) 40 mg PO DAILY [facility] Heparin Sodium (Porcine) (Heparin) 5,000 units SC Q12 [facility] Last Admin: 10/15/18 11:11 Dose: 5,000 units Insulin Human Regular (Novolin R) 0 unit SC ACHS [facility]; Protocol Last Admin: 10/15/18 17:57 Dose: 2 units Pantoprazole Sodium (Protonix Ec Tab) 40 mg PO DAILY [facility] Last Admin: 10/15/18 11:11 Dose: 40 mg Potassium Chloride (Klor-Con 10) 10 meq PO DAILY [facility] Last Admin: 10/15/18 11:11 Dose: 10 meq Rosuvastatin Calcium (Crestor) 5 mg PO HS [facility] Last Admin: 10/14/18 22:35 Dose: 5 mg Sacubitril/Valsartan (Entresto 24 Mg-26 Mg) 1 tab PO BID [facility] Last Admin: 10/15/18 11:16 Dose: 1 tab Sitagliptin Phosphate (Januvia) 25 mg PO DAILY [facility] Last Admin: 10/15/18 11:12 Dose: 25 mg - Labs Labs: 10/15/18 07:31 10/15/18 07:31 PT 14.2 SECONDS (9.7-12.2) H 10/13/18 20:01 INR 1.3 10/13/18 20:01 APTT 29 SECONDS (21-34) 10/13/18 20:01 - Constitutional Appears: Well - Head Exam Head Exam: ATRAUMATIC, NORMAL INSPECTION, NORMOCEPHALIC - Eye Exam Eye Exam: EOMI, Normal appearance, PERRL Pupil Exam: NORMAL ACCOMODATION, PERRL - ENT Exam ENT Exam: Mucous Membranes Moist, Normal Exam - Neck Exam Neck Exam: Full ROM, Normal Inspection. absent: Lymphadenopathy - Respiratory Exam Respiratory Exam: Decreased Breath Sounds - Cardiovascular Exam Cardiovascular Exam: REGULAR RHYTHM, +S1, +S2 - GI/Abdominal Exam GI & Abdominal Exam: Soft, Diminished Bowel Sounds - Rectal Exam Rectal Exam: Deferred - Neurological Exam Neurological Exam: Oriented x3 Assessment and Plan (1) BILL (acute kidney injury) Status: Acute (2) Acute bronchitis Status: Acute (3) Acute exacerbation of CHF (congestive heart failure) Status: Acute (4) CHF (congestive heart failure) Status: Acute (5) Cardiomyopathy Status: Acute (6) Chest pain Status: Acute (7) Community acquired pneumonia Status: Acute (8) Congestive heart failure Status: Acute (9) Decreased cardiac ejection fraction Status: Acute (10) Diabetes mellitus Status: Acute (11) Dyspnea Status: Acute (12) Electrolyte disturbance Status: Acute (13) History of hyperlipidemia Status: Acute (14) Hypokalemia Status: Acute (15) Pneumonia Status: Acute (16) Renal insufficiency Status: Acute (17) Respiratory distress Status: Acute (18) Shortness of breath Status: Acute (19) Pacemaker Status: Chronic - Assessment and Plan (Free Text) Plan: medications reviewed labs reviewed vitals reviewed azithromycin coreg crestor duoneb ecotrin entresto januvia klor-con lasix novolin R protonix ec tab robitussin dm solu-medrol zyloprim moderate complexity of care s/p pulm s/p cardio 87 year old female with past medical history of HTN, DM, CHF s/p pacemaker, HLD, hx of PE (post op) is admitted for respiratory distress, CHF exacerbation Respiratory distress - Resolved - On admission, CXr showed no active pulm disease - [place] [address] - D Dimer elevated at 1005. VQ scan done showed low probability of PE - Pulm, Dr. Robin consulted CHF exacerbation - Pacemaker in place - Lasixs 40 mg po qd - Continue home med Entresto 1 tab po bid, Aspirin 81 mg po qd, - Will consult cardio, Dr. Butterfield - Will check echo and LE duplex HTN - Continue home med Entresto DM - Pt restarted on home med Linagliptin - HgbA1c is 6.6 - lipid panel normal - Accuchecks - hypoglycemic protocol - ISS HLD - Continue home statin dose BILL - Improving - Avoid nephrotoxic med Prophylaxis - Protonix - heparin
[2018-10-16] MEDS: Albuterol-Ipratrop 3 mg / 0.5 (3 ml) UD INH SCH ×6 (00:30→19:33)
[2018-10-16] MEDS ORDERED: guaiFENesin DM 100 mg-10 mg/5 ml UD PO ONE (04:01)
[2018-10-16 07:15] LABS: BASO % 0.1 % (0.0-2.0); EOS % 0.2 % (0.0-4.0); HEMOGLOBIN 10.2 g/dL (11.0-16.0); LYMPH # 0.6 K/uL (1.0-4.3); LYMPH % 10.4 % (20.0-40.0); MEAN CELL VOLUME 93.5 fL (81.0-99.0); MEAN CORPUSCULAR HEMOGLOBIN 30.9 pg (27.0-31.0); MEAN CORPUSCULAR HGB CONC 33.1 g/dL (33.0-37.0); MEAN PLATELET VOLUME 10.9 fL (7.2-11.7); MONO # 0.5 K/uL (0.0-0.8); MONO % 8.6 % (0.0-10.0); NEUT % 80.7 % (50.0-75.0); NRBC % 0.1 % (0.0-2.0); RBC 3.3 Mil/uL (3.80-5.20); RED CELL DISTRIBUTION WIDTH 17.8 % (11.5-14.5); WHITE BLOOD COUNT 6.2 K/uL (4.8-10.8)
[2018-10-16 07:28] LABS: ALB/GLOB RATIO 1.2 (1.0-2.1); ALBUMIN 3.2 g/dL (3.5-5.0); CALCIUM 9.2 mg/dl (8.6-10.4)
[2018-10-16] MEDS: (Novolin R) Insulin Human Regular 100 units/ml vial SC SCH ×4 (08:55→21:16)
[2018-10-16] MEDS: Pantoprazole 40 mg EC Tab PO SCH (09:19)
[2018-10-16] MEDS: Sacubitril/Valsartan 24-26mg Tab PO SCH ×2 (09:20→17:59)
[2018-10-16] MEDS: Potassium Chloride 10 mEq ER Tab PO SCH (09:20)
[2018-10-16] MEDS: guaiFENesin DM 200 mg-20 mg/10 ml UD PO SCH ×2 (12:45→17:59)
--- NOTE | 2018-10-16 14:05 | CP.PCM.PN ---
Subjective - Date & Time of Evaluation Date of Evaluation: 10/16/18 Time of Evaluation: 13:00 - Subjective Subjective: Patient seen and examined Persistent cough productive of copious phlegm, wheezing and shortness of breath Afebrile Objective - Vital Signs/Intake and Output Vital Signs (last 24 hours): Temp Pulse Resp BP Pulse Ox 97.8 F 70 18 117/77 100 10/16/18 07:00 10/16/18 08:24 10/16/18 07:00 10/16/18 07:00 10/16/18 07:00 - Medications Medications: Current Medications Albuterol/Ipratropium (Duoneb 3 Mg/0.5 Mg (3 Ml) Ud) 3 ml INH RQ6 [facility] Last Admin: 10/16/18 13:09 Dose: Not Given Allopurinol (Zyloprim) 100 mg PO DAILY [facility] Last Admin: 10/16/18 09:20 Dose: 100 mg Aspirin (Ecotrin) 81 mg PO DAILY [facility] Last Admin: 10/16/18 09:20 Dose: 81 mg Carvedilol (Coreg) 3.125 mg PO BID [facility] Last Admin: 10/16/18 09:19 Dose: 3.125 mg Furosemide (Lasix) 40 mg PO DAILY [facility] Guaifenesin/Dextromethorphan (Robitussin Dm) 10 ml PO Q6H [facility] Last Admin: 10/16/18 12:45 Dose: 10 ml Heparin Sodium (Porcine) (Heparin) 5,000 units SC Q12 [facility] Last Admin: 10/16/18 09:19 Dose: 5,000 units Azithromycin 500 mg/ Sodium (Chloride) 250 mls @ 250 mls/hr IVPB DAILY [facility]; Protocol Insulin Human Regular (Novolin R) 0 unit SC ACHS [facility]; Protocol Last Admin: 10/16/18 11:43 Dose: Not Given Pantoprazole Sodium (Protonix Ec Tab) 40 mg PO DAILY [facility] Last Admin: 10/16/18 09:19 Dose: 40 mg Potassium Chloride (Klor-Con 10) 10 meq PO DAILY [facility] Last Admin: 10/16/18 09:20 Dose: 10 meq Rosuvastatin Calcium (Crestor) 5 mg PO HS [facility] Last Admin: 10/15/18 21:37 Dose: 5 mg Sacubitril/Valsartan (Entresto 24 Mg-26 Mg) 1 tab PO BID [facility] Last Admin: 10/16/18 09:20 Dose: 1 tab Sitagliptin Phosphate (Januvia) 25 mg PO DAILY [facility] Last Admin: 10/16/18 09:22 Dose: 25 mg - Labs Labs: 10/16/18 06:49 10/16/18 06:42 PT 14.2 SECONDS (9.7-12.2) H 10/13/18 20:01 INR 1.3 10/13/18 20:01 APTT 29 SECONDS (21-34) 10/13/18 20:01 - Head Exam Head Exam: ATRAUMATIC, NORMOCEPHALIC - ENT Exam ENT Exam: Mucous Membranes Moist - Neck Exam Neck Exam: Normal Inspection - Respiratory Exam Respiratory Exam: Rhonchi, Wheezes - Cardiovascular Exam Cardiovascular Exam: REGULAR RHYTHM - GI/Abdominal Exam GI & Abdominal Exam: Soft, Normal Bowel Sounds Assessment and Plan (1) Acute bronchitis Assessment & Plan: Started on Solu-Medrol and azithromycin Continue antitussive Severely reduced ejection fraction consistent with CHF Cardiac workup Status: Acute (2) Renal insufficiency Status: Acute
[2018-10-16] MEDS: MethylPREDNISolone 40 mg Vial IV SCH ×2 (14:36→21:18)
--- NOTE | 2018-10-16 15:34 | CP.PCM.PN ---
Subjective - Date & Time of Evaluation Date of Evaluation: 10/16/18 - Subjective Subjective: patient examined today no nausea, no vomiting, no fever, no dizziness, no sob, no diarrhea Objective - Vital Signs/Intake and Output Vital Signs (last 24 hours): Temp Pulse Resp BP Pulse Ox 97.8 F 70 18 117/77 100 10/16/18 07:00 10/16/18 08:24 10/16/18 07:00 10/16/18 07:00 10/16/18 07:00 - Medications Medications: Current Medications Albuterol/Ipratropium (Duoneb 3 Mg/0.5 Mg (3 Ml) Ud) 3 ml INH RQ6 ON [facility] OF [facility] Last Admin: 10/16/18 13:09 Dose: Not Given Allopurinol (Zyloprim) 100 mg PO DAILY ON [facility] Last Admin: 10/16/18 09:20 Dose: 100 mg Aspirin (Ecotrin) 81 mg PO DAILY [facility] Last Admin: 10/16/18 09:20 Dose: 81 mg Carvedilol (Coreg) 3.125 mg PO BID [facility] Last Admin: 10/16/18 09:19 Dose: 3.125 mg Furosemide (Lasix) 40 mg PO DAILY [facility] Last Admin: 10/16/18 10:26 Dose: Not Given Guaifenesin/Dextromethorphan (Robitussin Dm) 10 ml PO Q6H [facility] Last Admin: 10/16/18 12:45 Dose: 10 ml Heparin Sodium (Porcine) (Heparin) 5,000 units SC Q12 [facility] OF [facility] Last Admin: 10/16/18 09:19 Dose: 5,000 units Azithromycin 500 mg/ Sodium (Chloride) 250 mls @ 250 mls/hr IVPB Q24H [facility]; Protocol Insulin Human Regular (Novolin R) 0 unit SC ACHS [facility]; Protocol Last Admin: 10/16/18 11:43 Dose: Not Given Methylprednisolone (Solu-Medrol) 40 mg IV Q12 [facility] Last Admin: 10/16/18 14:36 Dose: 40 mg Pantoprazole Sodium (Protonix Ec Tab) 40 mg PO DAILY [facility] Last Admin: 10/16/18 09:19 Dose: 40 mg Potassium Chloride (Klor-Con 10) 10 meq PO DAILY [facility] Last Admin: 10/16/18 09:20 Dose: 10 meq Rosuvastatin Calcium (Crestor) 5 mg PO HS [facility] Last Admin: 10/15/18 21:37 Dose: 5 mg Sacubitril/Valsartan (Entresto 24 Mg-26 Mg) 1 tab PO BID [facility] Last Admin: 10/16/18 09:20 Dose: 1 tab Sitagliptin Phosphate (Januvia) 25 mg PO DAILY [facility] Last Admin: 10/16/18 09:22 Dose: 25 mg - Labs Labs: 10/16/18 06:49 10/16/18 06:42 PT 14.2 SECONDS (9.7-12.2) H 10/13/18 20:01 INR 1.3 10/13/18 20:01 APTT 29 SECONDS (21-34) 10/13/18 20:01 - Constitutional Appears: Well - Head Exam Head Exam: ATRAUMATIC, NORMAL INSPECTION, NORMOCEPHALIC - Eye Exam Eye Exam: EOMI, Normal appearance, PERRL Pupil Exam: NORMAL ACCOMODATION, PERRL - ENT Exam ENT Exam: Mucous Membranes Moist, Normal Exam - Neck Exam Neck Exam: Full ROM, Normal Inspection. absent: Lymphadenopathy - Respiratory Exam Respiratory Exam: Decreased Breath Sounds - Cardiovascular Exam Cardiovascular Exam: REGULAR RHYTHM, +S1, +S2 - GI/Abdominal Exam GI & Abdominal Exam: Soft, Diminished Bowel Sounds - Rectal Exam Rectal Exam: Deferred - Neurological Exam Neurological Exam: Oriented x3 Assessment and Plan - Assessment and Plan (Free Text) Plan: azithromycin coreg crestor duoneb ecotrin entresto januvia klor-con lasix novolin R protonix ec tab robitussin dm solu-medrol zyloprim
[2018-10-16] MEDS: Azithromycin 500 MG in Sodium Chloride 0.9% 250 ML IVPB SCH (15:36)
--- NOTE | 2018-10-16 22:49 | CP.PCM.PN ---
Subjective - Date & Time of Evaluation Date of Evaluation: 10/16/18 Time of Evaluation: 09:30 - Subjective Subjective: Patient seen and examined at bedside. Cough and white phlegm. Denies any chest pain or palpitations. SOB has improved. Objective Assessment and Plan - Assessment and Plan (Free Text) Assessment: This patient is a an 87 year old female with a PMhx of CHF with AICD, HTN, and DM who presents due to SOB x 3 days. Cardiology consulted on this patient for evaluation and treatment of acute on chronic CHF and for possible pacemaker interrogation. Plan: Acute on Chronic CHF Exacerbation/HFrEF' ECHO (11/2016): EF 25%, diastolic dysfunction, pacemaker lead in right ventricle, moderate AR, Severe MR, Severe Pulm HTN, trace post. pericardial effusion. Labs: BNP - 54219 ( Always elevated but this is the highest). Troponins: NEGATIVE x 3. D-Dimer 1005 CXR (Admission): No Active Pulmonary Disease. V/Q Scan (10/14/18): Low probability for PE Mgmt: ECHO: Will review. Coreg 3.125 BID Lasix 20 IVP bid Entresto 24-26 1tab PO Daily Objective - Vital Signs/Intake and Output Vital Signs (last 24 hours): Temp Pulse Resp BP Pulse Ox 97.6 F 83 20 122/79 97 10/16/18 16:00 10/16/18 16:00 10/16/18 16:00 10/16/18 16:00 10/16/18 16:00 - Medications Medications: Current Medications Albuterol/Ipratropium (Duoneb 3 Mg/0.5 Mg (3 Ml) Ud) 3 ml INH RQ6 [facility] Last Admin: 10/16/18 19:33 Dose: 3 ml Allopurinol (Zyloprim) 100 mg PO DAILY [facility] Last Admin: 10/16/18 09:20 Dose: 100 mg Aspirin (Ecotrin) 81 mg PO DAILY [facility] Last Admin: 10/16/18 09:20 Dose: 81 mg Carvedilol (Coreg) 3.125 mg PO BID [facility] Last Admin: 10/16/18 17:59 Dose: 3.125 mg Furosemide (Lasix) 20 mg IVP BID [facility] Guaifenesin/Dextromethorphan (Robitussin Dm) 10 ml PO Q6H [facility] Last Admin: 10/16/18 17:59 Dose: 10 ml Heparin Sodium (Porcine) (Heparin) 5,000 units SC Q12 [facility] Last Admin: 10/16/18 21:19 Dose: 5,000 units Azithromycin 500 mg/ Sodium (Chloride) 250 mls @ 250 mls/hr IVPB Q24H [facility]; Protocol Last Admin: 10/16/18 15:36 Dose: 250 mls/hr Insulin Human Regular (Novolin R) 0 unit SC ACHS [facility]; Protocol Last Admin: 10/16/18 21:16 Dose: Not Given Methylprednisolone (Solu-Medrol) 40 mg IV Q12 [facility] Last Admin: 10/16/18 21:18 Dose: 40 mg Pantoprazole Sodium (Protonix Ec Tab) 40 mg PO DAILY [facility] Last Admin: 10/16/18 09:19 Dose: 40 mg Potassium Chloride (Klor-Con 10) 10 meq PO DAILY [facility] Last Admin: 10/16/18 09:20 Dose: 10 meq Rosuvastatin Calcium (Crestor) 5 mg PO HS [facility] Last Admin: 10/16/18 21:18 Dose: 5 mg Sacubitril/Valsartan (Entresto 24 Mg-26 Mg) 1 tab PO BID [facility] Last Admin: 10/16/18 17:59 Dose: 1 tab Sitagliptin Phosphate (Januvia) 25 mg PO DAILY [facility] Last Admin: 10/16/18 09:22 Dose: 25 mg - Labs Labs: 10/16/18 06:49 10/16/18 06:42 PT 14.2 SECONDS (9.7-12.2) H 10/13/18 20:01 INR 1.3 10/13/18 20:01 APTT 29 SECONDS (21-34) 10/13/18 20:01
[2018-10-17] MEDS: guaiFENesin DM 200 mg-20 mg/10 ml UD PO SCH ×4 (00:05→19:05)
[2018-10-17] MEDS: Albuterol-Ipratrop 3 mg / 0.5 (3 ml) UD INH SCH ×4 (01:21→19:24)
[2018-10-17] MEDS: (Novolin R) Insulin Human Regular 100 units/ml vial SC SCH ×4 (08:34→22:45)
[2018-10-17] MEDS: Potassium Chloride 10 mEq ER Tab PO SCH (09:38)
[2018-10-17] MEDS: Pantoprazole 40 mg EC Tab PO SCH (09:38)
[2018-10-17] MEDS: Sacubitril/Valsartan 24-26mg Tab PO SCH ×2 (09:38→17:50)
[2018-10-17] MEDS: MethylPREDNISolone 40 mg Vial IV SCH (09:38)
[2018-10-17] MEDS: Azithromycin 500 MG in Sodium Chloride 0.9% 250 ML IVPB SCH (16:51)
--- NOTE | 2018-10-17 20:01 | CP.PCM.PN ---
Subjective - Date & Time of Evaluation Date of Evaluation: 10/17/18 Time of Evaluation: 17:20 - Subjective Subjective: Patient seen and examined Still having wheezing, productive cough and shortness of breath Coughing up tends to clear secretions more consistent with CHF Increase steroids and continue nebulizer treatment Consider to increase Lasix Objective - Vital Signs/Intake and Output Vital Signs (last 24 hours): Temp Pulse Resp BP Pulse Ox 97.4 F L 77 20 137/72 100 10/17/18 15:00 10/17/18 15:34 10/17/18 15:00 10/17/18 17:51 10/17/18 15:00 - Medications Medications: Current Medications Albuterol/Ipratropium (Duoneb 3 Mg/0.5 Mg (3 Ml) Ud) 3 ml INH RQ6 [facility] Last Admin: 10/17/18 19:24 Dose: 3 ml Allopurinol (Zyloprim) 100 mg PO DAILY [facility] Last Admin: 10/17/18 09:38 Dose: 100 mg Aspirin (Ecotrin) 81 mg PO DAILY [facility] Last Admin: 10/17/18 09:38 Dose: 81 mg Carvedilol (Coreg) 3.125 mg PO BID [facility] Last Admin: 10/17/18 17:49 Dose: 3.125 mg Furosemide (Lasix) 20 mg IVP BID [facility] Last Admin: 10/17/18 17:51 Dose: 20 mg Guaifenesin/Dextromethorphan (Robitussin Dm) 10 ml PO Q6H [facility] Last Admin: 10/17/18 14:24 Dose: 10 ml Azithromycin 500 mg/ Sodium (Chloride) 250 mls @ 250 mls/hr IVPB Q24H [facility]; Protocol Last Admin: 10/17/18 16:51 Dose: 250 mls/hr Insulin Human Regular (Novolin R) 0 unit SC ACHS [facility]; Protocol Last Admin: 10/17/18 17:50 Dose: 2 units Methylprednisolone (Solu-Medrol) 40 mg IV Q6 [facility] Pantoprazole Sodium (Protonix Ec Tab) 40 mg PO DAILY [facility] Last Admin: 10/17/18 09:38 Dose: 40 mg Potassium Chloride (Klor-Con 10) 10 meq PO DAILY [facility] Last Admin: 10/17/18 09:38 Dose: 10 meq Rosuvastatin Calcium (Crestor) 5 mg PO HS [facility] Last Admin: 10/16/18 21:18 Dose: 5 mg Sacubitril/Valsartan (Entresto 24 Mg-26 Mg) 1 tab PO BID [facility] Last Admin: 10/17/18 17:50 Dose: 1 tab Sitagliptin Phosphate (Januvia) 25 mg PO DAILY [facility] Last Admin: 10/17/18 09:38 Dose: 25 mg - Labs Labs: 10/16/18 06:49 10/16/18 06:42 PT 14.2 SECONDS (9.7-12.2) H 10/13/18 20:01 INR 1.3 10/13/18 20:01 APTT 29 SECONDS (21-34) 10/13/18 20:01 Assessment and Plan (1) Acute bronchitis Status: Acute (2) Renal insufficiency Status: Acute
--- NOTE | 2018-10-17 21:01 | CP.PCM.PN ---
Subjective - Date & Time of Evaluation Date of Evaluation: 10/17/18 - Subjective Subjective: patient seen and examined today no nausea, no vomiting, no dizziness, no diarrhea, no fever, no sob Objective - Vital Signs/Intake and Output Vital Signs (last 24 hours): Temp Pulse Resp BP Pulse Ox 97.4 F L 77 20 137/72 100 10/17/18 15:00 10/17/18 15:34 10/17/18 15:00 10/17/18 17:51 10/17/18 15:00 - Medications Medications: Current Medications Albuterol/Ipratropium (Duoneb 3 Mg/0.5 Mg (3 Ml) Ud) 3 ml INH RQ6 [facility] Last Admin: 10/17/18 19:24 Dose: 3 ml Allopurinol (Zyloprim) 100 mg PO DAILY [facility] Last Admin: 10/17/18 09:38 Dose: 100 mg Aspirin (Ecotrin) 81 mg PO DAILY [facility] Last Admin: 10/17/18 09:38 Dose: 81 mg Carvedilol (Coreg) 3.125 mg PO BID [facility] Last Admin: 10/17/18 17:49 Dose: 3.125 mg Furosemide (Lasix) 20 mg IVP BID [facility] Last Admin: 10/17/18 17:51 Dose: 20 mg Guaifenesin/Dextromethorphan (Robitussin Dm) 10 ml PO Q6H [facility] Last Admin: 10/17/18 14:24 Dose: 10 ml Azithromycin 500 mg/ Sodium (Chloride) 250 mls @ 250 mls/hr IVPB Q24H [facility]; Protocol Last Admin: 10/17/18 16:51 Dose: 250 mls/hr Insulin Human Regular (Novolin R) 0 unit SC ACHS [facility]; Protocol Last Admin: 10/17/18 17:50 Dose: 2 units Methylprednisolone (Solu-Medrol) 40 mg IVP Q6 [facility] Pantoprazole Sodium (Protonix Ec Tab) 40 mg PO DAILY [facility] Last Admin: 10/17/18 09:38 Dose: 40 mg Potassium Chloride (Klor-Con 10) 10 meq PO DAILY [facility] Last Admin: 10/17/18 09:38 Dose: 10 meq Rosuvastatin Calcium (Crestor) 5 mg PO HS [facility] Last Admin: 10/16/18 21:18 Dose: 5 mg Sacubitril/Valsartan (Entresto 24 Mg-26 Mg) 1 tab PO BID [facility] Last Admin: 10/17/18 17:50 Dose: 1 tab Sitagliptin Phosphate (Januvia) 25 mg PO DAILY [facility] Last Admin: 10/17/18 09:38 Dose: 25 mg - Labs Labs: 10/16/18 06:49 10/16/18 06:42 PT 14.2 SECONDS (9.7-12.2) H 10/13/18 20:01 INR 1.3 10/13/18 20:01 APTT 29 SECONDS (21-34) 10/13/18 20:01 - Constitutional Appears: Well - Head Exam Head Exam: ATRAUMATIC, NORMAL INSPECTION, NORMOCEPHALIC - Eye Exam Eye Exam: EOMI, Normal appearance, PERRL Pupil Exam: NORMAL ACCOMODATION, PERRL - ENT Exam ENT Exam: Mucous Membranes Moist, Normal Exam - Neck Exam Neck Exam: Full ROM, Normal Inspection. absent: Lymphadenopathy - Respiratory Exam Respiratory Exam: Decreased Breath Sounds - Cardiovascular Exam Cardiovascular Exam: REGULAR RHYTHM, +S1, +S2 - GI/Abdominal Exam GI & Abdominal Exam: Soft, Diminished Bowel Sounds - Rectal Exam Rectal Exam: Deferred - Neurological Exam Neurological Exam: Oriented x3 Assessment and Plan - Assessment and Plan (Free Text) Plan: patient is feeling much better possible discharge tomorrow, patient understands this will give po antibiotics will give po steroids patient enouraged to take medicine patient encouraged for follow up since patient has missed a lot of follow up medications reviewed labs reviewed vitals reviewed azithromycin coreg crestor duoneb ecotrin entresto januvia klor-con lasix novolin R protonix ec tab robitussin dm solu-medrol zyloprim
--- NOTE | 2018-10-17 22:32 | CP.PCM.PN ---
Subjective - Date & Time of Evaluation Date of Evaluation: 10/17/18 Time of Evaluation: 20:20 - Subjective Subjective: Patient seen and evaluated no improvement in breathing Lasix increased to 40 bid Objective - Vital Signs/Intake and Output Vital Signs (last 24 hours): Temp Pulse Resp BP Pulse Ox 97.4 F L 77 20 137/72 100 10/17/18 15:00 10/17/18 15:34 10/17/18 15:00 10/17/18 17:51 10/17/18 15:00 - Medications Medications: Current Medications Albuterol/Ipratropium (Duoneb 3 Mg/0.5 Mg (3 Ml) Ud) 3 ml INH RQ6 [facility] Last Admin: 10/17/18 19:24 Dose: 3 ml Allopurinol (Zyloprim) 100 mg PO DAILY [facility] Last Admin: 10/17/18 09:38 Dose: 100 mg Aspirin (Ecotrin) 81 mg PO DAILY [facility] Last Admin: 10/17/18 09:38 Dose: 81 mg Carvedilol (Coreg) 3.125 mg PO BID [facility] Last Admin: 10/17/18 17:49 Dose: 3.125 mg Guaifenesin/Dextromethorphan (Robitussin Dm) 10 ml PO Q6H [facility] Last Admin: 10/17/18 14:24 Dose: 10 ml Azithromycin 500 mg/ Sodium (Chloride) 250 mls @ 250 mls/hr IVPB Q24H [facility]; Protocol Last Admin: 10/17/18 16:51 Dose: 250 mls/hr Insulin Human Regular (Novolin R) 0 unit SC ACHS [facility]; Protocol Last Admin: 10/17/18 17:50 Dose: 2 units Methylprednisolone (Solu-Medrol) 40 mg IVP Q6 [facility] Pantoprazole Sodium (Protonix Ec Tab) 40 mg PO DAILY [facility] Last Admin: 10/17/18 09:38 Dose: 40 mg Potassium Chloride (Klor-Con 10) 10 meq PO DAILY [facility] Last Admin: 10/17/18 09:38 Dose: 10 meq Rosuvastatin Calcium (Crestor) 5 mg PO HS [facility] Last Admin: 10/16/18 21:18 Dose: 5 mg Sacubitril/Valsartan (Entresto 24 Mg-26 Mg) 1 tab PO BID [facility] Last Admin: 10/17/18 17:50 Dose: 1 tab Sitagliptin Phosphate (Januvia) 25 mg PO DAILY [facility] Last Admin: 10/17/18 09:38 Dose: 25 mg - Labs Labs: 10/16/18 06:49 10/16/18 06:42 PT 14.2 SECONDS (9.7-12.2) H 10/13/18 20:01 INR 1.3 10/13/18 20:01 APTT 29 SECONDS (21-34) 10/13/18 20:01
[2018-10-18] MEDS: guaiFENesin DM 200 mg-20 mg/10 ml UD PO SCH ×2 (00:26→06:38)
[2018-10-18] MEDS: MethylPREDNISolone 40 mg Vial IVP SCH ×3 (00:27→17:27)
[2018-10-18] MEDS: Albuterol-Ipratrop 3 mg / 0.5 (3 ml) UD INH SCH ×4 (01:34→19:34)
[2018-10-18 07:16] LABS: BASO % 0.3 % (0.0-2.0); EOS % 0.2 % (0.0-4.0); HEMOGLOBIN 11.2 g/dL (11.0-16.0); LYMPH # 0.4 K/uL (1.0-4.3); LYMPH % 5.2 % (20.0-40.0); MEAN CELL VOLUME 94.1 fL (81.0-99.0); MEAN CORPUSCULAR HEMOGLOBIN 30.8 pg (27.0-31.0); MEAN CORPUSCULAR HGB CONC 32.8 g/dL (33.0-37.0); MONO # 0.2 K/uL (0.0-0.8); MONO % 2.3 % (0.0-10.0); NEUT # 6.4 K/uL (1.8-7.0); NRBC % 0.1 % (0.0-2.0); PLATELET COUNT 108 K/uL (130-400); RBC 3.62 Mil/uL (3.80-5.20); RED CELL DISTRIBUTION WIDTH 18.6 % (11.5-14.5); WHITE BLOOD COUNT 6.9 K/uL (4.8-10.8)
[2018-10-18 07:51] LABS: CALCIUM 9.3 mg/dl (8.6-10.4)
--- NOTE | 2018-10-18 08:09 | CP.PCM.PN ---
Subjective - Date & Time of Evaluation Date of Evaluation: 10/18/18 Time of Evaluation: 08:00 - Subjective Subjective: Medicine Progress Note for Dr. Eboni Diaz: Patient was seen and examined at bedside. Patient continues to complain of a productive cough. Objective - Vital Signs/Intake and Output Vital Signs (last 24 hours): Temp Pulse Resp BP Pulse Ox 97.6 F 88 20 144/78 99 10/18/18 04:41 10/18/18 04:41 10/18/18 04:41 10/18/18 04:41 10/18/18 04:41 - Medications Medications: Current Medications Albuterol/Ipratropium (Duoneb 3 Mg/0.5 Mg (3 Ml) Ud) 3 ml INH RQ6 [facility] Last Admin: 10/18/18 01:34 Dose: 3 ml Allopurinol (Zyloprim) 100 mg PO DAILY [facility] Last Admin: 10/17/18 09:38 Dose: 100 mg Aspirin (Ecotrin) 81 mg PO DAILY [facility] Last Admin: 10/17/18 09:38 Dose: 81 mg Carvedilol (Coreg) 3.125 mg PO BID [facility] Last Admin: 10/17/18 17:49 Dose: 3.125 mg Furosemide (Lasix) 40 mg IVP BID [facility] Guaifenesin/Dextromethorphan (Robitussin Dm) 10 ml PO Q6H [facility] Last Admin: 10/18/18 06:38 Dose: 10 ml Azithromycin 500 mg/ Sodium (Chloride) 250 mls @ 250 mls/hr IVPB Q24H [facility]; Protocol Last Admin: 10/17/18 16:51 Dose: 250 mls/hr Insulin Human Regular (Novolin R) 0 unit SC ACHS [facility]; Protocol Last Admin: 10/17/18 22:45 Dose: Not Given Methylprednisolone (Solu-Medrol) 40 mg IVP Q6 [facility] Last Admin: 10/18/18 06:38 Dose: 40 mg Pantoprazole Sodium (Protonix Ec Tab) 40 mg PO DAILY [facility] Last Admin: 10/17/18 09:38 Dose: 40 mg Potassium Chloride (Klor-Con 10) 10 meq PO DAILY [facility] Last Admin: 10/17/18 09:38 Dose: 10 meq Rosuvastatin Calcium (Crestor) 5 mg PO HS [facility] Last Admin: 10/17/18 22:44 Dose: 5 mg Sacubitril/Valsartan (Entresto 24 Mg-26 Mg) 1 tab PO BID [facility] Last Admin: 10/17/18 17:50 Dose: 1 tab Sitagliptin Phosphate (Januvia) 25 mg PO DAILY [facility] Last Admin: 10/17/18 09:38 Dose: 25 mg - Labs Labs: 10/18/18 07:10 10/18/18 07:10 PT 14.2 SECONDS (9.7-12.2) H 10/13/18 20:01 INR 1.3 10/13/18 20:01 APTT 29 SECONDS (21-34) 10/13/18 20:01 - Constitutional Appears: No Acute Distress, Chronically Ill - Head Exam Head Exam: ATRAUMATIC, NORMAL INSPECTION - Eye Exam Eye Exam: EOMI, Normal appearance - ENT Exam ENT Exam: Mucous Membranes Moist - Respiratory Exam Respiratory Exam: Rhonchi, NORMAL BREATHING PATTERN Assessment and Plan - Assessment and Plan (Free Text) Assessment: 87 year old female with past medical history of HTN, DM, CHF s/p pacemaker, HLD, hx of PE (post op) is admitted for respiratory distress, CHF exacerbation Shortness of Breath [place] [address] - Pulm, Dr. Robin consulted --> help appreciated - D Dimer elevated at 1005. - Imaging: * On admission, CXr showed no active pulm disease * VQ scan done showed low probability of PE * LE Doppler: negative * Chest Xray: Moderate venous congestion. Right hilar prominence. Cardiomegaly. Left sided pacemaker. * f/u Chest CT - Medications * Rin-Medrol 40mg IV q6h * Azithromycin 500mg q24h * Duonebs q6h * Tessalon Pearls 100mg po TID for cough CHF exacerbation - Pacemaker in place - Will consult cardio, Dr. Butterfield --> help appreciated - Imaging: * LE Doppler: negative * ECHO (10/15/18): EF <20%; left ventricle is moderately dilated. Left ventricle systolic function is severely impaired. - Medication * Lasix 40 mg po qd * Entresto 1 tab po bid * Aspirin 81 mg po qd * Carvedilol 3.125mg po bid * Crestor 5mg po HS History of HTN - Continue home med Entresto History of Diabetes Type II - HgbA1c (10/15/18) is 6.6 - Lipid Panel: Total Cholesterol 96; LDL 60; HDL 41; Triglycerides 49 - Accuchecks - hypoglycemic protocol - Medications: * ISS * Januvia 25mg po daily History of HLD - Lipid Panel: Total Cholesterol 96; LDL 60; HDL 41; Triglycerides 49 - Crestor 5mg po HS History of BILL - Improving - Avoid nephrotoxic med Prophylaxis - Protonix 40mg po daily - heparin SC q8h - Florastor 250mg bid All management per Dr. Eboni Delacruz PGY-2
--- NOTE | 2018-10-18 08:12 | PCM.HF ---
Heart Failure Core Measure - Heart Failure Ejection Fraction: Less Than 40 % JACQUES Inhibitor Prescribed: Yes Beta-Yvette Prescribed: Carvedilol Angiotensin II Receptor Yvette Prescribed: Yes
[2018-10-18 08:38] LABS: BANDS 3 % (0-2); LYMPHOCYTE 6 % (20-40); MONOCYTE 2 % (0-10); NEUTROPHIL 89 % (50-75); PLATELET ESTIMATE SLIGHTLY DECREASED (NORMAL); TOTAL CELLS COUNTED 100
[2018-10-18 08:39] LABS: ANISOCYTOSIS SLIGHT
--- NOTE | 2018-10-18 09:15 | CP.PCM.PN ---
<Margarita Flores - Last Filed: 10/18/18 11:01> Subjective - Date & Time of Evaluation Date of Evaluation: 10/18/18 Time of Evaluation: 09:08 - Subjective Subjective: Pulmonary Progress note for Dr. Robin's service Patient was seen and examined at bedside. Patient says she feels weak. She complains of SOB and cough. Patient says she feels SOB with nasal cannula and is unable to cough up any mucous. Patient denies chest pain, nausea, vomiting, diarrhea, or constipation. Objective - Vital Signs/Intake and Output Vital Signs (last 24 hours): Temp Pulse Resp BP Pulse Ox 97.6 F 88 20 144/78 99 10/18/18 04:41 10/18/18 04:41 10/18/18 04:41 10/18/18 04:41 10/18/18 04:41 - Medications Medications: Current Medications Albuterol/Ipratropium (Duoneb 3 Mg/0.5 Mg (3 Ml) Ud) 3 ml INH RQ6 [facility] Last Admin: 10/18/18 08:20 Dose: 3 ml Allopurinol (Zyloprim) 100 mg PO DAILY [facility] Last Admin: 10/17/18 09:38 Dose: 100 mg Aspirin (Ecotrin) 81 mg PO DAILY [facility] Last Admin: 10/17/18 09:38 Dose: 81 mg Carvedilol (Coreg) 3.125 mg PO BID [facility] Last Admin: 10/17/18 17:49 Dose: 3.125 mg Furosemide (Lasix) 40 mg IVP BID [facility] Guaifenesin/Dextromethorphan (Robitussin Dm) 10 ml PO Q6H [facility] Last Admin: 10/18/18 06:38 Dose: 10 ml Azithromycin 500 mg/ Sodium (Chloride) 250 mls @ 250 mls/hr IVPB Q24H [facility]; Protocol Last Admin: 10/17/18 16:51 Dose: 250 mls/hr Insulin Human Regular (Novolin R) 0 unit SC ACHS [facility]; Protocol Last Admin: 10/17/18 22:45 Dose: Not Given Methylprednisolone (Solu-Medrol) 40 mg IVP Q6 [facility] Last Admin: 10/18/18 06:38 Dose: 40 mg Pantoprazole Sodium (Protonix Ec Tab) 40 mg PO DAILY [facility] Last Admin: 04/14/19 09:38 Dose: 40 mg Potassium Chloride (Klor-Con 10) 10 meq PO DAILY [facility] Last Admin: 10/17/18 09:38 Dose: 10 meq Rosuvastatin Calcium (Crestor) 5 mg PO HS [facility] Last Admin: 10/17/18 22:44 Dose: 5 mg Sacubitril/Valsartan (Entresto 24 Mg-26 Mg) 1 tab PO BID [facility] Last Admin: 10/17/18 17:50 Dose: 1 tab Sitagliptin Phosphate (Januvia) 25 mg PO DAILY [facility] Last Admin: 10/17/18 09:38 Dose: 25 mg - Labs Labs: 10/18/18 07:10 10/18/18 07:10 PT 14.2 SECONDS (9.7-12.2) H 10/13/18 20:01 INR 1.3 10/13/18 20:01 APTT 29 SECONDS (21-34) 10/13/18 20:01 - Constitutional Appears: Non-toxic, No Acute Distress, Chronically Ill - Head Exam Head Exam: NORMAL INSPECTION - Eye Exam Eye Exam: EOMI, Normal appearance - ENT Exam ENT Exam: Mucous Membranes Moist, Normal Exam - Respiratory Exam Respiratory Exam: Decreased Breath Sounds, NORMAL BREATHING PATTERN - Cardiovascular Exam Cardiovascular Exam: REGULAR RHYTHM - GI/Abdominal Exam GI & Abdominal Exam: Soft, Normal Bowel Sounds - Extremities Exam Extremities Exam: Normal Inspection. absent: Joint Swelling, Pedal Edema - Neurological Exam Neurological Exam: Oriented x3 - Psychiatric Exam Psychiatric exam: Normal Mood - Skin Skin Exam: Intact, Normal Color Assessment and Plan - Assessment and Plan (Free Text) Assessment: 87 year old female with past medical history of advanced CHF, HTN, Pulmonary HTN. Pulmonary was consulted for SOB. Plan: 1. Bronchitis continue oxygen continue robitussin 2.CHF exacerbation continue lasix, was increased to 40 mg BID Continue Entresto Continue carvedilol daily CMP daily weights monitor ins and outs with fluid restrictions pulmonary congestion on CXR 10/18 3. Pulmonary hypertension continue oxygen for saturation 92% with BiPAP as needed continue Duoneb PGY-1 Margarita Javier d/w Dr. Robin <Usman oRbin - Last Filed: 10/18/18 17:59> Objective - Vital Signs/Intake and Output Vital Signs (last 24 hours): Temp Pulse Resp BP Pulse Ox 97.7 F 72 20 144/78 100 04/15/19 16:00 10/18/18 16:00 10/18/18 16:00 10/18/18 17:26 10/18/18 16:00 - Medications Medications: Current Medications Albuterol/Ipratropium (Duoneb 3 Mg/0.5 Mg (3 Ml) Ud) 3 ml INH RQ6 [facility] Last Admin: 10/18/18 13:19 Dose: 3 ml Allopurinol (Zyloprim) 100 mg PO DAILY [facility] Last Admin: 10/18/18 10:41 Dose: 100 mg Aspirin (Ecotrin) 81 mg PO DAILY [facility] Last Admin: 10/18/18 10:41 Dose: 81 mg Benzonatate (Tessalon Perles) 100 mg PO TID PRN PRN Reason: Cough Carvedilol (Coreg) 3.125 mg PO BID [facility] Last Admin: 10/18/18 17:29 Dose: 3.125 mg Furosemide (Lasix) 40 mg IVP BID [facility] Last Admin: 10/18/18 17:26 Dose: 40 mg Heparin Sodium (Porcine) (Heparin) 5,000 units SC Q8 [facility] Azithromycin 500 mg/ Sodium (Chloride) 250 mls @ 250 mls/hr IVPB Q24H [facility]; Protocol Last Admin: 10/18/18 16:30 Dose: 250 mls/hr Insulin Human Regular (Novolin R) 0 unit SC ACHS [facility]; Protocol Last Admin: 10/18/18 17:29 Dose: 2 units Methylprednisolone (Solu-Medrol) 40 mg IVP Q6 [facility] Last Admin: 10/18/18 17:27 Dose: 40 mg Pantoprazole Sodium (Protonix Ec Tab) 40 mg PO DAILY [facility] Last Admin: 10/18/18 10:42 Dose: 40 mg Potassium Chloride (Klor-Con 10) 10 meq PO DAILY [facility] Last Admin: 10/18/18 10:42 Dose: 10 meq Rosuvastatin Calcium (Crestor) 5 mg PO HS [facility] Last Admin: 10/17/18 22:44 Dose: 5 mg Saccharomyces Boulardii (Florastor) 250 mg PO BID [facility] Last Admin: 10/18/18 17:28 Dose: 250 mg Sacubitril/Valsartan (Entresto 24 Mg-26 Mg) 1 tab PO BID [facility] Last Admin: 10/18/18 17:28 Dose: 1 tab Sitagliptin Phosphate (Januvia) 25 mg PO DAILY [facility] Last Admin: 10/18/18 10:41 Dose: 25 mg - Labs Labs: 10/18/18 07:10 10/18/18 07:10 PT 14.2 SECONDS (9.7-12.2) H 10/13/18 20:01 INR 1.3 10/13/18 20:01 APTT 29 SECONDS (21-34) 10/13/18 20:01 Assessment and Plan (1) Acute bronchitis Status: Acute (2) Renal insufficiency Status: Acute Attending/Attestation - Attestation I have personally seen and examined this patient.: Yes I have fully participated in the care of the patient.: Yes I have reviewed all pertinent clinical information, including history, physical exam and plan: Yes Notes (Text): 10/18/18 17:41 Patient seen and examined Persistent cough and shortness of breath CAT scan of the chest consistent with CHF Consider increasing Lasix Continue steroids and nebulizer treatment/azithromycin
--- NOTE | 2018-10-18 10:15 | RAD ---
Chest x-ray single frontal view History: Congestive heart failure. Comparison: 10/13/2018 Findings: Moderate venous congestion. Right hilar prominence. Cardiomegaly. Left-sided pacemaker. Degenerative changes in the spine. Impression: Moderate venous congestion. Right hilar prominence. Cardiomegaly. Left-sided pacemaker.
[2018-10-18] MEDS: Pantoprazole 40 mg EC Tab PO SCH (10:42)
[2018-10-18] MEDS: Potassium Chloride 10 mEq ER Tab PO SCH (10:42)
[2018-10-18] MEDS: Sacubitril/Valsartan 24-26mg Tab PO SCH ×2 (10:42→17:28)
[2018-10-18] MEDS: (Novolin R) Insulin Human Regular 100 units/ml vial SC SCH ×3 (10:43→22:09)
--- NOTE | 2018-10-18 11:16 | VASCLAB ---
Date of service: 10/15/2018 PROCEDURE: Lower Extremity Venous Duplex Exam. HISTORY: SOB PRIORS: None. TECHNIQUE: Bilateral common femoral, femoral, popliteal and posterior tibial, peroneal and great saphenous veins were evaluated. Flow was assessed with color Doppler, compressibility, assessment of phasic flow and augmentation response. Report prepared by Rocco Meza, JEAN CLAUDE, RVT FINDINGS: RIGHT: 1. Common Femoral Vein: 1.1. Compressibility - Fully compressible: Thrombus - None : Flow - Phasic: Augmentation -Normal: Reflux - None. 2. Femoral Vein: 2.1. Compressibility - Fully compressible: Thrombus - None : Flow - Phasic: Augmentation -Normal: Reflux - None. 3. Popliteal Vein: 3.1. Compressibility - Fully compressible: Thrombus - None : Flow - Phasic: Augmentation -Normal: Reflux - None. 4. Posterior Tibial Vein: 4.1. Compressibility - Fully compressible: Thrombus - None: Flow - Phasic: Augmentation -Normal: Reflux - None. 5. Peroneal Vein: 5.1. Compressibility - Fully compressible: Thrombus - None: Flow - Phasic: Augmentation -Normal: Reflux - None. 6. Great Saphenous Vein: 6.1. Compressibility - Fully compressible: Thrombus - None: Flow - Phasic: Augmentation - Normal: Reflux - None. LEFT: 1. Common Femoral Vein: 1.1. Compressibility - Fully compressible: Thrombus - None: Flow - Phasic: Augmentation -Normal: Reflux - None. 2. Femoral Vein: 2.1. Compressibility - Fully compressible: Thrombus - None: Flow - Phasic: Augmentation -Normal: Reflux - None. 3. Popliteal Vein: 3.1. Compressibility - Fully compressible: Thrombus - None : Flow - Phasic: Augmentation -Normal: Reflux - None. 4. Posterior Tibial Vein: 4.1. Compressibility - Fully compressible: Thrombus - None: Flow - Phasic: Augmentation -Normal: Reflux - None. 5. Peroneal Vein: 5.1. Compressibility - Fully compressible: Thrombus - None: Flow - Phasic: Augmentation -Normal: Reflux - None. 6. Great Saphenous Vein: 6.1. Compressibility - Fully compressible: Thrombus - None: Flow - Phasic: Augmentation - Normal: Reflux - None. OTHER FINDINGS: Right: None significant. Left: None significant. IMPRESSION: Right: No evidence of deep or superficial vein thrombosis of the right lower extremity. Normal valve function noted of the right side. Left: No evidence of deep or superficial vein thrombosis of the left lower extremity. Normal valve function noted of the left side.
--- NOTE | 2018-10-18 14:47 | CP.PCM.PN ---
Subjective - Date & Time of Evaluation Date of Evaluation: 10/18/18 - Subjective Subjective: patient examined today at bedside c/o non productive cough with sob still present no nausea, no vomiting, no diarrhea, no fever Objective - Vital Signs/Intake and Output Vital Signs (last 24 hours): Temp Pulse Resp BP Pulse Ox 97.6 F 88 20 144/78 99 10/18/18 04:41 10/18/18 04:41 10/18/18 04:41 10/18/18 10:37 10/18/18 04:41 - Medications Medications: Current Medications Albuterol/Ipratropium (Duoneb 3 Mg/0.5 Mg (3 Ml) Ud) 3 ml INH RQ6 [facility] Last Admin: 10/18/18 13:19 Dose: 3 ml Allopurinol (Zyloprim) 100 mg PO DAILY [facility] Last Admin: 10/18/18 10:41 Dose: 100 mg Aspirin (Ecotrin) 81 mg PO DAILY [facility] Last Admin: 10/18/18 10:41 Dose: 81 mg Benzonatate (Tessalon Perles) 100 mg PO TID PRN PRN Reason: Cough Carvedilol (Coreg) 3.125 mg PO BID [facility] Last Admin: 10/18/18 10:43 Dose: 3.125 mg Furosemide (Lasix) 40 mg IVP BID [facility] Last Admin: 10/18/18 10:37 Dose: 40 mg Azithromycin 500 mg/ Sodium (Chloride) 250 mls @ 250 mls/hr IVPB Q24H [facility]; Protocol Last Admin: 10/17/18 16:51 Dose: 250 mls/hr Insulin Human Regular (Novolin R) 0 unit SC ACHS [facility]; Protocol Last Admin: 10/18/18 10:43 Dose: 3 units Methylprednisolone (Solu-Medrol) 40 mg IVP Q6 [facility] Last Admin: 10/18/18 06:38 Dose: 40 mg Pantoprazole Sodium (Protonix Ec Tab) 40 mg PO DAILY [facility] Last Admin: 10/18/18 10:42 Dose: 40 mg Potassium Chloride (Klor-Con 10) 10 meq PO DAILY [facility] Last Admin: 10/18/18 10:42 Dose: 10 meq Rosuvastatin Calcium (Crestor) 5 mg PO HS [facility] Last Admin: 10/17/18 22:44 Dose: 5 mg Sacubitril/Valsartan (Entresto 24 Mg-26 Mg) 1 tab PO BID [facility] Last Admin: 10/18/18 10:42 Dose: 1 tab Sitagliptin Phosphate (Januvia) 25 mg PO DAILY [facility] Last Admin: 10/18/18 10:41 Dose: 25 mg - Labs Labs: 10/18/18 07:10 10/18/18 07:10 PT 14.2 SECONDS (9.7-12.2) H 10/13/18 20:01 INR 1.3 10/13/18 20:01 APTT 29 SECONDS (21-34) 10/13/18 20:01 - Constitutional Appears: Well - Head Exam Head Exam: ATRAUMATIC, NORMAL INSPECTION, NORMOCEPHALIC - Eye Exam Eye Exam: EOMI, Normal appearance, PERRL Pupil Exam: NORMAL ACCOMODATION, PERRL - ENT Exam ENT Exam: Mucous Membranes Moist, Normal Exam - Neck Exam Neck Exam: Full ROM, Normal Inspection. absent: Lymphadenopathy - Respiratory Exam Respiratory Exam: Decreased Breath Sounds - Cardiovascular Exam Cardiovascular Exam: REGULAR RHYTHM, +S1, +S2 - GI/Abdominal Exam GI & Abdominal Exam: Soft, Diminished Bowel Sounds - Rectal Exam Rectal Exam: Deferred - Neurological Exam Neurological Exam: Oriented x3 Assessment and Plan (1) BILL (acute kidney injury) Status: Acute (2) Acute bronchitis Status: Acute (3) Acute exacerbation of CHF (congestive heart failure) Status: Acute (4) CHF (congestive heart failure) Status: Acute (5) Cardiomyopathy Status: Acute (6) Chest pain Status: Acute (7) Community acquired pneumonia Status: Acute (8) Congestive heart failure Status: Acute (9) Decreased cardiac ejection fraction Status: Acute (10) Diabetes mellitus Status: Acute (11) Dyspnea Status: Acute (12) Electrolyte disturbance Status: Acute (13) History of hyperlipidemia Status: Acute (14) Hypokalemia Status: Acute (15) Pneumonia Status: Acute (16) Renal insufficiency Status: Acute (17) Respiratory distress Status: Acute (18) Shortness of breath Status: Acute (19) Pacemaker Status: Chronic - Assessment and Plan (Free Text) Plan: vitals reviewed medications reviewed vitals reviewed azithromycin coreg crestor duoneb ecotrin entresto januvia klor-con lasix novolin R protonix ec tab robitussin dm solu-medrol zyloprim CT scan reveals cardiomegaly Dual left-sided AICD Mediastinal adenopathy measuring up to 1 cm nonspecific patient has examined groundglass bilateral pulmonary opacities consistent with edema and/or infection f/u [facility] pulmonary iv antibotic pro bnp procaclitonin tomorrow am 87 year old female with past medical history of HTN, DM, CHF s/p pacemaker, HLD, hx of PE (post op) is admitted for respiratory distress, CHF exacerbation Shortness of Breath [place] [address] - Pulm, Dr. Robin consulted --> help appreciated - D Dimer elevated at 1005. - Imaging: * On admission, CXr showed no active pulm disease * VQ scan done showed low probability of PE * LE Doppler: negative * Chest Xray: Moderate venous congestion. Right hilar prominence. Cardiomegaly. Left sided pacemaker. * f/u Chest CT * d/w pulm * family bedside * discussed [facility] family thru freelance interpreter/translator - Medications * Rin-Medrol 40mg IV q6h * Azithromycin 500mg q24h * Duonebs q6h * Tessalon Pearls 100mg po TID for cough CHF exacerbation - Pacemaker in place - Will consult cardio, Dr. Butterfield --> help appreciated - Imaging: * LE Doppler: negative * ECHO (10/15/18): EF <20%; left ventricle is moderately dilated. Left ventricle systolic function is severely impaired. - Medication * Lasix 40 mg po qd * Entresto 1 tab po bid * Aspirin 81 mg po qd * Carvedilol 3.125mg po bid * Crestor 5mg po HS History of HTN - Continue home med Entresto History of Diabetes Type II - HgbA1c (10/15/18) is 6.6 - Lipid Panel: Total Cholesterol 96; LDL 60; HDL 41; Triglycerides 49 - Accuchecks - hypoglycemic protocol - Medications: * ISS * Januvia 25mg po daily History of HLD - Lipid Panel: Total Cholesterol 96; LDL 60; HDL 41; Triglycerides 49 - Crestor 5mg po HS History of BILL - Improving - Avoid nephrotoxic med Prophylaxis - Protonix 40mg po daily - heparin SC q8h - Florastor 250mg bid
--- NOTE | 2018-10-18 15:40 | CT ---
Date of service: 10/18/2018 CT chest without IV contrast Indication: CHF / sob. /ro pneumonia Technique: Contiguous axial images were obtained through the chest without intravenous contrast enhancement. Sagittal and coronal reconstructions were generated and reviewed. This CT exam was performed using 1 or more of the following dose reduction techniques: Automated exposure control, adjustment of the MAA and/or kV according to patient size, and/or use of iterative reconstruction technique. Radiation dose (DLP): 326.51 MGy-cm. Comparison: CT chest with contrast performed 12/01/17 Findings: Visualized portions of the inferior thyroid gland appear unremarkable. The unenhanced mediastinal and hilar vascular structures appear grossly unremarkable. Cardiomegaly. Dual lead left-sided AICD. Mediastinal adenopathy measuring up to 1 cm (pretracheal), nonspecific. Hazy ground-glass bilateral pulmonary opacities appear consistent with edema and/or infection. Small to moderate right and small left pleural effusions. No pneumothorax. Limited visualization of the noncontrast upper abdomen appears grossly unremarkable. Degenerative changes. Impression: Cardiomegaly. Dual lead left-sided AICD. Mediastinal adenopathy measuring up to 1 cm (pretracheal), nonspecific. Hazy ground-glass bilateral pulmonary opacities appear consistent with edema and/or infection. Small to moderate right and small left pleural effusions.
[2018-10-18] MEDS: Azithromycin 500 MG in Sodium Chloride 0.9% 250 ML IVPB SCH (16:30)
[2018-10-18] MEDS: Saccharomyces Boulardi 250 mg Cap PO SCH (17:28)
--- NOTE | 2018-10-18 21:13 | CP.PCM.PN ---
Subjective - Date & Time of Evaluation Date of Evaluation: 10/18/18 Time of Evaluation: 21:13 - Subjective Subjective: Patient still weak and dyspnic Continue CHF management Objective - Vital Signs/Intake and Output Vital Signs (last 24 hours): Temp Pulse Resp BP Pulse Ox 97.7 F 72 20 144/78 100 10/18/18 16:00 10/18/18 16:00 10/18/18 16:00 10/18/18 17:26 10/18/18 16:00 - Medications Medications: Current Medications Albuterol/Ipratropium (Duoneb 3 Mg/0.5 Mg (3 Ml) Ud) 3 ml INH RQ6 [facility] Last Admin: 10/18/18 19:34 Dose: 3 ml Allopurinol (Zyloprim) 100 mg PO DAILY [facility] Last Admin: 10/18/18 10:41 Dose: 100 mg Aspirin (Ecotrin) 81 mg PO DAILY [facility] Last Admin: 10/18/18 10:41 Dose: 81 mg Benzonatate (Tessalon Perles) 100 mg PO TID PRN PRN Reason: Cough Carvedilol (Coreg) 3.125 mg PO BID [facility] Last Admin: 10/18/18 17:29 Dose: 3.125 mg Furosemide (Lasix) 40 mg IVP BID [facility] Last Admin: 10/18/18 17:26 Dose: 40 mg Heparin Sodium (Porcine) (Heparin) 5,000 units SC Q8 [facility] Azithromycin 500 mg/ Sodium (Chloride) 250 mls @ 250 mls/hr IVPB Q24H [facility]; Protocol Last Admin: 10/18/18 16:30 Dose: 250 mls/hr Insulin Human Regular (Novolin R) 0 unit SC ACHS [facility]; Protocol Last Admin: 10/18/18 17:29 Dose: 2 units Methylprednisolone (Solu-Medrol) 40 mg IVP Q6 [facility] Last Admin: 10/18/18 17:27 Dose: 40 mg Pantoprazole Sodium (Protonix Ec Tab) 40 mg PO DAILY [facility] Last Admin: 10/18/18 10:42 Dose: 40 mg Potassium Chloride (Klor-Con 10) 10 meq PO DAILY [facility] Last Admin: 10/18/18 10:42 Dose: 10 meq Rosuvastatin Calcium (Crestor) 5 mg PO HS [facility] Last Admin: 10/17/18 22:44 Dose: 5 mg Saccharomyces Boulardii (Florastor) 250 mg PO BID [facility] Last Admin: 10/18/18 17:28 Dose: 250 mg Sacubitril/Valsartan (Entresto 24 Mg-26 Mg) 1 tab PO BID [facility] Last Admin: 10/18/18 17:28 Dose: 1 tab Sitagliptin Phosphate (Januvia) 25 mg PO DAILY [facility] Last Admin: 10/18/18 10:41 Dose: 25 mg - Labs Labs: 10/18/18 07:10 10/18/18 07:10 PT 14.2 SECONDS (9.7-12.2) H 10/13/18 20:01 INR 1.3 10/13/18 20:01 APTT 29 SECONDS (21-34) 10/13/18 20:01
[2018-10-19] MEDS: MethylPREDNISolone 40 mg Vial IVP SCH ×4 (00:16→18:10)
[2018-10-19] MEDS: Albuterol-Ipratrop 3 mg / 0.5 (3 ml) UD INH SCH ×3 (01:14→13:55)
[2018-10-19 07:12] LABS: BASO % 0.2 % (0.0-2.0); HEMOGLOBIN 11.5 g/dL (11.0-16.0); LYMPH # 0.3 K/uL (1.0-4.3); LYMPH % 5.9 % (20.0-40.0); MEAN CORPUSCULAR HEMOGLOBIN 30.8 pg (27.0-31.0); MEAN CORPUSCULAR HGB CONC 33.1 g/dL (33.0-37.0); MONO # 0.1 K/uL (0.0-0.8); MONO % 3.1 % (0.0-10.0); NEUT # 4.3 K/uL (1.8-7.0); NEUT % 90.8 % (50.0-75.0); NRBC % 0.1 % (0.0-2.0); RBC 3.72 Mil/uL (3.80-5.20); WHITE BLOOD COUNT 4.7 K/uL (4.8-10.8)
[2018-10-19 07:29] LABS: PLATELET COUNT 113 K/uL (130-400)
[2018-10-19 07:54] LABS: ALB/GLOB RATIO 1.3 (1.0-2.1); ALBUMIN 3.6 g/dL (3.5-5.0); CALCIUM 8.9 mg/dl (8.6-10.4)
[2018-10-19] MEDS: (Novolin R) Insulin Human Regular 100 units/ml vial SC SCH ×4 (08:10→21:42)
[2018-10-19 08:41] LABS: BANDS 4 % (0-2); MONOCYTE 3 % (0-10); TOTAL CELLS COUNTED 100
[2018-10-19 08:42] LABS: LYMPHOCYTE 8 % (20-40); NEUTROPHIL 85 % (50-75); PLATELET ESTIMATE SLIGHTLY DECREASED (NORMAL)
[2018-10-19 08:43] LABS: ANISOCYTOSIS SLIGHT; OVALOCYTES SLIGHT
[2018-10-19] MEDS: Sacubitril/Valsartan 24-26mg Tab PO SCH ×2 (10:15→19:29)
--- NOTE | 2018-10-19 10:21 | PQF ---
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 Please document the type and acuity (in cludes probable or suspected) Such as: The patient's Clinical Indicators include: ?87 year old female with PMhx of CHF presents to the ED c/o SOB for the past 3 days. Patient reports symptoms worsened tonight?. Respiratory: Rales (bilateral lower lung), No Rhonchi, No Wheezing Extremity: Pedal Edema (bilateral 1+) BNP: 15502 - D-Dimer: 1005 ECHO: LVEF: 35.6% Rx. Furosemide 40 mg IVP DAILY Carvedilol 3.125 mg PO BID Sacubitril/Valsartan (24 Mg-26 Mg) 1 tab PO BID Query created by: Sharif Salinas on 10/15/2018 12:31 PM Electronically signed by: Dalton SNYDER 10/19/2018 10:18 AM
[2018-10-19] MEDS: Saccharomyces Boulardi 250 mg Cap PO SCH ×2 (10:30→18:13)
[2018-10-19] MEDS: Potassium Chloride 20 mEq ER Tab PO SCH (10:30)
[2018-10-19] MEDS: Pantoprazole 40 mg EC Tab PO SCH (10:30)
--- NOTE | 2018-10-19 10:55 | CP.PCM.PN ---
<Margarita Flores - Last Filed: 10/19/18 13:24> Subjective - Date & Time of Evaluation Date of Evaluation: 10/19/18 Time of Evaluation: 10:54 - Subjective Subjective: Pulmonary Progress note for Dr. Robin's service Patient was seen and examined at bedside. Patient says she feels better than yesterday. She still complains of SOB and cough. Patient is tolerating nasal cannula. Patient denies chest pain, nausea, vomiting, diarrhea, or constipation. Objective - Vital Signs/Intake and Output Vital Signs (last 24 hours): Temp Pulse Resp BP Pulse Ox 98.0 F 70 20 135/76 99 10/19/18 07:00 10/19/18 07:36 10/19/18 07:00 10/19/18 10:30 10/19/18 07:00 Intake and Output: 10/19/18 10/19/18 06:59 18:59 Intake Total 572 Output Total 100 Balance 472 - Medications Medications: Current Medications Albuterol/Ipratropium (Duoneb 3 Mg/0.5 Mg (3 Ml) Ud) 3 ml INH RQ6 [facility] Last Admin: 10/19/18 08:31 Dose: Not Given Allopurinol (Zyloprim) 100 mg PO DAILY [facility] Last Admin: 10/19/18 10:30 Dose: 100 mg Aspirin (Ecotrin) 81 mg PO DAILY [facility] Last Admin: 10/19/18 10:30 Dose: 81 mg Benzonatate (Tessalon Perles) 100 mg PO TID PRN PRN Reason: Cough Carvedilol (Coreg) 3.125 mg PO BID [facility] Last Admin: 10/19/18 10:30 Dose: 3.125 mg Furosemide (Lasix) 40 mg IVP BID [facility] Last Admin: 10/19/18 10:30 Dose: 40 mg Heparin Sodium (Porcine) (Heparin) 5,000 units SC Q8 [facility] Last Admin: 10/19/18 05:28 Dose: 5,000 units Azithromycin 500 mg/ Sodium (Chloride) 250 mls @ 250 mls/hr IVPB Q24H [facility]; Protocol Last Admin: 10/18/18 16:30 Dose: 250 mls/hr Insulin Human Regular (Novolin R) 0 unit SC ACHS [facility]; Protocol Last Admin: 10/19/18 08:10 Dose: 3 units Methylprednisolone (Solu-Medrol) 40 mg IVP Q6 [facility] Last Admin: 10/19/18 05:28 Dose: 40 mg Pantoprazole Sodium (Protonix Ec Tab) 40 mg PO DAILY [facility] Last Admin: 10/19/18 10:30 Dose: 40 mg Potassium Chloride (K-Dur 20 Meq Er Tab) 20 meq PO DAILY [facility] Last Admin: 10/19/18 10:30 Dose: 20 meq Rosuvastatin Calcium (Crestor) 5 mg PO HS [facility] Last Admin: 10/18/18 22:09 Dose: 5 mg Saccharomyces Boulardii (Florastor) 250 mg PO BID [facility] Last Admin: 10/19/18 10:30 Dose: 250 mg Sacubitril/Valsartan (Entresto 24 Mg-26 Mg) 1 tab PO BID [facility] Last Admin: 10/18/18 17:28 Dose: 1 tab Sitagliptin Phosphate (Januvia) 25 mg PO DAILY [facility] Last Admin: 10/19/18 10:29 Dose: 25 mg - Labs Labs: 10/19/18 06:58 10/19/18 06:58 PT 14.2 SECONDS (9.7-12.2) H 10/13/18 20:01 INR 1.3 10/13/18 20:01 APTT 29 SECONDS (21-34) 10/13/18 20:01 - Constitutional Appears: Toxic, No Acute Distress - Head Exam Head Exam: NORMAL INSPECTION - Eye Exam Eye Exam: Normal appearance - ENT Exam ENT Exam: Mucous Membranes Moist - Neck Exam Neck Exam: Normal Inspection - Respiratory Exam Respiratory Exam: Decreased Breath Sounds, Wheezes, NORMAL BREATHING PATTERN. absent: Clear to Ausculation Bilateral, Respiratory Distress, Stridor - Cardiovascular Exam Cardiovascular Exam: REGULAR RHYTHM, +S1, +S2 - GI/Abdominal Exam GI & Abdominal Exam: Soft, Normal Bowel Sounds - Rectal Exam Rectal Exam: Deferred - Neurological Exam Neurological Exam: Oriented x3 - Psychiatric Exam Psychiatric exam: Normal Mood - Skin Skin Exam: Normal Color Assessment and Plan - Assessment and Plan (Free Text) Assessment: 87 year old female with past medical history of advanced CHF, HTN, Pulmonary HTN. Pulmonary was consulted for SOB. Plan: 1. Bronchitis continue oxygen continue tessalon perles IV azithromycin IV solumedrol 40 q6 2.CHF exacerbation continue lasix, was increased to 40 mg BID Continue Entresto Continue carvedilol daily CMP daily weights monitor ins and outs with fluid restrictions pulmonary congestion on CXR 10/18 3.Pulmonary hypertension continue oxygen for saturation 92% with BiPAP as needed continue Duoneb Further management per primary team PGY-1 Margarita Flores Case d/w Dr. Robin <Usman Robin - Last Filed: 10/19/18 16:09> Objective - Vital Signs/Intake and Output Vital Signs (last 24 hours): Temp Pulse Resp BP Pulse Ox 98.0 F 70 20 135/76 99 10/19/18 07:00 10/19/18 11:30 10/19/18 07:00 10/19/18 10:30 10/19/18 07:00 Intake and Output: 10/19/18 10/19/18 06:59 18:59 Intake Total 572 Output Total 100 Balance 472 - Medications Medications: Current Medications Albuterol/Ipratropium (Duoneb 3 Mg/0.5 Mg (3 Ml) Ud) 3 ml INH RQ6 PRN PRN Reason: Shortness of Breath Allopurinol (Zyloprim) 100 mg PO DAILY [facility] Last Admin: 10/19/18 10:30 Dose: 100 mg Aspirin (Ecotrin) 81 mg PO DAILY [facility] Last Admin: 10/19/18 10:30 Dose: 81 mg Benzonatate (Tessalon Perles) 100 mg PO TID PRN PRN Reason: Cough Carvedilol (Coreg) 3.125 mg PO BID [facility] Last Admin: 10/19/18 10:30 Dose: 3.125 mg Furosemide (Lasix) 40 mg IVP BID [facility] Last Admin: 10/19/18 10:30 Dose: 40 mg Heparin Sodium (Porcine) (Heparin) 5,000 units SC Q8 [facility] Last Admin: 10/19/18 13:19 Dose: 5,000 units Azithromycin 500 mg/ Sodium (Chloride) 250 mls @ 250 mls/hr IVPB Q24H [facility]; Protocol Last Admin: 10/18/18 16:30 Dose: 250 mls/hr Insulin Human Regular (Novolin R) 0 unit SC ACHS [facility]; Protocol Last Admin: 10/19/18 12:28 Dose: 6 units Methylprednisolone (Solu-Medrol) 40 mg IVP Q6 [facility] Last Admin: 10/19/18 12:28 Dose: 40 mg Pantoprazole Sodium (Protonix Ec Tab) 40 mg PO DAILY [facility] Last Admin: 10/19/18 10:30 Dose: 40 mg Potassium Chloride (K-Dur 20 Meq Er Tab) 20 meq PO DAILY [facility] Last Admin: 10/19/18 10:30 Dose: 20 meq Rosuvastatin Calcium (Crestor) 5 mg PO HS [facility] Last Admin: 10/18/18 22:09 Dose: 5 mg Saccharomyces Boulardii (Florastor) 250 mg PO BID [facility] Last Admin: 10/19/18 10:30 Dose: 250 mg Sacubitril/Valsartan (Entresto 24 Mg-26 Mg) 1 tab PO BID [facility] Last Admin: 10/19/18 10:15 Dose: 1 tab Sitagliptin Phosphate (Januvia) 25 mg PO DAILY [facility] Last Admin: 10/19/18 10:29 Dose: 25 mg - Labs Labs: 10/19/18 06:58 10/19/18 06:58 PT 14.2 SECONDS (9.7-12.2) H 10/13/18 20:01 INR 1.3 10/13/18 20:01 APTT 29 SECONDS (21-34) 10/13/18 20:01 Assessment and Plan (1) Acute bronchitis Status: Acute (2) Renal insufficiency Status: Acute Attending/Attestation - Attestation I have personally seen and examined this patient.: Yes I have fully participated in the care of the patient.: Yes I have reviewed all pertinent clinical information, including history, physical exam and plan: Yes Notes (Text): 10/19/18 16:09 Patient seen and examined. Patient states cough is improving Continue diuretics, steroids and nebulizer treatment
--- NOTE | 2018-10-19 11:44 | CP.PCM.PN ---
<Dominga Mcduffie E - Last Filed: 10/19/18 14:20> Subjective - Date & Time of Evaluation Date of Evaluation: 10/19/18 Time of Evaluation: 09:20 - Subjective Subjective: Medicine note ( Dr. Pepito Diaz's service) Patient was seen and examined at bedside as she was resting comfortably. Patient reports symptomatic relief and that she is doing better. Patient denies any symptoms of chest pain, palpitations, shortness of breath, dizziness, syncope, difficulties walking. Patient still does admit to non-productive cough. Objective - Vital Signs/Intake and Output Vital Signs (last 24 hours): Temp Pulse Resp BP Pulse Ox 98.0 F 70 20 135/76 99 10/19/18 07:00 10/19/18 07:36 10/19/18 07:00 10/19/18 10:30 10/19/18 07:00 Intake and Output: 10/19/18 10/19/18 06:59 18:59 Intake Total 572 Output Total 100 Balance 472 - Medications Medications: Current Medications Albuterol/Ipratropium (Duoneb 3 Mg/0.5 Mg (3 Ml) Ud) 3 ml INH RQ6 [facility] Last Admin: 10/19/18 08:31 Dose: Not Given Allopurinol (Zyloprim) 100 mg PO DAILY [facility] Last Admin: 10/19/18 10:30 Dose: 100 mg Aspirin (Ecotrin) 81 mg PO DAILY [facility] Last Admin: 10/19/18 10:30 Dose: 81 mg Benzonatate (Tessalon Perles) 100 mg PO TID PRN PRN Reason: Cough Carvedilol (Coreg) 3.125 mg PO BID [facility] Last Admin: 10/19/18 10:30 Dose: 3.125 mg Furosemide (Lasix) 40 mg IVP BID [facility] Last Admin: 10/19/18 10:30 Dose: 40 mg Heparin Sodium (Porcine) (Heparin) 5,000 units SC Q8 [facility] Last Admin: 10/19/18 05:28 Dose: 5,000 units Azithromycin 500 mg/ Sodium (Chloride) 250 mls @ 250 mls/hr IVPB Q24H [facility]; Protocol Last Admin: 10/18/18 16:30 Dose: 250 mls/hr Insulin Human Regular (Novolin R) 0 unit SC ACHS [facility]; Protocol Last Admin: 10/19/18 08:10 Dose: 3 units Methylprednisolone (Solu-Medrol) 40 mg IVP Q6 [facility] Last Admin: 10/19/18 05:28 Dose: 40 mg Pantoprazole Sodium (Protonix Ec Tab) 40 mg PO DAILY [facility] Last Admin: 10/19/18 10:30 Dose: 40 mg Potassium Chloride (K-Dur 20 Meq Er Tab) 20 meq PO DAILY [facility] Last Admin: 10/19/18 10:30 Dose: 20 meq Rosuvastatin Calcium (Crestor) 5 mg PO HS [facility] Last Admin: 10/18/18 22:09 Dose: 5 mg Saccharomyces Boulardii (Florastor) 250 mg PO BID [facility] Last Admin: 10/19/18 10:30 Dose: 250 mg Sacubitril/Valsartan (Entresto 24 Mg-26 Mg) 1 tab PO BID [facility] Last Admin: 10/19/18 10:15 Dose: 1 tab Sitagliptin Phosphate (Januvia) 25 mg PO DAILY [facility] Last Admin: 10/19/18 10:29 Dose: 25 mg - Labs Labs: 10/19/18 06:58 10/19/18 06:58 PT 14.2 SECONDS (9.7-12.2) H 10/13/18 20:01 INR 1.3 10/13/18 20:01 APTT 29 SECONDS (21-34) 10/13/18 20:01 - Constitutional Appears: No Acute Distress - Head Exam Head Exam: ATRAUMATIC, NORMAL INSPECTION - Eye Exam Eye Exam: EOMI - ENT Exam ENT Exam: Mucous Membranes Moist - Respiratory Exam Respiratory Exam: Rales, NORMAL BREATHING PATTERN Additional comments: Diffuse bilateral lower base Rales - Cardiovascular Exam Cardiovascular Exam: REGULAR RHYTHM, +S1, +S2, Murmur Additional comments: Systolic murmur in right second intercostal space and - GI/Abdominal Exam GI & Abdominal Exam: Guarding, Soft, Normal Bowel Sounds. absent: Tenderness - Extremities Exam Extremities Exam: Normal Inspection. absent: Calf Tenderness, Full ROM - Neurological Exam Neurological Exam: Alert, Awake, Oriented x3 - Psychiatric Exam Psychiatric exam: Normal Affect - Skin Skin Exam: Normal Color Assessment and Plan (1) Acute exacerbation of CHF (congestive heart failure) Assessment & Plan: Left-sided pacemaker in place Consultation: * Cardiology, Dr. Butterfield---> Help appreciated Imaging and Labs: * BNP (10/19/18): 26,900 * LE Doppler: negative * ECHO (10/15/18): EF <20%; left ventricle is moderately dilated. Left ventricle systolic function is severely impaired. * Chest X-ray (10/18/18): Moderate venous congestion. Right hilar prominence. Cardiomegaly. Left-sided pacemaker. Medications: * Lasix 40 mg po qd * Potassium 20meq once daily * Entresto 1 tab po bid * Aspirin 81 mg po qd * Carvedilol 3.125mg po bid * Crestor 5mg po HS I Status: Acute (2) Shortness of breath Assessment & Plan: Secondary to CHF exacerbation Consultation: Invas Tech, Dr. Robin----> help appreciated Imaging/Labs: Chest X-ray (10/18/18): Moderate venous congestion. Right hilar prominence. Cardiomegaly. Left sided pacemaker. Chest CT (10/18/18): Cardiomegaly. Dual lead left-sided AICD. Mediastinal adenopathy measuring up to 1 cm (pretracheal), nonspecific.Hazy ground-glass bilateral pulmonary opacities appear consistent with edema and/or infection. Small to moderate right and small left pleural effusions. Procalcitonin: <0.05 Medications: * Rin-Medrol 40mg IV q6h * Azithromycin 500mg q24h * Florastor 250mg PO BID * Duonebs Q6H PRN * Tessalon Pearls 100mg po TID for cough Status: Acute (3) BILL (acute kidney injury) Assessment & Plan: Stable Possibly secondary to diuresis Avoid nephrotoxic drugs Status: Acute (4) Diabetes mellitus Assessment & Plan: - HgbA1c (10/15/18) is 6.6 - Lipid Panel: Total Cholesterol 96; LDL 60; HDL 41; Triglycerides 49 - Accuchecks - hypoglycemic protocol - Medications: * ISS- Medium dose * Januvia 25mg po daily Status: Acute (5) History of hyperlipidemia Assessment & Plan: - Lipid Panel: Total Cholesterol 96; LDL 60; HDL 41; Triglycerides 49 - Crestor 5mg po HS Status: Acute (7) Prophylactic measure Assessment & Plan: GI: Protonix 40mg PO daily DVT: Heparin 5,000 units SC All plans and management discussed with Dr. Pepito Diaz Status: Acute <Dalton Diaz S - Last Filed: 10/23/18 11:05> Objective - Vital Signs/Intake and Output Vital Signs (last 24 hours): Temp Pulse Resp BP Pulse Ox 98.2 F 70 20 116/69 100 10/22/18 07:00 10/22/18 16:00 10/22/18 07:00 10/22/18 09:56 10/22/18 07:00 - Labs Labs: 10/22/18 06:36 10/22/18 06:36 PT 14.2 SECONDS (9.7-12.2) H 10/13/18 20:01 INR 1.3 10/13/18 20:01 APTT 29 SECONDS (21-34) 10/13/18 20:01 Attending/Attestation - Attestation I have personally seen and examined this patient.: Yes I have fully participated in the care of the patient.: Yes I have reviewed all pertinent clinical information, including history, physical exam and plan: Yes Notes (Text): 10/23/18 11:05 case seen and d.w staff and resident, concurred with finding and management..
[2018-10-19] MEDS ORDERED: Albuterol-Ipratrop 3 mg / 0.5 (3 ml) UD INH PRN (14:16)
[2018-10-19] MEDS: Azithromycin 500 MG in Sodium Chloride 0.9% 250 ML IVPB SCH (17:00)
--- NOTE | 2018-10-19 18:42 | CP.PCM.PN ---
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 no nausea, no vomiting, no fever, no shortness of breath, no dizziness Objective - Vital Signs/Intake and Output Vital Signs (last 24 hours): Temp Pulse Resp BP Pulse Ox 97.8 F 70 18 133/65 94 L 10/19/18 16:00 10/19/18 16:00 10/19/18 16:00 10/19/18 18:10 10/19/18 16:00 Intake and Output: 10/19/18 10/19/18 06:59 18:59 Intake Total 572 Output Total 100 Balance 472 - Medications Medications: Current Medications Albuterol/Ipratropium (Duoneb 3 Mg/0.5 Mg (3 Ml) Ud) 3 ml INH RQ6 PRN PRN Reason: Shortness of Breath Allopurinol (Zyloprim) 100 mg PO DAILY [facility] Last Admin: 10/19/18 10:30 Dose: 100 mg Aspirin (Ecotrin) 81 mg PO DAILY [facility] Last Admin: 10/19/18 10:30 Dose: 81 mg Benzonatate (Tessalon Perles) 100 mg PO TID PRN PRN Reason: Cough Carvedilol (Coreg) 3.125 mg PO BID [facility] Last Admin: 10/19/18 18:10 Dose: 3.125 mg Furosemide (Lasix) 40 mg IVP BID [facility] Last Admin: 10/19/18 18:10 Dose: 40 mg Heparin Sodium (Porcine) (Heparin) 5,000 units SC Q8 [facility] Last Admin: 10/19/18 13:19 Dose: 5,000 units Azithromycin 500 mg/ Sodium (Chloride) 250 mls @ 250 mls/hr IVPB Q24H [facility]; Protocol Last Admin: 10/19/18 17:00 Dose: 250 mls/hr Insulin Human Regular (Novolin R) 0 unit SC ACHS [facility]; Protocol Last Admin: 10/19/18 18:11 Dose: 3 units Methylprednisolone (Solu-Medrol) 40 mg IVP Q6 [facility] Last Admin: 10/19/18 18:10 Dose: 40 mg Pantoprazole Sodium (Protonix Ec Tab) 40 mg PO DAILY [facility] Last Admin: 10/19/18 10:30 Dose: 40 mg Potassium Chloride (K-Dur 20 Meq Er Tab) 20 meq PO DAILY [facility] Last Admin: 10/19/18 10:30 Dose: 20 meq Rosuvastatin Calcium (Crestor) 5 mg PO HS [facility] Last Admin: 10/18/18 22:09 Dose: 5 mg Saccharomyces Boulardii (Florastor) 250 mg PO BID [facility] Last Admin: 10/19/18 18:13 Dose: 250 mg Sacubitril/Valsartan (Entresto 24 Mg-26 Mg) 1 tab PO BID [facility] Last Admin: 10/19/18 10:15 Dose: 1 tab Sitagliptin Phosphate (Januvia) 25 mg PO DAILY [facility] Last Admin: 10/19/18 10:29 Dose: 25 mg - Labs Labs: 10/19/18 06:58 10/19/18 06:58 PT 14.2 SECONDS (9.7-12.2) H 10/13/18 20:01 INR 1.3 10/13/18 20:01 APTT 29 SECONDS (21-34) 10/13/18 20:01 - Constitutional Appears: Well - Head Exam Head Exam: ATRAUMATIC, NORMAL INSPECTION, NORMOCEPHALIC - Eye Exam Eye Exam: EOMI, Normal appearance, PERRL Pupil Exam: NORMAL ACCOMODATION, PERRL - ENT Exam ENT Exam: Mucous Membranes Moist, Normal Exam - Neck Exam Neck Exam: Full ROM, Normal Inspection. absent: Lymphadenopathy - Respiratory Exam Respiratory Exam: Decreased Breath Sounds - Cardiovascular Exam Cardiovascular Exam: REGULAR RHYTHM, +S1, +S2 - GI/Abdominal Exam GI & Abdominal Exam: Soft, Diminished Bowel Sounds - Rectal Exam Rectal Exam: Deferred - Neurological Exam Neurological Exam: Oriented x3 Assessment and Plan - Assessment and Plan (Free Text) Plan: labs reviewed vitals reviewed medications reviewed pt iwth moderate complexity of care azithromycin coreg crestor duoneb ecotrin entresto januvia klor-con lasix novolin R protonix ec tab robitussin dm solu-medrol zyloprim 1) Acute exacerbation of CHF (congestive heart failure) Assessment & Plan: Left-sided pacemaker in place Consultation: * Cardiology, Dr. Butterfield---> Help appreciated Imaging and Labs: * BNP (10/19/18): 26,900 * LE Doppler: negative * ECHO (10/15/18): EF <20%; left ventricle is moderately dilated. Left ventricle systolic function is severely impaired. * Chest X-ray (10/18/18): Moderate venous congestion. Right hilar prominence. Cardiomegaly. Left-sided pacemaker. Medications: * Lasix 40 mg po qd * Potassium 20meq once daily * Entresto 1 tab po bid * Aspirin 81 mg po qd * Carvedilol 3.125mg po bid * Crestor 5mg po HS I Status: Acute (2) Shortness of breath Assessment & Plan: Secondary to CHF exacerbation Consultation: Publications Editor, Dr. Robin----> help appreciated Imaging/Labs: Chest X-ray (10/18/18): Moderate venous congestion. Right hilar prominence. Cardiomegaly. Left sided pacemaker. Chest CT (10/18/18): Cardiomegaly. Dual lead left-sided AICD. Mediastinal adenopathy measuring up to 1 cm (pretracheal), nonspecific.Hazy ground-glass bilateral pulmonary opacities appear consistent with edema and/or infection. Small to moderate right and small left pleural effusions. Procalcitonin: <0.05 Medications: * Rin-Medrol 40mg IV q6h * Azithromycin 500mg q24h * Florastor 250mg PO BID * Duonebs Q6H PRN * Tessalon Pearls 100mg po TID for cough as pt still persistence of cough * pt is lying in bed with family bedside * pt advised to come out o fof bed and sit in chair * [facility] nursing staff Status: Acute (3) BILL (acute kidney injury) Assessment & Plan: Stable Possibly secondary to diuresis Avoid nephrotoxic drugs Status: Acute (4) Diabetes mellitus Assessment & Plan: - HgbA1c (10/15/18) is 6.6 - Lipid Panel: Total Cholesterol 96; LDL 60; HDL 41; Triglycerides 49 - Accuchecks - hypoglycemic protocol - Medications: * ISS- Medium dose * Januvia 25mg po daily Status: Acute (5) History of hyperlipidemia Assessment & Plan: - Lipid Panel: Total Cholesterol 96; LDL 60; HDL 41; Triglycerides 49 - Crestor 5mg po HS Status: Acute (6) Prophylactic measure Assessment & Plan: GI: Protonix 40mg PO daily DVT: Heparin 5,000 units SC
--- NOTE | 2018-10-20 00:03 | CP.PCM.PN ---
Subjective - Date & Time of Evaluation Date of Evaluation: 10/19/18 Time of Evaluation: 09:35 - Subjective Subjective: Patient was seen and examined. denies chest pain and dyspnea Objective - Vital Signs/Intake and Output Vital Signs (last 24 hours): Temp Pulse Resp BP Pulse Ox 98.0 F 70 20 135/76 99 10/19/18 07:00 10/19/18 07:36 10/19/18 07:00 10/19/18 10:30 10/19/18 07:00 Intake and Output: 10/19/18 10/19/18 06:59 18:59 Intake Total 572 Output Total 100 Balance 472 - Medications Medications: Current Medications Albuterol/Ipratropium (Duoneb 3 Mg/0.5 Mg (3 Ml) Ud) 3 ml INH RQ6 [facility] Last Admin: 10/19/18 08:31 Dose: Not Given Allopurinol (Zyloprim) 100 mg PO DAILY [facility] Last Admin: 10/19/18 10:30 Dose: 100 mg Aspirin (Ecotrin) 81 mg PO DAILY [facility] Last Admin: 10/19/18 10:30 Dose: 81 mg Benzonatate (Tessalon Perles) 100 mg PO TID PRN PRN Reason: Cough Carvedilol (Coreg) 3.125 mg PO BID [facility] Last Admin: 10/19/18 10:30 Dose: 3.125 mg Furosemide (Lasix) 40 mg IVP BID [facility] Last Admin: 10/19/18 10:30 Dose: 40 mg Heparin Sodium (Porcine) (Heparin) 5,000 units SC Q8 [facility] Last Admin: 10/19/18 05:28 Dose: 5,000 units Azithromycin 500 mg/ Sodium (Chloride) 250 mls @ 250 mls/hr IVPB Q24H [facility]; Protocol Last Admin: 10/18/18 16:30 Dose: 250 mls/hr Insulin Human Regular (Novolin R) 0 unit SC ACHS [facility]; Protocol Last Admin: 10/19/18 08:10 Dose: 3 units Methylprednisolone (Solu-Medrol) 40 mg IVP Q6 [facility] Last Admin: 10/19/18 05:28 Dose: 40 mg Pantoprazole Sodium (Protonix Ec Tab) 40 mg PO DAILY [facility] Last Admin: 10/19/18 10:30 Dose: 40 mg Potassium Chloride (K-Dur 20 Meq Er Tab) 20 meq PO DAILY [facility] Last Admin: 10/19/18 10:30 Dose: 20 meq Rosuvastatin Calcium (Crestor) 5 mg PO HS [facility] Last Admin: 10/18/18 22:09 Dose: 5 mg Saccharomyces Boulardii (Florastor) 250 mg PO BID [facility] Last Admin: 10/19/18 10:30 Dose: 250 mg Sacubitril/Valsartan (Entresto 24 Mg-26 Mg) 1 tab PO BID [facility] Last Admin: 10/18/18 17:28 Dose: 1 tab Sitagliptin Phosphate (Januvia) 25 mg PO DAILY [facility] Last Admin: 10/19/18 10:29 Dose: 25 mg - Labs Labs: 10/19/18 06:58 10/19/18 06:58 PT 14.2 SECONDS (9.7-12.2) H 10/13/18 20:01 INR 1.3 10/13/18 20:01 APTT 29 SECONDS (21-34) 10/13/18 20:01 - Constitutional Appears: Toxic, No Acute Distress - Head Exam Head Exam: NORMAL INSPECTION - Eye Exam Eye Exam: Normal appearance - ENT Exam ENT Exam: Mucous Membranes Moist - Neck Exam Neck Exam: Normal Inspection - Respiratory Exam Respiratory Exam: Decreased Breath Sounds, Wheezes, NORMAL BREATHING PATTERN. absent: Clear to Ausculation Bilateral, Respiratory Distress, Stridor - Cardiovascular Exam Cardiovascular Exam: REGULAR RHYTHM, +S1, +S2 - GI/Abdominal Exam GI & Abdominal Exam: Soft, Normal Bowel Sounds - Rectal Exam Rectal Exam: Deferred - Neurological Exam Neurological Exam: Oriented x3 - Psychiatric Exam Psychiatric exam: Normal Mood - Skin Skin Exam: Normal Color Assessment and Plan - Assessment and Plan (Free Text) Assessment: 87 year old female with past medical history of advanced CHF, HTN, Pulmonary HTN. Pulmonary was consulted for SOB. Plan: 1. Bronchitis continue oxygen continue tessalon perles IV azithromycin IV solumedrol 40 q6 2.CHF exacerbation continue lasix, was increased to 40 mg BID Continue Entresto Continue carvedilol daily CMP daily weights monitor ins and outs with fluid restrictions pulmonary congestion on CXR 10/18 3.Pulmonary hypertension continue oxygen for saturation 92% with BiPAP as needed continue Duoneb Further management per primary team Objective - Vital Signs/Intake and Output Vital Signs (last 24 hours): Temp Pulse Resp BP Pulse Ox 97.8 F 70 18 133/65 94 L 10/19/18 16:00 10/19/18 16:00 10/19/18 16:00 10/19/18 18:10 10/19/18 16:00 Intake and Output: 10/19/18 10/20/18 18:59 06:59 Intake Total 300 Balance 300 - Medications Medications: Current Medications Albuterol/Ipratropium (Duoneb 3 Mg/0.5 Mg (3 Ml) Ud) 3 ml INH RQ6 PRN PRN Reason: Shortness of Breath Allopurinol (Zyloprim) 100 mg PO DAILY [facility] Last Admin: 10/19/18 10:30 Dose: 100 mg Aspirin (Ecotrin) 81 mg PO DAILY [facility] Last Admin: 10/19/18 10:30 Dose: 81 mg Benzonatate (Tessalon Perles) 100 mg PO TID PRN PRN Reason: Cough Last Admin: 10/19/18 21:57 Dose: 100 mg Carvedilol (Coreg) 3.125 mg PO BID [facility] Last Admin: 10/19/18 18:10 Dose: 3.125 mg Furosemide (Lasix) 40 mg IVP BID [facility] Last Admin: 10/19/18 18:10 Dose: 40 mg Heparin Sodium (Porcine) (Heparin) 5,000 units SC Q8 [facility] Last Admin: 10/19/18 21:58 Dose: 5,000 units Azithromycin 500 mg/ Sodium (Chloride) 250 mls @ 250 mls/hr IVPB Q24H [facility]; Protocol Last Admin: 10/19/18 17:00 Dose: 250 mls/hr Insulin Human Regular (Novolin R) 0 unit SC ACHS [facility]; Protocol Last Admin: 10/19/18 21:42 Dose: Not Given Methylprednisolone (Solu-Medrol) 40 mg IVP Q6 [facility] Last Admin: 10/19/18 18:10 Dose: 40 mg Pantoprazole Sodium (Protonix Ec Tab) 40 mg PO DAILY [facility] Last Admin: 10/19/18 10:30 Dose: 40 mg Potassium Chloride (K-Dur 20 Meq Er Tab) 20 meq PO DAILY [facility] Last Admin: 10/19/18 10:30 Dose: 20 meq Rosuvastatin Calcium (Crestor) 5 mg PO HS [facility] Last Admin: 10/19/18 21:58 Dose: 5 mg Saccharomyces Boulardii (Florastor) 250 mg PO BID [facility] Last Admin: 10/19/18 18:13 Dose: 250 mg Sacubitril/Valsartan (Entresto 24 Mg-26 Mg) 1 tab PO BID [facility] Last Admin: 10/19/18 19:29 Dose: 1 tab Sitagliptin Phosphate (Januvia) 25 mg PO DAILY [facility] Last Admin: 10/19/18 10:29 Dose: 25 mg - Labs Labs: 10/19/18 06:58 10/19/18 06:58 PT 14.2 SECONDS (9.7-12.2) H 10/13/18 20:01 INR 1.3 10/13/18 20:01 APTT 29 SECONDS (21-34) 10/13/18 20:01
[2018-10-20] MEDS: MethylPREDNISolone 40 mg Vial IVP SCH ×4 (00:16→17:41)
[2018-10-20 06:51] LABS: BASO % 0.1 % (0.0-2.0); HEMOGLOBIN 11.7 g/dL (11.0-16.0); LYMPH # 0.2 K/uL (1.0-4.3); LYMPH % 4.4 % (20.0-40.0); MEAN CELL VOLUME 91.6 fL (81.0-99.0); MEAN CORPUSCULAR HEMOGLOBIN 30.3 pg (27.0-31.0); MEAN CORPUSCULAR HGB CONC 33.1 g/dL (33.0-37.0); MEAN PLATELET VOLUME 10.4 fL (7.2-11.7); MONO # 0.2 K/uL (0.0-0.8); MONO % 3.9 % (0.0-10.0); NEUT # 4.6 K/uL (1.8-7.0); NEUT % 91.6 % (50.0-75.0); NRBC % 0.1 % (0.0-2.0); PLATELET COUNT 112 K/uL (130-400); RBC 3.85 Mil/uL (3.80-5.20); RED CELL DISTRIBUTION WIDTH 17.7 % (11.5-14.5); WHITE BLOOD COUNT 5.1 K/uL (4.8-10.8)
[2018-10-20 08:04] LABS: ALB/GLOB RATIO 1.2 (1.0-2.1); ALBUMIN 3.2 g/dL (3.5-5.0); CALCIUM 8.2 mg/dl (8.6-10.4)
[2018-10-20] MEDS ORDERED: Potassium Chloride 20 mEq/15 ml LIQ UD PO ONE (08:15)
[2018-10-20] MEDS: Magnesium Sulfate 1 gm in D5W 1 GM/100 ML BAG IVPB SCH ×2 (08:30→08:57)
[2018-10-20 08:44] LABS: LYMPHOCYTE 2 % (20-40); MONOCYTE 3 % (0-10); NEUTROPHIL 95 % (50-75); TOTAL CELLS COUNTED 100
[2018-10-20 08:45] LABS: ANISOCYTOSIS SLIGHT; HYPOCHROMIC SLIGHT; OVALOCYTES SLIGHT; PLATELET ESTIMATE SLIGHTLY DECREASED (NORMAL); POLYCHROMIC SLIGHT
[2018-10-20] MEDS: (Novolin R) Insulin Human Regular 100 units/ml vial SC SCH ×5 (08:56→22:08)
[2018-10-20] MEDS: Saccharomyces Boulardi 250 mg Cap PO SCH ×2 (09:59→19:00)
[2018-10-20] MEDS: Sacubitril/Valsartan 24-26mg Tab PO SCH ×2 (09:59→17:44)
[2018-10-20] MEDS: Potassium Chloride 20 mEq ER Tab PO SCH (10:00)
[2018-10-20] MEDS: Pantoprazole 40 mg EC Tab PO SCH (10:00)
--- NOTE | 2018-10-20 11:12 | CP.PCM.PN ---
<Margarita Flores - Last Filed: 10/20/18 13:51> Subjective - Date & Time of Evaluation Date of Evaluation: 10/20/18 Time of Evaluation: 11:10 - Subjective Subjective: Pulmonary Progress note for Dr. Robin's service Patient was seen and examined at bedside. Patient complains of hemoptysis and cough. Patient is tolerating nasal cannula. Patient denies SOB, chest pain, nausea, vomiting, diarrhea, or constipation. Objective - Vital Signs/Intake and Output Vital Signs (last 24 hours): Temp Pulse Resp BP Pulse Ox 98.6 F 71 20 131/70 99 10/20/18 07:30 10/20/18 08:04 10/20/18 07:30 10/20/18 10:00 10/20/18 07:30 Intake and Output: 10/20/18 10/20/18 06:59 18:59 Intake Total 320 Output Total 2 Balance 318 - Medications Medications: Current Medications Acetylcysteine (Acetylcysteine 20%) 4 ml INH RQ6 [facility] Albuterol/Ipratropium (Duoneb 3 Mg/0.5 Mg (3 Ml) Ud) 3 ml INH RQ6 [facility] Allopurinol (Zyloprim) 100 mg PO DAILY [facility] Last Admin: 10/20/18 09:59 Dose: 100 mg Aspirin (Ecotrin) 81 mg PO DAILY [facility] Last Admin: 10/20/18 10:00 Dose: 81 mg Benzonatate (Tessalon Perles) 100 mg PO TID PRN PRN Reason: Cough Last Admin: 10/20/18 09:59 Dose: 100 mg Carvedilol (Coreg) 3.125 mg PO BID [facility] Last Admin: 10/20/18 10:00 Dose: 3.125 mg Furosemide (Lasix) 40 mg IVP BID [facility] Last Admin: 10/20/18 10:00 Dose: 40 mg Heparin Sodium (Porcine) (Heparin) 5,000 units SC Q8 [facility] Last Admin: 10/20/18 05:35 Dose: 5,000 units Azithromycin 500 mg/ Sodium (Chloride) 250 mls @ 250 mls/hr IVPB Q24H [facility]; Protocol Last Admin: 10/19/18 17:00 Dose: 250 mls/hr Insulin Human Regular (Novolin R) 0 unit SC ACHS [facility]; Protocol Last Admin: 04/17/19 08:56 Dose: 3 units Methylprednisolone (Solu-Medrol) 40 mg IVP Q6 [facility] Last Admin: 10/20/18 05:35 Dose: 40 mg Pantoprazole Sodium (Protonix Ec Tab) 40 mg PO DAILY [facility] Last Admin: 10/20/18 10:00 Dose: 40 mg Potassium Chloride (K-Dur 20 Meq Er Tab) 20 meq PO DAILY [facility] Last Admin: 10/20/18 10:00 Dose: 20 meq Potassium Chloride (K-Dur 20 Meq Er Tab) 40 meq PO ONCE ONE Stop: 10/20/18 13:01 Rosuvastatin Calcium (Crestor) 5 mg PO HS [facility] Last Admin: 10/19/18 21:58 Dose: 5 mg Saccharomyces Boulardii (Florastor) 250 mg PO BID [facility] Last Admin: 10/20/18 09:59 Dose: 250 mg Sacubitril/Valsartan (Entresto 24 Mg-26 Mg) 1 tab PO BID [facility] Last Admin: 10/20/18 09:59 Dose: 1 tab Sitagliptin Phosphate (Januvia) 25 mg PO DAILY [facility] Last Admin: 10/20/18 10:00 Dose: 25 mg - Labs Labs: 10/20/18 06:30 10/20/18 06:30 PT 14.2 SECONDS (9.7-12.2) H 10/13/18 20:01 INR 1.3 10/13/18 20:01 APTT 29 SECONDS (21-34) 10/13/18 20:01 - Constitutional Appears: Non-toxic, No Acute Distress - Head Exam Head Exam: NORMAL INSPECTION - Eye Exam Eye Exam: Normal appearance - ENT Exam ENT Exam: Mucous Membranes Moist - Neck Exam Neck Exam: Normal Inspection - Respiratory Exam Respiratory Exam: Decreased Breath Sounds, NORMAL BREATHING PATTERN - Cardiovascular Exam Cardiovascular Exam: REGULAR RHYTHM - GI/Abdominal Exam GI & Abdominal Exam: Normal Bowel Sounds - Rectal Exam Rectal Exam: Deferred - Extremities Exam Extremities Exam: absent: Pedal Edema - Neurological Exam Neurological Exam: Oriented x3 - Skin Skin Exam: Normal Color Assessment and Plan - Assessment and Plan (Free Text) Assessment: 87 year old female with past medical history of advanced CHF, HTN, Pulmonary HTN. Pulmonary was consulted for SOB. Plan: 1. Bronchitis new onset hemoptysis indicative of viral bronchitis continue oxygen continue tessalon perles IV azithromycin IV solumedrol 40 q6 2.CHF exacerbation continue lasix, was increased to 40 mg BID Continue Entresto Continue carvedilol daily CMP daily weights monitor ins and outs with fluid restrictions pulmonary congestion on CXR 10/18 3.Pulmonary hypertension continue oxygen for saturation 92% with BiPAP as needed continue Duoneb Further management per primary team PGY-1 Margarita Flores Case d/w Dr. Robin <Usman Robin - Last Filed: 10/20/18 15:08> Objective - Vital Signs/Intake and Output Vital Signs (last 24 hours): Temp Pulse Resp BP Pulse Ox 98.6 F 71 20 131/70 99 10/20/18 07:30 10/20/18 08:04 10/20/18 07:30 10/20/18 10:00 10/20/18 07:30 Intake and Output: 10/20/18 10/20/18 06:59 18:59 Intake Total 320 Output Total 2 Balance 318 - Medications Medications: Current Medications Acetylcysteine (Acetylcysteine 20%) 4 ml INH RQ6 [facility] Albuterol/Ipratropium (Duoneb 3 Mg/0.5 Mg (3 Ml) Ud) 3 ml INH RQ6 [facility] Allopurinol (Zyloprim) 100 mg PO DAILY [facility] Last Admin: 10/20/18 09:59 Dose: 100 mg Aspirin (Ecotrin) 81 mg PO DAILY [facility] Last Admin: 10/20/18 10:00 Dose: 81 mg Azithromycin (Zithromax) 500 mg PO Q24H [facility] Benzonatate (Tessalon Perles) 100 mg PO TID PRN PRN Reason: Cough Last Admin: 10/20/18 12:52 Dose: 100 mg Carvedilol (Coreg) 3.125 mg PO BID [facility] Last Admin: 10/20/18 10:00 Dose: 3.125 mg Furosemide (Lasix) 40 mg IVP BID [facility] Last Admin: 10/20/18 10:00 Dose: 40 mg Heparin Sodium (Porcine) (Heparin) 5,000 units SC Q8 [facility] Last Admin: 10/20/18 13:01 Dose: 5,000 units Insulin Human Regular (Novolin R) 0 unit SC ACHS [facility]; Protocol Last Admin: 10/20/18 12:49 Dose: 6 units Methylprednisolone (Solu-Medrol) 40 mg IVP Q6 [facility] Last Admin: 10/20/18 12:38 Dose: 40 mg Pantoprazole Sodium (Protonix Ec Tab) 40 mg PO DAILY [facility] Last Admin: 10/20/18 10:00 Dose: 40 mg Potassium Chloride (K-Dur 20 Meq Er Tab) 20 meq PO DAILY [facility] Last Admin: 10/20/18 10:00 Dose: 20 meq Rosuvastatin Calcium (Crestor) 5 mg PO HS [facility] Last Admin: 10/19/18 21:58 Dose: 5 mg Saccharomyces Boulardii (Florastor) 250 mg PO BID [facility] Last Admin: 10/20/18 09:59 Dose: 250 mg Sacubitril/Valsartan (Entresto 24 Mg-26 Mg) 1 tab PO BID [facility] Last Admin: 10/20/18 09:59 Dose: 1 tab Sitagliptin Phosphate (Januvia) 25 mg PO DAILY [facility] Last Admin: 10/20/18 10:00 Dose: 25 mg - Labs Labs: 10/20/18 06:30 10/20/18 14:00 PT 14.2 SECONDS (9.7-12.2) H 10/13/18 20:01 INR 1.3 10/13/18 20:01 APTT 29 SECONDS (21-34) 10/13/18 20:01 Assessment and Plan (1) Acute bronchitis Status: Acute (2) Renal insufficiency Status: Acute Attending/Attestation - Attestation I have personally seen and examined this patient.: Yes I have fully participated in the care of the patient.: Yes I have reviewed all pertinent clinical information, including history, physical exam and plan: Yes Notes (Text): 10/20/18 15:07 Cough with blood-tinged sputum most likely secondary to bronchitis Continue antibiotics, steroids Inhaled steroids/budesonide Continue diuretics Follow-up chest x-ray
--- NOTE | 2018-10-20 11:33 | CP.PCM.PN ---
Subjective - Date & Time of Evaluation Date of Evaluation: 10/20/18 Time of Evaluation: 07:20 - Subjective Subjective: Medicine note ( Dr. Pepito Diaz's service) Patient was seen and examined at bedside, while patient is resting comfortably. Patient admits to improved symptoms but she is still admits to cough. Patient states that she is having a hard time with expectorating. Patient denies fever, chills, nausea, vomiting, chest pain, palpitations, shortness of breath, abdominal pain, bowel changes or urinary symptoms. Objective - Vital Signs/Intake and Output Vital Signs (last 24 hours): Temp Pulse Resp BP Pulse Ox 98.6 F 71 20 131/70 99 10/20/18 07:30 10/20/18 08:04 10/20/18 07:30 10/20/18 10:00 10/20/18 07:30 Intake and Output: 10/20/18 10/20/18 06:59 18:59 Intake Total 320 Output Total 2 Balance 318 - Medications Medications: Current Medications Acetylcysteine (Acetylcysteine 20%) 4 ml INH RQ6 [facility] Albuterol/Ipratropium (Duoneb 3 Mg/0.5 Mg (3 Ml) Ud) 3 ml INH RQ6 [facility] Allopurinol (Zyloprim) 100 mg PO DAILY [facility] Last Admin: 10/20/18 09:59 Dose: 100 mg Aspirin (Ecotrin) 81 mg PO DAILY [facility] Last Admin: 10/20/18 10:00 Dose: 81 mg Benzonatate (Tessalon Perles) 100 mg PO TID PRN PRN Reason: Cough Last Admin: 10/20/18 09:59 Dose: 100 mg Carvedilol (Coreg) 3.125 mg PO BID [facility] Last Admin: 10/20/18 10:00 Dose: 3.125 mg Furosemide (Lasix) 40 mg IVP BID [facility] Last Admin: 10/20/18 10:00 Dose: 40 mg Heparin Sodium (Porcine) (Heparin) 5,000 units SC Q8 [facility] Last Admin: 10/20/18 05:35 Dose: 5,000 units Azithromycin 500 mg/ Sodium (Chloride) 250 mls @ 250 mls/hr IVPB Q24H [facility]; Protocol Last Admin: 10/19/18 17:00 Dose: 250 mls/hr Insulin Human Regular (Novolin R) 0 unit SC ACHS [facility]; Protocol Last Admin: 10/20/18 08:56 Dose: 3 units Methylprednisolone (Solu-Medrol) 40 mg IVP Q6 [facility] Last Admin: 10/20/18 05:35 Dose: 40 mg Pantoprazole Sodium (Protonix Ec Tab) 40 mg PO DAILY [facility] Last Admin: 10/20/18 10:00 Dose: 40 mg Potassium Chloride (K-Dur 20 Meq Er Tab) 20 meq PO DAILY [facility] Last Admin: 10/20/18 10:00 Dose: 20 meq Potassium Chloride (K-Dur 20 Meq Er Tab) 40 meq PO ONCE ONE Stop: 10/20/18 13:01 Rosuvastatin Calcium (Crestor) 5 mg PO HS [facility] Last Admin: 10/19/18 21:58 Dose: 5 mg Saccharomyces Boulardii (Florastor) 250 mg PO BID [facility] Last Admin: 10/20/18 09:59 Dose: 250 mg Sacubitril/Valsartan (Entresto 24 Mg-26 Mg) 1 tab PO BID [facility] Last Admin: 10/20/18 09:59 Dose: 1 tab Sitagliptin Phosphate (Januvia) 25 mg PO DAILY [facility] Last Admin: 10/20/18 10:00 Dose: 25 mg - Labs Labs: 10/20/18 06:30 10/20/18 06:30 PT 14.2 SECONDS (9.7-12.2) H 10/13/18 20:01 INR 1.3 10/13/18 20:01 APTT 29 SECONDS (21-34) 10/13/18 20:01 - Constitutional Appears: No Acute Distress - Head Exam Head Exam: ATRAUMATIC - Eye Exam Eye Exam: EOMI - ENT Exam ENT Exam: Mucous Membranes Moist - Respiratory Exam Respiratory Exam: Rales, Wheezes, NORMAL BREATHING PATTERN Additional comments: Mild upper expiratory wheezing Diffuse bilateral lower base Rales - Cardiovascular Exam Cardiovascular Exam: REGULAR RHYTHM, +S1, +S2, Murmur Additional comments: Systolic murmur in right second intercostal space - GI/Abdominal Exam GI & Abdominal Exam: Soft, Normal Bowel Sounds. absent: Distended, Firm, Guarding, Rigid, Tenderness - Extremities Exam Extremities Exam: Normal Inspection. absent: Calf Tenderness, Pedal Edema - Neurological Exam Neurological Exam: Alert, Awake, Oriented x3 - Psychiatric Exam Psychiatric exam: Normal Affect - Skin Skin Exam: Normal Color Assessment and Plan (1) Acute exacerbation of CHF (congestive heart failure) Assessment & Plan: Left-sided pacemaker in place Consultation: * Cardiology, Dr. Butterfield---> Help appreciated Imaging and Labs: * BNP (10/19/18): 26,900, F/u repeat BNP * LE Doppler: negative * ECHO (10/15/18): EF <20%; left ventricle is moderately dilated. Left ventricle systolic function is severely impaired. * Chest X-ray (10/18/18): Moderate venous congestion. Right hilar prominence. Cardiomegaly. Left-sided pacemaker. Medications: * Lasix 40 mg IV BID * Potassium 20meq once daily * Entresto 1 tab po bid * Aspirin 81 mg po qd * Carvedilol 3.125mg po bid * Crestor 5mg po HS Status: Acute (2) Shortness of breath Assessment & Plan: Secondary to CHF exacerbation Consultation: Sample [employer], Dr. Robin----> help appreciated Imaging/Labs: Chest X-ray (10/18/18): Moderate venous congestion. Right hilar prominence. Cardiomegaly. Left sided pacemaker. Chest CT (10/18/18): Cardiomegaly. Dual lead left-sided AICD. Mediastinal adenopathy measuring up to 1 cm (pretracheal), nonspecific.Hazy ground-glass bilateral pulmonary opacities appear consistent with edema and/or infection. Small to moderate right and small left pleural effusions. Procalcitonin: <0.05 Medications: * Rin-Medrol 40mg IV q6h * Azithromycin 500mg q24h * Florastor 250mg PO BID * Duonebs Q6H [facility] with Mucolytics INH Q6H [facility] * Tessalon Pearls 100mg po TID for cough Status: Acute (3) BILL (acute kidney injury) Assessment & Plan: Resolved Possibly secondary to diuresis Avoid nephrotoxic drugs Status: Acute (4) Diabetes mellitus Assessment & Plan: - HgbA1c (10/15/18) is 6.6 - Lipid Panel: Total Cholesterol 96; LDL 60; HDL 41; Triglycerides 49 - Accuchecks - hypoglycemic protocol - Medications: * ISS- Medium dose * Januvia 25mg po daily Status: Acute (5) History of hyperlipidemia Assessment & Plan: - Lipid Panel: Total Cholesterol 96; LDL 60; HDL 41; Triglycerides 49 - Crestor 5mg po HS Status: Acute (6) Hypokalemia Assessment & Plan: Mg Sulfate 2 bags given once (10/20/18) KCL soln 40meq once (10/20/18) K-DUR 40meq once (10/20/18) K-dur 20meq once daily Repeat BMP: 3.4 (L); patient to continue with K-dur 20meq once Status: Acute (7) Prophylactic measure Assessment & Plan: GI: Protonix 40mg PO daily DVT: Heparin 5,000 units SC All plans and management discussed with Dr. Pepito Diaz Status: Acute
[2018-10-20] MEDS ORDERED: Potassium Chloride 20 mEq ER Tab PO ONE (13:00)
--- NOTE | 2018-10-20 13:33 | CP.PCM.PN ---
<Janice Nieves - Last Filed: 10/20/18 16:25> Subjective - Date & Time of Evaluation Date of Evaluation: 10/20/18 Time of Evaluation: 13:30 - Subjective Subjective: Cardiology Consult Progress Note for Dr. Butterfield. Patient seen and examined at bedside. Patients states she is doing "okay". SOB is mildly improved. She denies any palpitations, or chest pain. She does complain of cough w/ with productive sputum and hemoptysis. Objective - Vital Signs/Intake and Output Vital Signs (last 24 hours): Temp Pulse Resp BP Pulse Ox 98.6 F 71 20 131/70 99 10/20/18 07:30 10/20/18 08:04 10/20/18 07:30 10/20/18 10:00 10/20/18 07:30 Intake and Output: 10/20/18 10/20/18 06:59 18:59 Intake Total 320 Output Total 2 Balance 318 - Medications Medications: Current Medications Acetylcysteine (Acetylcysteine 20%) 4 ml INH RQ6 [facility] Albuterol/Ipratropium (Duoneb 3 Mg/0.5 Mg (3 Ml) Ud) 3 ml INH RQ6 [facility] Allopurinol (Zyloprim) 100 mg PO DAILY [facility] Last Admin: 10/20/18 09:59 Dose: 100 mg Aspirin (Ecotrin) 81 mg PO DAILY [facility] Last Admin: 10/20/18 10:00 Dose: 81 mg Benzonatate (Tessalon Perles) 100 mg PO TID PRN PRN Reason: Cough Last Admin: 10/20/18 12:52 Dose: 100 mg Carvedilol (Coreg) 3.125 mg PO BID [facility] Last Admin: 10/20/18 10:00 Dose: 3.125 mg Furosemide (Lasix) 40 mg IVP BID [facility] Last Admin: 10/20/18 10:00 Dose: 40 mg Heparin Sodium (Porcine) (Heparin) 5,000 units SC Q8 [facility] Last Admin: 10/20/18 13:01 Dose: 5,000 units Azithromycin 500 mg/ Sodium (Chloride) 250 mls @ 250 mls/hr IVPB Q24H [facility]; Protocol Last Admin: 10/19/18 17:00 Dose: 250 mls/hr Insulin Human Regular (Novolin R) 0 unit SC ACHS [facility]; Protocol Last Admin: 10/20/18 12:49 Dose: 6 units Methylprednisolone (Solu-Medrol) 40 mg IVP Q6 [facility] Last Admin: 10/20/18 12:38 Dose: 40 mg Pantoprazole Sodium (Protonix Ec Tab) 40 mg PO DAILY [facility] Last Admin: 10/20/18 10:00 Dose: 40 mg Potassium Chloride (K-Dur 20 Meq Er Tab) 20 meq PO DAILY [facility] Last Admin: 10/20/18 10:00 Dose: 20 meq Rosuvastatin Calcium (Crestor) 5 mg PO HS [facility] Last Admin: 10/19/18 21:58 Dose: 5 mg Saccharomyces Boulardii (Florastor) 250 mg PO BID [facility] Last Admin: 10/20/18 09:59 Dose: 250 mg Sacubitril/Valsartan (Entresto 24 Mg-26 Mg) 1 tab PO BID [facility] Last Admin: 10/20/18 09:59 Dose: 1 tab Sitagliptin Phosphate (Januvia) 25 mg PO DAILY [facility] Last Admin: 10/20/18 10:00 Dose: 25 mg - Labs Labs: 10/20/18 06:30 10/20/18 06:30 PT 14.2 SECONDS (9.7-12.2) H 10/13/18 20:01 INR 1.3 10/13/18 20:01 APTT 29 SECONDS (21-34) 10/13/18 20:01 - Additional Findings Additional findings: - Constitutional Appears: No Acute Distress - Head Exam Head Exam: ATRAUMATIC - Eye Exam Eye Exam: EOMI - ENT Exam ENT Exam: Mucous Membranes Moist - Respiratory Exam Respiratory Exam: Rales, Wheezes, NORMAL BREATHING PATTERN Additional comments: Mild upper expiratory wheezing Diffuse bilateral lower base Rales - Cardiovascular Exam Cardiovascular Exam: REGULAR RHYTHM, +S1, +S2, Murmur Additional comments: Systolic murmur in right second intercostal space (Grade 2/5) - GI/Abdominal Exam GI & Abdominal Exam: Soft, Normal Bowel Sounds. absent: Distended, Firm, Guarding, Rigid, Tenderness - Extremities Exam Extremities Exam: Normal Inspection. absent: Calf Tenderness, Pedal Edema - Neurological Exam Neurological Exam: Alert, Awake, Oriented x3 - Psychiatric Exam Psychiatric exam: Normal Affect - Skin Skin Exam: Normal Color Assessment and Plan - Assessment and Plan (Free Text) Assessment: This patient is a an 87 year old female with a PMhx of CHF with AICD, HTN, and DM who presents due to SOB x 3 days. Cardiology consulted on this patient for evaluation and treatment of acute on chronic CHF and for possible pacemaker interrogation. Plan: Acute on Chronic CHF Exacerbation ECHO (11/2016): EF 25%, diastolic dysfunction, pacemaker lead in right ventricle, moderate AR, Severe MR, Severe Pulm HTN, trace post. pericardial effusion. ECHO (10/15/18): EF <20%; left ventricle is moderately dilated. Left ventricle s ystolic function is severely impaired Labs: BNP - 40748 ( Always elevated but this is the highest). Troponins: NEGATIVE x 3. D-Dimer 1005 CXR (Admission): No Active Pulmonary Disease. CXR (10/18/18): Moderate venous congestion. Right hilar prominence. Cardiomegaly. Left-sided pacemaker. V/Q Scan (10/14/18): Low probability for PE Mgmt: Coreg 3.125 BID Lasix 40 IVP BID Stict I's and O's. Fluid Restriction, 2gm Salt Diet. Elevate HOB to 30-45 Degrees Entresto 24-26 1tab PO Daily Correct Electrolyte abnormalities. Janice Nieves, PGY-[address] Butterfield <Trenton Butterfield - Last Filed: 10/20/18 23:24> Objective - Vital Signs/Intake and Output Vital Signs (last 24 hours): Temp Pulse Resp BP Pulse Ox 97.9 F 72 20 114/65 99 10/20/18 16:00 10/20/18 16:00 10/20/18 16:00 10/20/18 17:41 10/20/18 16:00 - Medications Medications: Current Medications Acetylcysteine (Acetylcysteine 20%) 4 ml INH RQ6 [facility] Last Admin: 10/20/18 19:42 Dose: 4 ml Albuterol/Ipratropium (Duoneb 3 Mg/0.5 Mg (3 Ml) Ud) 3 ml INH RQ6 [facility] Last Admin: 10/20/18 19:42 Dose: 3 ml Allopurinol (Zyloprim) 100 mg PO DAILY [facility] Last Admin: 10/20/18 09:59 Dose: 100 mg Aspirin (Ecotrin) 81 mg PO DAILY [facility] Last Admin: 10/20/18 10:00 Dose: 81 mg Azithromycin (Zithromax) 500 mg PO Q24H [facility] Last Admin: 10/20/18 17:44 Dose: 500 mg Benzonatate (Tessalon Perles) 100 mg PO TID PRN PRN Reason: Cough Last Admin: 10/20/18 12:52 Dose: 100 mg Carvedilol (Coreg) 3.125 mg PO BID [facility] Last Admin: 10/20/18 17:41 Dose: 3.125 mg Furosemide (Lasix) 40 mg IVP BID [facility] Last Admin: 10/20/18 17:41 Dose: 40 mg Heparin Sodium (Porcine) (Heparin) 5,000 units SC Q8 [facility] Last Admin: 10/20/18 22:35 Dose: 5,000 units Insulin Human Regular (Novolin R) 0 unit SC ACHS [facility]; Protocol Last Admin: 10/20/18 22:08 Dose: Not Given Methylprednisolone (Solu-Medrol) 40 mg IVP Q6 [facility] Last Admin: 10/20/18 17:41 Dose: 40 mg Pantoprazole Sodium (Protonix Ec Tab) 40 mg PO DAILY [facility] Last Admin: 10/20/18 10:00 Dose: 40 mg Potassium Chloride (K-Dur 20 Meq Er Tab) 20 meq PO DAILY [facility] Last Admin: 10/20/18 10:00 Dose: 20 meq Rosuvastatin Calcium (Crestor) 5 mg PO HS [facility] Last Admin: 10/20/18 22:34 Dose: 5 mg Saccharomyces Boulardii (Florastor) 250 mg PO BID [facility] Last Admin: 10/20/18 19:00 Dose: 250 mg Sacubitril/Valsartan (Entresto 24 Mg-26 Mg) 1 tab PO BID [facility] Last Admin: 10/20/18 17:44 Dose: 1 tab Sitagliptin Phosphate (Januvia) 25 mg PO DAILY [facility] Last Admin: 10/20/18 10:00 Dose: 25 mg - Labs Labs: 10/20/18 06:30 10/20/18 14:00 PT 14.2 SECONDS (9.7-12.2) H 10/13/18 20:01 INR 1.3 10/13/18 20:01 APTT 29 SECONDS (21-34) 10/13/18 20:01 Assessment and Plan - Assessment and Plan (Free Text) Plan: Patient seen and evaluated personally by me. Plan of care d/w the medical accounting clerk and as documented.
[2018-10-20 14:22] LABS: CALCIUM 8.5 mg/dl (8.6-10.4)
--- NOTE | 2018-10-20 19:32 | CP.PCM.PN ---
Subjective - Date & Time of Evaluation Date of Evaluation: 10/20/18 - Subjective Subjective: patient seen and examined patient denies nausea, fever, diarrhea, shortness of breath, vomiting Objective - Vital Signs/Intake and Output Vital Signs (last 24 hours): Temp Pulse Resp BP Pulse Ox 97.9 F 72 20 114/65 99 10/20/18 16:00 10/20/18 16:00 10/20/18 16:00 10/20/18 17:41 10/20/18 16:00 - Medications Medications: Current Medications Acetylcysteine (Acetylcysteine 20%) 4 ml INH RQ6 [facility] Albuterol/Ipratropium (Duoneb 3 Mg/0.5 Mg (3 Ml) Ud) 3 ml INH RQ6 [facility] Allopurinol (Zyloprim) 100 mg PO DAILY [facility] Last Admin: 10/20/18 09:59 Dose: 100 mg Aspirin (Ecotrin) 81 mg PO DAILY [facility] Last Admin: 10/20/18 10:00 Dose: 81 mg Azithromycin (Zithromax) 500 mg PO Q24H [facility] Last Admin: 10/20/18 17:44 Dose: 500 mg Benzonatate (Tessalon Perles) 100 mg PO TID PRN PRN Reason: Cough Last Admin: 10/20/18 12:52 Dose: 100 mg Carvedilol (Coreg) 3.125 mg PO BID [facility] Last Admin: 10/20/18 17:41 Dose: 3.125 mg Furosemide (Lasix) 40 mg IVP BID [facility] Last Admin: 10/20/18 17:41 Dose: 40 mg Heparin Sodium (Porcine) (Heparin) 5,000 units SC Q8 [facility] Last Admin: 10/20/18 13:01 Dose: 5,000 units Insulin Human Regular (Novolin R) 0 unit SC ACHS [facility]; Protocol Last Admin: 10/20/18 17:20 Dose: 3 units Methylprednisolone (Solu-Medrol) 40 mg IVP Q6 [facility] Last Admin: 10/20/18 17:41 Dose: 40 mg Pantoprazole Sodium (Protonix Ec Tab) 40 mg PO DAILY [facility] Last Admin: 10/20/18 10:00 Dose: 40 mg Potassium Chloride (K-Dur 20 Meq Er Tab) 20 meq PO DAILY [facility] Last Admin: 10/20/18 10:00 Dose: 20 meq Rosuvastatin Calcium (Crestor) 5 mg PO HS [facility] Last Admin: 10/19/18 21:58 Dose: 5 mg Saccharomyces Boulardii (Florastor) 250 mg PO BID [facility] Last Admin: 10/20/18 09:59 Dose: 250 mg Sacubitril/Valsartan (Entresto 24 Mg-26 Mg) 1 tab PO BID [facility] Last Admin: 10/20/18 17:44 Dose: 1 tab Sitagliptin Phosphate (Januvia) 25 mg PO DAILY [facility] Last Admin: 10/20/18 10:00 Dose: 25 mg - Labs Labs: 10/20/18 06:30 10/20/18 14:00 PT 14.2 SECONDS (9.7-12.2) H 10/13/18 20:01 INR 1.3 10/13/18 20:01 APTT 29 SECONDS (21-34) 10/13/18 20:01 - Constitutional Appears: Well - Head Exam Head Exam: ATRAUMATIC, NORMAL INSPECTION, NORMOCEPHALIC - Eye Exam Eye Exam: EOMI, Normal appearance, PERRL Pupil Exam: NORMAL ACCOMODATION, PERRL - ENT Exam ENT Exam: Mucous Membranes Moist, Normal Exam - Neck Exam Neck Exam: Full ROM, Normal Inspection. absent: Lymphadenopathy - Respiratory Exam Respiratory Exam: Decreased Breath Sounds - Cardiovascular Exam Cardiovascular Exam: REGULAR RHYTHM, +S1, +S2 - GI/Abdominal Exam GI & Abdominal Exam: Soft, Diminished Bowel Sounds - Rectal Exam Rectal Exam: Deferred - Neurological Exam Neurological Exam: Oriented x3 Assessment and Plan - Assessment and Plan (Free Text) Plan: azithromycin coreg crestor duoneb ecotrin entresto januvia klor-con lasix novolin R protonix ec tab robitussin dm solu-medrol zyloprim medications reviewed labs reviewed vitals reviewed
[2018-10-20] MEDS: Acetylcysteine 20% Inhal Soln (4ml) INH SCH (19:42)
[2018-10-20] MEDS: Albuterol-Ipratrop 3 mg / 0.5 (3 ml) UD INH SCH (19:42)
[2018-10-21] MEDS: MethylPREDNISolone 40 mg Vial IVP SCH ×2 (00:06→05:36)
[2018-10-21] MEDS: Albuterol-Ipratrop 3 mg / 0.5 (3 ml) UD INH SCH ×4 (01:26→19:57)
[2018-10-21] MEDS: Acetylcysteine 20% Inhal Soln (4ml) INH SCH ×4 (01:26→19:57)
[2018-10-21 08:35] LABS: BASO % 0.2 % (0.0-2.0); HEMOGLOBIN 13.1 g/dL (11.0-16.0); LYMPH # 0.3 K/uL (1.0-4.3); LYMPH % 4.6 % (20.0-40.0); MEAN CELL VOLUME 92.1 fL (81.0-99.0); MEAN CORPUSCULAR HEMOGLOBIN 30.4 pg (27.0-31.0); MEAN PLATELET VOLUME 10.5 fL (7.2-11.7); MONO # 0.3 K/uL (0.0-0.8); MONO % 5.4 % (0.0-10.0); NEUT # 5.1 K/uL (1.8-7.0); NEUT % 89.8 % (50.0-75.0); NRBC % 0.2 % (0.0-2.0); PLATELET COUNT 135 K/uL (130-400); RBC 4.31 Mil/uL (3.80-5.20); RED CELL DISTRIBUTION WIDTH 17.4 % (11.5-14.5); WHITE BLOOD COUNT 5.7 K/uL (4.8-10.8)
[2018-10-21] MEDS: (Novolin R) Insulin Human Regular 100 units/ml vial SC SCH ×4 (08:54→22:00)
[2018-10-21 09:37] LABS: ALB/GLOB RATIO 1.4 (1.0-2.1); ALBUMIN 3.5 g/dL (3.5-5.0); ALT/SGPT 38 U/L (9-52); AST/SGOT 35 U/L (14-36); BLOOD UREA NITROGEN 40 mg/dL (7-17); CALCIUM 8.1 mg/dl (8.6-10.4); GFR NON-AFRICAN AMERICAN 59
[2018-10-21] MEDS: Saccharomyces Boulardi 250 mg Cap PO SCH ×2 (09:46→17:49)
[2018-10-21] MEDS: Pantoprazole 40 mg EC Tab PO SCH (09:46)
[2018-10-21] MEDS: Potassium Chloride 20 mEq ER Tab PO SCH (09:46)
[2018-10-21] MEDS ORDERED: Potassium Chloride 20 mEq ER Tab PO ONE ×2 (10:05→12:00)
--- NOTE | 2018-10-21 10:12 | CP.PCM.PN ---
<Margarita Flores - Last Filed: 10/21/18 10:46> Subjective - Date & Time of Evaluation Date of Evaluation: 10/21/18 Time of Evaluation: 10:10 - Subjective Subjective: Pulmonary Progress note for Dr. Robin's service Patient was seen and examined at bedside. Patient says her cough has improved. Patient is tolerating nasal cannula. Patient denies hemoptysis, SOB, chest pain, nausea, vomiting, diarrhea, or constipation. Objective - Vital Signs/Intake and Output Vital Signs (last 24 hours): Temp Pulse Resp BP Pulse Ox 98 F 73 20 130/68 97 10/20/18 23:25 10/21/18 07:09 10/20/18 23:25 10/20/18 23:25 10/20/18 23:25 Intake and Output: 10/21/18 10/21/18 06:59 18:59 Intake Total 250 Balance 250 - Medications Medications: Current Medications Acetylcysteine (Acetylcysteine 20%) 4 ml INH RQ6 [facility] Last Admin: 10/21/18 01:26 Dose: 4 ml Albuterol/Ipratropium (Duoneb 3 Mg/0.5 Mg (3 Ml) Ud) 3 ml INH RQ6 [facility] Last Admin: 10/21/18 01:26 Dose: 3 ml Allopurinol (Zyloprim) 100 mg PO DAILY [facility] Last Admin: 10/21/18 09:48 Dose: 100 mg Aspirin (Ecotrin) 81 mg PO DAILY [facility] Last Admin: 10/21/18 09:46 Dose: 81 mg Azithromycin (Zithromax) 500 mg PO Q24H [facility] Last Admin: 10/20/18 17:44 Dose: 500 mg Benzonatate (Tessalon Perles) 100 mg PO TID PRN PRN Reason: Cough Last Admin: 10/20/18 12:52 Dose: 100 mg Carvedilol (Coreg) 3.125 mg PO BID [facility] Last Admin: 10/21/18 09:46 Dose: 3.125 mg Furosemide (Lasix) 40 mg IVP DAILY [facility] Heparin Sodium (Porcine) (Heparin) 5,000 units SC Q8 [facility] Last Admin: 10/20/18 22:35 Dose: 5,000 units Insulin Human Regular (Novolin R) 0 unit SC ACHS [facility]; Protocol Last Admin: 10/21/18 08:54 Dose: 4 units Methylprednisolone (Solu-Medrol) 40 mg IVP Q12 [facility] Pantoprazole Sodium (Protonix Ec Tab) 40 mg PO DAILY [facility] Last Admin: 10/21/18 09:46 Dose: 40 mg Potassium Chloride (K-Dur 20 Meq Er Tab) 20 meq PO DAILY [facility] Last Admin: 10/21/18 09:46 Dose: 20 meq Potassium Chloride (K-Dur 20 Meq Er Tab) 40 meq PO ONCE ONE Stop: 10/21/18 10:06 Potassium Chloride (K-Dur 20 Meq Er Tab) 40 meq PO ONCE ONE Stop: 10/21/18 12:01 Rosuvastatin Calcium (Crestor) 5 mg PO [facility] Last Admin: 10/20/18 22:34 Dose: 5 mg Saccharomyces Boulardii (Florastor) 250 mg PO BID [facility] Last Admin: 10/21/18 09:46 Dose: 250 mg Sacubitril/Valsartan (Entresto 24 Mg-26 Mg) 1 tab PO BID [facility] Last Admin: 10/20/18 17:44 Dose: 1 tab Sitagliptin Phosphate (Januvia) 25 mg PO DAILY [facility] Last Admin: 10/21/18 09:46 Dose: 25 mg - Labs Labs: 10/21/18 08:23 10/21/18 08:23 PT 14.2 SECONDS (9.7-12.2) H 10/13/18 20:01 INR 1.3 10/13/18 20:01 APTT 29 SECONDS (21-34) 10/13/18 20:01 - Constitutional Appears: Non-toxic, No Acute Distress, Chronically Ill - Head Exam Head Exam: NORMAL INSPECTION - Eye Exam Eye Exam: EOMI, Normal appearance - ENT Exam ENT Exam: Mucous Membranes Moist - Neck Exam Neck Exam: Normal Inspection - Respiratory Exam Respiratory Exam: Clear to Ausculation Bilateral, NORMAL BREATHING PATTERN - Cardiovascular Exam Cardiovascular Exam: REGULAR RHYTHM - GI/Abdominal Exam GI & Abdominal Exam: Normal Bowel Sounds - Rectal Exam Rectal Exam: Deferred - Extremities Exam Extremities Exam: Normal Inspection - Neurological Exam Neurological Exam: CN II-XII Intact, Oriented x3 - Psychiatric Exam Psychiatric exam: Normal Mood - Skin Skin Exam: Intact, Normal Color Assessment and Plan - Assessment and Plan (Free Text) Assessment: 87 year old female with past medical history of advanced CHF, HTN, Pulmonary HTN. Pulmonary was consulted for SOB. Plan: 1. Bronchitis hemoptysis resolved continue oxygen continue tessalon perles IV azithromycin IV solumedrol 40 q6 Will recommend tapered Prednisone starting at 40 mg to 0 mg over the course of 2 wks. 2. acute on chronic CHF exacerbation Per cardiology team: continue lasix 40 mg BID Continue Entresto Continue carvedilol monitor ins and outs with fluid restrictions, 2 gm salt diet elevate HOB to 30-45 degrees correct electrolytes 3.Pulmonary hypertension continue oxygen continue Duoneb Further management per primary team PGY-1 Margarita Flores Case d/w Dr. Robin <Usman Robin S - Last Filed: 10/21/18 17:42> Objective - Vital Signs/Intake and Output Vital Signs (last 24 hours): Temp Pulse Resp BP Pulse Ox 98.8 F 72 20 117/61 100 10/21/18 07:30 10/21/18 07:43 10/21/18 07:30 10/21/18 10:49 10/21/18 07:30 Intake and Output: 10/21/18 10/21/18 06:59 18:59 Intake Total 250 Balance 250 - Medications Medications: Current Medications Acetylcysteine (Acetylcysteine 20%) 4 ml INH RQ6 [facility] Last Admin: 10/21/18 13:19 Dose: 4 ml Albuterol/Ipratropium (Duoneb 3 Mg/0.5 Mg (3 Ml) Ud) 3 ml INH RQ6 [facility] Last Admin: 10/21/18 13:19 Dose: 3 ml Allopurinol (Zyloprim) 100 mg PO DAILY [facility] Last Admin: 10/21/18 09:48 Dose: 100 mg Aspirin (Ecotrin) 81 mg PO DAILY [facility] Last Admin: 10/21/18 09:46 Dose: 81 mg Benzonatate (Tessalon Perles) 100 mg PO TID PRN PRN Reason: Cough Last Admin: 10/20/18 12:52 Dose: 100 mg Carvedilol (Coreg) 3.125 mg PO BID [facility] Last Admin: 10/21/18 09:46 Dose: 3.125 mg Furosemide (Lasix) 20 mg IVP DAILY [facility] Heparin Sodium (Porcine) (Heparin) 5,000 units SC Q8 [facility] Last Admin: 10/21/18 13:36 Dose: 5,000 units Potassium Chloride (Potassium Chloride 20 Meq/100 Ml) 20 meq in 100 mls @ 50 mls/hr IVPB Q2 [facility] Stop: 10/21/18 21:59 Insulin Human Regular (Novolin R) 0 unit SC ACHS [facility]; Protocol Last Admin: 10/21/18 12:37 Dose: 10 units Methylprednisolone (Solu-Medrol) 40 mg IVP DAILY [facility] Pantoprazole Sodium (Protonix Ec Tab) 40 mg PO DAILY [facility] Last Admin: 10/21/18 09:46 Dose: 40 mg Potassium Chloride (K-Dur 20 Meq Er Tab) 20 meq PO DAILY [facility] Last Admin: 10/21/18 09:46 Dose: 20 meq Rosuvastatin Calcium (Crestor) 5 mg PO HS [facility] Last Admin: 10/20/18 22:34 Dose: 5 mg Saccharomyces Boulardii (Florastor) 250 mg PO BID [facility] Last Admin: 10/21/18 09:46 Dose: 250 mg Sacubitril/Valsartan (Entresto 24 Mg-26 Mg) 1 tab PO BID [facility] Last Admin: 10/21/18 10:49 Dose: 1 tab Sitagliptin Phosphate (Januvia) 25 mg PO DAILY [facility] Last Admin: 10/21/18 09:46 Dose: 25 mg Spironolactone (Aldactone) 25 mg PO DAILY [facility] - Labs Labs: 10/21/18 08:23 10/21/18 08:23 PT 14.2 SECONDS (9.7-12.2) H 10/13/18 20:01 INR 1.3 10/13/18 20:01 APTT 29 SECONDS (21-34) 10/13/18 20:01 Assessment and Plan (1) Acute bronchitis Status: Acute (2) Renal insufficiency Status: Acute Attending/Attestation - Attestation I have personally seen and examined this patient.: Yes I have fully participated in the care of the patient.: Yes I have reviewed all pertinent clinical information, including history, physical exam and plan: Yes Notes (Text): 10/21/18 17:41 Patient seen and examined Breathing much improved Okay to discharge home on tapering dose of prednisone and nebulizer treatment
--- NOTE | 2018-10-21 10:15 | CP.PCM.PN ---
<Janice Nieves - Last Filed: 10/21/18 15:36> Subjective - Date & Time of Evaluation Date of Evaluation: 10/21/18 Time of Evaluation: 10:00 - Subjective Subjective: Cardiology Consult Progress Note for Dr. Butterfield. Patient seen and examined at bedside. Patients states she is doing "okay". SOB has improved. She denies any palpitations, or chest pain. Cough has improved. Objective - Vital Signs/Intake and Output Vital Signs (last 24 hours): Temp Pulse Resp BP Pulse Ox 98 F 73 20 130/68 97 10/20/18 23:25 10/21/18 07:09 10/20/18 23:25 10/20/18 23:25 10/20/18 23:25 Intake and Output: 10/21/18 10/21/18 06:59 18:59 Intake Total 250 Balance 250 - Medications Medications: Current Medications Acetylcysteine (Acetylcysteine 20%) 4 ml INH RQ6 ON [facility] OF [facility] Last Admin: 10/21/18 01:26 Dose: 4 ml Albuterol/Ipratropium (Duoneb 3 Mg/0.5 Mg (3 Ml) Ud) 3 ml INH RQ6 ON LICENSE OF [facility] Last Admin: 10/21/18 01:26 Dose: 3 ml Allopurinol (Zyloprim) 100 mg PO DAILY ON [facility] OF [facility] Last Admin: 10/21/18 09:48 Dose: 100 mg Aspirin (Ecotrin) 81 mg PO DAILY ON [facility] Last Admin: 10/21/18 09:46 Dose: 81 mg Azithromycin (Zithromax) 500 mg PO Q24H ON [facility] OF [facility] Last Admin: 10/20/18 17:44 Dose: 500 mg Benzonatate (Tessalon Perles) 100 mg PO TID PRN PRN Reason: Cough Last Admin: 10/20/18 12:52 Dose: 100 mg Carvedilol (Coreg) 3.125 mg PO BID ON [facility] OF [facility] Last Admin: 10/21/18 09:46 Dose: 3.125 mg Furosemide (Lasix) 40 mg IVP DAILY ON [facility] OF [facility] Heparin Sodium (Porcine) (Heparin) 5,000 units SC Q8 ON [facility] OF [facility] Last Admin: 10/20/18 22:35 Dose: 5,000 units Insulin Human Regular (Novolin R) 0 unit SC ACHS ON [facility] OF [facility]; Protocol Last Admin: 10/21/18 08:54 Dose: 4 units Methylprednisolone (Solu-Medrol) 40 mg IVP Q12H ON LICENSE OF [facility] Pantoprazole Sodium (Protonix Ec Tab) 40 mg PO DAILY ON [facility] OF [facility] Last Admin: 10/21/18 09:46 Dose: 40 mg Potassium Chloride (K-Dur 20 Meq Er Tab) 20 meq PO DAILY ON [facility] OF [facility] Last Admin: 10/21/18 09:46 Dose: 20 meq Potassium Chloride (K-Dur 20 Meq Er Tab) 40 meq PO ONCE ONE Stop: 10/21/18 12:01 Rosuvastatin Calcium (Crestor) 5 mg PO HS ON [facility] OF [facility] Last Admin: 10/20/18 22:34 Dose: 5 mg Saccharomyces Boulardii (Florastor) 250 mg PO BID ON [facility] OF [facility] Last Admin: 10/21/18 09:46 Dose: 250 mg Sacubitril/Valsartan (Entresto 24 Mg-26 Mg) 1 tab PO BID ON [facility] OF [facility] Last Admin: 10/20/18 17:44 Dose: 1 tab Sitagliptin Phosphate (Januvia) 25 mg PO DAILY ON [facility] OF [facility] Last Admin: 10/21/18 09:46 Dose: 25 mg - Labs Labs: 10/21/18 08:23 10/21/18 08:23 PT 14.2 SECONDS (9.7-12.2) H 10/13/18 20:01 INR 1.3 10/13/18 20:01 APTT 29 SECONDS (21-34) 10/13/18 20:01 - Constitutional Appears: Well, Non-toxic - Head Exam Head Exam: ATRAUMATIC, NORMOCEPHALIC - Eye Exam Eye Exam: Normal appearance - ENT Exam ENT Exam: Mucous Membranes Moist - Respiratory Exam Respiratory Exam: Clear to Ausculation Bilateral, NORMAL BREATHING PATTERN. absent: Wheezes - Cardiovascular Exam Cardiovascular Exam: +S1, +S2, Murmur Additional comments: Systolic murmur in right second intercostal space (Grade 2/5) - GI/Abdominal Exam GI & Abdominal Exam: Soft. absent: Tenderness - Extremities Exam Extremities Exam: Normal Capillary Refill. absent: Pedal Edema - Neurological Exam Neurological Exam: Alert, Awake, Oriented x3 - Psychiatric Exam Psychiatric exam: Normal Affect, Normal Mood - Skin Skin Exam: Dry, Intact, Normal Color Assessment and Plan - Assessment and Plan (Free Text) Assessment: This patient is a an 87 year old female with a PMhx of CHF with AICD, HTN, and DM who presents due to SOB x 3 days. Cardiology consulted on this patient for evaluation and treatment of acute on chronic CHF and for possible pacemaker interrogation. Plan: Acute on Chronic CHF Exacerbation ECHO (11/2016): EF 25%, diastolic dysfunction, pacemaker lead in right ventricle, moderate AR, Severe MR, Severe Pulm HTN, trace post. pericardial effusion. ECHO (10/15/18): EF <20%; left ventricle is moderately dilated. Left ventricle systolic function is severely impaired Labs: BNP - 48332 ( Chronically elevated, this is the hightest). Troponins: NEGATIVE x 3. D-Dimer 1005 CXR (Admission): No Active Pulmonary Disease. CXR (10/18/18): Moderate venous congestion. Right hilar prominence. Cardiomegaly. Left-sided pacemaker. V/Q Scan (10/14/18): Low probability for PE Mgmt: Coreg 3.125 BID Lasix 20 IVP daily Start Aldactone 25mg Daily. Stict I's and O's. Fluid Restriction, 2gm Salt Diet. Elevate HOB to 30-45 Degrees Entresto 24-26 1tab PO Daily Correct Electrolyte abnormalities. Hypokalemia Replenish PRN Repeat BMP Follow up CMP in AM w/ Mg. Patient seen and discussed with Attending Janice Nieves, PGY-2 <Trenton Butterfield - Last Filed: 10/21/18 20:11> Objective - Vital Signs/Intake and Output Vital Signs (last 24 hours): Temp Pulse Resp BP Pulse Ox 98.1 F 70 20 105/56 L 94 L 10/21/18 15:00 10/21/18 18:00 10/21/18 15:00 10/21/18 15:00 10/21/18 15:00 - Medications Medications: Current Medications Acetylcysteine (Acetylcysteine 20%) 4 ml INH RQ6 ON [facility] Last Admin: 10/21/18 19:57 Dose: Not Given Albuterol/Ipratropium (Duoneb 3 Mg/0.5 Mg (3 Ml) Ud) 3 ml INH RQ6 ON [facility] Last Admin: 10/21/18 19:57 Dose: Not Given Allopurinol (Zyloprim) 100 mg PO DAILY ON [facility] Last Admin: 10/21/18 09:48 Dose: 100 mg Aspirin (Ecotrin) 81 mg PO DAILY [facility] Last Admin: 04/18/19 09:46 Dose: 81 mg Benzonatate (Tessalon Perles) 100 mg PO TID PRN PRN Reason: Cough Last Admin: 10/20/18 12:52 Dose: 100 mg Carvedilol (Coreg) 3.125 mg PO BID ON [facility] Last Admin: 10/21/18 17:49 Dose: 3.125 mg Furosemide (Lasix) 20 mg IVP DAILY ON [facility] Heparin Sodium (Porcine) (Heparin) 5,000 units SC Q8 ON [facility] Last Admin: 10/21/18 13:36 Dose: 5,000 units Potassium Chloride (Potassium Chloride 20 Meq/100 Ml) 20 meq in 100 mls @ 50 mls/hr IVPB Q2 ON [facility] OF [facility] Stop: 10/21/18 21:59 Last Admin: 10/21/18 17:54 Dose: 50 mls/hr Insulin Human Regular (Novolin R) 0 unit SC ACHS ON [facility]; Protocol Last Admin: 10/21/18 17:51 Dose: 3 units Methylprednisolone (Solu-Medrol) 40 mg IVP DAILY ON [facility] Pantoprazole Sodium (Protonix Ec Tab) 40 mg PO DAILY ON [facility] Last Admin: 10/21/18 09:46 Dose: 40 mg Potassium Chloride (K-Dur 20 Meq Er Tab) 20 meq PO DAILY [facility] Last Admin: 10/21/18 09:46 Dose: 20 meq Rosuvastatin Calcium (Crestor) 5 mg PO HS [facility] Last Admin: 10/20/18 22:34 Dose: 5 mg Saccharomyces Boulardii (Florastor) 250 mg PO BID ON [facility] Last Admin: 10/21/18 17:49 Dose: 250 mg Sacubitril/Valsartan (Entresto 24 Mg-26 Mg) 1 tab PO BID ON [facility] Last Admin: 10/21/18 17:49 Dose: 1 tab Sitagliptin Phosphate (Januvia) 25 mg PO DAILY ON [facility] Last Admin: 10/21/18 09:46 Dose: 25 mg Spironolactone (Aldactone) 25 mg PO DAILY ON [facility] - Labs Labs: 10/21/18 08:23 10/21/18 08:23 PT 14.2 SECONDS (9.7-12.2) H 10/13/18 20:01 INR 1.3 10/13/18 20:01 APTT 29 SECONDS (21-34) 10/13/18 20:01 Assessment and Plan - Assessment and Plan (Free Text) Plan: Patient seen and evaluated personally by me. Plan of care d/w the nurses medical assistants phlebotomists and as documented
[2018-10-21 10:32] LABS: ANISOCYTOSIS SLIGHT; BANDS 1 % (0-2); LYMPHOCYTE 5 % (20-40); MONOCYTE 8 % (0-10); NEUTROPHIL 86 % (50-75); PLATELET ESTIMATE NORMAL (NORMAL); TOTAL CELLS COUNTED 100
[2018-10-21] MEDS: Sacubitril/Valsartan 24-26mg Tab PO SCH ×2 (10:49→17:49)
--- NOTE | 2018-10-21 11:41 | CP.PCM.PN ---
Subjective - Date & Time of Evaluation Date of Evaluation: 10/21/18 - Subjective Subjective: patient seen and examined today no nausea, no vomiting, no dizziness, no diarrhea, no fever denies shortness of breath Objective - Vital Signs/Intake and Output Vital Signs (last 24 hours): Temp Pulse Resp BP Pulse Ox 98.8 F 70 20 117/61 100 10/21/18 07:30 10/21/18 07:30 10/21/18 07:30 10/21/18 10:49 10/21/18 07:30 Intake and Output: 10/21/18 10/21/18 06:59 18:59 Intake Total 250 Balance 250 - Medications Medications: Current Medications Acetylcysteine (Acetylcysteine 20%) 4 ml INH RQ6 [facility] Last Admin: 10/21/18 01:26 Dose: 4 ml Albuterol/Ipratropium (Duoneb 3 Mg/0.5 Mg (3 Ml) Ud) 3 ml INH RQ6 [facility] Last Admin: 10/21/18 01:26 Dose: 3 ml Allopurinol (Zyloprim) 100 mg PO DAILY [facility] Last Admin: 10/21/18 09:48 Dose: 100 mg Aspirin (Ecotrin) 81 mg PO DAILY [facility] Last Admin: 10/21/18 09:46 Dose: 81 mg Azithromycin (Zithromax) 500 mg PO Q24H [facility] Last Admin: 10/20/18 17:44 Dose: 500 mg Benzonatate (Tessalon Perles) 100 mg PO TID PRN PRN Reason: Cough Last Admin: 10/20/18 12:52 Dose: 100 mg Carvedilol (Coreg) 3.125 mg PO BID [facility] Last Admin: 10/21/18 09:46 Dose: 3.125 mg Furosemide (Lasix) 40 mg IVP DAILY [facility] Heparin Sodium (Porcine) (Heparin) 5,000 units SC Q8 [facility] Last Admin: 10/20/18 22:35 Dose: 5,000 units Insulin Human Regular (Novolin R) 0 unit SC ACHS [facility]; Protocol Last Admin: 10/21/18 08:54 Dose: 4 units Methylprednisolone (Solu-Medrol) 40 mg IVP Q12H [facility] Pantoprazole Sodium (Protonix Ec Tab) 40 mg PO DAILY [facility] Last Admin: 10/21/18 09:46 Dose: 40 mg Potassium Chloride (K-Dur 20 Meq Er Tab) 20 meq PO DAILY [facility] Last Admin: 10/21/18 09:46 Dose: 20 meq Potassium Chloride (K-Dur 20 Meq Er Tab) 40 meq PO ONCE ONE Stop: 10/21/18 12:01 Rosuvastatin Calcium (Crestor) 5 mg PO HS [facility] Last Admin: 10/20/18 22:34 Dose: 5 mg Saccharomyces Boulardii (Florastor) 250 mg PO BID [facility] Last Admin: 10/21/18 09:46 Dose: 250 mg Sacubitril/Valsartan (Entresto 24 Mg-26 Mg) 1 tab PO BID [facility] Last Admin: 10/21/18 10:49 Dose: 1 tab Sitagliptin Phosphate (Januvia) 25 mg PO DAILY [facility] Last Admin: 10/21/18 09:46 Dose: 25 mg - Labs Labs: 10/21/18 08:23 10/21/18 08:23 PT 14.2 SECONDS (9.7-12.2) H 10/13/18 20:01 INR 1.3 10/13/18 20:01 APTT 29 SECONDS (21-34) 10/13/18 20:01 - Constitutional Appears: Well - Head Exam Head Exam: ATRAUMATIC, NORMAL INSPECTION, NORMOCEPHALIC - Eye Exam Eye Exam: EOMI, Normal appearance, PERRL Pupil Exam: NORMAL ACCOMODATION, PERRL - ENT Exam ENT Exam: Mucous Membranes Moist, Normal Exam - Neck Exam Neck Exam: Full ROM, Normal Inspection. absent: Lymphadenopathy - Respiratory Exam Respiratory Exam: Decreased Breath Sounds - Cardiovascular Exam Cardiovascular Exam: REGULAR RHYTHM, +S1, +S2 - GI/Abdominal Exam GI & Abdominal Exam: Soft, Diminished Bowel Sounds - Rectal Exam Rectal Exam: Deferred - Neurological Exam Neurological Exam: Oriented x3 Assessment and Plan - Assessment and Plan (Free Text) Plan: medications reviewed labs reviewed vitals reviewed acetylcysteine 20% coreg crestor duoneb ecotrin entresto florastor heparin januvia k-teressa lasix novolin r protonix ec tab solu-medrol tessalon perles zithromax yloprim
--- NOTE | 2018-10-21 14:01 | CP.PCM.PN ---
Subjective - Date & Time of Evaluation Date of Evaluation: 10/21/18 Time of Evaluation: 08:00 - Subjective Subjective: Medicine Progress Note for Dr. Eboni Diaz Patient was seen and examined in the AM. Patient was sitting comfortably in the chair. Patient states she is feeling significantly better. She states her cough has improved as well. Patient denies chest pain, shortness of breath, fever, chills, nausea, vomiting, diarrhea or constipation. Objective - Vital Signs/Intake and Output Vital Signs (last 24 hours): Temp Pulse Resp BP Pulse Ox 98.8 F 72 20 117/61 100 10/21/18 07:30 10/21/18 07:43 10/21/18 07:30 10/21/18 10:49 10/21/18 07:30 Intake and Output: 10/21/18 10/21/18 06:59 18:59 Intake Total 250 Balance 250 - Medications Medications: Current Medications Acetylcysteine (Acetylcysteine 20%) 4 ml INH RQ6 [facility] Last Admin: 10/21/18 13:19 Dose: 4 ml Albuterol/Ipratropium (Duoneb 3 Mg/0.5 Mg (3 Ml) Ud) 3 ml INH RQ6 [facility] Last Admin: 10/21/18 13:19 Dose: 3 ml Allopurinol (Zyloprim) 100 mg PO DAILY [facility] Last Admin: 10/21/18 09:48 Dose: 100 mg Aspirin (Ecotrin) 81 mg PO DAILY [facility] Last Admin: 10/21/18 09:46 Dose: 81 mg Azithromycin (Zithromax) 500 mg PO Q24H [facility] Last Admin: 10/20/18 17:44 Dose: 500 mg Benzonatate (Tessalon Perles) 100 mg PO TID PRN PRN Reason: Cough Last Admin: 10/20/18 12:52 Dose: 100 mg Carvedilol (Coreg) 3.125 mg PO BID [facility] Last Admin: 10/21/18 09:46 Dose: 3.125 mg Furosemide (Lasix) 40 mg IVP DAILY [facility] Heparin Sodium (Porcine) (Heparin) 5,000 units SC Q8 [facility] Last Admin: 10/21/18 13:36 Dose: 5,000 units Insulin Human Regular (Novolin R) 0 unit SC ACHS [facility]; Protocol Last Admin: 10/21/18 12:37 Dose: 10 units Methylprednisolone (Solu-Medrol) 40 mg IVP Q12H [facility] Pantoprazole Sodium (Protonix Ec Tab) 40 mg PO DAILY [facility] Last Admin: 10/21/18 09:46 Dose: 40 mg Potassium Chloride (K-Dur 20 Meq Er Tab) 20 meq PO DAILY [facility] Last Admin: 10/21/18 09:46 Dose: 20 meq Rosuvastatin Calcium (Crestor) 5 mg PO HS [facility] Last Admin: 10/20/18 22:34 Dose: 5 mg Saccharomyces Boulardii (Florastor) 250 mg PO BID [facility] Last Admin: 10/21/18 09:46 Dose: 250 mg Sacubitril/Valsartan (Entresto 24 Mg-26 Mg) 1 tab PO BID [facility] Last Admin: 10/21/18 10:49 Dose: 1 tab Sitagliptin Phosphate (Januvia) 25 mg PO DAILY [facility] Last Admin: 10/21/18 09:46 Dose: 25 mg - Labs Labs: 10/21/18 08:23 10/21/18 08:23 PT 14.2 SECONDS (9.7-12.2) H 10/13/18 20:01 INR 1.3 10/13/18 20:01 APTT 29 SECONDS (21-34) 10/13/18 20:01 - Constitutional Appears: No Acute Distress - Head Exam Head Exam: ATRAUMATIC, NORMAL INSPECTION - Eye Exam Eye Exam: EOMI, Normal appearance - ENT Exam ENT Exam: Mucous Membranes Moist - Respiratory Exam Respiratory Exam: Clear to Ausculation Bilateral, NORMAL BREATHING PATTERN. absent: Rhonchi, Wheezes - Cardiovascular Exam Cardiovascular Exam: REGULAR RHYTHM, +S1, +S2 - GI/Abdominal Exam GI & Abdominal Exam: Soft, Normal Bowel Sounds. absent: Tenderness - Extremities Exam Extremities Exam: Normal Inspection - Neurological Exam Neurological Exam: Alert, Awake, Oriented x3 - Psychiatric Exam Psychiatric exam: Normal Affect - Skin Skin Exam: Normal Color Assessment and Plan - Assessment and Plan (Free Text) Assessment: Acute exacerbation of CHF (congestive heart failure) Left-sided pacemaker in place Consultation: * Cardiology, Dr. Butterfield---> Help appreciated Imaging and Labs: * BNP (10/19/18): 26,900, F/u repeat BNP * LE Doppler: negative * ECHO (10/15/18): EF <20%; left ventricle is moderately dilated. Left ventricle systolic function is severely impaired. * Chest X-ray (10/18/18): Moderate venous congestion. Right hilar prominence. Cardiomegaly. Left-sided pacemaker. Medications: * Lasix 40 mg IV daily * Potassium 20meq once daily * Entresto 1 tab po bid * Aspirin 81 mg po qd * Carvedilol 3.125mg po bid * Crestor 5mg po HS Shortness of breath Secondary to CHF exacerbation Consultation: Tissue Technologist, Dr. Robin----> help appreciated Imaging/Labs: Chest X-ray (10/18/18): Moderate venous congestion. Right hilar prominence. Cardiomegaly. Left sided pacemaker. Chest CT (10/18/18): Cardiomegaly. Dual lead left-sided AICD. Mediastinal adenopathy measuring up to 1 cm (pretracheal), nonspecific.Hazy ground-glass bilateral pulmonary opacities appear consistent with edema and/or infection. Small to moderate right and small left pleural effusions. Procalcitonin: <0.05 Medications: * Rin-Medrol 40mg IV q12h * Azithromycin 500mg q24h * Florastor 250mg PO BID * Duonebs Q6H FILIPE with Mucolytics INH Q6H FILIPE * Tessalon Pearls 100mg po TID for cough BILL (acute kidney injury) Resolved Possibly secondary to diuresis Avoid nephrotoxic drugs Diabetes mellitus - HgbA1c (10/15/18) is 6.6 - Lipid Panel: Total Cholesterol 96; LDL 60; HDL 41; Triglycerides 49 - Accuchecks - hypoglycemic protocol - Medications: * ISS- Medium dose * Januvia 25mg po daily History of hyperlipidemia - Lipid Panel: Total Cholesterol 96; LDL 60; HDL 41; Triglycerides 49 - Crestor 5mg po HS Hypokalemia K-DUR 40meq once (10/21/18) K-dur 20meq once daily f/u bmp Prophylactic measure GI: Protonix 40mg PO daily DVT: Heparin 5,000 units SC Disposition: possible discharge home on Medrol Dose pack pending normalization of potassium. All plans and management discussed with Dr. Pepito Diaz
[2018-10-21] MEDS ORDERED: MethylPREDNISolone 40 mg Vial IVP SCH (18:00)
[2018-10-22] MEDS: Albuterol-Ipratrop 3 mg / 0.5 (3 ml) UD INH SCH ×3 (02:58→13:53)
[2018-10-22] MEDS: Acetylcysteine 20% Inhal Soln (4ml) INH SCH ×2 (02:58→09:05)
[2018-10-22 06:56] LABS: BASO % 0.1 % (0.0-2.0); EOS % 0.1 % (0.0-4.0); HEMOGLOBIN 13.2 g/dL (11.0-16.0); LYMPH # 0.5 K/uL (1.0-4.3); MEAN CORPUSCULAR HEMOGLOBIN 30.9 pg (27.0-31.0); MEAN CORPUSCULAR HGB CONC 33.6 g/dL (33.0-37.0); MEAN PLATELET VOLUME 10.1 fL (7.2-11.7); MONO # 0.7 K/uL (0.0-0.8); MONO % 9.4 % (0.0-10.0); NEUT # 6.2 K/uL (1.8-7.0); NEUT % 83.4 % (50.0-75.0); PLATELET COUNT 129 K/uL (130-400); RBC 4.26 Mil/uL (3.80-5.20); RED CELL DISTRIBUTION WIDTH 17.6 % (11.5-14.5); WHITE BLOOD COUNT 7.4 K/uL (4.8-10.8)
[2018-10-22 07:49] LABS: ALB/GLOB RATIO 1.3 (1.0-2.1); ALBUMIN 3.3 g/dL (3.5-5.0); ALT/SGPT 36 U/L (9-52); AST/SGOT 31 U/L (14-36); BLOOD UREA NITROGEN 44 mg/dL (7-17); CALCIUM 8.6 mg/dl (8.6-10.4); GFR NON-AFRICAN AMERICAN 53
[2018-10-22 08:02] VITALS: TEMP 98.2; O2SAT 100
[2018-10-22] MEDS: (Novolin R) Insulin Human Regular 100 units/ml vial SC SCH ×2 (08:26→11:46)
--- NOTE | 2018-10-22 08:49 | CP.PCM.PN ---
<Margarita Flores - Last Filed: 10/22/18 08:46> Subjective - Date & Time of Evaluation Date of Evaluation: 10/22/18 Time of Evaluation: 08:46 - Subjective Subjective: Pulm Progress Note for Dr. Robin's service S/E at bedside Reports mild cough with deep exhalation Denies fevers, sputum production Denies cp, n/v, constipation or diarrhea. Objective - Vital Signs/Intake and Output Vital Signs (last 24 hours): Temp Pulse Resp BP Pulse Ox 98.2 F 70 148 H 120/76 100 10/22/18 07:00 10/22/18 07:15 10/22/18 07:00 10/22/18 07:00 10/22/18 07:00 Intake and Output: 10/22/18 10/22/18 06:59 18:59 Intake Total 120 Balance 120 - Medications Medications: Current Medications Acetylcysteine (Acetylcysteine 20%) 4 ml INH RQ6 [facility] Last Admin: 10/22/18 02:58 Dose: Not Given Albuterol/Ipratropium (Duoneb 3 Mg/0.5 Mg (3 Ml) Ud) 3 ml INH RQ6 [facility] Last Admin: 10/22/18 02:58 Dose: Not Given Allopurinol (Zyloprim) 100 mg PO DAILY [facility] Last Admin: 10/21/18 09:48 Dose: 100 mg Aspirin (Ecotrin) 81 mg PO DAILY [facility] Last Admin: 10/21/18 09:46 Dose: 81 mg Benzonatate (Tessalon Perles) 100 mg PO TID PRN PRN Reason: Cough Last Admin: 10/20/18 12:52 Dose: 100 mg Carvedilol (Coreg) 3.125 mg PO BID [facility] Last Admin: 10/21/18 17:49 Dose: 3.125 mg Furosemide (Lasix) 20 mg IVP DAILY [facility] Heparin Sodium (Porcine) (Heparin) 5,000 units SC Q8 [facility] Last Admin: 10/22/18 06:00 Dose: 5,000 units Insulin Human Regular (Novolin R) 0 unit SC ACHS [facility]; Protocol Last Admin: 10/22/18 08:26 Dose: 3 units Methylprednisolone (Solu-Medrol) 40 mg IVP DAILY [facility] Pantoprazole Sodium (Protonix Ec Tab) 40 mg PO DAILY [facility] Last Admin: 10/21/18 09:46 Dose: 40 mg Potassium Chloride (K-Dur 20 Meq Er Tab) 20 meq PO DAILY [facility] Last Admin: 10/21/18 09:46 Dose: 20 meq Rosuvastatin Calcium (Crestor) 5 mg PO HS [facility] Last Admin: 10/21/18 21:58 Dose: 5 mg Saccharomyces Boulardii (Florastor) 250 mg PO BID [facility] Last Admin: 10/21/18 17:49 Dose: 250 mg Sacubitril/Valsartan (Entresto 24 Mg-26 Mg) 1 tab PO BID [facility] Last Admin: 10/21/18 17:49 Dose: 1 tab Sitagliptin Phosphate (Januvia) 25 mg PO DAILY [facility] Last Admin: 10/21/18 09:46 Dose: 25 mg Spironolactone (Aldactone) 25 mg PO DAILY [facility] - Labs Labs: 10/22/18 06:36 10/22/18 06:36 PT 14.2 SECONDS (9.7-12.2) H 10/13/18 20:01 INR 1.3 10/13/18 20:01 APTT 29 SECONDS (21-34) 10/13/18 20:01 - Constitutional Appears: Non-toxic, No Acute Distress - Head Exam Head Exam: NORMAL INSPECTION - Eye Exam Eye Exam: EOMI, Normal appearance - ENT Exam ENT Exam: Mucous Membranes Moist - Respiratory Exam Respiratory Exam: NORMAL BREATHING PATTERN. absent: Rales, Rhonchi, Wheezes - Cardiovascular Exam Cardiovascular Exam: REGULAR RHYTHM - GI/Abdominal Exam GI & Abdominal Exam: Soft, Normal Bowel Sounds - Extremities Exam Extremities Exam: Normal Inspection - Neurological Exam Neurological Exam: Alert, Awake, Oriented x3 - Psychiatric Exam Psychiatric exam: Normal Affect, Normal Mood - Skin Skin Exam: Dry, Intact, Normal Color Assessment and Plan - Assessment and Plan (Free Text) Assessment: 87 year old female with past medical history of advanced CHF, HTN, Pulmonary HTN. Pulmonary was consulted for SOB. Plan: 1. Bronchitis hemoptysis resolved continue oxygen continue tessalon perles Acetylcysteine 4ml INH rq6 IV azithromycin IV solumedrol 40 q6 Will recommend tapered Prednisone starting at 40 mg to 0 mg over the course of 2 wks. 2. acute on chronic CHF exacerbation Per cardiology team: continue lasix as per primary/cardio Continue Entresto Continue carvedilol monitor ins and outs with fluid restrictions, 2 gm salt diet elevate HOB to 30-45 degrees correct electrolytes 3.Pulmonary hypertension continue oxygen continue Duoneb Further management per primary team PGY-1 Margarita Mark Case d/w Dr. Robin <Usman Robin S - Last Filed: 10/22/18 14:29> Objective - Vital Signs/Intake and Output Vital Signs (last 24 hours): Temp Pulse Resp BP Pulse Ox 98.2 F 72 20 116/69 100 10/22/18 07:00 10/22/18 11:32 10/22/18 07:00 10/22/18 09:56 10/22/18 07:00 Intake and Output: 10/22/18 10/22/18 06:59 18:59 Intake Total 120 600 Balance 120 600 - Medications Medications: Current Medications Acetylcysteine (Acetylcysteine 20%) 4 ml INH RQ6 [facility] Last Admin: 10/22/18 09:05 Dose: 4 ml Albuterol/Ipratropium (Duoneb 3 Mg/0.5 Mg (3 Ml) Ud) 3 ml INH RQ6 [facility] Last Admin: 10/22/18 13:53 Dose: 3 ml Allopurinol (Zyloprim) 100 mg PO DAILY [facility] Last Admin: 10/22/18 09:57 Dose: 100 mg Aspirin (Ecotrin) 81 mg PO DAILY [facility] Last Admin: 10/22/18 11:20 Dose: 81 mg Benzonatate (Tessalon Perles) 100 mg PO TID [facility] Last Admin: 10/22/18 13:41 Dose: 100 mg Carvedilol (Coreg) 3.125 mg PO BID [facility] Last Admin: 10/22/18 09:57 Dose: 3.125 mg Furosemide (Lasix) 20 mg IVP DAILY [facility] Last Admin: 10/22/18 09:56 Dose: 20 mg Heparin Sodium (Porcine) (Heparin) 5,000 units SC Q8 [facility] Last Admin: 10/22/18 13:41 Dose: 5,000 units Insulin Human Regular (Novolin R) 0 unit SC ACHS [facility]; Protocol Last Admin: 10/22/18 11:46 Dose: 3 units Methylprednisolone (Solu-Medrol) 40 mg IVP DAILY [facility] Last Admin: 10/22/18 09:56 Dose: 40 mg Pantoprazole Sodium (Protonix Ec Tab) 40 mg PO DAILY [facility] Last Admin: 10/22/18 09:57 Dose: 40 mg Potassium Chloride (K-Dur 20 Meq Er Tab) 20 meq PO DAILY [facility] Last Admin: 10/22/18 09:58 Dose: 20 meq Rosuvastatin Calcium (Crestor) 5 mg PO HS [facility] Last Admin: 10/21/18 21:58 Dose: 5 mg Saccharomyces Boulardii (Florastor) 250 mg PO BID [facility] Last Admin: 10/22/18 10:58 Dose: 250 mg Sacubitril/Valsartan (Entresto 24 Mg-26 Mg) 1 tab PO BID [facility] Last Admin: 10/22/18 09:57 Dose: 1 tab Sitagliptin Phosphate (Januvia) 25 mg PO DAILY [facility] Last Admin: 10/22/18 09:57 Dose: 25 mg Spironolactone (Aldactone) 25 mg PO DAILY [facility] Last Admin: 10/22/18 09:57 Dose: 25 mg - Labs Labs: 10/22/18 06:36 10/22/18 06:36 PT 14.2 SECONDS (9.7-12.2) H 10/13/18 20:01 INR 1.3 10/13/18 20:01 APTT 29 SECONDS (21-34) 10/13/18 20:01 Assessment and Plan (1) Acute bronchitis Status: Acute (2) Renal insufficiency Status: Acute Attending/Attestation - Attestation I have personally seen and examined this patient.: Yes I have fully participated in the care of the patient.: Yes I have reviewed all pertinent clinical information, including history, physical exam and plan: Yes Notes (Text): 10/22/18 14:27 Patient seen and examined Improving but still having cough and wheezing Continue steroids and nebulizer treatment
[2018-10-22 08:52] LABS: ANISOCYTOSIS SLIGHT; BANDS 1 % (0-2); LYMPHOCYTE 9 % (20-40); MONOCYTE 7 % (0-10); NEUTROPHIL 83 % (50-75); PLATELET ESTIMATE SLIGHTLY DECREASED (NORMAL); TOTAL CELLS COUNTED 100
[2018-10-22 09:02] VITALS: RESP 20
[2018-10-22] MEDS: Sacubitril/Valsartan 24-26mg Tab PO SCH (09:57)
[2018-10-22] MEDS: Pantoprazole 40 mg EC Tab PO SCH (09:57)
[2018-10-22] MEDS: Potassium Chloride 20 mEq ER Tab PO SCH (09:58)
[2018-10-22] MEDS ORDERED: MethylPREDNISolone 40 mg Vial IVP SCH (10:00)
--- NOTE | 2018-10-22 10:05 | CP.PCM.PN ---
Subjective - Date & Time of Evaluation Date of Evaluation: 10/22/18 Time of Evaluation: 07:30 - Subjective Subjective: Medicine note (Dr. Pepito Diaz's service) Patient was seen and examined at bedside, while patient is resting comfortably. Patient admits to significant symptomatic relief with very minimal cough. Patient denies fever, chills, nausea, vomiting, chest pain, palpitations, shortness of breath, abdominal pain, bowel changes or urinary symptoms. Objective - Vital Signs/Intake and Output Vital Signs (last 24 hours): Temp Pulse Resp BP Pulse Ox 98.2 F 70 20 120/76 100 10/22/18 07:00 10/22/18 07:15 10/22/18 07:00 10/22/18 07:00 10/22/18 07:00 Intake and Output: 10/22/18 10/22/18 06:59 18:59 Intake Total 120 Balance 120 - Medications Medications: Current Medications Acetylcysteine (Acetylcysteine 20%) 4 ml INH RQ6 [facility] Last Admin: 10/22/18 02:58 Dose: Not Given Albuterol/Ipratropium (Duoneb 3 Mg/0.5 Mg (3 Ml) Ud) 3 ml INH RQ6 [facility] Last Admin: 10/22/18 02:58 Dose: Not Given Allopurinol (Zyloprim) 100 mg PO DAILY [facility] Last Admin: 10/21/18 09:48 Dose: 100 mg Aspirin (Ecotrin) 81 mg PO DAILY [facility] Last Admin: 10/21/18 09:46 Dose: 81 mg Benzonatate (Tessalon Perles) 100 mg PO TID [facility] Carvedilol (Coreg) 3.125 mg PO BID [facility] Last Admin: 10/21/18 17:49 Dose: 3.125 mg Furosemide (Lasix) 20 mg IVP DAILY [facility] Heparin Sodium (Porcine) (Heparin) 5,000 units SC Q8 [facility] Last Admin: 10/22/18 06:00 Dose: 5,000 units Insulin Human Regular (Novolin R) 0 unit SC ACHS [facility]; Protocol Last Admin: 10/22/18 08:26 Dose: 3 units Methylprednisolone (Solu-Medrol) 40 mg IVP DAILY [facility] Pantoprazole Sodium (Protonix Ec Tab) 40 mg PO DAILY [facility] Last Admin: 10/21/18 09:46 Dose: 40 mg Potassium Chloride (K-Dur 20 Meq Er Tab) 20 meq PO DAILY [facility] Last Admin: 10/21/18 09:46 Dose: 20 meq Rosuvastatin Calcium (Crestor) 5 mg PO HS [facility] Last Admin: 10/21/18 21:58 Dose: 5 mg Saccharomyces Boulardii (Florastor) 250 mg PO BID [facility] Last Admin: 10/21/18 17:49 Dose: 250 mg Sacubitril/Valsartan (Entresto 24 Mg-26 Mg) 1 tab PO BID [facility] Last Admin: 10/21/18 17:49 Dose: 1 tab Sitagliptin Phosphate (Januvia) 25 mg PO DAILY [facility] Last Admin: 10/21/18 09:46 Dose: 25 mg Spironolactone (Aldactone) 25 mg PO DAILY [facility] - Labs Labs: 10/22/18 06:36 10/22/18 06:36 PT 14.2 SECONDS (9.7-12.2) H 10/13/18 20:01 INR 1.3 10/13/18 20:01 APTT 29 SECONDS (21-34) 10/13/18 20:01 - Constitutional Appears: No Acute Distress - Head Exam Head Exam: ATRAUMATIC, NORMAL INSPECTION - Eye Exam Eye Exam: EOMI, Normal appearance - ENT Exam ENT Exam: Mucous Membranes Moist - Respiratory Exam Respiratory Exam: Clear to Ausculation Bilateral, Rales, NORMAL BREATHING PATTERN Additional comments: Significant reduced diffuse lower bilateral rales - Cardiovascular Exam Cardiovascular Exam: REGULAR RHYTHM, +S1, +S2, Murmur Additional comments: Systolic murmur in right second intercostal space - GI/Abdominal Exam GI & Abdominal Exam: Soft, Normal Bowel Sounds. absent: Distended, Firm, Guarding, Rigid, Tenderness - Extremities Exam Extremities Exam: Normal Inspection. absent: Calf Tenderness, Pedal Edema - Back Exam Back Exam: NORMAL INSPECTION. absent: CVA tenderness (L), CVA tenderness (R) - Neurological Exam Neurological Exam: Alert, Awake, Oriented x3 - Psychiatric Exam Psychiatric exam: Normal Affect - Skin Skin Exam: Normal Color Assessment and Plan (1) Acute exacerbation of CHF (congestive heart failure) Assessment & Plan: with Left-sided pacemaker in place Consultation: * Cardiology, Dr. Butterfield---> Help appreciated Imaging and Labs: * BNP (10/19/18): 26,900, F/u repeat BNP * LE Doppler: negative * ECHO (10/15/18): EF <20%; left ventricle is moderately dilated. Left ventricle systolic function is severely impaired. * Chest X-ray (10/18/18): Moderate venous congestion. Right hilar prominence. Cardiomegaly. Left-sided pacemaker. Medications: * Lasix 20 mg IV daily * Spironolactone 25mg PO daily * Potassium 20meq once daily * Entresto 1 tab po bid * Aspirin 81 mg po qd * Carvedilol 3.125mg po bid * Crestor 5mg po HS Status: Acute (2) Shortness of breath Assessment & Plan: Secondary to CHF exacerbation Consultation: Administrative Underwriter, Dr. Robin----> help appreciated Imaging/Labs: Chest X-ray (10/18/18): Moderate venous congestion. Right hilar prominence. Cardiomegaly. Left sided pacemaker. Chest CT (10/18/18): Cardiomegaly. Dual lead left-sided AICD. Mediastinal adenopathy measuring up to 1 cm (pretracheal), nonspecific.Hazy ground-glass bilateral pulmonary opacities appear consistent with edema and/or infection. Small to moderate right and small left pleural effusions. Procalcitonin: <0.05 Medications: * Rin-Medrol 40mg IV q6h * Azithromycin 500mg q24h * Florastor 250mg PO BID * Duonebs Q6H [facility] with Mucolytics INH Q6H [facility] * Tessalon Pearls 100mg po TID for cough Status: Acute (3) BILL (acute kidney injury) Assessment & Plan: Resolved Possibly secondary to diuresis Avoid nephrotoxic drugs Status: Acute (4) Diabetes mellitus Assessment & Plan: - HgbA1c (10/15/18) is 6.6 - Lipid Panel: Total Cholesterol 96; LDL 60; HDL 41; Triglycerides 49 - Accuchecks - hypoglycemic protocol - Medications: * ISS- Medium dose * Januvia 25mg po daily Status: Acute (5) History of hyperlipidemia Assessment & Plan: - Lipid Panel: Total Cholesterol 96; LDL 60; HDL 41; Triglycerides 49 - Crestor 5mg po HS Status: Acute (6) Hypokalemia Assessment & Plan: Resolved Repleted appropriately Patient to continue potassium 20meq once daily Status: Acute (7) Prophylactic measure Assessment & Plan: GI: Protonix 40mg PO daily DVT: Heparin 5,000 units SC Disposition: Please discharge patient home Please discharge patient home as per Dr. Pepito Diaz Please continue with all your home medications: - Lipitor 10mg PO HS - Dexilant 30mg PO daily - Tradjenta 5mg PO daily - Entresto 24mg-26mg 1 tab PO daily - Aspirin 81mg PO daily - Coreg 3.125mg PO BID - Lasix 40mg PO daily - Potassium chloride 10meq PO once daily - Allopurinol 100mg PO once daily Please start the following new medication: - Spironolactone 12.5mg PO daily - Please complete prednisone taper: 1. Prednisone 30mg PO daily for 2 days (10/23 &10/24) 2. Prednisone 20mg PO daily for 2 days (10/25 & 10/26) 3. Prednisone 10mg PO daily for 2 days (10/27 & 10/28) 4. Prednisone 5mg PO daily for 1 day (10/29) Please follow up with PMD or Mono Diaz within 1 week of discharge Please follow up with your bowl attendant or Dr. Butterfield within 1 week of discharge Please follow up with your composition teacher or Dr. Usman Robin within 1 weeks of discharge Please continue with ambulation Please decrease salt intake Please return to the hospital if symptoms worsens or resume All plans and management discussed with Dr. Pepito Diaz Status: Acute
[2018-10-22 10:11] VITALS: BP 116/69
[2018-10-22] MEDS: Saccharomyces Boulardi 250 mg Cap PO SCH (10:58)
--- NOTE | 2018-10-22 13:07 | CP.PCM.PN ---
Subjective - Date & Time of Evaluation Date of Evaluation: 10/22/18 Time of Evaluation: 11:05 - Subjective Subjective: patient seen and examined at bedside today no nausea no vomiting no dizziness no fever no diarrhea no shortness of breath--breathing much better family bedside mopdrate complex care Objective - Vital Signs/Intake and Output Vital Signs (last 24 hours): Temp Pulse Resp BP Pulse Ox 98.2 F 72 20 116/69 100 10/22/18 07:00 10/22/18 11:32 10/22/18 07:00 10/22/18 09:56 10/22/18 07:00 Intake and Output: 10/22/18 10/22/18 06:59 18:59 Intake Total 120 600 Balance 120 600 - Medications Medications: Current Medications Acetylcysteine (Acetylcysteine 20%) 4 ml INH RQ6 [facility] Last Admin: 10/22/18 02:58 Dose: Not Given Albuterol/Ipratropium (Duoneb 3 Mg/0.5 Mg (3 Ml) Ud) 3 ml INH RQ6 [facility] Last Admin: 10/22/18 02:58 Dose: Not Given Allopurinol (Zyloprim) 100 mg PO DAILY [facility] Last Admin: 10/22/18 09:57 Dose: 100 mg Aspirin (Ecotrin) 81 mg PO DAILY [facility] Last Admin: 10/22/18 11:20 Dose: 81 mg Benzonatate (Tessalon Perles) 100 mg PO TID [facility] Last Admin: 10/22/18 10:58 Dose: 100 mg Carvedilol (Coreg) 3.125 mg PO BID [facility] Last Admin: 10/22/18 09:57 Dose: 3.125 mg Furosemide (Lasix) 20 mg IVP DAILY [facility] Last Admin: 10/22/18 09:56 Dose: 20 mg Heparin Sodium (Porcine) (Heparin) 5,000 units SC Q8 [facility] Last Admin: 10/22/18 06:00 Dose: 5,000 units Insulin Human Regular (Novolin R) 0 unit SC ACHS [facility]; Protocol Last Admin: 10/22/18 11:46 Dose: 3 units Methylprednisolone (Solu-Medrol) 40 mg IVP DAILY [facility] Last Admin: 10/22/18 09:56 Dose: 40 mg Pantoprazole Sodium (Protonix Ec Tab) 40 mg PO DAILY [facility] Last Admin: 04/19/19 09:57 Dose: 40 mg Potassium Chloride (K-Dur 20 Meq Er Tab) 20 meq PO DAILY [facility] Last Admin: 10/22/18 09:58 Dose: 20 meq Rosuvastatin Calcium (Crestor) 5 mg PO HS [facility] Last Admin: 10/21/18 21:58 Dose: 5 mg Saccharomyces Boulardii (Florastor) 250 mg PO BID [facility] Last Admin: 10/22/18 10:58 Dose: 250 mg Sacubitril/Valsartan (Entresto 24 Mg-26 Mg) 1 tab PO BID [facility] Last Admin: 10/22/18 09:57 Dose: 1 tab Sitagliptin Phosphate (Januvia) 25 mg PO DAILY [facility] Last Admin: 10/22/18 09:57 Dose: 25 mg Spironolactone (Aldactone) 25 mg PO DAILY [facility] Last Admin: 10/22/18 09:57 Dose: 25 mg - Labs Labs: 10/22/18 06:36 10/22/18 06:36 PT 14.2 SECONDS (9.7-12.2) H 10/13/18 20:01 INR 1.3 10/13/18 20:01 APTT 29 SECONDS (21-34) 10/13/18 20:01 - Constitutional Appears: Well - Head Exam Head Exam: ATRAUMATIC, NORMAL INSPECTION, NORMOCEPHALIC - Eye Exam Eye Exam: EOMI, Normal appearance, PERRL Pupil Exam: NORMAL ACCOMODATION, PERRL - ENT Exam ENT Exam: Mucous Membranes Moist, Normal Exam - Neck Exam Neck Exam: Full ROM, Normal Inspection. absent: Lymphadenopathy - Respiratory Exam Respiratory Exam: Decreased Breath Sounds - Cardiovascular Exam Cardiovascular Exam: REGULAR RHYTHM, +S1, +S2 - GI/Abdominal Exam GI & Abdominal Exam: Soft, Diminished Bowel Sounds - Rectal Exam Rectal Exam: Deferred - Neurological Exam Neurological Exam: Oriented x3 Assessment and Plan (1) BILL (acute kidney injury) Status: Acute (2) Acute bronchitis Status: Acute (3) Acute exacerbation of CHF (congestive heart failure) Status: Acute (4) Community acquired pneumonia Status: Acute (5) Congestive heart failure Status: Acute (6) Decreased cardiac ejection fraction Status: Acute (7) Diabetes mellitus Status: Acute (8) Dyspnea Status: Acute (9) Electrolyte disturbance Status: Acute (10) History of hyperlipidemia Status: Acute (11) Hypokalemia Status: Acute (12) Pneumonia Status: Acute (13) Prophylactic measure Status: Acute (14) Prophylactic measure Status: Acute (15) Pulmonary embolism Status: Acute (16) Renal insufficiency Status: Acute (17) Respiratory distress Status: Acute (18) Shortness of breath Status: Acute (19) Pacemaker Status: Chronic (20) Prediabetes Status: Chronic - Assessment and Plan (Free Text) Plan: labs reviewed vitals reviewed medications reviewed discharge summary iv antibiotic to switch to po pulm cleared
--- NOTE | 2018-10-22 13:38 | CP.PCM.PN ---
<Janice Nieves - Last Filed: 10/22/18 13:35> Subjective - Date & Time of Evaluation Date of Evaluation: 10/22/18 Time of Evaluation: 13:36 - Subjective Subjective: Cardiology Consult Progress Note for Dr. Butterfield. Patient seen and examined at bedside. No overnight events reported. SOB has improved. She denies any palpitations, or chest pain. Cough has improved. Objective - Vital Signs/Intake and Output Vital Signs (last 24 hours): Temp Pulse Resp BP Pulse Ox 98.2 F 72 20 116/69 100 10/22/18 07:00 10/22/18 11:32 10/22/18 07:00 10/22/18 09:56 10/22/18 07:00 Intake and Output: 10/22/18 10/22/18 06:59 18:59 Intake Total 120 600 Balance 120 600 - Medications Medications: Current Medications Acetylcysteine (Acetylcysteine 20%) 4 ml INH RQ6 [facility] Last Admin: 10/22/18 02:58 Dose: Not Given Albuterol/Ipratropium (Duoneb 3 Mg/0.5 Mg (3 Ml) Ud) 3 ml INH RQ6 [facility] Last Admin: 10/22/18 02:58 Dose: Not Given Allopurinol (Zyloprim) 100 mg PO DAILY [facility] Last Admin: 10/22/18 09:57 Dose: 100 mg Aspirin (Ecotrin) 81 mg PO DAILY [facility] Last Admin: 10/22/18 11:20 Dose: 81 mg Benzonatate (Tessalon Perles) 100 mg PO TID [facility] Last Admin: 10/22/18 10:58 Dose: 100 mg Carvedilol (Coreg) 3.125 mg PO BID [facility] Last Admin: 10/22/18 09:57 Dose: 3.125 mg Furosemide (Lasix) 20 mg IVP DAILY [facility] Last Admin: 10/22/18 09:56 Dose: 20 mg Heparin Sodium (Porcine) (Heparin) 5,000 units SC Q8 [facility] Last Admin: 10/22/18 06:00 Dose: 5,000 units Insulin Human Regular (Novolin R) 0 unit SC ACHS [facility]; Protocol Last Admin: 10/22/18 11:46 Dose: 3 units Methylprednisolone (Solu-Medrol) 40 mg IVP DAILY [facility] Last Admin: 10/22/18 09:56 Dose: 40 mg Pantoprazole Sodium (Protonix Ec Tab) 40 mg PO DAILY [facility] Last Admin: 10/22/18 09:57 Dose: 40 mg Potassium Chloride (K-Dur 20 Meq Er Tab) 20 meq PO DAILY [facility] Last Admin: 10/22/18 09:58 Dose: 20 meq Rosuvastatin Calcium (Crestor) 5 mg PO HS [facility] Last Admin: 10/21/18 21:58 Dose: 5 mg Saccharomyces Boulardii (Florastor) 250 mg PO BID [facility] Last Admin: 10/22/18 10:58 Dose: 250 mg Sacubitril/Valsartan (Entresto 24 Mg-26 Mg) 1 tab PO BID [facility] Last Admin: 10/22/18 09:57 Dose: 1 tab Sitagliptin Phosphate (Januvia) 25 mg PO DAILY [facility] Last Admin: 10/22/18 09:57 Dose: 25 mg Spironolactone (Aldactone) 25 mg PO DAILY [facility] Last Admin: 10/22/18 09:57 Dose: 25 mg - Labs Labs: 10/22/18 06:36 10/22/18 06:36 PT 14.2 SECONDS (9.7-12.2) H 10/13/18 20:01 INR 1.3 10/13/18 20:01 APTT 29 SECONDS (21-34) 10/13/18 20:01 - Additional Findings Additional findings: - Constitutional Appears: Well, Non-toxic - Head Exam Head Exam: ATRAUMATIC, NORMOCEPHALIC - Eye Exam Eye Exam: Normal appearance - ENT Exam ENT Exam: Mucous Membranes Moist - Respiratory Exam Respiratory Exam: Clear to Ausculation Bilateral, NORMAL BREATHING PATTERN. absent: Wheezes - Cardiovascular Exam Cardiovascular Exam: +S1, +S2, Murmur Additional comments: Systolic murmur in right second intercostal space (Grade 2/5) - GI/Abdominal Exam GI & Abdominal Exam: Soft. absent: Tenderness - Extremities Exam Extremities Exam: Normal Capillary Refill. absent: Pedal Edema - Neurological Exam Neurological Exam: Alert, Awake, Oriented x3 - Psychiatric Exam Psychiatric exam: Normal Affect, Normal Mood - Skin Skin Exam: Dry, Intact, Normal Color Assessment and Plan - Assessment and Plan (Free Text) Assessment: This patient is a an 87 year old female with a PMhx of CHF with AICD, HTN, and DM who presents due to SOB x 3 days. Cardiology consulted on this patient for evaluation and treatment of acute on chronic CHF and for possible pacemaker interrogation. Plan: Acute on Chronic CHF Exacerbation ECHO (11/2016): EF 25%, diastolic dysfunction, pacemaker lead in right ventricle, moderate AR, Severe MR, Severe Pulm HTN, trace post. pericardial effusion. ECHO (10/15/18): EF <20%; left ventricle is moderately dilated. Left ventricle systolic function is severely impaired Labs: BNP - 00965 ( Chronically elevated, this is the hightest). Troponins: NEGATIVE x 3. D-Dimer 1005 CXR (Admission): No Active Pulmonary Disease. CXR (10/18/18): Moderate venous congestion. Right hilar prominence. Cardiomegaly. Left-sided pacemaker. V/Q Scan (10/14/18): Low probability for PE Mgmt: Coreg 3.125 BID Lasix 20 IVP daily Start Aldactone 25mg Daily. Stict I's and O's. Fluid Restriction, 2gm Salt Diet. Elevate HOB to 30-45 Degrees Entresto 24-26 1tab PO Daily Correct Electrolyte abnormalities. Hypokalemia (Resolved) Replenish PRN Patient seen and discussed with Attending Janice Nieves, PGY-2 <Dalton Diaz S - Last Filed: 10/23/18 10:54> Objective - Vital Signs/Intake and Output Vital Signs (last 24 hours): Temp Pulse Resp BP Pulse Ox 98.2 F 70 20 116/69 100 10/22/18 07:00 10/22/18 16:00 10/22/18 07:00 10/22/18 09:56 10/22/18 07:00 - Labs Labs: 10/22/18 06:36 10/22/18 06:36 PT 14.2 SECONDS (9.7-12.2) H 10/13/18 20:01 INR 1.3 10/13/18 20:01 APTT 29 SECONDS (21-34) 10/13/18 20:01 Attending/Attestation - Attestation I have personally seen and examined this patient.: Yes I have fully participated in the care of the patient.: Yes I have reviewed all pertinent clinical information, including history, physical exam and plan: Yes Notes (Text): case seen and d.w staff and resident, concurred with finding and management..I treated with the CHF
[2018-10-22 16:08] VITALS: PULSE 70
--- NOTE | 2018-10-22 19:06 | CP.PCM.DIS ---
Provider - Provider Date of Admission: 10/13/18 21:08 Attending physician: Arthur Diaz MD Consults: 10/13/18 21:20 Pulmonology Consult Stat Comment: Consulting Provider: Usman Robin Consulting Physician: Usman Robin Reason for Consult: SOB 10/14/18 14:25 Cardiology Consult Routine Comment: Consulting Provider: Trenton Butterfield Consulting Physician: Trenton Butterfield Reason for Consult: CHF exacerbation Time Spent in preparation of Discharge (in minutes): 30 Hospital Course - Lab Results Lab Results: Most Recent Lab Values WBC 7.4 K/uL (4.8-10.8) 10/22/18 06:36 RBC 4.26 Mil/uL (3.80-5.20) 10/22/18 06:36 Hgb 13.2 g/dL (11.0-16.0) 10/22/18 06:36 Hct 39.2 % (34.0-47.0) 10/22/18 06:36 MCV 92.0 fL (81.0-99.0) 10/22/18 06:36 MCH 30.9 pg (27.0-31.0) 10/22/18 06:36 MCHC 33.6 g/dL (33.0-37.0) 10/22/18 06:36 RDW 17.6 % (11.5-14.5) H 10/22/18 06:36 Plt Count 129 K/uL (130-400) L 10/22/18 06:36 MPV 10.1 fL (7.2-11.7) 10/22/18 06:36 Neut % (Auto) 83.4 % (50.0-75.0) H 10/22/18 06:36 Lymph % (Auto) 7.0 % (20.0-40.0) L 10/22/18 06:36 [place] % (Auto) 9.4 % (0.0-10.0) 10/22/18 06:36 Eos % (Auto) 0.1 % (0.0-4.0) 10/22/18 06:36 Baso % (Auto) 0.1 % (0.0-2.0) 10/22/18 06:36 Neut # (Auto) 6.2 K/uL (1.8-7.0) 10/22/18 06:36 Lymph # (Auto) 0.5 K/uL (1.0-4.3) L 10/22/18 06:36 [place] # (Auto) 0.7 K/uL (0.0-0.8) 10/22/18 06:36 Eos # (Auto) 0.0 K/uL (0.0-0.7) 10/22/18 06:36 Baso # (Auto) 0.0 K/uL (0.0-0.2) 10/22/18 06:36 Neutrophils % (Manual) 83 % (50-75) H 10/22/18 06:36 Band Neutrophils % 1 % (0-2) 10/22/18 06:36 Lymphocytes % (Manual) 9 % (20-40) L 10/22/18 06:36 Monocytes % (Manual) 7 % (0-10) 10/22/18 06:36 Platelet Estimate Slightly decreased (NORMAL) L 10/22/18 06:36 Polychromasia Slight 10/20/18 06:30 Hypochromasia (manual) Slight 10/20/18 06:30 Poikilocytosis (manual Slight 10/15/18 07:31 Anisocytosis (manual) Slight 10/22/18 06:36 Ovalocytes Slight 10/20/18 06:30 PT 14.2 SECONDS (9.7-12.2) H 10/13/18 20:01 INR 1.3 10/13/18 20:01 APTT 29 SECONDS (21-34) 10/13/18 20:01 D-Dimer, Quantitative 1005 ng/mlDDU (0-243) H 10/13/18 20:01 Sodium 134 mmol/L (132-148) 10/22/18 06:36 Potassium 4.1 mmol/L (3.6-5.2) 10/22/18 06:36 Chloride 92 mmol/L (98-107) L 10/22/18 06:36 Carbon Dioxide 39 mmol/L (22-30) H 10/22/18 06:36 Anion Gap 7 (10-20) L 10/22/18 06:36 BUN 44 mg/dL (7-17) H 10/22/18 06:36 Creatinine 1.0 mg/dL (0.7-1.2) 10/22/18 06:36 Est GFR ( Amer) > 60 10/22/18 06:36 Est GFR (Non-Af Amer) 53 10/22/18 06:36 POC Glucose (mg/dL) 180 mg/dL (65-110) H 10/21/18 21:11 Random Glucose 190 mg/dL (65-105) H D 10/22/18 06:36 Hemoglobin A1c 6.6 % (4.2-6.5) H 10/15/18 07:31 Calcium 8.6 mg/dl (8.6-10.4) 10/22/18 06:36 Phosphorus 2.6 mg/dL (2.5-4.5) 10/22/18 06:36 Magnesium 2.2 mg/dL (1.6-2.3) 10/22/18 06:36 Total Bilirubin 1.3 mg/dL (0.2-1.3) 10/22/18 06:36 AST 31 U/L (14-36) 10/22/18 06:36 ALT 36 U/L (9-52) 10/22/18 06:36 Alkaline Phosphatase 69 U/L (38-126) 10/22/18 06:36 Total Creatine Kinase 94 U/L (30-135) 10/14/18 13:35 CK-MB (Mass) 1.33 ng/mL (0.0-3.38) 10/14/18 13:35 Troponin I 0.0190 ng/mL (0.00-0.120) 10/14/18 13:35 NT-Pro-B Natriuret Pep 06137 pg/mL (0-900) H 10/20/18 14:00 Total Protein 5.7 g/dL (6.3-8.3) L 10/22/18 06:36 Albumin 3.3 g/dL (3.5-5.0) L 10/22/18 06:36 Globulin 2.4 gm/dL (2.2-3.9) 10/22/18 06:36 Albumin/Globulin Ratio 1.3 (1.0-2.1) 10/22/18 06:36 Triglycerides 49 mg/dL (0-149) D 10/15/18 07:31 Cholesterol 96 mg/dL (0-199) 10/15/18 07:31 LDL Cholesterol Direct 60 mg/dL (0-129) 10/15/18 07:31 HDL Cholesterol 41 mg/dL (30-70) 10/15/18 07:31 Procalcitonin < 0.05 NG/ML (0.19-0.49) L 10/19/18 06:58 - Hospital Course Hospital Course: Admitted with acute exacerbation of the CHF and pneumonia status post cardiology consult Status post pacemaker Patient had a BNP done which was 26,000 treated with the Lasix Doppler was negative Echo ejection fraction is very poor less than 20% Followed by g[facility] mobile Followed by pulmonary chest x-ray also revealed a moderate venous conditions patient treated with IV Lasix spironolactone it is post chest x-ray moderate venous congestion Chest CT due to left sided AICD mediastinal adenopathy Procalcitonin was 0.05 No medications reviewed Patient is discharged on tapering prednisone Assessment and Plan (1) Acute exacerbation of CHF (congestive heart failure) Assessment & Plan: with Left-sided pacemaker in place Consultation: Cardiology, Dr. Butterfield---> Help appreciated Imaging and Labs: BNP (10/19/18): 26,900, F/u repeat BNP LE Doppler: negative ECHO (10/15/18): EF <20%; left ventricle is moderately dilated. Left ventricle systolic function is severely impaired. Chest X-ray (10/18/18): Moderate venous congestion. Right hilar prominence. Ca rdiomegaly. Left-sided pacemaker. Medications: Lasix 20 mg IV daily Spironolactone 25mg PO daily Potassium 20meq once daily Entresto 1 tab po bid Aspirin 81 mg po qd Carvedilol 3.125mg po bid Crestor 5mg po HS Status: Acute (2) Shortness of breath Assessment & Plan: Secondary to CHF exacerbation Consultation: Brake Repairer Bus, Dr. Robin----> help appreciated Imaging/Labs: Chest X-ray (10/18/18): Moderate venous congestion. Right hilar prominence. Cardiomegaly. Left sided pacemaker. Chest CT (10/18/18): Cardiomegaly. Dual lead left-sided AICD. Mediastinal adenopathy measuring up to 1 cm (pretracheal), nonspecific.Hazy ground-glass bilateral pulmonary opacities appear consistent with edema and/or infection. Small to moderate right and small left pleural effusions. Procalcitonin: <0.05 Medications: Rin-Medrol 40mg IV q6h Azithromycin 500mg q24h Florastor 250mg PO BID Duonebs Q6H FILIPE with Mucolytics INH Q6H FILIPE Tessalon Pearls 100mg po TID for cough Status: Acute (3) BILL (acute kidney injury) Assessment & Plan: Resolved Possibly secondary to diuresis Avoid nephrotoxic drugs Status: Acute (4) Diabetes mellitus Assessment & Plan: - HgbA1c (10/15/18) is 6.6 - Lipid Panel: Total Cholesterol 96; LDL 60; HDL 41; Triglycerides 49 - Accuchecks - hypoglycemic protocol - Medications: ISS- Medium dose Januvia 25mg po daily Status: Acute (5) History of hyperlipidemia Assessment & Plan: - Lipid Panel: Total Cholesterol 96; LDL 60; HDL 41; Triglycerides 49 - Crestor 5mg po HS Status: Acute (6) Hypokalemia Assessment & Plan: Resolved Repleted appropriately Patient to continue potassium 20meq once daily Status: Acute (7) Prophylactic measure Assessment & Plan: GI: Protonix 40mg PO daily DVT: Heparin 5,000 units SC Disposition: Please discharge patient home Please discharge patient home as per Dr. Pepito Diaz Please continue with all your home medications: - Lipitor 10mg PO HS - Dexilant 30mg PO daily - Tradjenta 5mg PO daily - Entresto 24mg-26mg 1 tab PO daily - Aspirin 81mg PO daily - Coreg 3.125mg PO BID - Lasix 40mg PO daily - Potassium chloride 10meq PO once daily - Allopurinol 100mg PO once daily Please start the following new medication: - Spironolactone 12.5mg PO daily - Please complete prednisone taper: 1. Prednisone 30mg PO daily for 2 days (10/23 &10/24) 2. Prednisone 20mg PO daily for 2 days (10/25 & 10/26) 3. Prednisone 10mg PO daily for 2 days (10/27 & 10/28) 4. Prednisone 5mg PO daily for 1 day (10/29) Please follow up with PMD or Mono Diaz within 1 week of discharge Please follow up with your gm mobile or Dr. Butterfield within 1 week of discharge Please follow up with your ear mold laboratory technician or Dr. Usman Robin within 1 weeks of discharge Please continue with ambulation Please decrease salt intake Please return to the hospital if symptoms worsens or resume Discharge Exam - Head Exam Head Exam: ATRAUMATIC, NORMAL INSPECTION - Eye Exam Eye Exam: EOMI, Normal appearance, PERRL Pupil Exam: NORMAL ACCOMODATION, PERRL - ENT Exam ENT Exam: Mucous Membranes Moist - Neck Exam Neck exam: Full Rom - Respiratory Exam Respiratory Exam: Decreased Breath Sounds - Cardiovascular Exam Cardiovascular Exam: REGULAR RHYTHM, +S1, +S2 - GI/Abdominal Exam GI & Abdominal Exam: Diminished Bowel Sounds, Distended - Rectal Exam Rectal Exam: Deferred Discharge Plan - Discharge Medications Prescriptions: Spironolactone [Aldactone] 12.5 mg PO DAILY 30 Days #30 tablet Benzonatate [Tessalon Perles] 100 mg PO TID #30 sgl - Follow Up Plan Condition: STABLE Disposition: HOME/ ROUTINE Instructions: Heart Healthy Diet, Heart Failure, Adult (DC), Acute Kidney Failure (DC), Benzonatate, Spironolactone, Heart Failure (DC), Heart Failure (GEN), Pacemaker (DC), Pacemaker (GEN), Pulmonary Edema (DC), Pulmonary Edema (GEN), Ascites (DC), Ascites (GEN) Additional Instructions: Please discharge patient home as per Dr. Pepito Diaz Please continue with all your home medications: - Lipitor 10mg PO HS - Dexilant 30mg PO daily - Tradjenta 5mg PO daily - Entresto 24mg-26mg 1 tab PO daily - Aspirin 81mg PO daily - Coreg 3.125mg PO BID - Lasix 40mg PO daily - Potassium chloride 10meq PO once daily - Allopurinol 100mg PO once daily Please start the following new medication: - Spironolactone 12.5mg PO daily - Please complete prednisone taper: 1. Prednisone 30mg PO daily for 2 days (10/23 &10/24) 2. Prednisone 20mg PO daily for 2 days (10/25 & 10/26) 3. Prednisone 10mg PO daily for 2 days (10/27 & 10/28) 4. Prednisone 5mg PO daily for 1 day (10/29) Please follow up with PMD or Mono Diaz within 1 week of discharge Please follow up with your gm mobile or Dr. Butterfield within 1 week of discharge Please follow up with your ear mold laboratory technician or Dr. Usman Robin within 1 weeks of discharge Please continue with ambulation Please decrease salt intake Please return to the hospital if symptoms worsens or resume Por favor, keara de karlos a la casa del paciente segn el Dr. Pepito Diaz Por favor contine con todos cynthia medicamentos caseros: - Lipitor 10 mg PO HS - Dexilant 30mg PO diario - Tradjenta 5mg PO diario - Entresto 24mg-26mg 1 tab PO diario - Aspirina 81mg PO diario - Coreg 3.125mg PO BID - Lasix 40mg PO diario - Cloruro de potasio 10meq PO vikash vez al da. - Allopurinol 100mg PO vikash vez al da. Por favor comience la siguiente nueva medicacin: - Spironolactone 12.5mg PO diario - Por favor complete la forma de prednisona: 1. Prednisone 30mg PO diario por 2 shannon (10/23 y 10/24) 2. Prednisone 20mg PO diario por 2 shannon (10/25 y 10/26) 3. Prednisona 10 mg PO diario por 2 shannon (10/27 y 10/28) 4. Prednisona 5 mg al da por 1 da (10/29) Por favor marissa un seguimiento con PMD o D. Dalton Diaz dentro de la primera semana del karlos Por favor marissa un seguimiento con rosario cardilogo o con el Dr. Butterfield dentro de vikash semana despus del karlos Por favor marissa un seguimiento con rosario neumlogo o con el Dr. Usman Robin dentro de las 1 semanas posteriores al karlos. Por favor contina con la ambulacin Por favor disminuye la ingesta de nate [facility] al hospital si los sntomas empeoran o se reanudan. Referrals: Usman Robin MD [Staff Provider] - 7 Days () Trenton Butterfield MD [Staff Provider] - 1 Week Dalton Diaz MD [Staff Provider] - 7 Days (Please follow up within 1 week of discharge )
== END 2018-10-22 16:26 | disposition home or self-care (01) | DRG 291 ==
LOC: C.ER 19:15 → C.6T 21:08
PROVIDERS: ADMIT Internal Medicine Nephrology; ATTEND Internal Medicine Nephrology
PROC: 5A09457 Assistance with Respiratory Ventilation, 24-96 Consecutive Hours, Continuous Positive Airway Pressure (ICD-10-PCS; principal; 2018-10-13)
DX: I11.0 Hypertensive heart disease with heart failure (principal); J18.9 Pneumonia, unspecified organism; I26.99 Other pulmonary embolism without acute cor pulmonale; N17.9 Acute kidney failure, unspecified; Z95.810 Presence of automatic (implantable) cardiac defibrillator; E78.5 Hyperlipidemia, unspecified; E87.6 Hypokalemia; I27.20 Pulmonary hypertension, unspecified; I50.43 Acute on chronic combined systolic (congestive) and diastolic (congestive) heart failure; D72.819 Decreased white blood cell count, unspecified; I42.9 Cardiomyopathy, unspecified; J20.9 Acute bronchitis, unspecified; K59.00 Constipation, unspecified; Z79.82 Long term (current) use of aspirin; E11.65 Type 2 diabetes mellitus with hyperglycemia

== ENCOUNTER 2018-10-27 11:10 | Emergency (ER) | payer MEDICARE, MEDICAID ==
[2018-10-27 11:10] VITALS: BMI 29.2
[2018-10-27] MEDS ORDERED: Sodium Chloride 0.9% 1,000 ML IV ONE ×2 (11:53→15:03)
[2018-10-27 12:16] LABS: BASO % 0.5 % (0.0-2.0); HEMOGLOBIN 13.5 g/dL (11.0-16.0); LYMPH # 0.3 K/uL (1.0-4.3); LYMPH % 4.6 % (20.0-40.0); MEAN CELL VOLUME 91.6 fL (81.0-99.0); MEAN CORPUSCULAR HEMOGLOBIN 30.2 pg (27.0-31.0); MEAN PLATELET VOLUME 10.1 fL (7.2-11.7); MONO # 0.4 K/uL (0.0-0.8); MONO % 5.8 % (0.0-10.0); NEUT # 5.9 K/uL (1.8-7.0); NEUT % 89.1 % (50.0-75.0); PLATELET COUNT 142 K/uL (130-400); RBC 4.47 Mil/uL (3.80-5.20); RED CELL DISTRIBUTION WIDTH 17.8 % (11.5-14.5); WHITE BLOOD COUNT 6.6 K/uL (4.8-10.8)
[2018-10-27 12:21] LABS: SQUAMOUS EPITHIAL 1 /hpf (0-5); URINE BILIRUBIN NEGATIVE (NEGATIVE); URINE BLOOD 1+ (NEGATIVE); URINE CLARITY Clear (Clear); URINE COLOR Straw (YELLOW); URINE GLUCOSE (UA) 3+ mg/dL (Normal); URINE LEUKOCYTE ESTERASE NEG Leu/uL (Negative); URINE PROTEIN NEGATIVE (NEGATIVE); URINE UROBILINOGEN NORMAL mg/dL (0.2-1.0)
[2018-10-27 12:29] VITALS: PULSE 70
[2018-10-27 12:33] LABS: ALB/GLOB RATIO 1.4 (1.0-2.1); ALBUMIN 3.4 g/dL (3.5-5.0)
[2018-10-27 12:50] LABS: LYMPHOCYTE 9 % (20-40); MONOCYTE 5 % (0-10); NEUTROPHIL 86 % (50-75); PLATELET ESTIMATE NORMAL (NORMAL); TOTAL CELLS COUNTED 100
--- NOTE | 2018-10-27 12:55 | RAD ---
Date of service: 10/27/2018 HISTORY: weakness COMPARISON: 10/18/2018. FINDINGS: LUNGS: The lungs are well inflated and clear. PLEURA: No pleural effusions or pneumothorax. CARDIOVASCULAR: There is moderate cardiomegaly. There is stable position of left-sided dual lead permanent pacing device. No aortic atherosclerotic calcifications present. OSSEOUS STRUCTURES: Within normal limits for the patient's age. VISUALIZED UPPER ABDOMEN: Normal. OTHER FINDINGS: None. IMPRESSION: No active pulmonary disease. Moderate cardiomegaly.
[2018-10-27 13:08] LABS: VENOUS BLOOD GAS BASE EXCESS 1.9 mmol/L (0.0-2.0); VENOUS BLOOD GAS PCO2 41 mmHg (40-60); VENOUS BLOOD GAS PO2 83 mm/Hg (30-55); VENOUS BLOOD PH 7.42 (7.32-7.43)
[2018-10-27 13:17] VITALS: O2SAT 98
--- NOTE | 2018-10-27 13:51 | C.PDOC ---
History Of Present Illness 88 year old female with PMHx of diabetes is brought to the ED by family for evaluation of generalized weakness since she was discharged from the hospital 4 days ago. Family also notes bruising on the left wrist and abdomen after she was discharged. They also note patient's blood sugar has been higher than 500 at home despite compliance with medications. Patient notes she feels weak but denies any other physical complaints. Time Seen by Provider: 10/27/18 11:49 Chief Complaint (Nursing): High Blood Sugar History Per: Patient, Family History/Exam Limitations: no limitations Onset/Duration Of Symptoms: Days Current Symptoms Are (Timing): Still Present Past Medical History Reviewed: Historical Data, Nursing Documentation, Vital Signs Vital Signs: Last Vital Signs Temp 98.3 F 10/27/18 11:19 Pulse 70 10/27/18 13:17 Resp 13 10/27/18 13:17 BP 137/68 10/27/18 13:17 Pulse Ox 98 10/27/18 13:17 - Medical History PMH: CHF, HTN, Hypercholesterolemia, Pneumonia Denies: Chronic Kidney Disease Surgical History: Cholecystectomy, Pacemaker - [facility] Procedures ASSISTANCE WITH RESPIRATORY VENTILATION, 24-96 HRS, CPAP (10/13/18) ESOPHAGOGASTRODUODENOSCOPY [EGD] W/CLOSED BIOPSY (12/20/12) MEASUREMENT OF CARDIAC DEFIBRILLATOR, EXTERNAL APPROACH (11/22/16) Family History: States: No Known Family Hx - Social History Hx Alcohol Use: No Hx Substance Use: No - Immunization History Hx Tetanus Toxoid Vaccination: No Hx Influenza Vaccination: Yes Hx Pneumococcal Vaccination: No Review Of Systems Constitutional: Positive for: Weakness. Negative for: Fever, Chills Cardiovascular: Negative for: Chest Pain Respiratory: Negative for: Shortness of Breath Gastrointestinal: Negative for: Nausea, Vomiting, Abdominal Pain, Diarrhea Neurological: Negative for: Weakness, Numbness, Headache Physical Exam - Physical Exam Appears: Non-toxic, No Acute Distress Skin: Warm, Dry, Ecchymosis (left wrist and left lower abdomen ) Head: Normacephalic Eye(s): bilateral: Normal Inspection Nose: Normal Oral Mucosa: Moist Neck: Supple Chest: Symmetrical Cardiovascular: Rhythm Regular Respiratory: Normal Breath Sounds, No Rales, No Rhonchi, No Wheezing Gastrointestinal/Abdominal: Soft, No Tenderness Neurological/Psych: Oriented x3, Normal Speech Gait: Steady ED Course And Treatment - Laboratory Results Result Diagrams: 10/27/18 12:06 10/27/18 12:06 Lab Results: pO2 83 mm/Hg (30-55) H 10/27/18 13:02 VBG pH 7.42 (7.32-7.43) 10/27/18 13:02 VBG pCO2 41 mmHg (40-60) 10/27/18 13:02 VBG HCO3 26.4 mmol/L 10/27/18 13:02 VBG Total CO2 27.9 mmol/L (22-28) 10/27/18 13:02 VBG O2 Sat (Calc) 98.1 % (40-65) H 10/27/18 13:02 VBG Base Excess 1.9 mmol/L (0.0-2.0) 10/27/18 13:02 VBG Potassium 4.5 mmol/L (3.6-5.2) 10/27/18 13:02 Sodium 131.0 mmol/l (132-148) L 10/27/18 13:02 Chloride 93.0 mmol/L (98-107) L 10/27/18 13:02 Glucose 600 mg/dl (65-105) H* D 10/27/18 13:02 Lactate 2.4 mmol/L (0.7-2.1) H 10/27/18 13:02 Crit Value Called To Dr israel 10/27/18 13:02 Crit Value Called By Brody ochoa industrial diamond polisher 10/27/18 13:02 Crit Value Read Back Y 10/27/18 13:02 Blood Gas Notified Time 1307 10/27/18 13:02 Total Bilirubin 1.3 mg/dL (0.2-1.3) 10/27/18 12:06 AST 30 U/L (14-36) 10/27/18 12:06 ALT 45 U/L (9-52) 10/27/18 12:06 Alkaline Phosphatase 79 U/L (38-126) 10/27/18 12:06 Total Protein 5.9 g/dL (6.3-8.3) L 10/27/18 12:06 Albumin 3.4 g/dL (3.5-5.0) L 10/27/18 12:06 Globulin 2.5 gm/dL (2.2-3.9) 10/27/18 12:06 Albumin/Globulin Ratio 1.4 (1.0-2.1) 10/27/18 12:06 Urine Color Straw (YELLOW) 10/27/18 12:06 Urine Clarity Clear (Clear) 10/27/18 12:06 Urine pH 7.0 (5.0-8.0) 10/27/18 12:06 Ur Specific [place] 1.009 (1.003-1.030) 10/27/18 12:06 Urine Protein Negative mg/dL (NEGATIVE) 10/27/18 12:06 Urine Glucose (UA) 3+ mg/dL (Normal) H 10/27/18 12:06 Urine Ketones Negative mg/dL (NEGATIVE) 10/27/18 12:06 Urine Blood 1+ (NEGATIVE) H 10/27/18 12:06 Urine Nitrate Negative (NEGATIVE) 10/27/18 12:06 Urine Bilirubin Negative (NEGATIVE) 10/27/18 12:06 Urine Urobilinogen Normal mg/dL (0.2-1.0) 10/27/18 12:06 Ur Leukocyte Esterase Neg Debby/uL (Negative) 10/27/18 12:06 Urine WBC (Auto) 1 /hpf (0-5) 10/27/18 12:06 Urine RBC (Auto) 4 /hpf (0-3) H 10/27/18 12:06 Ur Squamous Epith Cells 1 /hpf (0-5) 10/27/18 12:06 O2 Sat by Pulse Oximetry: 98 (RA) Pulse Ox Interpretation: Normal - Other Rad CXR X-Ray: Viewed By Me, Read By Radiologist Interpretation: Accession No. : [id number]. Patient Name / ID : [id number] / [id number]. Exam Date : 10/27/2018 12:07:14 ( Approved ). Study Comment : Sex / Age : F / 88Y. Creator : Livia Jones MD. Dictator : Livia Jones MD. Final Dressing Cutter : National Van Truck Driver : Livia Jones MD. Approver2 : Report Date : 10/27/2018 12:52:00. My Comment : . Date of service: 10/27/2018. HISTORY: weakness. COMPARISON: 10/18/2018. FINDINGS: LUNGS: The lungs are well inflated and clear. PLEURA: No pleural effusions or pneumothorax. CARDIOVASCULAR: There is moderate cardiomegaly. There is stable position of left-sided dual lead permanent pacing device. No aortic atherosclerotic calcifications present. OSSEOUS STRUCTURES: Within normal limits for the patient's age. VISUALIZED UPPER ABDOMEN: Normal. OTHER FINDINGS: None. IMPRESSION: No active pulmonary disease. Moderate cardiomegaly. Medical Decision Making Medical Decision Making: Plan - EKG - IV fluids - Bloodwork - UA - CXR EKG results 12:14 Atrial paced rhythm, 70 bpm, LBBB, left axis deviation, no ST elevation Labs done with no evidence of DKA. IV hydration given, glucose improved to 384. Patient with no complaints, states that she feels better. Advised outpatient followup and remaining compliant with diabetes medications. Patient and family amenable to discharge home. Disposition - Disposition Disposition: HOME/ ROUTINE Disposition Time: 17:40 Condition: GOOD Additional Instructions: BASHIR EARL, thank you for letting us take care of you today. Your provider was Rosy Buckley MD and you were treated for HIGH BLOOD SUGAR. The emergency medical care you received today was directed at your acute symptoms. If you were prescribed any medication, please fill it and take as directed. It may take several days for your symptoms to resolve. Return to the Emergency Department if your symptoms worsen, do not improve, or if you have any other problems. Please contact your doctor or call one of the physicians/clinics you have been referred to that are listed on the Patient Visit Information form that is included in your discharge packet. Bring any paperwork you were given at discharge with you along with any medications you are taking to your follow up visit. Our treatment cannot replace ongoing medical care by a primary care provider outside of the emergency department. Thank you for allowing the [facility] team to be part of your care today. If you had an X-Ray or CT scan: A Radiologist will review the ED reading if any change in treatment is needed we will contact you. If you had a blood, urine, or wound culture: It will take several days for the results, if any change in treatment is needed we will contact you. If you had an STI test: It will take 48 hours for the results. Please call after 1 week if you have not heard back. Instructions: Hyperglycemia, Adult (DC), Weakness (ED) Forms: [employer] ([place]) - Clinical Impression Clinical Impression: Hyperglycemia, Generalized weakness - Scribe Statement The provider has reviewed the documentation as recorded by the Scribe Delma Garcia All medical record entries made by the Estheribmariola were at my direction and personally dictated by me. I have reviewed the chart and agree that the record accurately reflects my personal performance of the history, physical exam, medical decision making, and the department course for this patient. I have also personally directed, reviewed, and agree with the discharge instructions and disposition.
[2018-10-27] MEDS ORDERED: (Novolin R) Insulin Human Regular 100 units/ml vial IVP ONE (15:02)
[2018-10-27] MEDS ORDERED: Sodium Chloride 0.9% 1,000 ML ONE (15:13)
[2018-10-27] MEDS ORDERED: (Novolin R) Insulin Human Regular 100 units/ml vial ONE (15:13)
[2018-10-27 17:27] VITALS: BP 110/62; RESP 19; TEMP 97.8
--- NOTE | 2018-10-28 19:44 | CARD ---
APPROVED REPORT Date of service: 10/27/2018 EKG Measurement Heart [id number] ID [id number] <Conclusion> Atrial-paced rhythm with prolonged AV conduction Left axis deviation Left bundle branch block Abnormal ECG
== END 2018-10-27 17:40 | disposition home or self-care (01) ==
LOC: C.ER 11:10
DX: E11.65 Type 2 diabetes mellitus with hyperglycemia (principal); R53.1 Weakness
CPT/HCPCS: 71045; 80053; 81001; 82803; 82948; 85025; 93005; 96361; 96374; 99285; J7030